=== PATIENT | female | born 1980 | race Caucasian/White ===

== ENCOUNTER 2023-06-02 20:25 | Emergency (ER) | payer OTHER, SELFPAY ==
--- NOTE | 2023-06-02 20:28 | ED_ITS ---
HPI - General Adult General Chief complaint: Urogenital-Female Stated complaint: UTI COMPLAINT Time Seen by Provider: 06/02/23 20:27 History of Present Illness HPI narrative: Patient presents to emergency department complaining of urinary frequency, dysuria and low back pain for the last 3 days. She states she had some pressure when urinating. She denies any fever, chills. Has some nausea denies any vomiting, diarrhea, constipation, or abdominal pain. She denies any vaginal bleeding, discharge. She states she had a urinary tract infection before and it feels like it. She has no previous history of kidney stones. She is not diabetic her glucose has been 180s. He denies any hematuria. She denies any trauma. Related Data Home Medications Medication Instructions Recorded Confirmed amitriptyline 100 mg tablet 100 mg PO DAILY 06/02/23 06/02/23 empagliflozin 10 mg tablet 10 mg PO DAILY 06/02/23 06/02/23 (Jardiance) furosemide 80 mg tablet 80 mg PO DAILY 06/02/23 06/02/23 gabapentin 600 mg tablet 600 mg PO Q12H 06/02/23 06/02/23 metformin 500 mg tablet,extended 500 mg PO DAILY 06/02/23 06/02/23 release 24 hr metoprolol tartrate 100 mg tablet 100 mg PO DAILY 06/02/23 06/02/23 pantoprazole 40 mg tablet,delayed 40 mg PO DAILY 06/02/23 06/02/23 release semaglutide 0.25 mg or 0.5 mg (2 mg subcut 06/02/23 mg/3 mL) subcutaneous pen injector (Ozempic) tizanidine 4 mg tablet 4 mg PO Q8H PRN muscle spasticity 06/02/23 06/02/23 Previous Rx's Medication Instructions Recorded metformin 500 mg tablet 500 mg PO DAILY #30 tabs 06/02/23 Allergies Allergy/AdvReac Type Severity Reaction Status Date / Time No Known Drug Allergies Allergy Verified 06/02/23 20:35 Review of Systems ROS Status of ROS 10 or more systems reviewed and unremarkable except as noted in history and below PFSH PFS Social History Smoking status: Current every day smoker Exam Narrative Exam Narrative: Nurses notes and vital signs reviewed and patient is not hypoxic. General: Nontoxic, Well-appearing and in no apparent distress. Skin: Warm, dry, no pallor noted. No Rash Head: Normocephalic, atraumatic. Neck: Supple, non-tender. Eye: Pupils are equal, round and EOMI. No scleral icterus. Ears, Nose, Mouth, and Throat: TM clear, no posterior oropharynx erythema or nasal mucosal hypertrophy, uvula is mid-line Oral mucosa is moist Cardiovascular: Regular Rate and Rhythm without murmur, gallop or rub. Respiratory: No accessory muscle use or respiratory distress. Lungs are clear to auscultation, no wheezing, rales or rhonchi Chest Wall: no tenderness Back: No midline thoracic or lumbar vertebral tenderness. No CVA tenderness Musculoskeletal: normal ROM, no calf or popliteal tenderness, no lower extremity edema/swelling GI: Abdomen is soft, non-distended. Normal bowel sounds. No masses appreciated. No tenderness to palpation. No rebound, guarding, or rigidity noted. Neurological: A&O x4. No cranial nerve dysfunction observed. No truncal ataxia. Moves all extremities. Sensation intact. Psychiatric: Cooperative and interactive. Normal mood and affect. Constitutional Vital Signs, click to edit/add: Last Vital Signs Temp 97.9 F 06/02/23 20:31 Pulse 96 H 06/02/23 20:31 Resp 18 06/02/23 20:31 BP 126/85 06/02/23 20:31 Pulse Ox 96 06/02/23 20:31 O2 Del Method Room Air 06/02/23 20:31 Course Vital Signs Vital signs: Vital Signs Temperature 97.9 F 06/02/23 20:31 Pulse Rate 96 H 06/02/23 20:31 Respiratory Rate 18 06/02/23 20:31 Blood Pressure 126/85 06/02/23 20:31 Pulse Oximetry 96 06/02/23 20:31 Oxygen Delivery Method Room Air 06/02/23 20:31 Temperature 97.9 F 06/02/23 20:31 Pulse Rate 96 H 06/02/23 20:31 Respiratory Rate 18 06/02/23 20:31 Blood Pressure 126/85 06/02/23 20:31 Pulse Oximetry 96 06/02/23 20:31 Oxygen Delivery Method Room Air 06/02/23 20:31 Medical Decision Making MDM Narrative Medical decision making narrative: Patient's urinalysis does not show the patient to be dehydrated. Did show glycosuria. The patient takes guardians. Patient's glucose is 320. She states she has been working on trying to bring her glucose down but she has not seen her primary care doctor recently to have all of her lupus control testing. Patient is advised to take an extra 500 mg of metformin every morning and follow-up with Dr. hudson for diabetes control testing. There is no clinical indication for antibiotics at this time. Patient is so advised to drink more fluids. At this time the patient is without objective evidence of an acute process requiring hospitalization or inpatient management. The patient has remained hemodynamically stable. No additional indication for emergent studies at this time. I answered all questions. Discussed discharge instructions including standard anticipatory guidance and what should prompt a return to the emergency department, including if they get worse are not getting better or develops any new or concerning symptoms. I've given them specific time frame in which to follow-up, and who to follow-up with. The patient demonstrates understanding. Patient is nontoxic and stable for discharge with outpatient follow-up. This note was created with the assistance of a speech recognition program. Although the intention is to generate documents that actually reflects the content of the visit, no guarantees can be provided that every mistake has been identified and corrected by editing. Lab Data Lab results reviewed: Yes I reviewed the patient's lab results Labs: Lab Results 06/02/23 06/02/23 Range/Units 20:55 21:30 Urine Color Lt. yellow (YELLOW) Urine Clarity Clear (CLEAR) Urine pH 6.0 (5.0-9.0) Ur Specific [place] 1.010 (1.005-1.025) Urine Protein Negative (NEG/TRACE) mg/dL Urine Glucose (UA) >=1000 A (NEGATIVE) mg/dL Urine Ketones Negative (NEGATIVE) mg/dL Urine Occult Blood Negative (NEGATIVE) Urine Nitrite Negative (NEGATIVE) Urine Bilirubin Negative (NEGATIVE) Urine Urobilinogen 0.2 (0.2-1.0) EU/dL Ur Leukocyte Esterase Negative (NEGATIVE) Urine HCG, Qual Negative (NEGATIVE) POC Glucose 321 H (74-106) mg/dL Discharge Plan Discharge Chief Complaint: Urogenital-Female Clinical Impression: Glycosuria, Dysuria, Hyperglycemia Patient Disposition: Home, Self-Care Time of Disposition Decision: 21:38 Condition: Good Mode of Transportation: Private Vehicle Prescriptions / Home Meds: New metformin 500 mg tablet 500 mg PO DAILY Qty: 30 0RF No Action gabapentin 600 mg tablet 600 mg PO Q12H metoprolol tartrate 100 mg tablet 100 mg PO DAILY tizanidine 4 mg tablet 4 mg PO Q8H PRN (Reason: muscle spasticity) furosemide 80 mg tablet 80 mg PO DAILY pantoprazole 40 mg tablet,delayed release (DR/EC) 40 mg PO DAILY metformin 500 mg tablet extended release 24 hr 500 mg PO DAILY amitriptyline 100 mg tablet 100 mg PO DAILY Jardiance 10 mg tablet 10 mg PO DAILY Ozempic 0.25 mg or 0.5 mg (2 mg/3 mL) pen injector SUBCUT Instructions: Dysuria (ED), Diabetic Hyperglycemia (ED) Additional Instructions: Take a total of 1000 mg of metformin in the morning. Follow-up with Dr. Hudson to recheck her blood sugar regarding this visit. Stand Alone Forms: Portal Instructions Referrals: Narinder Hudson MD [Primary Care Provider] - 1 week
[2023-06-02 20:31] VITALS: BP 126/85; PULSE 96; RESP 18; TEMP 36.6; O2SAT 96; BMI 41.3
[2023-06-02 21:10] LABS: Bilirubin Urine NEGATIVE (NEGATIVE); Blood Urine NEGATIVE (NEGATIVE); Clarity Urine CLEAR (CLEAR); Color Urine LT. YELLOW (YELLOW); Glucose Urine UA >=1000 mg/dL (NEGATIVE); Ketones Urine NEGATIVE (NEGATIVE); Leukocyte Esterase Urine NEGATIVE (NEGATIVE); Nitrite Urine NEGATIVE (NEGATIVE); Protein Urine NEGATIVE (NEG/TRACE); Urobilinogen Urine 0.2 EU/dL (0.2-1.0)
[2023-06-02 21:15] LABS: Urine Microscopic Indicated NO
[2023-06-02 21:30] LABS: Glucometer 321 mg/dL (74-106)
[2023-06-02 21:57] LABS: HCG Qualitative Urine* NEGATIVE (NEGATIVE)
== END 2023-06-02 22:04 | disposition home or self-care (01) ==
PROVIDERS: Emergency Provider Emergency Medicine; PCP Family Medicine
DX: R30.0 Dysuria (principal); R81 Glycosuria; R73.9 Hyperglycemia, unspecified; Z79.84 Long term (current) use of oral hypoglycemic drugs; Z79.899 Other long term (current) drug therapy; F17.210 Nicotine dependence, cigarettes, uncomplicated
CPT/HCPCS: 36415; 36416; 81003; 82948; 84703; 99283

== ENCOUNTER 2023-11-04 09:48 | Outpatient (OUT) | payer OTHER, SELFPAY ==
[2023-11-04 10:20] LABS: Basophils Absolute Auto 0.1 10^3/uL (0.0-0.1); Basophils Percent Auto 1.2 % (0.2-2.0); Eosinophils Absolute Auto 0.4 10^3/uL (0.0-0.7); Eosinophils Percent Auto 4.4 % (0.9-7.0); Hematocrit 45.8 % (36.0-48.0); Hemoglobin 15.9 g/dL (12.0-16.0); Immature Granulocytes Abs Auto 0.05 10^3/uL (0.00-0.03); Immature Granulocytes Pct Auto 0.6 % (0.0-0.5); Lymphocytes Absolute Auto 2.6 10^3/uL (1.2-3.8); Lymphocytes Percent Auto 32.2 % (20.5-60.0); Mean Corpuscular HGB Conc 34.7 g/dL (29.9-35.2); Mean Corpuscular Hemoglobin 30.9 pg (26.7-34.0); Mean Corpuscular Volume 89.1 fL (81.0-99.0); Mean Platelet Volume 9.9 fL (9.5-13.5); Monocytes Absolute Auto 0.4 10^3/uL (0.3-0.8); Monocytes Percent Auto 4.6 % (1.7-12.0); Neutrophils Absolute Auto 4.6 10^3/uL (1.4-6.5); Platelet Count 282 10^3/uL (150-450); Red Blood Count 5.14 10^6/uL (4.20-5.40); Red Cell Distribution Width 12.6 % (11.0-15.0); White Blood Count 8.1 10^3/uL (4.0-11.0)
[2023-11-04 12:10] LABS: Estimated Average Glucose 197 mg/dL; Glycohemoglobin A1C 8.5 % (4.5-6.2)
[2023-11-04 12:26] LABS: Anion Gap 15.9; Carbon Dioxide 25.4 mmol/L (21.0-32.0); Chloride 97 mmol/L (98-107); Potassium 4.3 mmol/L (3.5-5.1); Sodium 134 mmol/L (136-145)
[2023-11-04 12:27] LABS: Alanine Aminotransferase 74 U/L (14-59); Albumin Globulin Ratio 0.9; Albumin Level 3.6 g/dL (3.4-5.0); Alkaline Phosphatase 75 U/L (46-116); Aspartate Amino Transferase 53 U/L (15-37); BUN Creatinine Ratio 9.3; Bilirubin Total 0.5 mg/dL (0.2-1.0); Calcium 10.4 mg/dL (8.5-10.1); Cholesterol 227 mg/dL (<=200); Estimated GFR (African America >60 (>=60); Estimated GFR (Non-African Ame >60 (>=60); Glucose 262 mg/dL (74-106); HDL Cholesterol 33 mg/dL (40-60); Total Protein 7.6 g/dL (6.4-8.2); Triglycerides 475 mg/dL (<=150)
[2023-11-04 12:28] LABS: Chol HDL Ratio 6.9; Free T3 3.03 pg/mL (2.18-3.98)
[2023-11-04 12:29] LABS: LDL Cholesterol Direct 118 mg/dL
[2023-11-05 11:08] LABS: Insulin 32.7 uIU/mL (2.6-24.9)
== END 2023-11-04 09:49 | disposition home or self-care (01) ==
LOC: LAB 09:51
PROVIDERS: PCP Family Medicine; Visit Provider Family Medicine
DX: Z00.00 Encounter for general adult medical examination without abnormal findings (principal)
CPT/HCPCS: 36415; 80053; 80061; 82306; 83036; 83525; 83540; 83721; 84436; 84443; 84481; 85025

== ENCOUNTER 2024-11-11 08:33 | Outpatient (OUT) | payer OTHER, SELFPAY ==
--- NOTE | 2024-11-11 08:41 | CT_ITS ---
[place] [id number] Patient Name: ALPHONSO GALE MRN: [id number] date: 1980 Sex: F Assigned Patient Location: LAB Current Patient Location: LAB Accession/Order Number: [id number] Exam Date: 11/11/2024 09:50 Report Date: 11/11/2024 14:45 At the request of: GABINO BEDOLLA Procedure: CT abdomen pelvis w con EXAMINATION: CT abdomen pelvis w con HISTORY: Abdominal Wall Mass COMPARISON: No relevant comparison available. TECHNIQUE: CT images were created with IV contrast. Axial, Coronal, and Sagittal images. Dose reduction techniques were achieved by using automated exposure control and/or adjustment of mA and/or kV according to patient size and/or use of iterative reconstruction technique. FINDINGS: LUNG BASES: No visible pulmonary or pleural disease. LIVER: Diffuse hypoattenuation consistent with hepatic steatosis BILIARY: Surgical clips from cholecystectomy PANCREAS: No lesion, fluid collection, ductal dilatation, or atrophy. SPLEEN: No enlargement or focal lesion. ADRENALS: No mass or enlargement. KIDNEYS: No mass, obstruction, or calcification. BOWEL/MESENTERY: Mild colonic diverticulosis without evidence of acute diverticulitis. Nonobstructive bowel gas pattern. Normal appendix AORTA/VASCULAR: No aortic aneurysm or dissection RETROPERITONEUM: No mass or adenopathy. LYMPH NODES: No adenopathy. URINARY BLADDER: No visible focal wall thickening, lesion, or calculus. PELVIC ORGANS: Hysterectomy ABDOMINAL WALL: 1.5 cm supraumbilical hernia containing fat axial image 100. Soft tissue attenuation at the umbilicus measuring 2 cm axial image 105, nonspecific in the region of the patient's palpable abnormality demarcated with the BB central upper abdominal wall axial image 46 no subjacent abnormality is observed BONES: No bony lesion or fracture. OTHER: Negative. CT/CT abdomen pelvis w con IMPRESSION: No focal mass or hernia in the region of the patient's palpable abnormality demarcated with the BB Electronically authenticated by: EDUARDO MAS Date: 11/11/2024 14:45
[2024-11-11 08:50] LABS: Estimated GFR (African America >60 (>=60 mL/min/1.73m^2); Estimated GFR (Non-African Ame >60 (>=60 mL/min/1.73m^2)
== END 2024-11-11 08:34 | disposition home or self-care (01) ==
LOC: LAB 08:34
PROVIDERS: PCP Family Medicine; Visit Provider Family Medicine
DX: R19.00 Intra-abdominal and pelvic swelling, mass and lump, unspecified site (principal)
CPT/HCPCS: 36415; 74177; 82565; Q9967

== ENCOUNTER 2025-02-18 07:38 | Outpatient (OUT) | payer OTHER, SELFPAY ==
--- NOTE | 2025-02-18 07:41 | MR_ITS ---
The [address] [address] Patient Name: ALPHONSO GALE MRN: [id number] date: 1980 Sex: F Assigned Patient Location: MRI Current Patient Location: MRI Accession/Order Number: [id number] Exam Date: 02/18/2025 08:47 Report Date: 02/18/2025 09:04 At the request of: GABINO BEDOLLA MD Procedure: MR head/brain wo/w con MRI BRAIN WITHOUT AND WITH INTRAVENOUS CONTRAST CLINICAL DATA: Chronic migraine headaches, fatigue and extremity nerve pain. COMPARISON: 04/07/2020 Multiecho, multiplanar imaging of the brain was performed before and after intravenous administration of 20 mL of Dotarem. The ventricles are normal in size and position. Patchy areas of increased FLAIR signal are visualized within the periventricular and subcortical white matter as well as also possibly the right cerebellum and left cerebellar peduncle. Given patient's age, multiple sclerosis plaque is a possibility. Chronic microvascular disease would be thought less likely without risk factors. There are no additional areas of abnormal signal intensity or enhancement within the supra or infratentorial brain. There is no restricted diffusion to suggest a recent ischemic event. No extra-axial collections or mass effect are seen. There are borderline low-lying cerebellar tonsils. Partial empty sella is again seen. The imaged paranasal sinuses and mastoid air cells are clear. MR/MR head/brain wo/w con IMPRESSION: NONSPECIFIC WHITE MATTER CHANGES, DESCRIBED. NO OTHER ACUTE INTRACRANIAL FINDINGS. Impression dictated by: Isabelle Ortiz M.D.02/18/2025 9:04 AM Dictation Location: [place] [address] Electronically authenticated by: [id number] Y Date: 02/18/2025 09:04
--- OUTSIDE RECORDS SUMMARY | 2025-02-18 07:41 | XMS_ITS | CCD ---
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 Name Role Phone Prosche Carvalho Unavailable DR GABINO BULLOCK Admitting Unavailable DR GABINO BULLOCK Attending Unavailable DR GABINO BULLOCK Primary Care Unavailable DR GABINO BULLOCK Admitting Unavailable DR GABINO BULLOCK Attending Unavailable DR GABINO BULLOCK Primary Care Unavailable DR GABINO BULLOKC Consulting Unavailable Allergies Allergy Classification Reported Allergen(s) Allergy Type Date of Onset Reaction(s) Facility (1 source) Egg Propensity to adverse reactions Apiary Other Medications Current Medications Medication Drug Class(es) Dates Sig (Normalized) Sig (Original) [id number] 200 actuat albuterol 0.09 mg/actuat metered dose inhaler (1 source) beta2-Adrenergic Agonist Start: 11-01-2020 take 2 puff(s) by inhalation every four hours as needed Albuterol Sulfate HFA 108 (90 Base) MCG/ACT 2 puffs as needed Inhalation every 4 hrs for 30 days Oct, Active cephalexin 500 mg oral capsule (1 source) Cephalosporin Antibacterial Start: 08-31-2021 take 1 capsule by mouth every six hours Cephalexin 500 MG 1 capsule Orally Four times a day for 10 day(s) Aug, Active dexamethasone 6 mg oral tablet (1 source) Corticosteroid Start: 11-01-2020 take 1 tablet by mouth every twenty-four hours Dexamethasone 6 MG 1 tablet Orally Once a day for 5 days Oct, Active Etodolac (1 source) Nonsteroidal Anti-inflammatory Drug Etodolac Active Furosemide (1 source) Loop Diuretic Furosemide Activ e metFORMIN (1 source) Biguanide metFORMIN HCl Active Metoprolol (1 source) beta-Adrenergic Filiberto Metoprolol Tartrate Active sulfamethoxazole 800 mg / trimethoprim 160 mg oral tablet (1 source) Dihydrofolate Reductase Inhibitor Antibacterial, Sulfonamide Antimicrobial Start: 08-31-2021 take 1 tablet by mouth every twelve hours Bactrim DS 800-160 MG 1 tablet Orally Twice a day for 10 day(s) Aug, Active tiZANidine (1 source) Central alpha-2 Adrenergic Agonist tiZANidine HCl Active Problems Active Problems Problem Classification Problem Date Documented Da te Episodic/Chronic Deficiency and other anemia (1 source) Anemia, unspecified; Translations: [ANEMIA UNSPECIFIED] Onset: 12-16-2022 Episodic Diabetes mellitus without complication (1 source) Type 2 diabetes mellitus without complications; Translations: [TYPE 2 DM WITHOUT COMPLICATIONS] Onset: 12-16-2022 Chronic Essential hypertension (1 source) Essential (primary) hypertension; Translations: [ESSENTIAL PRIMARY HYPERTENSION] Onset: 12-16-2022 Chronic Other nutritional; endocrine; and metabolic disorders (4 sources) Overweight; Translations: [OVERWEIGHT] Onset: 12-13-2022 Episodic Other screening for suspected conditions (not mental disorders or infectious disease) (1 source) Encounter for screening for malignant neoplasm of rectum; Translations: [ENC SCREEN MALIG NEOPLASM RECTUM] Onset: 12-16-2022 Episodic Past or Other Problems Problem Classification Problem Date Documented Da te Episodic/Chronic Skin and subcutaneous tissue infections (1 source) Cutaneous abscess of buttock; Translations: [Abscess of buttock, right L02.31] Onset: 08-31-2021 Resolved: 08-31-2021 Episodic Results Test Name Value Interpretation Reference Range Facility INSULINon 12-14-2022 Insulin 22.4 uIU/mL Normal 2.6-24.9 [facility] Comment on above: Performed By: #### I NSULIN #### [facility] [address] [address] [address] Saul Quispe CBC AUTO DIFFon 12-13-2022 BASO # 0.1 103/ul Normal 0.0-0.1 [facility] Comment on above: Performed By: #### C BC #### [facility] [address] [address] [address] Saul Quispe Basophils/100 WBC (Bld) 0.6 % Normal 0.2-2.0 [facility] Comment on above: Performed By: #### C BC #### [facility] [address] [place] [address] Dr. Saul Quispe EO # 0.2 103/ul Normal 0.0-0.7 [facility] Comment on above: Performed By: #### C BC #### [facility] [address] [place] [address] Dr. Saul Quispe Eosinophils/100 WBC (Bld) 1.2 % Normal 0.9-7.0 [facility] Comment on above: Performed By: #### C BC #### [facility] [address] [place] [address] Dr. Saul Quispe Erythrocyte distribution width (RBC) [Ratio] 12.1 % Normal 11.0-15.0 [facility] Comment on above: Performed By: #### C BC #### [facility] [address] [place] [address] Dr. Saul Quispe Hematocrit (Bld) [Volume fraction] 45.4 % Normal 36.0-48.0 [facility] Comment on above: Performed By: #### C BC #### [facility] [address] [place] [address] Dr. Saul Quispe Hemoglobin (Bld) [Mass/Vol] 15.9 g/dL Normal 12.0-16. 0 [facility] Comment on above: Performed By: #### C BC #### [facility] [address] [place] [address] Dr. Saul Quispe IG # 0.05 10e3/ul Critically high 0.00-0.03 [facility] Comment on above: Performed By: #### C BC #### [facility] [address] [place] [address] Dr. Saul Quispe IG % 0.4 % Normal 0.0-0.5 [facility] Comment on above: Performed By: #### C BC #### [facility] [address] [place] [address] Dr. Saul Quispe LYMPH # 1.7 103/ul Normal 1.2-3.8 [facility] Comment on above: Performed By: #### C BC #### [facility] [address] [place] [address] Dr. Saul Quispe Lymphocytes/100 WBC (Bld) 12.8 % Critically low 20.5-6 0.0 [facility] Comment on above: Performed By: #### C BC #### [facility] [address] [place] [address] Dr. Saul Quispe MANUAL DIFF REQ NO Normal [facility] Comment on above: Performed By: #### C BC #### [facility] [address] [place] [address] Dr. Saul Quispe MCH (RBC) [Entitic mass] 31.0 pg Normal 26.7-34.0 [facility] Comment on above: Performed By: #### C BC #### [facility] [address] [place] [address] Dr. Saul Quispe MCHC (RBC) [Mass/Vol] 35.0 g/dL Normal 29.9-35.2 [facility] Comment on above: Performed By: #### C BC #### [facility] [address] [place] [address] Dr. Saul Quispe MCV (RBC) [Entitic vol] 88.5 fL Normal 81.0-99.0 [facility] Comment on above: Performed By: #### C BC #### [facility] [address] [place] [address] Dr. Saul Quispe MONO # 0.5 103/ul Normal 0.3-0.8 [facility] Comment on above: Performed By: #### C BC #### [facility] [address] [place] [address] Dr. Saul Quispe Monocytes/100 WBC (Bld) 3.6 % Normal 1.7-12.0 [facility] Comment on above: Performed By: #### C BC #### [facility] [address] [place] [address] Dr. Saul Quispe NEUT # 11.0 103/ul Critically high 1.4-6.5 [facility] Comment on above: Performed By: #### C BC #### [facility] [address] [place] [address] Dr. Saul Quispe Neutrophils/100 WBC (Bld) 81.4 % Critically high 43.0- 75.0 [facility] Comment on above: Performed By: #### C BC #### [facility] [address] [place] [address] Dr. Saul Quispe Platelet mean volume (Bld) [Entitic vol] 9.8 fL Normal 9.5-13.5 [facility] Comment on above: Performed By: #### C BC #### [facility] [address] [address] [address] Saul Quispe PLT 248 103/ul Normal 150-450 [facility] Comment on above: Performed By: #### C BC #### [facility] [address] [place] [address] Dr. Saul Quispe RBC 5.13 106/ul Normal 4.20-5.40 [facility] Comment on above: Performed By: #### C BC #### [facility] [address] [place] [address] Dr. Saul Quispe WBC 13.4 103/ul Critically high 4.0-11.0 [facility] Comment on above: Performed By: #### C BC #### [facility] [address] [place] [address] Dr. Saul Quispe DIRECT LDLon 12-13-2022 Cholesterol in LDL [Mass/Vol] 81 mg/dL Normal [facility] Comment on above: Performed By: #### T 7, TSH, DLDL, LIPID, CMP #### [facility] [address] [place] [address] Dr. Saul Quispe DLDL NORMAL SEE BELOW Normal [facility] Comment on above: Result Comment: <100 mg/dl OPTIMAL 100 - 129 mg/dl NEAR OR ABOVE OPTIMAL 130 - 159 mg/dl BORDERLINE HIGH 160 - 189 mg/dl HIGH >190 mg/dl VERY HIGH Performed By: #### T 7, TSH, DLDL, LIPID, CMP #### [facility] [address] [place] [address] Dr. Saul Quispe FREE THYROXINE INDEX T7on FTI 3.53 Normal 1.30-4.50 [facility] Comment on above: Performed By: #### T 7, TSH, DLDL, LIPID, CMP #### [facility] [address] [address] [address] Saul Quispe T3U 36.0 % Normal 30.0-39.0 [facility] Comment on above: Performed By: #### T 7, TSH, DLDL, LIPID, CMP #### [facility] [address] [place] [address] Dr. Saul Quispe T4 [Mass/Vol] 9.80 ug/dL Normal 4.80-13.90 [facility] Comment on above: Performed By: #### T 7, TSH, DLDL, LIPID, CMP #### [facility] [address] [place] [address] Dr. Saul Quispe GLYCOHEMOGLOBIN A1Con 2022 ADA RECOMMENDATION SEE BELOW Normal [facility] Comment on above: Result Comment: ADA RECOMMENDED LIMIT 4.0 - 6.0 ADA THERAPEUTIC TARGET < 7.0 ACTION SUGGESTED > 7.0 Performed By: #### A 1C #### [facility] [address] [place] [address] Dr. Saul Quispe Glucose [Mass/Vol] 272 mg/dL Normal [facility] Comment on above: Performed By: #### A 1C #### [facility] [address] [place] [address] Dr. Saul Quispe HbA1c (Bld) [Mass fraction] 11.1 % Critically high 4.5 -6.2 [facility] Comment on above: Performed By: #### A 1C #### [facility] [address] [place] [address] Dr. Saul Quispe IRONon 12-13-2022 Iron [Mass/Vol] 44.0 ug/dL Critically low 50.0-170.0 [facility] Comment on above: Performed By: #### I PRANAV #### [facility] [address] [place] [address] Dr. Saul Quispe LIPID PROFILEon 12-13-2022 CHOL-HDL RATIO NORM SEE BELOW Normal [facility] Comment on above: Result Comment: 3.3 - 4.4 LOW RISK 4.4 - 7.1 AVERAGE RISK 7.1 - 11.0 MODERATE RISK >11.0 HIGH RISK Performed By: #### T 7, TSH, DLDL, LIPID, CMP #### [facility] [address] [address] [address] Saul Quispe Cholesterol [Mass/Vol] 254 mg/dL Critically high <=200 [facility] Comment on above: Performed By: #### T 7, TSH, DLDL, LIPID, CMP #### [facility] [address] [address] [address] Saul Quispe Cholesterol in HDL [Mass/Vol] 26 mg/dL Critically low 40 -60 [facility] Comment on above: Performed By: #### T 7, TSH, DLDL, LIPID, CMP #### [facility] [address] [place] [address] Dr. Saul Quispe Cholesterol.total/Cholestero l in HDL [Mass ratio] 9.8 {ratio} Normal [facility] Comment on above: Performed By: #### T 7, TSH, DLDL, LIPID, CMP #### [facility] [address] [place] [address] Dr. Saul Quispe HDL NORMAL > or = 60 mg/dl - LOW CARDIOVASCULAR RISK <40 mg/dl - HIGH CARDIOVASCULAR RISK Normal [facility] Comment on above: Performed By: #### T 7, TSH, DLDL, LIPID, CMP #### [facility] [address] [address] [address] Saul Quispe Triglyceride [Mass/Vol] 1343 mg/dL Critically high <=150 [facility] Comment on above: Performed By: #### T 7, TSH, DLDL, LIPID, CMP #### [facility] [address] [address] [address] Saul Quispe VLDL CALC 268.6 mg/dL Normal [facility] Comment on above: Performed By: #### T 7, TSH, DLDL, LIPID, CMP #### [facility] [address] [place] [address] Dr. Saul Quispe PROF 14(COMP METB)on 023 Albumin [Mass/Vol] 3.7 g/dL Normal 3.4-5.0 [facility] Comment on above: Performed By: #### T 7, TSH, DLDL, LIPID, CMP #### [facility] [address] [address] [address] Saul Quispe Albumin/Globulin [Mass ratio] 1.0 {ratio} Normal [facility] Comment on above: Performed By: #### T 7, TSH, DLDL, LIPID, CMP #### [facility] [address] [place] [address] Dr. Saul Quispe ALP [Catalytic activity/Vol] 98 U/L Normal 46-116 [facility] Comment on above: Performed By: #### T 7, TSH, DLDL, LIPID, CMP #### [facility] [address] [place] [address] Dr. Saul Quispe ALT [Catalytic activity/Vol] 65 U/L Critically high 14 -59 [facility] Comment on above: Performed By: #### T 7, TSH, DLDL, LIPID, CMP #### [facility] [address] [place] [address] Dr. Saul Quispe Anion gap [Moles/Vol] 18.6 mmol/L Normal [facility] Comment on above: Performed By: #### T 7, TSH, DLDL, LIPID, CMP #### [facility] [address] [place] [address] Dr. Saul Quispe AST [Catalytic activity/Vol] 39 U/L Critically high 15 -37 [facility] Comment on above: Performed By: #### T 7, TSH, DLDL, LIPID, CMP #### [facility] [address] [place] [address] Dr. Saul Quispe Bilirubin [Mass/Vol] 0.6 mg/dL Normal 0.2-1.0 [facility] Comment on above: Performed By: #### T 7, TSH, DLDL, LIPID, CMP #### [facility] [address] [place] [address] Dr. Saul Quispe Calcium [Mass/Vol] 10.1 mg/dL Normal 8.5-10.1 [facility] Comment on above: Performed By: #### T 7, TSH, DLDL, LIPID, CMP #### [facility] [address] [address] [address] Saul Quispe Chloride [Moles/Vol] 95 mmol/L Critically low 98-107 [facility] Comment on above: Performed By: #### T 7, TSH, DLDL, LIPID, CMP #### [facility] [address] [place] [address] Dr. Saul Quispe CO2 [Moles/Vol] 26.1 mmol/L Normal 21.0-32.0 [facility] Comment on above: Performed By: #### T 7, TSH, DLDL, LIPID, CMP #### [facility] [address] [place] [address] Dr. Saul Quispe Creatinine [Mass/Vol] 0.48 mg/dL Critically low 0.55-1.02 [facility] Comment on above: Performed By: #### T 7, TSH, DLDL, LIPID, CMP #### [facility] [address] [place] [address] Dr. Saul Quispe EGFR-AF ALBANIAN >60 Normal >=60 [facility] Comment on above: Performed By: #### T 7, TSH, DLDL, LIPID, CMP #### [facility] [address] [place] [address] Dr. Saul Quispe EGFR-NON AF ALBANIAN >60 Normal >=60 [facility] Comment on above: Performed By: #### T 7, TSH, DLDL, LIPID, CMP #### [facility] [address] [place] [address] Dr. Saul Quispe Globulin (S) [Mass/Vol] 3.7 g/dL Normal [facility] Comment on above: Performed By: #### T 7, TSH, DLDL, LIPID, CMP #### [facility] [address] [place] [address] Dr. Saul Quispe Glucose [Mass/Vol] 332 mg/dL Critically high 74-106 [facility] Comment on above: Performed By: #### T 7, TSH, DLDL, LIPID, CMP #### [facility] [address] [place] [address] Dr. Saul Quispe Potassium [Moles/Vol] 3.7 mmol/L Normal 3.5-5.1 [facility] Comment on above: Performed By: #### T 7, TSH, DLDL, LIPID, CMP #### [facility] [address] [place] [address] Dr. Saul Quispe Protein [Mass/Vol] 7.4 g/dL Normal 6.4-8.2 [facility] Comment on above: Performed By: #### T 7, TSH, DLDL, LIPID, CMP #### [facility] [address] [place] [address] Dr. Saul Quispe Sodium [Moles/Vol] 136 mmol/L Normal 136-145 [facility] Comment on above: Performed By: #### T 7, TSH, DLDL, LIPID, CMP #### [facility] [address] [place] [address] Dr. Saul Quispe Urea nitrogen [Mass/Vol] 8.0 mg/dL Normal 7.0-18.0 [facility] Comment on above: Performed By: #### T 7, TSH, DLDL, LIPID, CMP #### [facility] [address] [place] [address] Dr. Saul Quispe Urea nitrogen/Creatinine [Mass ratio] 16.7 mg/mg Normal [facility] Comment on above: Performed By: #### T 7, TSH, DLDL, LIPID, CMP #### [facility] [address] [place] [address] Dr. Saul Quispe TSHon 12-13-2022 TSH 2.109 uIU/mL Normal 0.358-3.740 [facility] Comment on above: Performed By: #### T 7, TSH, DLDL, LIPID, CMP #### [facility] [address] [place] [address] Dr. Saul Quispe Consultation Noteon 09-23-20 21 Consultation Note [id number] D4#[id number]:127 Normal [facility] IntraOperative Documentson 1 IntraOperative Documents [id number]:127 Normal [facility] Coding Summary.on 08-21-2021 Coding Summary. CD:[id number] XOx6sMa+PGhlYWQ+PE1 XEELwA34ktAQapW3CI4 vTDX9AODTGOUANOD7SK K0nbCP9XAuqU5SdkeTu UawefNCsFF12FMb9PNN 9eSprBCpgbJ3xkFZaU4 p5ZsBsGU63mT62RHrpC VEhBnV3ApQdsnsubKHv N9sfFiYtnMGbHmu+PHR hYmxlIHdpZHRoPScxMD VkXuXhdVusVR0aSd1wG GVyLWNvbGxhcHNlOiBj c8yqJRDyAGmxJN0yyUl nP3ZloVZ0YTXzp9b4Nt 48dHI+KVMnILJ6xLytS Ndzz635FnQmp3zfTPD6 dMRiLRhdISH5Z05zj3U 4HTXqFWPzIXV0vIP8yR 1peRjljxdtL7FkbUGlM sL3USG5dOLjxQ5jvQiv calypT6nJkz+U08GFR3 QIRDZLH4AIfz4K4BxIu wvdHI+GA36ADEkGP90o CZyrYTnj6cykAj0AqKp FAOjUKF2dWlbNAawa4U aTITjY81bkFEts3W0ET JqoYzqwMAuSzSgpFL5i C7eTXaxbyjfh2mgyowa Yaxcl7vbcy42rM91B44 aNOhnRMWlXYJ7SADgCV EbaQduwa3qhU3tXi2+I Juqh1mwh8eruEn6KgCe WKRhgnVstSbvZOQ3u1J iZa74Q7RulBwlf3RnXp n5mt85wFObo6I4iVK0K UayYHIslP5qUYygBqC0 JBHxHdGutL76mPNdYIe dMq3ggUffwFkgYO5eDU OjzmpeLMWglC2zMQIno VAmpHcwJM6wMRZbvopp v260JdDnQQL1KHBldPZ wB8FkyK8vXvWgENWsJO YpS4DniXEpOFvjY192S NkwAuA6WPYdqfUyV4Pw ENOerLkjGuX6a4Y5Uc6 Ga1VklnqiCTY2ZWesWT JoIbL9IjVpMiL0U5EkE aj7IHPcuYipDM8kM6Zy MPMqflbhbvegfKQ9QFO bTRGufZ15jVRpEDrxAt 5ry8Q1b883ZYVxPUYuv U99Da5twNigAYNagWPJ aB9xvpsek6jgtmlwZwG nUGXaKEy3AFh4SLRwnD grAvGcZCA6SzT8CQV3a OJkoA5acRgudjwxgC8t Oyc+G99alQ1eGEY5NJS 0dlwiUTCgevEvNL96XG 02O7KlDtjmqLOpuKR+P GAgnfRvfIodEC8gWgEx b2sww9TdWGvwS0PhMAM eOAfqWqb6FVJgJWF9jP I1zM8aCQQnKSvzc6F2r JW5H3XyesJrto2hz4zv OWQuFHdfV08jeHKyy7S 0OGGdwED6JFYnsGzgVt ClgM20Kcc+PGNvbGdyb 1UzKlldb3zui7ecvGp9 IjMwJSIgdmFsaWduPSJ 6x0UlWf93U61gHEomDX RoPSIxNSUiIHZhbGlnb j2oqZ2bBs6+PGNvbCB3 eCK4bX1bFASsWpO5QRo xF765HgDgwREsCdqmc2 fvu9xntMj9EoCwHRHyu eNizHjzPOB0y5GbUo95 M09uQRviUOMsUZFbSTB fAFVuoTlfqo7odY4oWf 8+JI3mv0txke11xP71w HI+QDRcTVB4rQtoKErp GMKeyO5xMBpvMtA7TFG iMqXyzD27mQQkWHafWh 3nfVwbyGicRS4dEGEkd ovwa665WbIar6mxMHZo nETpCUtmGWS7W73hu8W 6ETCySYBhWEZ1mMH2jR 1hbGlnbjogbGVmdDsgd xZyiTfpUJuwASuzI411 IHRvcDsnPlBhdGllbnQ uPtUhCKg3G3AbXdk5GY KxjZweYG1epGLwXJzcT j4olTsjzShmKD8uBSGc oglqp605RfJcf3xxBYK kzQIiKCruBAU6Z98oh6 G9ARWzONCpCVO0lBH4j G8pzCllvkejjSZatYxk kqEpwAufQIclDDkuV94 6IHRvcDsnPkJpcnRoIE VzmNS4XY00ZE82wOIps 3F3uPC1E5BvUPPzvwdx xnjhnKF8JAPdXROxxA1 7Uv4paTtoFm9iWUEeBV T5RAFleAMnE1QvtF2uK pMbZYJgQEBxB8FfaGBs JBjxC654ZMfiZpK9WEA rroYhD1OwOVTonCxqDx D2p7W2Rj6XZ6C2FP23T X77hVPcn3N4mWR9X9Ua CYZlytnwnyukkBT8PES cRBQnbM79Jb5bpPvrXq 9uIDKxGHG3DTMyhHUfS 4KvxZ3dHhNrYMVhDDSx K6LvaMPwEQcdF212ZAi pFaF2NWTsjxGbT0JnPJ UtbOzgYoT9k1W8Gf5BX Ey4LZ57HO52ySLgi1U1 uMC0M5AmZUPbmczrwsj tqNR9QZSpEFWvnQ06Ij 1mdMkqTd0lJSSqEHX6N VXahXMwZ4PfbN7tDoFl GXVtWZAzS2TxcJEvVCn fI561OScbXsB7WDMkyk UcC6ZpQUKrkCaaDuC3e 9D6Vs7YXZVhRT07DBZ6 lMV4ZZ94KT67P0QjAqr vdGFibGU+PHRhYmxlIH dpZHRoPScxMDAlJyBzd OmqMS4vBs0fXEFtDNMg sGitgZTpUkIbc1lfBJI eQPjwEQ3xaGhkG4CbqU I7QAKly4n3Fs30D78pP 3JvdXA+JSNmbFO0hCN6 gI2lRtSqJsW9KYdlQ16 0ZpRzeOLoKzrpj2rxz0 mlaIh9HmM5LHRsugZnp XslWBR1i4FmQc59W32p IHdpZHRoPSIxNSUiIHZ rbFvowm9coU8kBk4+PG FyvKG7bXP7dM7yXnYqL qW3IYowD967VwMnsMUd Ctjxz2vtz6lpeQl0UuE uCGZxvvCplSgyHGE5x0 OqDh53S5NvoRyrl0PvC jk7jt22bCLmg3A2fAR5 M6NwLWHsdqsiyAWsoQo eVQ0zXGClycrdMLXrgN 5wMGOuA5e8FvYuQrA3N NuyK5BoccC2ZQSosQSj THtmTIV0U15md2S0MRM nVGMqOQL2uYB5vL9dyM lnbjogbGVmdDsgdmVyd RahPPtyRIhsT051LZGi sGbeYDIgoW7pYVEdgEE faAojEC2nSQRhgrrjNa 3UM95PPLBUNaxJZQCCT Zh3Y9IcWye5WQAdjOwk QS5iiRWuFTgvTr0exSr haFbvPW4pYYZjnjyiBQ BqtF9wMYOsoPDanTcmB E4zIJDbufkts421SkXl FJX6GIQaxVXeO9HitU0 jVaTlOJYwQOFpO7BwgT RgPAdcJ204EVrzWqQ1A HKrntFbR4UfQTXnjUgi AyH8l1B1Qu6qUu0aNz4 vYPw6BK64LJ15hFHyw6 Q4yNH4G0UkXMCxywjlr ihrzMB5SUOgZIStoA37 mARfIXhjKb0gg1A6m75 4IQNyAWOigG05Kq8eqL jiYZAkhBHZdE1azealo 0qhsftkSeNzWZYwJYu3 MQe5XQOwdWjzLhMpWZB 0XdS9YSK8sDByhD6phV elqtohvK5eNdu+NDIgW GRkkfL9N7TgHqp1OGGi aVmvFR8rmGVkSVfxUp1 ghLikfIkhDU3dIZYjfq wsRTBckP6gPAOupONwl NqpEM2fCYUsnygjn983 OxPqZYK3LOKjnBBeG9T hbG6vEiXrOCZjHRFqN1 FktKXaHKumR148ZZkyN iR4WPCcdyDoM6KhBOPy hXerJcK5x1Q9Gy6BQC0 xdIV3W5NoTux2MSPbrK atMM1ypJKdTEfqUj9na UvirTpnPC4gZMDlzdgw GPWfdI7sJSNtdHIrsJc bUC0pTQKwgahfm307Gx ZfQNW1ZLYmlDEpX2Paq L9hZcFdMACmZBZfY6Bx wRXiZMoyY415PZykRrN 7FSZyrcZqL2FpIZHsuD toMlM5o5O2Kf2GoFFnI AAjDU26JA52KO10B1Os PjwvdGFibGU+PHRhYmx lIHdpZHRoPScxMDAlJy CuoSgiWD4kXb8jIEHwK ORsfGikdWKeYpJin6on FHVjARjkZO8mwOlrF9N zjAI4RSTtu1z4Yo52M8 0uM8EdiYN+KVYxjQN1k OX4eB6bFpZdWyN7JHos E691QtHqaJUxBawac9g tv2fdcTf1FfOjSTBalg JksBgnNYW9w1XaMb37J 29sIHdpZHRoPSIyMCUi YFBikGoghf9qaP3eKg1 +RJMbfJQ9zIC8xJ2iKb TwWtU5MBijY948UzClv LXoCqomZ70oF6DzfRH+ EMGwWcn6CIQupNgtPC9 fsWRnYGusLr0fBWI7Fk IfDeYmACqzN1NaCJTda bvygepinAJ7DPSgXYHn jI64Mc7rrVdtLy3eTSQ zLYS9YNFixGTxV4DsmB 7nCcCiXITwCRFgZ2Rpf OMaISuoN068HNhbBuZ3 DRMukyCsA7YtJAOtjTd oHqJ7k4G8Ir7DtAhinK WyQB1mLjQlAOa7G3IqU yo2SDXasNnbTH7qdVTr KInoKe3hbMezvZvzCM2 yFXOgynlxh572CyImk2 gtLPAwsGCxZOdkRSZ2U 65xe8M8UEIcBTZfAFF6 gEB9zK2keXatjzbfoDW mdDsgdmVydGljYWwtYW mkS540UOIaaYhiOhBQB qg6J8FlBya1MNOrbRpd OY6bvMJnANeeEx9meWm zbXnlSV4bHNIduacmr6 82KiClu7cpGTOgpNZeV ExiPLK3M22fb4U8SAYg MPRpJTJ5yDD8mS0ayEt nbjogbGVmdDsgdmVydG oyATxhURroL676INAzj JthXl9RGyo7F2UyBnq0 BKLfoOcsBJ3epCOcLAi hDe1gjYyudCosRE0zQK Rvkxxxz042FmYyo2xgW LTcfGWgUGlfOTO4H28x x9G2PHGcMSWfGBJ3fAK 7mN5xtFotqwajvTIzvL sgdmVydGljYWwtYWxpZ 246IHRvcDsnPlBheWVy OjwvdGQ+IB50vk25E2R vFvdiVss4WSVhWBX6wN V1vM7gVQKiDOigs6B8n OG2A5ZotsAjjh1nq3yf YXBz (more content not included)... Normal [facility] Main OR Intraoperative Recor don 08-20-2021 Main OR Intraoperative Record IntraOp Do cument Type FT Summary Primary Physician: Pascual CALDERÓN MD Finalized Date/Time: 08/20/21 15:00:41 Pt. Name: ALPHONSO GALE /Sex: 1980 Female Med Rec #: [id number] Physician: Pascual CALDERÓN MD Financial #: [id number] Pt. Type: O Room/Bed: / Admit/Disch: 08/13/21 06:26:16 - 08/13/21 23:59:59 Institution: Case Times FT Entry 1 Patient Times In Room 08/13/21 07:34:00 Out Room 08/13/21 08:01:00 Procedure Times Start 08/13/21 07:38:00 Stop 08/13/21 07:55:00 Anesthesia Times Start 08/13/21 07:34:00 Stop 08/13/21 08:01:00 Time at [place] 08/13/21 07:51:00 Last Modified By: Sudha Epstein RN 08/13/21 08:05:35 General Comments: 08/15/21 Chart opened to review and send charges Radha LAL Case Attendance FT Entry 1 Entry 2 Entry 3 Case Attendee James JETER, Bogdan CALDERÓN MD, Sudha Braun RN Role Performed [place] Surgeon - Primary Remote Encoding Center Manager - Primary Time In 08/13/21 07:34:00 08/13/21 07:34:00 08/13/21 07:34:00 Time Out 08/13/21 08:01:00 10/11/21 08:01:00 08/13/21 08:01:00 Procedure EGD AND COLONOSCOPY(.) EGD AND COLONOSCOPY(.) EGD AND COLONOSCOPY(.) Comments DR FREEMAN SUPERVISING [facility] STUDENT - OBSERVING Last Modified By: Sudha Epstein RN, RN, Sudha Moses RN 08/13/21 08:05:38 08/13/21 08:05:38 08/13/21 08:05:38 Entry 4 Case Attendee Susana Ramos Role Performed Scrub - Primary Time In 08/13/21 07:34:00 Time Out 08/13/21 08:01:00 Procedure EGD AND COLONOSCOPY(.) Comments Last Modified By: Sudha Epstein RN 08/13/21 08:05:38 Perioperative Protocols FT Pre-Care Text: Implements protective measures prior to operative or invasive procedure, confirms identity before the operative or invasive procedure, verifies operative procedure, surgical site, and laterality Entry 1 Procedure(s) EGD AND COLONOSCOPY(.) Patient Identity Birthday, ID Band Verified (select at Check, Patient least 2): Participation Consents / H and P Anesthesia Consent, Operative Site N/A Verified HandP, Surgery/Procedure Marking Verified Consent Surgical Site Yes Laterality Verified Yes Verified Procedure Verified Yes Correct Patient Yes Position Verified Availability Equipment, Medication Prep Dry n/a Verified (If Applicable) PreOp Antibiotic No Time Out Bogdan Ramirez CRNA, Given Participants MELE FREITAS, Lucian Aj RN, Rachel Torres Rachel L Time Out Complete 08/13/21 07:36:00 Outcomes Met? Yes Last Modified By: Sudha Epstein RN 08/13/21 07:38:48 Post-Care Text: The patient is free from signs and symptoms of injury caused by extraneous objects Allergy Information FT Pre-Care Text: Verifies allergies Entry 1 Allergies Reviewed? Yes Allergies Reviewed Self/Patient With Outcomes Met? Yes Last Modified By: Sudha Epstein RN 08/13/21 07:38:50 Post-Care Text: The patient received appropriate medication(s) safely administered during the perioperative period Surgical Procedures FT Entry 1 Procedure Description Procedure EGD AND COLONOSCOPY Modifiers . Surgeon Description EGD AND COLONOSCOPY Primary Procedure Yes Primary Surgeon Pascual CALDERÓN MD Start 08/13/21 07:38:00 Stop 08/13/21 07:55:00 Anesthesia Type General Surgical Service General Wound Class 2 - Clean-Contaminated Last Modified By: Sudha Epstein RN 08/13/21 08:06:10 General Case Data FT Pre-Care Text: Classifies surgical wound, implements aseptic technique, initiates traffic control Entry 1 Case Information OR ENDO 2 FT Case Level Level 2 Wound Class 2 - Clean-Contaminated Specialty General ASA Class 3 Preop Diagnosis GERD , ABDOMINAL PAIN Postop Same As Preop No Postop Diagnosis GERD , ABDOMINAL PAIN; Outcomes Met? Yes BILE RELUX; REDUNDANT COLON Last Modified By: Sudha Epstein RN 08/13/21 08:05:56 Post-Care Text: The patient is free from signs and symptoms of infection Skin Assessment (Pre Procedure) FT Pre-Care Text: Implements protective measures to prevent skin/ tissue injury due to thermal or mechanical sources Evaluates for signs and symptoms of physical injury to skin and tissue Entry 1 Skin Integrity Intact, [place], Warm, and Skin Abnormality No Dry Outcomes Met? Yes Last Modified By: Sudha Epstein RN 08/13/21 07:39:01 Post-Care Text: The patient is free from signs and symptoms of injury caused by extraneous objects Patient Positioning FT Pre-Care Text: Identifies physical alterations that require additional precautions for procedure-specific positioning, verifies presence of prosthetics or corrective devices, positions the patient, evaluates the patient for signs and symptoms of injury as a result of positioning Entry 1 Procedure EGD AND COLONOSCOPY(.) Body Position Lateral, right side up Feet Uncrossed? Yes Left Arm Position Resting at Side Right Arm Position Resting at Side Left Leg Po (more content not included)... Normal [facility] Postoperative Documentson Postoperative Documents [id number] 148#1.00CD:127 Normal [facility] Progress Note-Physicianon Progress Note-Physician Patient: ALPHONSO GALE Age: 41 years Sex: Female : 1980 Associated Diagnoses: None Author: Ramin Freeman MD Preoperative Information Anesthesia history: Patient History: No personal or Family history of problems with anesthesia. Re-eval prior to induction: Inital eval reviewed: No significant interval change. Review of Systems Constitutional: Negative. Cardiovascular: Cardiovascular risk stratafacation reviewed, 1 FOS without difficulty, No chest pain. Respiratory: No SOB. Hematology/Lymphati cs: Negative. Gastrointestinal: as per HPI. Musculoskeletal: Negative. Neurologic: Negative. Health Status Allergies: Allergic Reactions (Selected) No Known Medication Allergies Nonallergic Reactions (Selected) Severity Not Documented Eggs- Abdominal pain and nausea and vomiting. Current medications: (Selected) Documented Medications Documented MetFORMIN (Eqv-Glucophage XR) 500 mg oral tablet, extended release: 500 mg = 1 tab(s), Oral, BID, Refills(s) 0, High blood sugar Pantoprazole [address] Tab: 40 mg = 1 tab(s), Oral, Daily, Refills(s) 0, Control of stomach acid Potassium Chloride (Iot-Soil-Luo M10) 10 mEq oral tablet, extended release: 10 mEq = 1 tab(s), Oral, BID, Refills(s) 0, Prophylaxis Vitamin D3 2000 intl units oral tablet: 50 mcg = 1 tab(s), Oral, Daily, Refills(s) 0, Prophylaxis furosemide 80 mg Tab: 80 mg = 1 tab(s), Oral, Daily, Refills(s) 0, diuretic/water pill gabapentin 300 mg Cap: 300 mg = 1 cap(s), Oral, TID, Refills(s) 0, Neuropathy hyoscyamine Sublingual: Refills(s) 0 terbinafine 250 mg Tab: 250 mg = 1 tab(s), Oral, Daily, Refills(s) 0 tiZANidine 4 mg Tab: 4 mg = 1 tab(s), Oral, Bedtime, Refills(s) 0, Muscle pain Problem list: All Problems HTN (hypertension) / SNOMED CT 7723213738 / Confirmed Diabetes / SNOMED CT 959424075 / Confirmed Epigastric pain / SNOMED CT 818351980 / Confirmed Vitamin deficiency / SNOMED CT 886185182 / Confirmed Neuropathy / SNOMED CT 4198095186 / Confirmed Change in bowel habits / SNOMED CT 157391038 / Confirmed BMI 50.0-59.9, adult / SNOMED CT 7392966155 / Confirmed Abnormal abdominal CT scan / SNOMED CT 7206070569 / Confirmed GERD (gastroesophageal reflux disease) / SNOMED CT 973037979 / Confirmed Chronic GERD / SNOMED CT 291970695 / Confirmed Edema / SNOMED CT 139124884 / Confirmed Abdominal pain, LLQ / SNOMED CT 905608787 / Confirmed Hypokalemia / SNOMED CT 88291166 / Confirmed Histories Past Medical History: No active or resolved past medical history items have been selected or recorded. Procedure history: Closed fracture of lower jaw bone (0873686107). Extraction of wisdom tooth (211215297). section (80692707). Cholecystectomy (64643193). Abdominal hysterectomy (874726545). Social History Social & Psychosocial Habits Alcohol 07/10/2021 Risk Assessment: Denies Alcohol Use Substance Abuse 07/10/2021 Risk Assessment: Denies Substance Abuse Tobacco 07/10/2021 Tobacco Use: 10 or more cigarettes (1/ Type: Cigarettes Tobacco use per day: 19 Started at age: 13.0 Years Smoking Cessation Yes . Physical Examination Pain assessment: Self-reports no pain. Airway: Mallampati classification: II (soft palate, fauces, uvula visible). Distance: Adequate. Mouth: Adequate opening. Neck: Full range of motion. Respiratory: Respirations are non-labored. Cardiovascular: Regular rhythm. Neurologic: Alert, Oriented. Review / Management Results review: No qualifying data available . Plan [place] [employer] (ASA) physical status classification: Class III. Anesthetic Preoperative Plan Anesthesia: General. , Pt advised of the benefits of obstaining from tobacco products. Anesthetic plan, risks, benefits, and alternatives discussed with the patient and/or family. Patient verbalized understanding. Pt agrees with anesthetic plan and accepts all risks including but not limited to; Bleeding, infection(including covid-19), nerve injury, dental injury, eye injury, headache, low blood pressure, serious problems with the heart and lungs, allergic reactions, and .. Normal [facility] Comment on above: Result Comment: Elec tronically Signed By: Pete FREITAS, Ramin\.br\Date and Time Signed: 08/16/21 14:50 EDT Progress Note-Physician Patient: ALPHONSO GALE Age: 41 years Sex: Female : 1980 Associated Diagnoses: None Author: Ramin Freeman MD Postoperative Information Post Operative Note: Post Anesthesia Care Unit. Anesthetic utilized: General. Health Status Allergies: Allergic Reactions (All) No Known Medication Allergies Nonallergic Reactions (All) Severity Not Documented Eggs- Abdominal pain and nausea and vomiting. Problem list: All Problems HTN (hypertension) / SNOMED CT 4702833204 / Confirmed Diabetes / SNOMED CT 217077395 / Confirmed Epigastric pain / SNOMED CT 870068933 / Confirmed Vitamin deficiency / SNOMED CT 916188782 / Confirmed Neuropathy / SNOMED CT 6493399308 / Confirmed Change in bowel habits / SNOMED CT 032496828 / Confirmed BMI 50.0-59.9, adult / SNOMED CT 3471610896 / Confirmed Abnormal abdominal CT scan / SNOMED CT 6153150809 / Confirmed GERD (gastroesophageal reflux disease) / SNOMED CT 966752311 / Confirmed Chronic GERD / SNOMED CT 245442069 / Confirmed Edema / SNOMED CT 320125597 / Confirmed Abdominal pain, LLQ / SNOMED CT 453585234 / Confirmed Hypokalemia / SNOMED CT 06635763 / Confirmed Physical Examination Intake and Output Adequate hydration Pain assessment: Self-reports no pain. General: Alert and oriented, No acute distress. Eye: Vision unchanged. HENT: Oral mucosa is moist, dentition unchanged. Respiratory: Respirations are non-labored. Cardiovascular: Normal rate, Regular rhythm. Neurologic: Alert, Oriented. Assessment Anesthetic outcome No anesthetic complications noted. No Complaint of nausea and vomiting. Plan Transfer/ Discharge: Patient can be discharged from PACU when criteria met. Condition good. Normal [facility] Comment on above: Result Comment: Elec tronically Signed By: Ramin Freeman MD\.br\Date and Time Signed: 08/16/21 14:50 EDT Reminderson 08-14-2021 Reminders -- From: Kiana Burnett LPN To: N - Clinical; Sent: 08/14/2021 10:10:39 EDT Show up: 07/14/2031 09:00:00 EDT Subject: colonoscopy recall Due Date/Time: 08/13/2031 09:00:00 EDT Reminder/Recall Patient is due for screening colonoscopy 08/13/2031. Normal [facility] Colonoscopy Procedure Report on 08-13-2021 Colonoscopy Procedure Report Patient: ALPHONSO WHETALEY Age: 41 years Sex: Female : 1980 Associated Diagnoses: None Author: Pascual CALDERÓN MD Pre-Procedure Procedure Date 08/13/2021 07:59:00 . Procedure Type: Colonoscopy. Procedure provider Performed by Pascual CALDERÓN MD. Referred by Gabino Bullock MD. Current history and physical Documented on chart. Colorectal neoplasm risk assessment Average risk. Informed Consent After discussing the rationale, risks and benefits, and alternatives to this procedure, the patient provided signed consent for the procedure. Pre-procedure diagnosis: Unexplained chronic abdominal pain. ASA Classification: Class III. . Procedure The procedure was performed in the hospital. See anesthesia record for sedation given during procedure. Rectal exam was performed and was normal. The patient was positioned starting in the left lateral decubitus position. Endoscope type used was an adult-size. The endoscope was lubricated then introduced through the anus. The scope was advanced to the cecum verified by photographing the appendiceal orifice, verified by photographing the ileocecal valve. No difficulties encountered during the procedure. The bowel preparation quality was good and was adequate (see polyps greater than or equal to 6 millimeters). The patient tolerated the procedure well. Findings The bowel was normal throughout the extent examined. Post-Procedure Complications: none. Estimated blood loss: none. Specimens: none. Devices/ implants: none left in place. Impression and Plan Diagnosis: Redundant colon (PUV96-KM Q43.8, Discharge, Medical). Course: Progressing as expected. Recommendations: Repeat colonoscopy:: In 10 years. Follow-up:: Await biopsy results in 3-5 days. Diet:: Regular diet. Medication resumption:: Continue current medications. Return to activities:: After 24 hours. Normal [facility] Consenton 08-13-2021 Consent [id number]#1.00CD:127 Normal [facility] Discharge Instructionson Discharge Instructions [id number] 288#1.00CD:127 Normal [facility] EGDon 08-13-2021 Esophagogastroduodenoscopy Patient: ALPHONSO DARBY Age: 41 years Sex: Female : 1980 Associated Diagnoses: None Author: Pascual CALDERÓN MD Pre-Procedure Procedure Date 08/13/2021 08:03:00 . Procedure Type: Esophagogastroduode noscopy. Procedure provider Performed by Pascual CALDERÓN MD. Referred by Gabino Bullock MD. Current history and physical Documented on chart. Informed Consent After discussing the rationale, risks and benefits, and alternatives to this procedure, the patient provided signed consent for the procedure. Pre-procedure diagnosis: Epigastric pain. ASA Classification: Class III. . Monitoring: See anesthesia record. . Procedure The procedure was performed in the hospital. See anesthesia record for sedation given during procedure. The patient was positioned starting in the left lateral decubitus position. Endoscope type used was an adult-size, introduced orally, advanced to the 2nd portion of the duodenum. No difficulty was encountered during the procedure. Views were excellent. The patient tolerated the procedure well. Findings Examination of the esophagus revealed a normal esophagus. Gastritis: bile reflux, mild. Examination of the duodenum revealed a normal duodenum. Post-Procedure Complications: none. Estimated blood loss: none. Devices/ implants: none left in place. Impression and Plan EGD: Diagnosis: Bile reflux gastritis (SVA81-QA K29.60, Discharge, Medical). Course: Progressing as expected. Education and Follow-up: Counseled: Family. Normal [facility] Inpatient Patient Summaryon 08-13-2021 Inpatient Patient Summary (Inserted Imag e. Unable to display) [address] [address] [facility] Clinical Discharge Instructions PERSON INFORMATION Name: ALPHONSO GALE PHYSICIANS Admitting Physician: Pascual CALDERÓN MD Attending Physician: Pascual CALDERÓN MD PCP: Gabino Bullock MD Discharge Diagnosis: Bile reflux gastritis; Redundant colon Comment: PATIENT EDUCATION INFORMATION Instructions: Medication Leaflets: Follow up: With: Address: When: Pascual CALDERÓN [address] [place] [address], [address], [address] [address] [facility] (1) Within 7 to 10 days MEDICATION LIST Medications to Continue with No Changes Other Medications cholecalciferol (Vitamin D3 2000 intl units oral tablet) 1 Tablets By Mouth every day. furosemide (furosemide 80 mg Tab) 1 Tablets By Mouth every day. gabapentin (gabapentin 300 mg Cap) 1 Capsules By Mouth 3 times a day. metformin (MetFORMIN (Eqv-Glucophage XR) 500 mg oral tablet, extended release) 1 Tablets By Mouth 2 times a day. pantoprazole (Pantoprazole [address] Tab) 1 Tablets By Mouth every day. potassium chloride (Potassium Chloride (Eag-Rmly-Oce M10) 10 mEq oral tablet, extended release) 1 Tablets By Mouth 2 times a day. terbinafine (terbinafine 250 mg Tab) 1 Tablets By Mouth every day. tizanidine (tiZANidine 4 mg Tab) 1 Tablets By Mouth at bedtime. No Longer Take the Following Medications hyoscyamine (hyoscyamine Sublingual) Comment: Normal [facility] IntraOperative Documentson 1 IntraOperative Documents [id number]#1.00CD:127 Normal [facility] Main OR PACU I Recordon 08-03 Main OR PACU I Record PACU Phase I Document Type FT Summary Primary Physician: Pascual CALDERÓN MD Finalized Date/Time: 08/13/21 08:15:13 Pt. Name: ALPHONSO GALE/Sex: 1980 Female Med Rec #: [id number] Physician: Pascual CALDERÓN MD Financial #: [id number] Pt. Type: O Room/Bed: / Admit/Disch: 08/13/21 06:26:16 - Institution: Case Times PACU I FT Pre-Care Text: Identifies barriers to communication and implements measures to provide psychological support Develops individualized plan of care, and ensures continuity of care Maintains patient's dignity and privacy, and maintains patient confidentiality Identifies and reports philosophical, cultural, and spiritual beliefs and values Identifies individual values and wishes concerning care Implements aseptic technique, and administers prescribed antibiotic therapy and immunizing agents as ordered Evaluates postoperative tissue perfusion Implements thermoregulation measures, and monitors body temperature Evaluates postoperative respiratory status Evaluates postoperative cardiac status Evaluates postoperative neurological status Assesses pain control, collaborated in initiating patient-controlled analgesia and implements alternative methods of pain control Verifies allergies, administers prescribed medications and solutions, evaluates response to medications Entry 1 In PACU I 08/13/21 08:02:00 Discharge from PACU 08/13/21 08:32:00 I Outcomes Met? Yes Last Modified By: Deepti Goodwin RN 08/13/21 08:15:02 Post-Care Text: The patient demonstrates knowledge of the expected response to the operative or invasive procedure The patient's care is consistent with the individualized perioperative plan of care The patient's right to privacy is maintained The patient's value system, lifestyle, ethnicity, and culture are considered, respected, and incorporated into the perioperative plan of care The patient participates in decisions affecting his or her perioperative plan of care The patient is free from signs and symptoms of infection The patient has wound/tissue perfusion consistent with or improved from baseline levels established preoperatively The patient is at or returning to normothermia at the conclusion of the immediate postoperative period The patient's respiratory function is consistent with or improved from baseline levels established preoperatively The patient's cardiovascular status is consistent with or improved from baseline levels established preoperatively The patient's cardiovascular status is consistent with or improved from baseline levels established preoperatively The patient demonstrates and/or reports adequate pain control throughout the perioperative period The patient received appropriate medication(s), safely administered during the perioperative period Acuity Level PACU I FT Entry 1 Start Time 08/13/21 08:02:00 Stop Time 08/13/21 08:32:00 Acuity Level Acuity Level I Last Modified By: Deepti Goodwin RN 08/13/21 08:15:12 Finalized By: Deepti Goodwin RN Document Signatures Signed By: Deepti Goodwin RN 08/13/21 08:15 Normal [facility] Main OR Preoperative Recordo n 08-13-2021 Main OR Preoperative Record Holding Area Document Type FT Summary Primary Physician: Pascual CALDERÓN MD Finalized Date/Time: 08/13/21 07:07:45 Pt. Name: ALPHONSO GALE D.O.B./Sex: 1980 Female Med Rec #: [id number] Physician: Pascual CALDERÓN MD Financial #: [id number] Pt. Type: O Room/Bed: / Admit/Disch: 08/13/21 06:26:16 - Institution: Case Times Holding FT Pre-Care Text: Verifies consent for planned procedure, identifies individual values and wishes concerning care, includes family members in perioperative teaching Secures patient's records' belongings, and valuables, maintains patient's dignity and privacy, and maintains patient confidentiality Entry 1 In Holding 08/13/21 07:06:00 Outcomes Met? Yes Last Modified By: Ronni Rossi RN 08/13/21 07:06:10 Post-Care Text: The patient participates in decisions affecting his or her perioperative plan of care The patient's right to privacy is maintained Surgery Checklist FT Entry 1 Patient Birthday, ID Band Procedure History and Physical, Identification: Check, Patient Verification: Surgical Consent, With Participation Patient NPO after Midnight: Yes Personal Items: Contact Lenses, Jewelry Personal Items earrings, watch Limitations: none Comment: Complaints of Pain: No Pain Comment: pt denies any pain at this time Operative Site n/a Availability Equipment Marking: Verified: Does Patient Smoke Yes If Yes to Smoking. 1 pack per day Cigars or Cigarettes. How much per day? Patient states Yes Comment - Adult Son- Froylan postop adult Supervision supervision available Case Cancelled in No Holding Area see comments below for reason Last Modified By: Ronni Rossi RN 08/13/21 07:07:41 General Comments: per patient prep was finsihed yesterday 08/12/21. pt states nothing to eat or drink since midnight MSRN Finalized By: Ronni Rossi RN Document Signatures Signed By: Ronni Rossi RN 08/13/21 07:07 Normal [facility] Monitor Recordon 08-13-2021 Monitor Record [id number] 283#1.00CD:127 Normal [facility] Monitor Record [id number]#1.00CD:127 Normal [facility] Outpatient Surgery Discharge Instructionon 08-13-2021 Outpatient Surgery Discharge Instruction [address], [place] [address] Patient Discharge Instructions PERSON INFORMATION Name: ALPHONSO GALE Date of : 1980 Current Date: 08/13/2021 07:59:07 PHYSICIANS Admitting Physician: Pascual CALDERÓN MD Discharge Diagnosis: Bile reflux gastritis; Redundant colon ALPHONSO GALE has been given the following list of follow-up instructions, prescriptions, and patient education materials: PATIENT FOLLOW-UP INFORMATION Diet: Regular Discharge Activity: Resume normal activities in 24 hours, Arrange for a responsible adult supervision for 24 hours Discharge Restrictions: No driving for 24 hrs, Do not operate machinery or tools, Do not make important decisions for 24 hours, Do not drink alcoholic beverages for 24 hours Call Your Doctor For: Persistent or heavy bleeding, Temperature above 101.5 degrees, Redness, swelling, or pus at operative site IF UNABLE TO CONTACT YOUR PHYSICIAN AND YOU FEEL IT IS AN EMERGENCY, GO TO THE NEAREST EMERGENCY ROOM OR CALL 911 I, ALPHONSO GALE, have received the attached patient education materials/instructi ons and have verbalized understanding: May we do a follow up call? Yes No I was present when discharge instructions were given Patient Signature Date Clinican/Nurse Signature Date Follow up: With: Address: When: Pascual CALDERÓN [address] [place] [address], [facility] [address], [place] [phone] Business (1) Within 7 to 10 days Pharmacy Information: Other: [facility] You may receive a survey from [employer] asking you to rate your care experience. Your feedback is important and will help us understand what we do well and how we can improve the quality of care we provide to you, your loved ones and our community. It?s an honor to serve you. Thank you for choosing [facility] HERE ARE THE MEDICATION CHANGES THAT OCCURRED DURING YOUR HOSPITAL STAY Medications to Continue with No Changes Other Medications cholecalciferol (Vitamin D3 2000 intl units oral tablet) 1 Tablets By Mouth every day. furosemide (furosemide 80 mg Tab) 1 Tablets By Mouth every day. gabapentin (gabapentin 300 mg Cap) 1 Capsules By Mouth 3 times a day. metformin (MetFORMIN (Eqv-Glucophage XR) 500 mg oral tablet, extended release) 1 Tablets By Mouth 2 times a day. pantoprazole (Pantoprazole [address] Tab) 1 Tablets By Mouth every day. potassium chloride (Potassium Chloride (Orj-Xdqs-Bjr M10) 10 mEq oral tablet, extended release) 1 Tablets By Mouth 2 times a day. terbinafine (terbinafine 250 mg Tab) 1 Tablets By Mouth every day. tizanidine (tiZANidine 4 mg Tab) 1 Tablets By Mouth at bedtime. No Longer Take the Following Medications hyoscyamine (hyoscyamine Sublingual) PATIENT EDUCATION INFORMATION Instructions: Medication Leaflets: [facility] Patient Education - Texton 1 Patient Education - Text [facility] Pre-Certification Formon Pre-Certification Form [id number] 10 [id number]#1.00CD:127 [facility] Letter [facility] July 25, 2021 Gabino Bullock, [address] [place] [address] Re: ALPHONSO GALE Date of : 1980 Thank you for your referral of Alphonso Gale who was seen on consultation on July 10, 2021, for intermittent left lower quadrant pain. A colonoscopy and EGD is planned for further evaluation. I have enclosed my consultation notes for your review. I will be happy to follow Alphonso should her symptoms persist. Sincerely, Pascual Calderón MD General Surgery [facility] Consent for Procedure/Surger yon 07-12-2021 Consent for Procedure/Surgery [id number] 2.36.2020 [id number] [id number]#[id number]:127 [facility] Ambulatory Clinical Summaryo n 07-10-2021 Ambulatory Clinical Summary {[id number]}CD:[id number] 8 [facility] RAD - CT Reporton 07-05-20[address] RAD - [address] Report [id number]#1.00CD:127 [facility] RAD - MISCon 07-05-2021 RAD - MISC [id number]#1.00CD:127 [facility] Physician Referralon 021 Physician Referral [id number]#1.00CD:127 [facility] Vital Signs Date Time Vital Sign Value Performing Clinician Facility 08-31-2021 16:55-0400 Body height 175.26 cm Porsche Carvalho Other [facility] Other 08-31-2021 16:55-0400 Body mass index (BMI) [Ratio] 49.76 kg/m2 P[facility] Carval[facility] Other 08-31-2021 16:55-0400 Body temperature 97.9 [degF] [facility] Carval[facility] Other [facility] Other 08-31-2021 16:55-0400 Body weight 152.86 kg Porsche Carval[facility] Other [facility] Other 08-31-2021 16:55-0400 Diastolic blood pressure 84 mm[Hg] [facility] Carval[facility] Other [facility] Other 08-31-2021 16:55-0400 Respiratory rate 18 /min Porsche Carvalho Other [facility] Other 08-31-2021 16:55-0400 SaO2% (BldA) [Mass fraction] 96 % Porsche Carvalho Other [facility] Other 08-31-2021 16:55-0400 Systolic blood pressure 145 mm[Hg] Porsche Carvalho Other [facility] Other Encounters Encounter Date Encounter Type Care Provider Facility Start: 12-13-2022 End: 12-14-[address] GABINO BULLOCK Facility:[facility] Start: 06-27-[address] GABINO BULLOCK Facility :[facility] Start: 08-31-2021 Office outpatient vi sit 15 minutes Porsche Carvalho [facility] Payers Date Payer Category Payer Unknown [id number] 1980 Unknown [id number] 1960 Private Health Insurance [id number] 1960 Self-pay [id number] [facility] [id number] Social History Date Type Detail Facility Unknown if ever smoked [facility] Other Sex Assigned At Sex Assigned At Bir th [facility] Other Evaluation note 08-31-2021 Note Date & Type Note Facility 08-31-2021 Evaluation note Encounter Date Diagnosis Assessment Notes Aug, Abscess of buttock, right (ICD-10 - L02.31) Keep the area clean and dry. Soak in a warm tub once or twice a day to promote drainage. Take the antibiotics as prescribed until gone. Tylenol Motrin for pain. Follow-up with your family physician if no improvement in [facility] Other History and physical note 08-13-2021 Note Date & Type Note Facility 08-13-2021 Note [id number]#1.00CD:127 [facility] History and physical note 08-13-2021 Note Date & Type Note Facility 08-13-2021 Note Patient: NENA GALE Age: 41 years Sex: Female : 1980 Associated Diagnoses: None Author: Pasucal CALDERÓN MD Subjective no changes to H & P [facility] Comment on above: Result Comment: Elec tronically Signed By: Pascual CALDERÓN MD\.br\Date and Time Signed: 08/13/21 07:23 EDT Clinical Note 07-23-2021 Note Date & Type Note Facility 07-23-2021 Note Chief Complaint consultation for abdominal pain HPI Staff 41 year old female presents on consultation from Dr. Bullock for intermittent left lower quadrant pain. Complains of intermittent liquid/soft stool. Never had colonoscopy. CT ABD/pelvis completed 06/23/21 with diverticulosis, fatty liver and collateral vessels. History of Present Illness 41 yo female with h/o htn, DM, neuropathy, GERD, referred for intermittent abdominal pain and bowel changes; also with recent abdominal/pelvic ct scan with enlarged venous abdominal wall collaterals; patient reports intermittent crampy LLQ pain, ache at times, and in epigastric area; no N/V; intermittent loose stools, no blood, no wt loss; GERD not controlled with PPI, no dysphagia or early satiety; no regurgitation; no previous endoscopy; abdominal operations significant for , SHAI, cholecystectomy; no fmhx of GI malignancy or IBD; abd/pelvic ct scan personally reviewed. Review of Systems PHQ Score Initial Depression Screen Score: 0 ROS - Provider Constitutional: no fever, no sweats, no weight loss. Eyes: no glasses, no blurred vision, no visual loss. ENMT: no dentures, no hoarseness, no swallowing difficulties, no hearing loss, no ear infection(s), no nose bleeds. Cardiovascular: normal blood pressure, no chest pain, regular heartbeat, no heart murmur. Respiratory: no shortness of breath, no cough, no asthma, no wheezing. Gastrointestinal: no nausea, no vomiting, no diarrhea, no constipation, no blood in stool, no change in bowel habits, no abdominal pain, no hepatitis. Genitourinary: no kidney stones, no urine infection, no dysuria. Musculoskeletal: no pain, no weakness. Skin: no changing moles, no rash, no skin lumps. Neurologic: no seizures, no epilepsy, no headache. Psychiatric: no emotional or psychiatric problem. Heme/Lymph: no bleeding problems, no anemia, no blood clots, no transfusions. Allergy/Immunologic: no swollen lymph nodes/glands, no IV drug abuse. Other: Additional ROS info: Except as noted in the above Review of Systems and in the History of Present Illness, all other systems have been reviewed and are negative or noncontributory. Physical Exam Vitals & Measurements T: 36.4 ?C (Temporal Artery) HR: 80(Peripheral) RR: 16 BP: 124/80 HT: 175.3 cm HT: 175.26 cm WT: 155.0 kg WT: 155 kg BMI: 50.46 HEENT: normal conjunctiva, sclera clear, no scleral icterus, EOM intact, PERRLA, oral mucosa moist without lesions. Neck: trachea midline, no mass, symmetric, no thyromegaly or nodules, no adenopathy Respiratory: lungs CTA, respirations non labored. Cardiovascular: regular rate and rhythm, no murmur, no pedal edema or varicosities. Gastrointestinal: obese, soft, non distended, mild tenderness, epigastrium and LLQ, no peritoneal signs no masses, no palpable hernias, diastasis recti no, no hepatosplenomegaly; normal bs Lymphatic: no cervical adenopathy, Musculoskeletal: normal gait, digits and nails without infection, nodes, cyanosis, clubbing. Skin: no rashes, no lesions, no ulcers, no subcutaneous nodules, induration. Psychiatric/Neuro: oriented to time, place, person, judgement normal, affect appropriate for age, insight intact, no focal deficits. Tests: labs reviewed, x-rays reviewed, review of old records completed, Discussed surgical options, risks, and possible complications with patient. Assessment/Plan 1. Change in bowel habits (R19.4: Change in bowel habit) plan EGD and colonoscopy under anesthesia for further evaluation; informed consent obtained. 2. Abdominal pain, LLQ (R10.32: Left lower quadrant pain) see # 1 3. Epigastric pain (R10.13: Epigastric pain) see # 1 4. Chronic GERD (K21.9: Gastro-esophageal reflux disease without esophagitis) see # [address] scan (R93.5: Abnormal findings on diagnostic imaging of other abdominal regions, including retroperitoneum) refer to vascular surgery for evaluation given intermittent lower extremity edema and prominent venous collaterals on abdominal wall. 6. BMI 50.0-59.9, adult (Z68.43: Body mass index [BMI] 50.0-59.9, adult) recommend diet and exercise. Follow-up No qualifying data available Patient Education Upper Endoscopy, Adult Colonoscopy, Adult Problem List/Past Medical History Ongoing Abdominal pain, LLQ Abnormal abdominal CT scan BMI 50.0-59.9, adult Change in bowel habits Chronic GERD Diabetes Edema Epigastric pain GERD (gastroesophageal reflux disease) HTN (hypertension) Hypokalemia Neuropathy Vitamin deficiency Historical No qualifying data Procedure/Surgical History Abdominal hysterectomy, section, Cholecystectomy, Closed fracture of lower jaw bone, Extraction of wisdom tooth. Medications furosemide 80 mg Tab, 80 mg= 1 tab(s), Oral, Daily gabapentin 300 mg Cap, 300 mg= 1 cap(s), Oral, TID hyoscyamine Sublingual MetFORMIN (Eqv-Glucophage XR) 500 mg oral tablet, extended release, 500 mg= 1 tab(s), Oral, BID Pa (more content not included)... [facility] Comment on above: Result Comment: Elec tronically Signed By: MELE FREITAS, Pascual Stoddard\Date and Time Signed: 07/23/21 16:28 EDT Clinical Note 07-23-2021 Note Date & Type Note Facility 07-23-2021 Note Gastroenterology Upper Endoscopy, Adult Upper endoscopy is a procedure to look inside the upper GI (gastrointestinal) tract. The upper GI tract is made up of: ? The part of the body that moves food from your mouth to your stomach (esophagus). ? The stomach. ? The first part of your small intestine (duodenum). This procedure is also called esophagogastroduodenoscopy (EGD) or gastroscopy. In this procedure, your health care provider passes a thin, flexible tube (endoscope) through your mouth and down your esophagus into your stomach. A small camera is attached to the end of the tube. Images from the camera appear on a monitor in the exam room. During this procedure, your health care provider may also remove a small piece of tissue to be sent to a lab and examined under a microscope (biopsy). Your health care provider may do an upper endoscopy to diagnose cancers of the upper GI tract. You may also have this procedure to find the cause of other conditions, such as: ? Stomach pain. ? Heartburn. ? Pain or problems when swallowing. ? Nausea and vomiting. ? Stomach bleeding. ? Stomach ulcers. Tell a health care provider about: ? Any allergies you have. ? All medicines you are taking, including vitamins, herbs, eye drops, creams, and rcyz-rfo-wfvucsu medicines. ? Any problems you or family members have had with anesthetic medicines. ? Any blood disorders you have. ? Any surgeries you have had. ? Any medical conditions you have. ? Whether you are or may be . What are the risks? Generally, this is a safe procedure. However, problems may occur, including: ? Infection. ? Bleeding. ? Allergic reactions to medicines. ? A tear or hole (perforation) in the esophagus, stomach, or duodenum. What happens before the procedure? Staying hydrated Follow instructions from your health care provider about hydration, which may include: ? Up to 2 hours before the procedure ? you may continue to drink clear liquids, such as water, clear fruit juice, black coffee, and plain tea. Eating and drinking restrictions Follow instructions from your health care provider about eating and drinking, which may include: ? 8 hours before the procedure ? stop eating heavy meals or foods, such as meat, fried foods, or fatty foods. ? 6 hours before the procedure ? stop eating light meals or foods, such as toast or cereal. ? 6 hours before the procedure ? stop drinking milk or drinks that contain milk. ? 2 hours before the procedure ? stop drinking clear liquids. Medicines Ask your health care provider about: ? Changing or stopping your regular medicines. This is especially important if you are taking diabetes medicines or blood thinners. ? Taking medicines such as aspirin and ibuprofen. These medicines can thin your blood. Do not take these medicines unless your health care provider tells you to take them. ? Taking kkia-mus-hmjcxsg medicines, vitamins, herbs, and supplements. General instructions ? Plan to have someone take you home from the hospital or clinic. ? If you will be going home right after the procedure, plan to have someone with you for 24 hours. ? Ask your health care provider what steps will be taken to help prevent infection. What happens during the procedure? ? An IV will be inserted into one of your veins. ? You may be given one or more of the following: ? A medicine to help you relax (sedative). ? A medicine to numb the throat (local anesthetic). ? You will lie on your left side on an exam table. ? Your health care provider will pass the endoscope through your mouth and down your esophagus. ? Your health care provider will use the scope to check the inside of your esophagus, stomach, and duodenum. Biopsies may be taken. ? The endoscope will be removed. The procedure may vary among health care providers and hospitals. What happens after the procedure? ? Your blood pressure, heart rate, breathing rate, and blood oxygen level will be monitored until you leave the hospital or clinic. ? Do not drive for 24 hours if you were given a sedative during your procedure. ? When your throat is no longer numb, you may be given some fluids to drink. ? It is up to you to get the results of your procedure. Ask your health care provider, or the department that is doing the procedure, when your results will be ready. Summary ? Upper endoscopy is a procedure to look inside the upper GI tract. ? During the procedure, an IV will be inserted into one of your veins. You may be given a medicine to help you relax. ? A medicine will be used to numb your throat. ? The endoscope will be passed through your mouth and down your esophagus. This information is not intended to replace advice given to you by your health care provider. Make sure you discuss any questions you have with your health care provider. Document Released: 10/17/2001 [employer] (more content not included)... [facility] History general Narrative - Reported Note Date & Type Note Facility History general Narrative - Reported Type Medical History scleroderma Medical History DM Surgical History partial hysterectomy Surgical History C section Surgical History cholecystectomy Surgical History jaw Hospitalization History see above [facility] Other Summary Purpose Family History No Family History Records FoundNo Family History Records Found Advance Directives No Advanced Directives Records FoundNo Advanced Directives Records Found Additional Source Comments INFORMATION SOURCE (unrecogn ized section and content) DATE CREATED AUTHOR 09/23/2021 [facility] DATE CREATED AUTHOR AUTHOR'S ORGANIZ ATION 12/16/2022 [facility] REASON FOR VISIT (unrecogniz ed section and content) BOIL ON BACKSIDE FOR RECORDS PERTAINING TO PATIENTS WHO ARE OR HAVE BEEN ENROLLED IN A CHEMICAL DEPENDENCY/SUBSTANCEABUSE PROGRAM, SOME INFORMATION MAY BE OMITTED. This clinical summary was aggregated from multiple sources. Caution should be exercised in using it in the provision of clinical care. This summary normalizes information from multiple sources, and as a consequence, information in this document may materially change the coding, format and clinical context of patient data. In addition, data may be omitted in some cases. CLINICAL DECISIONS SHOULD BE BASED ON THE PRIMARY CLINICAL RECORDS. [employer] provides no warranty or guarantee of the accuracy or completeness of information in this document.
== END 2025-02-18 07:39 | disposition home or self-care (01) ==
LOC: MRI 07:38
PROVIDERS: PCP Family Medicine; Visit Provider Family Medicine
DX: G43.909 Migraine, unspecified, not intractable, without status migrainosus (principal)
CPT/HCPCS: 70553; A9575

== ENCOUNTER 2025-02-21 16:30 | Outpatient (OUT) | payer OTHER, SELFPAY ==
[2025-02-21 17:04] LABS: C Reactive Protein <0.50 mg/dL (<=0.50); Uric Acid 4.9 mg/dL (2.6-6.0)
[2025-02-23 04:07] LABS: Antistreptolysin O Ab 82.4 IU/mL (0.0-200.0); Rheumatoid Factor (RF) 10.4 IU/mL (<14.0)
[2025-02-23 09:08] LABS: Sjogren's Anti-SS-A <0.2 AI (0.0-0.9); Sjogren's Anti-SS-B <0.2 AI (0.0-0.9)
[2025-02-25 10:08] LABS: Antinuclear Antibodies, IFA Positive (.)
== END 2025-02-21 16:31 | disposition home or self-care (01) ==
PROVIDERS: PCP Family Medicine; Visit Provider Family Medicine
DX: M54.16 Radiculopathy, lumbar region (principal); I10 Essential (primary) hypertension; G43.909 Migraine, unspecified, not intractable, without status migrainosus
CPT/HCPCS: 36415; 84550; 86038; 86060; 86140; 86235; 86431

== ENCOUNTER 2025-06-04 08:21 | Outpatient (OUT) | payer OTHER, SELFPAY ==
--- OUTSIDE RECORDS SUMMARY | 2025-02-25 08:27 | XMS_ITS ---
Author Organization [facility] in [place] Address [address] [place] [address] Care Team Providers Care Cae Engineer Name Role Phone Markos Bullock Primary Care Provider Reason For Referral Diagnosis 1 Positive TONNY (antinu clear antibody) (R76.8) Referral Organization [facility] Referring Provider First Name Markos Referring Provider Last Name Kobe [facility] icine Referred Provider Corey Nguyen Referred Provider Specialty Rheumatology Referral Priority Routine REASON FOR VISIT positive TONNY Problems Problem Type SNOMED Code ICD Code Onset Dates Problem Status W/U Status Risk Notes Problem Raised antinuclear antibody ([id number]) Positive TONNY (antinuclear antibody) (R76.8) Active confirmed Encounters Encounter Location Date Provider Diagnosis [facility] [address] [place] [address] 02/25/2025 Markos Vitorernestine Positive TNONY (antinuclear antibody) R76.8 Assessments Encounter Date Diagnosis (ICD Code) Assessment Notes Treatment Notes Treatment Clinical Notes Section Notes 02/25/2025 Positive TONNY (antinuclear antibody) (ICD-10 - R76.8) Plan Of Treatment Referrals Referral Date Details 02/25/2025 02/25/2025Corey Progress Notes * Fani FENTON GDOB:[birth year] (44 yo F)Acc No.[id number]:02/25/2025 Patient: Fani REZA :1980 A ge:44 Y S ex:Female Address:[address] [place], [address] Subjective: * Chief Complaints: * p ositive TONNY * Medical History: * Surgical History: * Hospitalization/Major Diagno stic Procedure: * Medications: Objective: * Vitals: * Physical Examination: Assessment: * Assessment: 1. P ositive TONNY (antinuclear antibody) - R76.8 (Primary) Plan: * Treatment: * Procedure Codes: * true * Date: Generated for Debrai braulio/Kiko/eTransmitting on: 0 06/04/2025 08:26 AM EDT Consultation Request Notes Referral Date Referring Provider Referred Provider Not es 02/25/2025 Markos Bullock Matthew
--- OUTSIDE RECORDS SUMMARY | 2025-05-04 10:28 | XMS_ITS ---
Author Organization The [facility] in [place] Address [address] [place] [address] Care Team Providers Care Chalk Machine Operator Name Role Phone Markos Bullock Primary Care Provider REASON FOR VISIT rf gabapentin Medications Medication SIG (Take, Route, Fr equency, Duration) Notes Start Date End Date Status Gabapentin 600 mg TAKE 1 TABLET BY JAYCEE TH IN THE MORNING, at noon, and 2 (TWO) TABLETS IN THE EVENING for 30 Ac tive Encounters Encounter Location Date Provider Diagnosis [facility] [address] [place] [address] 05/04/2025 Markos Bullock Well adult Z00.0 0 Assessments Encounter Date Diagnosis (ICD Code) Assessment Notes Treatment Notes Treatment Clinical Notes Section Notes 05/04/2025 Well adult (ICD-10 - Z00.00) Plan Of Treatment Medication Medication Name Sig Start Date Stop Date Notes Gabapentin 600 mg TAKE 1 TABLET BY JAYCEE TH IN THE MORNING, at noon, and 2 (TWO) TABLETS IN THE EVENING for 30 Progress Notes * Fani FENTON GDOB:[birth year] (44 yo F)Acc No.[id number]:05/04/2025 Patient: Fani REZA :1980 A ge:44 Y S ex:Female Address:[address] [place], [address] * Refills Refill Gabapentin Tablet, 600 mg, 120 Tablet, TAKE 1 TABLET BY MOUTH IN THE MORNING, at noon, and 2 (TWO) TABLETS IN THE EVENING, 30, Refills=2 * true * Date: Generated for Maynor ramsey/Kiko/Breanne on: 0 06/04/2025 08:26 AM EDT
--- OUTSIDE RECORDS SUMMARY | 2025-05-17 07:38 | XMS_ITS ---
Author Organization [facility] in [place] Address [address] [place] [address] Care Team Providers Care Faith Doctor Name Role Phone Markos Bullock Primary Care Provider [phone] REASON FOR VISIT yearly labs Problems Problem Type SNOMED Code ICD Code Onset Dates Problem Status W/U Status Risk Notes Problem Type 2 diabetes mellitus (52492308) Type 2 diabetes mellitus (E11.9) Active confirmed Encounters Encounter Location Date Provider Diagnosis [facility] [address] [place] [address] 05/17/2025 Markos Bullock Hypertension I10 ; Polyneuropathy [...] T3) Lipid Panel 05/17/2025 Progress Notes * JOSSY Fani GDOB:[birth year] (44 yo F)Acc No.[id number]:05/17/2025 Patient: Fani REZA :1980 A ge:44 Y S ex:Female Address:[address] [place] [id number] Subjective: * Chief Complaints: * Y early [...] * true * Date: Generated for Debrai ng/Fabrendong/eTransmitting on: 0 06/04/2025 08:26 AM EDT
--- OUTSIDE RECORDS SUMMARY | 2025-06-04 08:25 | XMS_ITS | CCD ---
Author Organization [facility] Care Team Providers Care Supervisor Assembly Room Name Role Phone Porsche Carvalho Unavailable DR GABINO BULLOCK Admitting Unavailable DR GABINO BULLOCK Attending Unavailable DR GABINO BULLOCK Primary Care Unavailable DR GABNIO BULLOCK Admitting Unavailable DR GABINO BULLOCK Attending Unavailable DR GABINO BULLOCK Primary Care Unavailable DR GABINO BULLOCK Consulting Unavailable Gabino Bullock MD Primary Care Provider [phone] Corey Nguyen MD Attending Provider Corey Nguyen Attending Unavailable Corey Nguyen [employer] Unavailable Gabino Bullock Primary Care Unavailable Allergies Allergy Classification Reported Allergen(s) Allergy Type Date of Onset Reaction(s) Facility (1 source) Egg Propensity to adverse reactions [facility] [email or web address] Other (1 source) egg extract Drug Allergy 1 [facility] Repository Medications Current Medications Medication Drug Class(es) Dates Sig (Normalized) Sig (Original) [id number] 200 actuat albuterol 0.09 mg/actuat metered dose [...] Translations: [ESSENTIAL PRIMARY HYPERTENSION] Onset: 12-16-2022 Chronic Immunizations and screening for infectious disease (1 source) Raised antibody titer; Translations: [Raised antibody titer] Onset: 05-03-2025 Episodic Other nutritional; endocrine; and metabolic disorders (4 [...] Test Name Value Interpretation Reference Range Facility TONNY Antinuclear Antibodieson 05-03-2025 Antinuclear Abs, IFA Negative Normal . [facility] Comment on above: Result Comment: Nega tive <1:80 Borderline 1:80 Positive >1:80 ICAP nomenclature: AC-0 For more information about Hep-2 cell patterns use ANApatterns.org, the official website for the International Consensus on Antinuclear Antibody (TONNY) Patterns (ICAP). Performed at: [address] [id number] Weft Straightener: Gregorio Martinez PhD, Phone: [phone] Performed By: #### S SB, SSA, MITOM2, C3, JO1, JOSÉ, ADNA, CH50, HISAB, B2 GLYPROT, THYGLOB AB, TONNY, C4, ANTIR, CARDIO GMA, CCP, CENTROME, RA, [id number], SMAB, CHROMATIN, TPO #### [facility] , Alanine aminotransferase [En zymatic activity/volume] in Serum or PlasmaOrdered By: Corey Nguyen on 05-03-2025 ALT [Catalytic activity/Vol] 77 U/L High 7-52 [facility] Comment on above: Performed By: #### S SB, SSA, MITOM2, C3, JO1, JOSÉ, ADNA, CH50, HISAB, B2 GLYPROT, THYGLOB AB, TONNY, C4, ANTIR, CARDIO GMA, CCP, CENTROME, RA, [id number], SMAB, CHROMATIN, TPO #### [facility] , Albumin [Mass/volume] in Ser um or Plasma by Bromocresol green (BCG) dye binding methoOrdered By: Corey Nguyen on 05-03-2025 Albumin BCG dye [Mass/Vol] 4.7 g/dL 3.5-5.7 [facility] Aldolaseon 05-03-2025 Aldolase 8.0 U/L Normal 3.3-10.3 [facility] Comment on above: Result Comment: Perf ormed at: [address] [id number] Weft Straightener: Gregorio Martinez PhD, Phone: [phone] PERFORMED BY: [facility] [place] [address] PATHOLOGIST FOXER MIKAL KILPATRICK M.D. Performed By: #### S SB, SSA, MITOM2, C3, JO1, JOSÉ, ADNA, CH50, HISAB, B2 GLYPROT, THYGLOB AB, TONNY, C4, ANTIR, CARDIO GMA, CCP, CENTROME, RA, [id number], SMAB, CHROMATIN, TPO #### [facility] , Alkaline phosphatase [Enzyma tic activity/volume] in Serum or PlasmaOrdered By: Corey Nguyen on 05-03-2025 ALP [Catalytic activity/Vol] 93 U/L Normal 34-104 [facility] Comment on above: Performed By: #### S SB, SSA, MITOM2, C3, JO1, JOSÉ, ADNA, CH50, HISAB, B2 GLYPROT, THYGLOB AB, TONNY, C4, ANTIR, CARDIO GMA, CCP, CENTROME, RA, [id number], SMAB, CHROMATIN, TPO #### [facility] , Anti-Centromere B Antibodies on 05-03-2025 Anti-Centromere B Antibodies <0.2 Normal 0.0-0.9 [facility] Comment on above: Result Comment: Perf ormed at: - [facility] [address] [id number] Weft Straightener: Gregorio Martinez PhD, Phone: [phone] Performed By: #### S SB, SSA, MITOM2, C3, JO1, JOSÉ, ADNA, CH50, HISAB, B2 GLYPROT, THYGLOB AB, TONNY, C4, ANTIR, CARDIO GMA, CCP, CENTROME, RA, [id number], SMAB, CHROMATIN, TPO #### [facility] , Anti-RNPon 05-03-2025 Anti-METAL SPRAY OPERATOR <0.2 Normal 0.0-0.9 [facility] Comment on above: Performed By: #### S SB, SSA, MITOM2, C3, JO1, JOSÉ, ADNA, CH50, HISAB, B2 GLYPROT, THYGLOB AB, TONNY, C4, ANTIR, CARDIO GMA, CCP, CENTROME, RA, [id number], SMAB, CHROMATIN, TPO #### [facility] , Anti-José Antibodieson Anti-José Antibodies <0.2 Normal 0.0-0.9 [facility] Comment on above: Performed By: #### S SB, SSA, MITOM2, C3, JO1, JOSÉ, ADNA, CH50, HISAB, B2 GLYPROT, THYGLOB AB, TONNY, C4, ANTIR, CARDIO GMA, CCP, CENTROME, RA, [id number], SMAB, CHROMATIN, TPO #### [facility] , Anti-dsDNA(DBL)Abon 05-03-20 25 Anti-dsDNA(DBL)Ab <1 Normal 0-9 [facility] Comment on above: Result Comment: Nega tive <5 Equivocal 5 - 9 Positive >9 Performed By: #### S SB, SSA, MITOM2, C3, JO1, JOSÉ, ADNA, CH50, HISAB, B2 GLYPROT, THYGLOB AB, TONNY, C4, ANTIR, CARDIO GMA, CCP, CENTROME, RA, [id number], SMAB, CHROMATIN, TPO #### [facility] , Anticardiolipin IgG/M/A, Qno n 05-03-2025 Anticardiolipin Ab, IgA,Qn <9 Normal 0-11 [facility] Comment on above: Result Comment: Nega tive: <12 Indeterminate: 12 - 20 Low-Med Positive: >20 - 80 High Positive: >80 Performed By: #### S SB, SSA, MITOM2, C3, JO1, JOSÉ, ADNA, CH50, HISAB, B2 GLYPROT, THYGLOB AB, TONNY, C4, ANTIR, CARDIO GMA, CCP, CENTROME, RA, [id number], SMAB, CHROMATIN, TPO #### [facility] , Anticardiolipin Ab, IgG,Qn <9 Normal 0-14 [facility] Comment on above: Result Comment: Nega tive: <15 Indeterminate: 15 - 20 Low-Med Positive: >20 - 80 High Positive: >80 Performed By: #### S SB, SSA, MITOM2, C3, JO1, JOSÉ, ADNA, CH50, HISAB, B2 GLYPROT, THYGLOB AB, TONNY, C4, ANTIR, CARDIO GMA, CCP, CENTROME, RA, [id number], SMAB, CHROMATIN, TPO #### [facility] , Anticardiolipin Ab, IgM,Qn <9 Normal 0-12 [facility] Comment on above: Result Comment: Nega tive: <13 Indeterminate: 13 - 20 Low-Med Positive: >20 - 80 High Positive: >80 Performed By: #### S SB, SSA, MITOM2, C3, JO1, JOSÉ, ADNA, CH50, HISAB, B2 GLYPROT, THYGLOB AB, TONNY, C4, ANTIR, CARDIO GMA, CCP, CENTROME, RA, [id number], SMAB, CHROMATIN, TPO #### [facility] , Antithyroglobulin Abon 05-03 Antithyroglobulin Ab 1.3 Normal 0.0-0.9 [facility] Comment on above: Result Comment: Thyr oglobulin Antibody measured by [employer] Methodology It should be noted that the presence of thyroglobulin antibodies may not be pathogenic nor diagnostic, especially at very low levels. The assay polysomnography technologist has found that four percent of individuals without evidence of thyroid disease or autoimmunity will have positive TgAb levels up to 4 IU/mL. Performed at: [address] [id number] Weft Straightener: Gregorio Martinez PhD, Phone: [phone] Performed By: #### S SB, SSA, MITOM2, C3, JO1, JOSÉ, ADNA, CH50, HISAB, B2 GLYPROT, THYGLOB AB, TONNY, C4, ANTIR, CARDIO GMA, CCP, CENTROME, RA, [id number], SMAB, CHROMATIN, TPO #### [facility] , Appearance of UrineOrdered B y: Corey Nguyen on 05-03-2025 Appearance (U) Clear Normal Clear [facility] Comment on above: Order Comment: Name Collection Type:: Clean-Voided Midstream Performed By: #### S SB, SSA, MITOM2, C3, JO1, JOSÉ, ADNA, CH50, HISAB, B2 GLYPROT, THYGLOB AB, TONNY, C4, ANTIR, CARDIO GMA, CCP, CENTROME, RA, [id number], SMAB, CHROMATIN, TPO #### [facility] , Aspartate aminotransferase [ Enzymatic activity/volume] in Serum or PlasmaOrdered By: Corey Nguyen on 05-03-2025 AST [Catalytic activity/Vol] 48 U/L High 13-39 [facility] Comment on above: Performed By: #### S SB, SSA, MITOM2, C3, JO1, JOSÉ, ADNA, CH50, HISAB, B2 GLYPROT, THYGLOB AB, TONNY, C4, ANTIR, CARDIO GMA, CCP, CENTROME, RA, [id number], SMAB, CHROMATIN, TPO #### [facility] , Bacteria [Presence] in Urine by AutomatedOrdered By: Corey Nguyen on 05-03-2025 Bacteria Auto Ql (U) Rare [HPF] None Seen [facility] Basophils [#/volume] in Bloo d by Automated countOrdered By: Corey Nguyen on 05-03-2025 Basophils (Bld) [#/Vol] 0.1 10*3/uL Normal 0.0-0.2 [facility] Comment on above: Performed By: #### S SB, SSA, MITOM2, C3, JO1, JOSÉ, ADNA, CH50, HISAB, B2 GLYPROT, THYGLOB AB, TONNY, C4, ANTIR, CARDIO GMA, CCP, CENTROME, RA, [id number], SMAB, CHROMATIN, TPO #### [facility] , Basophils/100 leukocytes in Blood by Automated countOrdered By: Corey Nguyen on 05-03-2025 Basophils/100 WBC (Bld) 1.3 % Normal . [facility] Comment on above: Performed By: #### S SB, SSA, MITOM2, C3, JO1, JOSÉ, ADNA, CH50, HISAB, B2 GLYPROT, THYGLOB AB, TONNY, C4, ANTIR, CARDIO GMA, CCP, CENTROME, RA, [id number], SMAB, CHROMATIN, TPO #### [facility] , Beta 2 Glycoprotein I Ab IgG /Mon 05-03-2025 Beta 2 Glycoprotein I Ab, IgG <9 Normal 0-20 [facility] Comment on above: Result Comment: Resu lt Units: GPI IgG units The reference interval reflects a 3SD or 99th percentile interval, which is thought to represent a potentially clinically significant result in accordance with the International Consensus Statement on the classification criteria for definitive antiphospholipid syndrome (APS). J Thromb Haem 2006;4:295-306. Performed By: #### S SB, SSA, MITOM2, C3, JO1, JOSÉ, ADNA, CH50, HISAB, B2 GLYPROT, THYGLOB AB, TONNY, C4, ANTIR, CARDIO GMA, CCP, CENTROME, RA, [id number], SMAB, CHROMATIN, TPO #### [facility] , Beta 2 Glycoprotein I Ab, IgM <9 Normal 0-32 [facility] Comment on above: Result Comment: Resu lt Units: GPI IgM units The reference interval reflects a 3SD or 99th percentile interval, which is thought to represent a potentially clinically significant result in accordance with the International Consensus Statement on the classification criteria for definitive antiphospholipid syndrome (APS). J Thromb Haem 2006;4:295-306. Performed By: #### S SB, SSA, MITOM2, C3, JO1, JOSÉ, ADNA, CH50, HISAB, B2 GLYPROT, THYGLOB AB, TONNY, C4, ANTIR, CARDIO GMA, CCP, CENTROME, RA, [id number], SMAB, CHROMATIN, TPO #### [facility] , Bilirubin Test strip Ql (U)O rdered By: Corey Nguyen on 05-03-2025 Bilirubin Ql (U) Negative Negative [facility] Bilirubin.total [Mass/volume ] in Serum or PlasmaOrdered By: Corey Nguyen on 05-03-2025 Bilirubin [Mass/Vol] 0.7 mg/dL Normal 0.3-1.0 [facility] Comment on above: Performed By: #### S SB, SSA, MITOM2, C3, JO1, JOSÉ, ADNA, CH50, HISAB, B2 GLYPROT, THYGLOB AB, TONNY, C4, ANTIR, CARDIO GMA, CCP, CENTROME, RA, [id number], SMAB, CHROMATIN, TPO #### [facility] , C reactive protein [Mass/vol ume] in Serum or PlasmaOrdered By: Corey Nguyen on 05-03-2025 CRP [Mass/Vol] 0.5 mg/dL 0.0-0.5 [facility] C-Reactive Proteinon 025 C-Reactive Protein 0.5 mg/dL Normal 0.0-0.5 [facility] Comment on above: Performed By: #### S SB, SSA, MITOM2, C3, JO1, JOSÉ, ADNA, CH50, HISAB, B2 GLYPROT, THYGLOB AB, TONNY, C4, ANTIR, CARDIO GMA, CCP, CENTROME, RA, [id number], SMAB, CHROMATIN, TPO #### [facility] , Calcium [Mass/volume] in Ser um or PlasmaOrdered By: Corey Nguyen on 05-03-2025 Calcium [Mass/Vol] 10.4 mg/dL High 8.6-10.3 [facility] Comment on above: Performed By: #### S SB, SSA, MITOM2, C3, JO1, JOSÉ, ADNA, CH50, HISAB, B2 GLYPROT, THYGLOB AB, TONNY, C4, ANTIR, CARDIO GMA, CCP, CENTROME, RA, [id number], SMAB, CHROMATIN, TPO #### [facility] , Carbon dioxide, total [Moles /volume] in Serum or PlasmaOrdered By: Corey Nguyen on 05-03-2025 CO2 [Moles/Vol] 29.3 mmol/L Normal 21.0-31.0 [facility] Comment on above: Performed By: #### S SB, SSA, MITOM2, C3, JO1, JOSÉ, ADNA, CH50, HISAB, B2 GLYPROT, THYGLOB AB, TONNY, C4, ANTIR, CARDIO GMA, CCP, CENTROME, RA, [id number], SMAB, CHROMATIN, TPO #### [facility] , Chloride [Moles/volume] in S tiffany or PlasmaOrdered By: Corey Nguyen on 05-03-2025 Chloride [Moles/Vol] 93 mmol/L Low 98-107 [facility] Comment on above: Performed By: #### S SB, SSA, MITOM2, C3, JO1, JOSÉ, ADNA, CH50, HISAB, B2 GLYPROT, THYGLOB AB, TONNY, C4, ANTIR, CARDIO GMA, CCP, CENTROME, RA, [id number], SMAB, CHROMATIN, TPO #### [facility] , Chromatin Antibodyon 025 Chromatin Antibody <0.2 Normal 0.0-0.9 [facility] Comment on above: Result Comment: PERF ORMED BY: [facility] [address] [place] [address] PATHOLOGIST FOXER MIKAL KILPATRICK M.D. Performed By: #### S SB, SSA, MITOM2, C3, JO1, JOSÉ, ADNA, CH50, HISAB, B2 GLYPROT, THYGLOB AB, TONNY, C4, ANTIR, CARDIO GMA, CCP, CENTROME, RA, [id number], SMAB, CHROMATIN, TPO #### [facility] , Coagulation Profileon 2024 aPTT Coag (Bld) [Time] 35.5 s Normal 25.1-36.5 Th e [facility] Comment on above: Result Comment: A he matocrit value greater than 55% may lead to inaccurate results in coagulation testing. Patients having hematocrit values >55% require a special collection tube for coagulation studies. Please contact the laboratory at [phone] for redraw instructions. PERFORMED BY: [facility] [address] [facility] [place] [address] PATHOLOGIST FOXER MIKAL KILPATRICK M.D. Performed By: #### S SB, SSA, MITOM2, C3, JO1, JOSÉ, ADNA, CH50, HISAB, B2 GLYPROT, THYGLOB AB, TONNY, C4, ANTIR, CARDIO GMA, CCP, CENTROME, RA, [id number], SMAB, CHROMATIN, TPO #### [facility] , Color of Urine by AutoOrdere d By: Corey Nguyen on 05-03-2025 Color (U) Light-yellow Normal Yellow [facility] Comment on above: Order Comment: Name Collection Type:: Clean-Voided Midstream Performed By: #### S SB, SSA, MITOM2, C3, JO1, JOSÉ, ADNA, CH50, HISAB, B2 GLYPROT, THYGLOB AB, TONNY, C4, ANTIR, CARDIO GMA, CCP, CENTROME, RA, [id number], SMAB, CHROMATIN, TPO #### [facility] , Complement C3on 05-03-2025 Complement C3 195 mg/dL Normal 82-167 [facility] Comment on above: Performed By: #### S SB, SSA, MITOM2, C3, JO1, JOSÉ, ADNA, CH50, HISAB, B2 GLYPROT, THYGLOB AB, TONNY, C4, ANTIR, CARDIO GMA, CCP, CENTROME, RA, [id number], SMAB, CHROMATIN, TPO #### [facility] , Complement C4on 05-03-2025 Complement C4 38 mg/dL Normal 12-38 [facility] Comment on above: Performed By: #### S SB, SSA, MITOM2, C3, JO1, JOSÉ, ADNA, CH50, HISAB, B2 GLYPROT, THYGLOB AB, TONNY, C4, ANTIR, CARDIO GMA, CCP, CENTROME, RA, [id number], SMAB, CHROMATIN, TPO #### [facility] , Complement Total (CH50)on Complement Total (CH50) >60 Normal >41 T he [facility] Comment on above: Result Comment: Age Male Female 1 - 30 days Not Estab. Not Estab. 31 days - 6 months >32 >20 7 months - 17 years >39 >39 >17 years >41 >41 NOTE: The adult ( >17 years ) reference interval range is used to flag abnormals on this report. If the patient is 17 years old or younger, use the table above to determine out of range values. Performed at: - [facility] [id number] Weft Straightener: Gregorio Martinez PhD, Phone: [phone] PERFORMED BY: [address] [address] PATHOLOGIST FOXER MIKAL S SHONNA M.D. Performed By: #### S SB, SSA, MITOM2, C3, JO1, JOSÉ, ADNA, CH50, HISAB, B2 GLYPROT, THYGLOB AB, TONNY, C4, ANTIR, CARDIO GMA, CCP, CENTROME, RA, [id number], SMAB, CHROMATIN, TPO #### [facility] , Complete Blood Count Auto Di ffon 05-03-2025 Mean Corpuscular HGB Conc 34.4 g/dL Normal 32.0-35.0 [facility] Comment on above: Performed By: #### S SB, SSA, MITOM2, C3, JO1, JOSÉ, ADNA, CH50, HISAB, B2 GLYPROT, THYGLOB AB, TONNY, C4, ANTIR, CARDIO GMA, CCP, CENTROME, RA, [id number], SMAB, CHROMATIN, TPO #### [facility] , NRBC% 0.6 /100{WBC} High 0-0.5 [facility] Comment on above: Performed By: #### S SB, SSA, MITOM2, C3, JO1, JOSÉ, ADNA, CH50, HISAB, B2 GLYPROT, THYGLOB AB, TONNY, C4, ANTIR, CARDIO GMA, CCP, CENTROME, RA, [id number], SMAB, CHROMATIN, TPO #### [facility] , White Blood Count 8.8 [CFU]/mL Normal 3.8-11.6 [facility] Comment on above: Performed By: #### S SB, SSA, MITOM2, C3, JO1, JOSÉ, ADNA, CH50, HISAB, B2 GLYPROT, THYGLOB AB, TONNY, C4, ANTIR, CARDIO GMA, CCP, CENTROME, RA, [id number], SMAB, CHROMATIN, TPO #### [facility] , Comprehensive Metabolic Pane andrey 05-03-2025 Albumin [Mass/Vol] 4.7 g/dL Normal 3.5-5.7 [facility] Comment on above: Performed By: #### S SB, SSA, MITOM2, C3, JO1, JOSÉ, ADNA, CH50, HISAB, B2 GLYPROT, THYGLOB AB, TONNY, C4, ANTIR, CARDIO GMA, CCP, CENTROME, RA, [id number], SMAB, CHROMATIN, TPO #### [facility] , GFR/1.73 sq M.predicted MDRD (S/P/Bld) [Vol rate/Area] mL/min/{1.73_m2} Normal [facility] Comment on above: Performed By: #### S SB, SSA, MITOM2, C3, JO1, JOSÉ, ADNA, CH50, HISAB, B2 GLYPROT, THYGLOB AB, TONNY, C4, ANTIR, CARDIO GMA, CCP, CENTROME, RA, [id number], SMAB, CHROMATIN, TPO #### [facility] , Creatine kinase [Enzymatic a ctivity/volume] in Serum or PlasmaOrdered By: Corey Nguyen on 05-03-2025 CK [Catalytic activity/Vol] 33 U/L Normal 30-223 [facility] Comment on above: Result Comment: PERF ORMED BY: [facility] [address] [address] PATHOLOGIST FOXER MIKAL KILPATRICK M.D. Performed By: #### S SB, SSA, MITOM2, C3, JO1, JOSÉ, ADNA, CH50, HISAB, B2 GLYPROT, THYGLOB AB, TONNY, C4, ANTIR, CARDIO GMA, CCP, CENTROME, RA, [id number], SMAB, CHROMATIN, TPO #### [facility] , Creatinine [Mass/volume] in Serum or PlasmaOrdered By: Corey Nguyen on 05-03-2025 Creatinine [Mass/Vol] 0.53 mg/dL Low 0.60-1.20 [facility] Comment on above: Performed By: #### S SB, SSA, MITOM2, C3, JO1, JOSÉ, ADNA, CH50, HISAB, B2 GLYPROT, THYGLOB AB, TONNY, C4, ANTIR, CARDIO GMA, CCP, CENTROME, RA, [id number], SMAB, CHROMATIN, TPO #### [facility] , Cyclic Citrulliated Pep Abon 05-03-2025 Cyclic Citrulliated Pep Ab 5 Normal 0-19 [facility] Comment on above: Result Comment: Nega tive <20 Weak positive 20 - 39 Moderate positive 40 - 59 Strong positive >59 Performed at: [address] [id number] Weft Straightener: Gregorio Martinez PhD, Phone: [phone] Performed By: #### S SB, SSA, MITOM2, C3, JO1, JOSÉ, ADNA, CH50, HISAB, B2 GLYPROT, THYGLOB AB, TONNY, C4, ANTIR, CARDIO GMA, CCP, CENTROME, RA, [id number], SMAB, CHROMATIN, TPO #### [facility] , Dipstick and Microscopicon 0 05-03-2025 Bacteria,Urine Rare Normal None Seen [facility] Comment on above: Order Comment: Name Collection Type:: Clean-Voided Midstream Performed By: #### S SB, SSA, MITOM2, C3, JO1, JOSÉ, ADNA, CH50, HISAB, B2 GLYPROT, THYGLOB AB, TONNY, C4, ANTIR, CARDIO GMA, CCP, CENTROME, RA, [id number], SMAB, CHROMATIN, TPO #### [facility] , Bilirubin,Urine Negative Normal Negative [facility] Comment on above: Order Comment: Name Collection Type:: Clean-Voided Midstream Performed By: #### S SB, SSA, MITOM2, C3, JO1, JOSÉ, ADNA, CH50, HISAB, B2 GLYPROT, THYGLOB AB, TONNY, C4, ANTIR, CARDIO GMA, CCP, CENTROME, RA, [id number], SMAB, CHROMATIN, TPO #### [facility] , Budding Yeast,Urine Rare Normal None Seen [facility] Comment on above: Order Comment: Name Collection Type:: Clean-Voided Midstream Result Comment: PERF ORMED BY: [facility] [address] [place] [address] PATHOLOGIST FOXER MIKAL KILPATRICK M.D. Performed By: #### S SB, SSA, MITOM2, C3, JO1, JOSÉ, ADNA, CH50, HISAB, B2 GLYPROT, THYGLOB AB, TONNY, C4, ANTIR, CARDIO GMA, CCP, CENTROME, RA, [id number], SMAB, CHROMATIN, TPO #### [facility] , Glucose Ql (U) >= Normal Normal [facility] Comment on above: Order Comment: Name Collection Type:: Clean-Voided Midstream Performed By: #### S SB, SSA, MITOM2, C3, JO1, JOSÉ, ADNA, CH50, HISAB, B2 GLYPROT, THYGLOB AB, TONNY, C4, ANTIR, CARDIO GMA, CCP, CENTROME, RA, [id number], SMAB, CHROMATIN, TPO #### [facility] , Hyaline Casts,Urine None Normal 0-8 [facility] Comment on above: Order Comment: Name Collection Type:: Clean-Voided Midstream Performed By: #### S SB, SSA, MITOM2, C3, JO1, JOSÉ, ADNA, CH50, HISAB, B2 GLYPROT, THYGLOB AB, TONNY, C4, ANTIR, CARDIO GMA, CCP, CENTROME, RA, [id number], SMAB, CHROMATIN, TPO #### [facility] , Nitrite,Urine Negative Normal Negative [facility] Comment on above: Order Comment: Name Collection Type:: Clean-Voided Midstream Performed By: #### S SB, SSA, MITOM2, C3, JO1, JOSÉ, ADNA, CH50, HISAB, B2 GLYPROT, THYGLOB AB, TONNY, C4, ANTIR, CARDIO GMA, CCP, CENTROME, RA, [id number], SMAB, CHROMATIN, TPO #### [facility] , Occult Blood,Urine Negative Normal Negative [facility] Comment on above: Order Comment: Name Collection Type:: Clean-Voided Midstream Performed By: #### S SB, SSA, MITOM2, C3, JO1, JOSÉ, ADNA, CH50, HISAB, B2 GLYPROT, THYGLOB AB, TONNY, C4, ANTIR, CARDIO GMA, CCP, CENTROME, RA, [id number], SMAB, CHROMATIN, TPO #### [facility] , Protein,Urine Negative Normal Negative [facility] Comment on above: Order Comment: Name Collection Type:: Clean-Voided Midstream Performed By: #### S SB, SSA, MITOM2, C3, JO1, JOSÉ, ADNA, CH50, HISAB, B2 GLYPROT, THYGLOB AB, TONNY, C4, ANTIR, CARDIO GMA, CCP, CENTROME, RA, [id number], SMAB, CHROMATIN, TPO #### [facility] , RBC,Urine 20-49 Normal 0-4 [facility] Comment on above: Order Comment: Name Collection Type:: Clean-Voided Midstream Performed By: #### S SB, SSA, MITOM2, C3, JO1, JOSÉ, ADNA, CH50, HISAB, B2 GLYPROT, THYGLOB AB, TONNY, C4, ANTIR, CARDIO GMA, CCP, CENTROME, RA, [id number], SMAB, CHROMATIN, TPO #### [facility] , Specificy [place],Urine 1.039 High 1.00 1-1.03 0 [facility] Comment on above: Order Comment: Name Collection Type:: Clean-Voided Midstream Performed By: #### S SB, SSA, MITOM2, C3, JO1, JOSÉ, ADNA, CH50, HISAB, B2 GLYPROT, THYGLOB AB, TONNY, C4, ANTIR, CARDIO GMA, CCP, CENTROME, RA, [id number], SMAB, CHROMATIN, TPO #### [facility] , Squamous Epithelial Cell,Urine 5-9 Normal 0-2 [facility] Comment on above: Order Comment: Name Collection Type:: Clean-Voided Midstream Performed By: #### S SB, SSA, MITOM2, C3, JO1, JOSÉ, ADNA, CH50, HISAB, B2 GLYPROT, THYGLOB AB, TONNY, C4, ANTIR, CARDIO GMA, CCP, CENTROME, RA, [id number], SMAB, CHROMATIN, TPO #### [facility] , Urobilinogen,Urine Normal Normal Normal [facility] Comment on above: Order Comment: Name Collection Type:: Clean-Voided Midstream Performed By: #### S SB, SSA, MITOM2, C3, JO1, JOSÉ, ADNA, CH50, HISAB, B2 GLYPROT, THYGLOB AB, TONNY, C4, ANTIR, CARDIO GMA, CCP, CENTROME, RA, [id number], SMAB, CHROMATIN, TPO #### [facility] , WBC CLUMP, Urine Few Normal None Seen [facility] Comment on above: Order Comment: Name Collection Type:: Clean-Voided Midstream Performed By: #### S SB, SSA, MITOM2, C3, JO1, JOSÉ, ADNA, CH50, HISAB, B2 GLYPROT, THYGLOB AB, TONNY, C4, ANTIR, CARDIO GMA, CCP, CENTROME, RA, [id number], SMAB, CHROMATIN, TPO #### [facility] , WBC,Urine 10-19 Normal 0-4 [facility] Comment on above: Order Comment: Name Collection Type:: Clean-Voided Midstream Performed By: #### S SB, SSA, MITOM2, C3, JO1, JOSÉ, ADNA, CH50, HISAB, B2 GLYPROT, THYGLOB AB, TONNY, C4, ANTIR, CARDIO GMA, CCP, CENTROME, RA, [id number], SMAB, CHROMATIN, TPO #### [facility] , Eosinophils [#/volume] in Bl ood by Automated countOrdered By: Corey Nguyen on 05-03-2025 Eosinophils (Bld) [#/Vol] 0.3 10*3/uL Normal 0.0-0.45 [facility] Comment on above: Performed By: #### S SB, SSA, MITOM2, C3, JO1, JOSÉ, ADNA, CH50, HISAB, B2 GLYPROT, THYGLOB AB, TONNY, C4, ANTIR, CARDIO GMA, CCP, CENTROME, RA, [id number], SMAB, CHROMATIN, TPO #### [facility] , Eosinophils/100 leukocytes i n Blood by Automated countOrdered By: Corey Nguyen on 05-03-2025 Eosinophils/100 WBC (Bld) 3.3 % Normal . [facility] Comment on above: Performed By: #### S SB, SSA, MITOM2, C3, JO1, JOSÉ, ADNA, CH50, HISAB, B2 GLYPROT, THYGLOB AB, TONNY, C4, ANTIR, CARDIO GMA, CCP, CENTROME, RA, [id number], SMAB, CHROMATIN, TPO #### [facility] , Epithelial cells.squamous [# /area] in Urine sediment by Automated countOrdered By: Corey Nguyen on 05-03-2025 Epithelial cells.squamous Auto (Urine sed) [#/Area] 5-9 [HPF] High 0-2 [facility] Erythrocyte Sedimentation Ra kinga 05-03-2025 ESR (Bld) [Velocity] 25 mm/h High 0-19 [facility] Comment on above: Result Comment: PERF ORMED BY: [address] [place] [address] PATHOLOGIST FOXER MIKAL KILPATRICK M.D. Performed By: #### S SB, SSA, MITOM2, C3, JO1, JOSÉ, ADNA, CH50, HISAB, B2 GLYPROT, THYGLOB AB, TONNY, C4, ANTIR, CARDIO GMA, CCP, CENTROME, RA, [id number], SMAB, CHROMATIN, TPO #### [facility] , Erythrocyte distribution wid th [Ratio] by Automated countOrdered By: Corey Nguyen on 05-03-2025 Erythrocyte distribution width (RBC) [Ratio] 12.9 % Normal 11.9-15.3 [facility] Comment on above: Performed By: #### S SB, SSA, MITOM2, C3, JO1, JOSÉ, ADNA, CH50, HISAB, B2 GLYPROT, THYGLOB AB, TONNY, C4, ANTIR, CARDIO GMA, CCP, CENTROME, RA, [id number], SMAB, CHROMATIN, TPO #### [facility] , Erythrocyte sedimentation ra te by Photometric methodOrdered By: Corey Nguyen on 05-03-2025 ESR Photometric method (Bld) [Velocity] 25 mm/hr High 0-19 [facility] Erythrocytes [#/area] in Uri ne sediment by Automated countOrdered By: Corey Nguyen on 05-03-2025 RBC Auto (Urine sed) [#/Area] 20-49 [HPF] High 0-4 [facility] Erythrocytes [#/volume] in B lood by Automated countOrdered By: Corey Nguyen on 05-03-2025 RBC (Bld) [#/Vol] 5.37 10*6/uL High 3.60-5.00 [facility] Comment on above: Performed By: #### S SB, SSA, MITOM2, C3, JO1, JOSÉ, ADNA, CH50, HISAB, B2 GLYPROT, THYGLOB AB, TONNY, C4, ANTIR, CARDIO GMA, CCP, CENTROME, RA, [id number], SMAB, CHROMATIN, TPO #### [facility] , Glucose [Mass/volume] in Ser um or PlasmaOrdered By: Corey Nguyen on 05-03-2025 Glucose [Mass/Vol] 369 mg/dL High 70-100 [facility] Comment on above: ADA recommended refe rence rangeRandom Glucose Reference Range is dependent on time and content of last meal. Glucose of more than 200 mg/dL in a nonstressed, ambulatory subject supports the diagnosis of Diabetes Mellitus. Result Comment: [place] om Glucose Reference Range is dependent on time and content of last meal. Glucose of more than 200 mg/dL in a nonstressed, ambulatory subject supports the diagnosis of Diabetes Mellitus. ADA recommended reference range Performed By: #### S SB, SSA, MITOM2, C3, JO1, JOSÉ, ADNA, CH50, HISAB, B2 GLYPROT, THYGLOB AB, TONNY, C4, ANTIR, CARDIO GMA, CCP, CENTROME, RA, [id number], SMAB, CHROMATIN, TPO #### [facility] , Glucose [Mass/volume] in Uri ne by Test stripOrdered By: Corey Nguyen on 05-03-2025 Glucose Test strip (U) [Mass/Vol] >=1000 mg/dL High Normal [facility] Hematocrit [Volume Fraction] of Blood by Automated countOrdered By: Corey Nguyen on 05-03-2025 Hematocrit (Bld) [Volume fraction] 49.5 % High 34.0-46.4 [facility] Comment on above: Performed By: #### S SB, SSA, MITOM2, C3, JO1, JOSÉ, ADNA, CH50, HISAB, B2 GLYPROT, THYGLOB AB, TONNY, C4, ANTIR, CARDIO GMA, CCP, CENTROME, RA, [id number], SMAB, CHROMATIN, TPO #### [facility] , Hemoglobin Test strip Ql (U) Ordered By: Corey Nguyen on 05-03-2025 Hemoglobin Ql (U) Negative Negative [facility] Hemoglobin [Mass/volume] in BloodOrdered By: Corey Nguyen on 05-03-2025 Hemoglobin (Bld) [Mass/Vol] 17.0 g/dL High 11.8-15.4 [facility] Comment on above: Performed By: #### S SB, SSA, MITOM2, C3, JO1, JOSÉ, ADNA, CH50, HISAB, B2 GLYPROT, THYGLOB AB, TONNY, C4, ANTIR, CARDIO GMA, CCP, CENTROME, RA, [id number], SMAB, CHROMATIN, TPO #### [facility] , Histone Antibodieson 025 Histone Antibodies 0.3 Normal 0.0-0.9 [facility] Comment on above: Result Comment: Nega tive <1.0 Weak Positive 1.0 - 1.5 Moderate Positive 1.6 - 2.5 Strong Positive >2.5 Performed at: [address] [id number] Weft Straightener: Louis Mckeon MD, Phone: [phone] Performed By: #### S SB, SSA, MITOM2, C3, JO1, JOSÉ, ADNA, CH50, HISAB, B2 GLYPROT, THYGLOB AB, TONNY, C4, ANTIR, CARDIO GMA, CCP, CENTROME, RA, [id number], SMAB, CHROMATIN, TPO #### [facility] , Hyaline casts [#/area] in Ur ine sediment by Automated countOrdered By: Corey Nguyen on 05-03-2025 Hyaline casts Auto (Urine sed) [#/Area] None [LPF] 0-8 [facility] INR in Platelet poor plasma by Coagulation assayOrdered By: Corey Ramosrow on 05-03-2025 INR Coag (PPP) [Relative time] 0.9 {INR} Normal [facility] Comment on above: INR Therapeutic Rang e A) Pre- and Peroperative OAT started two weeks before surgery. NOT HIP SURGERY: 1.5 - 2.5 HIP SURGERY: 2 - 3B) Primary and secondary prevention of venous THROMBOSIS: 2 - 3C) Active venous thrombosis, pulmonary embolismand prevention of recurrent venous thrombosis: 2 - 3D) Prevention of arterial thromboembolismincluding patients with mechanical heart valves: 3 - 4.5 Result Comment: INR Therapeutic Range A) Pre- and Peroperative OAT started two weeks before surgery. NOT HIP SURGERY: 1.5 - 2.5 HIP SURGERY: 2 - 3 B) Primary and secondary prevention of venous THROMBOSIS: 2 - 3 C) Active venous thrombosis, pulmonary embolism and prevention of recurrent venous thrombosis: 2 - 3 D) Prevention of arterial thromboembolism including patients with mechanical heart valves: 3 - 4.5 Performed By: #### S SB, SSA, MITOM2, C3, JO1, JOSÉ, ADNA, CH50, HISAB, B2 GLYPROT, THYGLOB AB, TONNY, C4, ANTIR, CARDIO GMA, CCP, CENTROME, RA, [id number], SMAB, CHROMATIN, TPO #### [facility] , Immunofixation, (ANKITA), Urine on 05-03-2025 Immunofixation, (ANKITA), Urine Comment Normal . [facility] Comment on above: Result Comment: No m onoclonality detected. Performed at: - [facility] [id number] Weft Straightener: Gregorio Martinez PhD, Phone: [phone] Performed By: #### S SB, SSA, MITOM2, C3, JO1, JOSÉ, ADNA, CH50, HISAB, B2 GLYPROT, THYGLOB AB, TONNY, C4, ANTIR, CARDIO GMA, CCP, CENTROME, RA, [id number], SMAB, CHROMATIN, TPO #### [facility] , Immunofixation,Serumon 05-03 Immunofixation, Serum Comment: Normal . [facility] Comment on above: Result Comment: Pres ence of monoclonal protein is unclear at this time. Suggest repeat in 3 to 6 months if clinically indicated. Performed By: #### S SB, SSA, MITOM2, C3, JO1, JOSÉ, ADNA, CH50, HISAB, B2 GLYPROT, THYGLOB AB, TONNY, C4, ANTIR, CARDIO GMA, CCP, CENTROME, RA, [id number], SMAB, CHROMATIN, TPO #### [facility] , Immunoglobulin A, Serum 350 mg/dL Normal 87-352 [facility] Comment on above: Performed By: #### S SB, SSA, MITOM2, C3, JO1, JOSÉ, ADNA, CH50, HISAB, B2 GLYPROT, THYGLOB AB, TONNY, C4, ANTIR, CARDIO GMA, CCP, CENTROME, RA, [id number], SMAB, CHROMATIN, TPO #### [facility] , Immunoglobulin G 791 mg/dL Normal [id number] [facility] Comment on above: Performed By: #### S SB, SSA, MITOM2, C3, JO1, JOSÉ, ADNA, CH50, HISAB, B2 GLYPROT, THYGLOB AB, TONNY, C4, ANTIR, CARDIO GMA, CCP, CENTROME, RA, [id number], SMAB, CHROMATIN, TPO #### [facility] , Immunoglobulin M, Serum <5 Normal 26-217 [facility] Comment on above: Result Comment: Resu lt confirmed on concentration. Performed at: - [facility] [id number] Weft Straightener: Gregorio Martinez PhD, Phone: [phone] Performed By: #### S SB, SSA, MITOM2, C3, JO1, JOSÉ, ADNA, CH50, HISAB, B2 GLYPROT, THYGLOB AB, TONNY, C4, ANTIR, CARDIO GMA, CCP, CENTROME, RA, [id number], SMAB, CHROMATIN, TPO #### [facility] , CHINA-1 Antibodyon 05-03-2025 [place]-1 Antibody <0.2 Normal 0.0-0.9 [facility] Comment on above: Performed By: #### S SB, SSA, MITOM2, C3, JO1, JOSÉ, ADNA, CH50, HISAB, B2 GLYPROT, THYGLOB AB, TONNY, C4, ANTIR, CARDIO GMA, CCP, CENTROME, RA, [id number], SMAB, CHROMATIN, TPO #### [facility] , Ketones [Presence] in Urine by Test stripOrdered By: Corey Nguyen on 05-03-2025 Ketones Ql (U) Trace Normal Negative [facility] Comment on above: Order Comment: Name Collection Type:: Clean-Voided Midstream Performed By: #### S SB, SSA, MITOM2, C3, JO1, JOSÉ, ADNA, CH50, HISAB, B2 GLYPROT, THYGLOB AB, TONNY, C4, ANTIR, CARDIO GMA, CCP, CENTROME, RA, [id number], SMAB, CHROMATIN, TPO #### [facility] , Leukocyte clumps [Presence] in Urine by AutomatedOrdered By: Corey Nguyen on 05-03-2025 Leukocyte clumps Auto Ql (U) Few [LPF] High None Seen [facility] Leukocyte esterase [Presence ] in Urine by Test stripOrdered By: Corey Nguyen on 05-03-2025 Leukocyte esterase Test strip Ql (U) 4+ Normal Negative [facility] Comment on above: Order Comment: Name Collection Type:: Clean-Voided Midstream Performed By: #### S SB, SSA, MITOM2, C3, JO1, JOSÉ, ADNA, CH50, HISAB, B2 GLYPROT, THYGLOB AB, TONNY, C4, ANTIR, CARDIO GMA, CCP, CENTROME, RA, [id number], SMAB, CHROMATIN, TPO #### [facility] , Leukocytes [#/area] in Urine sediment by Automated countOrdered By: Corey Nguyen on 05-03-2025 WBC Auto (Urine sed) [#/Area] 10-19 [HPF] High 0-4 [facility] Leukocytes [#/volume] correc roxy for nucleated erythrocytes in Blood by Automated counOrdered By: Corey Nguyen on 05-03-2025 WBC corrected for nucl RBC Auto (Bld) [#/Vol] 8.8 10*3/uL 3.8-11.6 [facility] Leukocytes [#/volume] in Blo od by Automated countOrdered By: Corey Nguyen on 05-03-2025 WBC (Bld) [#/Vol] 8.8 10*3/uL Normal 3.8-11.6 [facility] Comment on above: Performed By: #### S SB, SSA, MITOM2, C3, JO1, JOSÉ, ADNA, CH50, HISAB, B2 GLYPROT, THYGLOB AB, TONNY, C4, ANTIR, CARDIO GMA, CCP, CENTROME, RA, [id number], SMAB, CHROMATIN, TPO #### [facility] , Lupus Anticoagulant Compon 0 05-03-2025 Dilute Prothrombin Time (dPt) 35.7 Normal 0.0-47.6 [facility] Comment on above: Performed By: #### S SB, SSA, MITOM2, C3, JO1, JOSÉ, ADNA, CH50, HISAB, B2 GLYPROT, THYGLOB AB, TONNY, C4, ANTIR, CARDIO GMA, CCP, CENTROME, RA, [id number], SMAB, CHROMATIN, TPO #### [facility] , dPT Confirm Ratio 1.22 Normal 0.00-1.34 [facility] Comment on above: Performed By: #### S SB, SSA, MITOM2, C3, JO1, JOSÉ, ADNA, CH50, HISAB, B2 GLYPROT, THYGLOB AB, TONNY, C4, ANTIR, CARDIO GMA, CCP, CENTROME, RA, [id number], SMAB, CHROMATIN, TPO #### [facility] , DRVVT Lupus 37.8 Normal 0.0-47.0 [facility] Comment on above: Performed By: #### S SB, SSA, MITOM2, C3, JO1, JOSÉ, ADNA, CH50, HISAB, B2 GLYPROT, THYGLOB AB, TONNY, C4, ANTIR, CARDIO GMA, CCP, CENTROME, RA, [id number], SMAB, CHROMATIN, TPO #### [facility] , Interpretation Comment: Normal . [facility] Comment on above: Result Comment: No l upus anticoagulant was detected. Performed at: - [facility] [id number] Weft Straightener: Louis Mckeon MD, Phone: [phone] PERFORMED BY: [facility] [address] [place] [address] PATHOLOGIST FOXER MIKAL KILPATRICK M.D. Performed By: #### S SB, SSA, MITOM2, C3, JO1, JOSÉ, ADNA, CH50, HISAB, B2 GLYPROT, THYGLOB AB, TONNY, C4, ANTIR, CARDIO GMA, CCP, CENTROME, RA, [id number], SMAB, CHROMATIN, TPO #### [facility] , PTT-LA 29.9 Normal 0.0-43.5 [facility] Comment on above: Performed By: #### S SB, SSA, MITOM2, C3, JO1, JOSÉ, ADNA, CH50, HISAB, B2 GLYPROT, THYGLOB AB, TONNY, C4, ANTIR, CARDIO GMA, CCP, CENTROME, RA, [id number], SMAB, CHROMATIN, TPO #### [facility] , Thrombin Time 19.1 Normal 0.0-23.0 [facility] Comment on above: Performed By: #### S SB, SSA, MITOM2, C3, JO1, JOSÉ, ADNA, CH50, HISAB, B2 GLYPROT, THYGLOB AB, TONNY, C4, ANTIR, CARDIO GMA, CCP, CENTROME, RA, [id number], SMAB, CHROMATIN, TPO #### [facility] , Lymphocytes [#/volume] in Bl ood by Automated countOrdered By: Corey Nguyen on 05-03-2025 Lymphocytes (Bld) [#/Vol] 3.1 10*3/uL Normal 1.00-4.8 [facility] Comment on above: Performed By: #### S SB, SSA, MITOM2, C3, JO1, JOSÉ, ADNA, CH50, HISAB, B2 GLYPROT, THYGLOB AB, TONNY, C4, ANTIR, CARDIO GMA, CCP, CENTROME, RA, [id number], SMAB, CHROMATIN, TPO #### [facility] , Lymphocytes/100 leukocytes i n Blood by Automated countOrdered By: Corey Nguyen on 05-03-2025 Lymphocytes/100 WBC (Bld) 35.4 % Normal . [facility] Comment on above: Performed By: #### S SB, SSA, MITOM2, C3, JO1, JOSÉ, ADNA, CH50, HISAB, B2 GLYPROT, THYGLOB AB, TONNY, C4, ANTIR, CARDIO GMA, CCP, CENTROME, RA, [id number], SMAB, CHROMATIN, TPO #### [facility] , MCH [Entitic mass] by Automa roxy countOrdered By: Corey Nguyen on 05-03-2025 MCH (RBC) [Entitic mass] 31.7 pg Normal 24.7-34.3 [facility] Comment on above: Performed By: #### S SB, SSA, MITOM2, C3, JO1, JOSÉ, ADNA, CH50, HISAB, B2 GLYPROT, THYGLOB AB, TONNY, C4, ANTIR, CARDIO GMA, CCP, CENTROME, RA, [id number], SMAB, CHROMATIN, TPO #### [facility] , MCHC Auto (RBC) [Mass/Vol]Or dered By: Corey Nguyen on 05-03-2025 MCHC (RBC) [Mass/Vol] 34.4 g/dL 32.0-35.0 [facility] MCV [Entitic volume] by Auto mated countOrdered By: Corey Nguyen on 05-03-2025 MCV (RBC) [Entitic vol] 92.2 fL Normal 80-100 [facility] Comment on above: Performed By: #### S SB, SSA, MITOM2, C3, JO1, JOSÉ, ADNA, CH50, HISAB, B2 GLYPROT, THYGLOB AB, TONNY, C4, ANTIR, CARDIO GMA, CCP, CENTROME, RA, [id number], SMAB, CHROMATIN, TPO #### [facility] , Mitochondrial (M2) Antibodyo n 05-03-2025 Mitochondrial (M2) Antibody <20.0 Normal 0.0-20.0 [facility] Comment on above: Result Comment: Nega tive 0.0 - 20.0 Equivocal 20.1 - 24.9 Positive >24.9 Mitochondrial (M2) Antibodies are found in 90-96% of patients with primary biliary cirrhosis. Performed at: [address] [id number] Weft Straightener: Gregorio Martinez PhD, Phone: [phone] Performed By: #### S SB, SSA, MITOM2, C3, JO1, JOSÉ, ADNA, CH50, HISAB, B2 GLYPROT, THYGLOB AB, TONNY, C4, ANTIR, CARDIO GMA, CCP, CENTROME, RA, [id number], SMAB, CHROMATIN, TPO #### [facility] , Monocytes [#/volume] in Bloo d by Automated countOrdered By: Corey Nguyen on 05-03-2025 Monocytes (Bld) [#/Vol] 0.3 10*3/uL Normal 0.0-0.8 [facility] Comment on above: Performed By: #### S SB, SSA, MITOM2, C3, JO1, JOSÉ, ADNA, CH50, HISAB, B2 GLYPROT, THYGLOB AB, TONNY, C4, ANTIR, CARDIO GMA, CCP, CENTROME, RA, [id number], SMAB, CHROMATIN, TPO #### [facility] , Monocytes/100 leukocytes in Blood by Automated countOrdered By: Corey Nguyen on 05-03-2025 Monocytes/100 WBC (Bld) 3.8 % Normal . [facility] Comment on above: Performed By: #### S SB, SSA, MITOM2, C3, JO1, JOSÉ, ADNA, CH50, HISAB, B2 GLYPROT, THYGLOB AB, TONNY, C4, ANTIR, CARDIO GMA, CCP, CENTROME, RA, [id number], SMAB, CHROMATIN, TPO #### [facility] , Neutrophils [#/volume] in Bl ood by Automated countOrdered By: Corey Nguyen on 05-03-2025 Neutrophils (Bld) [#/Vol] 4.9 10*3/uL Normal 1.8-7.7 [facility] Comment on above: Performed By: #### S SB, SSA, MITOM2, C3, JO1, JOSÉ, ADNA, CH50, HISAB, B2 GLYPROT, THYGLOB AB, TONNY, C4, ANTIR, CARDIO GMA, CCP, CENTROME, RA, [id number], SMAB, CHROMATIN, TPO #### [facility] , Neutrophils/100 leukocytes i n Blood by Automated countOrdered By: Corey Nguyen on 05-03-2025 Neutrophils/100 WBC (Bld) 56.2 % Normal . [facility] Comment on above: Performed By: #### S SB, SSA, MITOM2, C3, JO1, JOSÉ, ADNA, CH50, HISAB, B2 GLYPROT, THYGLOB AB, TONNY, C4, ANTIR, CARDIO GMA, CCP, CENTROME, RA, [id number], SMAB, CHROMATIN, TPO #### [facility] , Nitrite Test strip Ql (U)Ord ered By: Corey Nguyen on 05-03-2025 Nitrite Ql (U) Negative Negative [facility] No Panel InformationOrdered By: Corey Nguyen on 05-03-2025 Estimated GFR (CKD-EPI) > 60.0 mL/Min [facility] Creatinine Clearance (Chem N/A [facility] Nucleated erythrocytes [Pres ence] in Blood by Automated countOrdered By: Corey Nguyen on 05-03-2025 Nucleated RBC Auto Ql (Bld) 0.6 /100{WBC} High 0-0.5 [facility] Platelet mean volume [Entiti c volume] in Blood by Automated countOrdered By: Corey Nguyen on 05-03-2025 Platelet mean volume (Bld) [Entitic vol] 9.6 fL Normal 6.3-10.7 [facility] Comment on above: Performed By: #### S SB, SSA, MITOM2, C3, JO1, JOSÉ, ADNA, CH50, HISAB, B2 GLYPROT, THYGLOB AB, TONNY, C4, ANTIR, CARDIO GMA, CCP, CENTROME, RA, [id number], SMAB, CHROMATIN, TPO #### [facility] , Platelets [#/volume] in Bloo d by Automated countOrdered By: Corey Nguyen on 05-03-2025 Platelets (Bld) [#/Vol] 281 10*3/uL Normal 150-450 [facility] Comment on above: Performed By: #### S SB, SSA, MITOM2, C3, JO1, JOSÉ, ADNA, CH50, HISAB, B2 GLYPROT, THYGLOB AB, TONNY, C4, ANTIR, CARDIO GMA, CCP, CENTROME, RA, [id number], SMAB, CHROMATIN, TPO #### [facility] , Potassium [Moles/volume] in Serum or PlasmaOrdered By: Corey Nguyen on 05-03-2025 Potassium [Moles/Vol] 4.2 mmol/L Normal 3.5-5.1 [facility] Comment on above: Performed By: #### S SB, SSA, MITOM2, C3, JO1, JOSÉ, ADNA, CH50, HISAB, B2 GLYPROT, THYGLOB AB, TONNY, C4, ANTIR, CARDIO GMA, CCP, CENTROME, RA, [id number], SMAB, CHROMATIN, TPO #### [facility] , Protein Electro, Random Urin live 05-03-2025 Albumin, Urine 31.6 % Normal . [facility] Comment on above: Performed By: #### S SB, SSA, MITOM2, C3, JO1, JOSÉ, ADNA, CH50, HISAB, B2 GLYPROT, THYGLOB AB, TONNY, C4, ANTIR, CARDIO GMA, CCP, CENTROME, RA, [id number], SMAB, CHROMATIN, TPO #### [facility] , Bnkwo-4-Yamiqzpg, Urine 6.5 % Normal . T [facility] Comment on above: Performed By: #### S SB, SSA, MITOM2, C3, JO1, JOSÉ, ADNA, CH50, HISAB, B2 GLYPROT, THYGLOB AB, TONNY, C4, ANTIR, CARDIO GMA, CCP, CENTROME, RA, [id number], SMAB, CHROMATIN, TPO #### [facility] , Lddwc-9-Avypscml, Urine 21.9 % Normal . [facility] Comment on above: Performed By: #### S SB, SSA, MITOM2, C3, JO1, JOSÉ, ADNA, CH50, HISAB, B2 GLYPROT, THYGLOB AB, TONNY, C4, ANTIR, CARDIO GMA, CCP, CENTROME, RA, [id number], SMAB, CHROMATIN, TPO #### [facility] , Beta Globulin, Urine 24.9 % Normal . [facility] Comment on above: Performed By: #### S SB, SSA, MITOM2, C3, JO1, JOSÉ, ADNA, CH50, HISAB, B2 GLYPROT, THYGLOB AB, TONNY, C4, ANTIR, CARDIO GMA, CCP, CENTROME, RA, [id number], SMAB, CHROMATIN, TPO #### [facility] , Gamma Globulin, Urine 14.9 % Normal . [facility] Comment on above: Performed By: #### S SB, SSA, MITOM2, C3, JO1, JOSÉ, ADNA, CH50, HISAB, B2 GLYPROT, THYGLOB AB, TONNY, C4, ANTIR, CARDIO GMA, CCP, CENTROME, RA, [id number], SMAB, CHROMATIN, TPO #### [facility] , M-Jorge % Not Observed Normal Not Observed [facility] Comment on above: Performed By: #### S SB, SSA, MITOM2, C3, JO1, JOSÉ, ADNA, CH50, HISAB, B2 GLYPROT, THYGLOB AB, TONNY, C4, ANTIR, CARDIO GMA, CCP, CENTROME, RA, [id number], SMAB, CHROMATIN, TPO #### [facility] , Please Note: Comment Normal . [facility] Comment on above: Result Comment: Prot ein electrophoresis scan will follow via computer, mail, or kettle operator delivery. PERFORMED BY: [facility] [place] [address] PATHOLOGIST FOXER MIKAL KILPATRICK M.D. Performed By: #### S SB, SSA, MITOM2, C3, JO1, JOSÉ, ADNA, CH50, HISAB, B2 GLYPROT, THYGLOB AB, TONNY, C4, ANTIR, CARDIO GMA, CCP, CENTROME, RA, [id number], SMAB, CHROMATIN, TPO #### [facility] , Protein (U) [Mass/Vol] 7.7 mg/dL Normal Not Estab. Th e [facility] Comment on above: Performed By: #### S SB, SSA, MITOM2, C3, JO1, JOSÉ, ADNA, CH50, HISAB, B2 GLYPROT, THYGLOB AB, TONNY, C4, ANTIR, CARDIO GMA, CCP, CENTROME, RA, [id number], SMAB, CHROMATIN, TPO #### [facility] , Protein Electrophoresis, Ser umon 05-03-2025 Albumin [Mass/Vol] 3.7 g/dL Normal 2.9-4.4 [facility] Comment on above: Performed By: #### S SB, SSA, MITOM2, C3, JO1, JOSÉ, ADNA, CH50, HISAB, B2 GLYPROT, THYGLOB AB, TONNY, C4, ANTIR, CARDIO GMA, CCP, CENTROME, RA, [id number], SMAB, CHROMATIN, TPO #### [facility] , Albumin/Globulin [Mass ratio] 1.1 {ratio} Normal 0.7-1.7 [facility] Comment on above: Performed By: #### S SB, SSA, MITOM2, C3, JO1, JOSÉ, ADNA, CH50, HISAB, B2 GLYPROT, THYGLOB AB, TONNY, C4, ANTIR, CARDIO GMA, CCP, CENTROME, RA, [id number], SMAB, CHROMATIN, TPO #### [facility] , Ghswg-3-Iziwwpqo 0.3 g/dL Normal 0.0-0.4 [facility] Comment on above: Performed By: #### S SB, SSA, MITOM2, C3, JO1, JOSÉ, ADNA, CH50, HISAB, B2 GLYPROT, THYGLOB AB, TONNY, C4, ANTIR, CARDIO GMA, CCP, CENTROME, RA, [id number], SMAB, CHROMATIN, TPO #### [facility] , Yuswq-6-Okvjtaji 1.0 g/dL Normal 0.4-1.0 [facility] Comment on above: Performed By: #### S SB, SSA, MITOM2, C3, JO1, JOSÉ, ADNA, CH50, HISAB, B2 GLYPROT, THYGLOB AB, TONNY, C4, ANTIR, CARDIO GMA, CCP, CENTROME, RA, [id number], SMAB, CHROMATIN, TPO #### [facility] , Beta Globulin 1.4 g/dL Normal 0.7-1.3 [facility] Comment on above: Performed By: #### S SB, SSA, MITOM2, C3, JO1, JOSÉ, ADNA, CH50, HISAB, B2 GLYPROT, THYGLOB AB, TONNY, C4, ANTIR, CARDIO GMA, CCP, CENTROME, RA, [id number], SMAB, CHROMATIN, TPO #### [facility] , Gamma Globulin 0.9 g/dL Normal 0.4-1.8 [facility] Comment on above: Performed By: #### S SB, SSA, MITOM2, C3, JO1, JOSÉ, ADNA, CH50, HISAB, B2 GLYPROT, THYGLOB AB, TONNY, C4, ANTIR, CARDIO GMA, CCP, CENTROME, RA, [id number], SMAB, CHROMATIN, TPO #### [facility] , Globulin (S) [Mass/Vol] 3.5 g/dL Normal 2.2-3.9 [facility] Comment on above: Performed By: #### S SB, SSA, MITOM2, C3, JO1, JOSÉ, ADNA, CH50, HISAB, B2 GLYPROT, THYGLOB AB, TONNY, C4, ANTIR, CARDIO GMA, CCP, CENTROME, RA, [id number], SMAB, CHROMATIN, TPO #### [facility] , M-Jorge Not Observed Normal Not Observed [facility] Comment on above: Performed By: #### S SB, SSA, MITOM2, C3, JO1, JOSÉ, ADNA, CH50, HISAB, B2 GLYPROT, THYGLOB AB, TONNY, C4, ANTIR, CARDIO GMA, CCP, CENTROME, RA, [id number], SMAB, CHROMATIN, TPO #### [facility] , Protein [Mass/Vol] 7.2 g/dL Normal 6.0-8.5 [facility] Comment on above: Performed By: #### S SB, SSA, MITOM2, C3, JO1, JOSÉ, ADNA, CH50, HISAB, B2 GLYPROT, THYGLOB AB, TONNY, C4, ANTIR, CARDIO GMA, CCP, CENTROME, RA, [id number], SMAB, CHROMATIN, TPO #### [facility] , SPE-Note Comment Normal . [facility] Comment on above: Result Comment: Prot ein electrophoresis scan will follow via computer, mail, or kettle operator delivery. Performed at: [address] [id number] [employer] Straightener: Gregorio Martinez PhD, Phone: [phone] Performed By: #### S SB, SSA, MITOM2, C3, JO1, JOSÉ, ADNA, CH50, HISAB, B2 GLYPROT, THYGLOB AB, TONNY, C4, ANTIR, CARDIO GMA, CCP, CENTROME, RA, [id number], SMAB, CHROMATIN, TPO #### [facility] , Protein Test strip (U) [Mass /Vol]Ordered By: Corey Nguyen on 05-03-2025 Protein (U) [Mass/Vol] Negative Negative [facility] Protein [Mass/volume] in Ser um or PlasmaOrdered By: Corey Nguyen on 05-03-2025 Protein [Mass/Vol] 7.5 g/dL Normal 6.4-8.9 [facility] Comment on above: Performed By: #### S SB, SSA, MITOM2, C3, JO1, JOSÉ, ADNA, CH50, HISAB, B2 GLYPROT, THYGLOB AB, TONNY, C4, ANTIR, CARDIO GMA, CCP, CENTROME, RA, [id number], SMAB, CHROMATIN, TPO #### [facility] , Prothrombin time (PT)Ordered By: Corey Nguyen on 05-03-2025 PT Coag (PPP) [Time] 10.7 s Normal 9.0-12.9 [facility] [facility] Comment on above: A hematocrit value g reater than 55% may lead to inaccurate results in coagulation testing. Patients having hematocrit values >55% require a special collection tube for coagulation studies. Please contact the laboratory at [phone] for redraw instructions. Result Comment: A he matocrit value greater than 55% may lead to inaccurate results in coagulation testing. Patients having hematocrit values >55% require a special collection tube for coagulation studies. Please contact the laboratory at [phone] for redraw instructions. Performed By: #### S SB, SSA, MITOM2, C3, JO1, JOSÉ, ADNA, CH50, HISAB, B2 GLYPROT, THYGLOB AB, TONNY, C4, ANTIR, CARDIO GMA, CCP, CENTROME, RA, [id number], SMAB, CHROMATIN, TPO #### [facility] , RPR w/rfx to Quant TP Abson 05-03-2025 RPR Interpretation Comment Normal . [facility] Comment on above: Result Comment: Syph ilis: RPR with Reflex to RPR Titer and Treponemal Antibodies, Traditional Screening and Diagnosis Algorithm Treponemal RPR RPR, Qn Ab Final Interpretation -------- --------- Non N/A N/A No laboratory evidence Reactive of syphilis. Retest in 2-4 weeks if recent exposure is suspected. -------- --------- Reactive >/=1:1 Non Nontreponemal antibodies Reactive detected. Syphilis unlikely; biological false positive possible. Retest in 2-4 weeks if recent exposure is suspected. -------- --------- Reactive >/=1:1 Reactive Treponemal and nontreponemal antibodies detected. Consistent with past or current (potential early) syphilis. Performed at: [facility] [address] [id number] [employer] Straightener: Gregorio Martinez PhD, Phone: [phone] PERFORMED BY: [address] [place] [id number] PATHOLOGIST FOXER MIKAL KILPATRICK M.D. Performed By: #### S SB, SSA, MITOM2, C3, JO1, JOSÉ, ADNA, CH50, HISAB, B2 GLYPROT, THYGLOB AB, TONNY, C4, ANTIR, CARDIO GMA, CCP, CENTROME, RA, [id number], SMAB, CHROMATIN, TPO #### [facility] , RPR, Rfx Quant RPR Non-Reactive Normal Non Reactive [facility] Comment on above: Performed By: #### S SB, SSA, MITOM2, C3, JO1, JOSÉ, ADNA, CH50, HISAB, B2 GLYPROT, THYGLOB AB, TONNY, C4, ANTIR, CARDIO GMA, CCP, CENTROME, RA, [id number], SMAB, CHROMATIN, TPO #### [facility] , Rheumatoid Factoron 05-03-20 25 Rheumatoid Factor <10.0 Normal <14.0 [facility] Comment on above: Performed By: #### S SB, SSA, MITOM2, C3, JO1, JOSÉ, ADNA, CH50, HISAB, B2 GLYPROT, THYGLOB AB, TONNY, C4, ANTIR, CARDIO GMA, CCP, CENTROME, RA, [id number], SMAB, CHROMATIN, TPO #### [facility] , SS-A/Ro Sjogrens Antibodyon 05-03-2025 SS-A/Ro Sjogrens Antibody <0.2 Normal 0.0-0.9 [facility] Comment on above: Performed By: #### S SB, SSA, MITOM2, C3, JO1, JOSÉ, ADNA, CH50, HISAB, B2 GLYPROT, THYGLOB AB, TONNY, C4, ANTIR, CARDIO GMA, CCP, CENTROME, RA, [id number], SMAB, CHROMATIN, TPO #### [facility] , SS-B/La Sjogrens Antibodyon 05-03-2025 SS-B/La Sjogrens Antibody <0.2 Normal 0.0-0.9 [facility] Comment on above: Performed By: #### S SB, SSA, MITOM2, C3, JO1, JOSÉ, ADNA, CH50, HISAB, B2 GLYPROT, THYGLOB AB, TONNY, C4, ANTIR, CARDIO GMA, CCP, CENTROME, RA, [id number], SMAB, CHROMATIN, TPO #### [facility] , Scleroderma 70 Antibodieson 05-03-2025 Scleroderma 70 Antibodies <0.2 Normal 0.0-0.9 [facility] Comment on above: Performed By: #### S SB, SSA, MITOM2, C3, JO1, JOSÉ, ADNA, CH50, HISAB, B2 GLYPROT, THYGLOB AB, TONNY, C4, ANTIR, CARDIO GMA, CCP, CENTROME, RA, [id number], SMAB, CHROMATIN, TPO #### [facility] , Serum globulin measurement b y calculation (mass/volume)Ordered By: Corey Nguyen on 05-03-2025 Globulin (S) [Mass/Vol] 2.8 g/dL Normal [facility] Comment on above: Performed By: #### S SB, SSA, MITOM2, C3, JO1, JOSÉ, ADNA, CH50, HISAB, B2 GLYPROT, THYGLOB AB, TONNY, C4, ANTIR, CARDIO GMA, CCP, CENTROME, RA, [id number], SMAB, CHROMATIN, TPO #### [facility] , Serum or plasma albumin/glob ulin mass ratioOrdered By: Corey Nguyen on 05-03-2025 Albumin/Globulin [Mass ratio] 1.7 {ratio} Normal [facility] Comment on above: Performed By: #### S SB, SSA, MITOM2, C3, JO1, JOSÉ, ADNA, CH50, HISAB, B2 GLYPROT, THYGLOB AB, TONNY, C4, ANTIR, CARDIO GMA, CCP, CENTROME, RA, [id number], SMAB, CHROMATIN, TPO #### [facility] , Serum or plasma anion gap de terminationOrdered By: Corey Nguyen on 05-03-2025 Anion gap [Moles/Vol] 14.9 mmol/L Normal 6.0-15.0 [facility] Comment on above: Performed By: #### S SB, SSA, MITOM2, C3, JO1, JOSÉ, ADNA, CH50, HISAB, B2 GLYPROT, THYGLOB AB, TONNY, C4, ANTIR, CARDIO GMA, CCP, CENTROME, RA, [id number], SMAB, CHROMATIN, TPO #### [facility] , Smooth Muscle Antibodyon Smooth Muscle Antibody 4 Normal 0-19 [facility] Comment on above: Result Comment: Nega tive 0 - 19 Weak positive 20 - 30 Moderate to strong positive >30 Actin Antibodies are found in 52-85% of patients with autoimmune hepatitis or chronic active hepatitis and in 22% of patients with primary biliary cirrhosis. Performed By: #### S SB, SSA, MITOM2, C3, JO1, JOSÉ, ADNA, CH50, HISAB, B2 GLYPROT, THYGLOB AB, TONNY, C4, ANTIR, CARDIO GMA, CCP, CENTROME, RA, [id number], SMAB, CHROMATIN, TPO #### [facility] , Sodium [Moles/volume] in Ser um or PlasmaOrdered By: Corey Nguyen on 05-03-2025 Sodium [Moles/Vol] 133 mmol/L Low 136-145 [facility] Comment on above: Performed By: #### S SB, SSA, MITOM2, C3, JO1, JOSÉ, ADNA, CH50, HISAB, B2 GLYPROT, THYGLOB AB, TONNY, C4, ANTIR, CARDIO GMA, CCP, CENTROME, RA, [id number], SMAB, CHROMATIN, TPO #### [facility] , Specific gravity Test strip (U) [Rel density]Ordered By: Corey Ramosrow on 05-03-2025 Specific gravity (U) [Rel density] 1.039 High 1.001-1.03 0 [facility] Thyroid Peroxidase Antibodie son 05-03-2025 Thyroid Peroxidase Antibodies 9 Normal 0-34 [facility] Comment on above: Result Comment: Perf ormed at: - [facility] [address] [id number] [employer]ft Straightener: Gregorio Martinez PhD, Phone: [phone] Performed By: #### S SB, SSA, MITOM2, C3, JO1, JOSÉ, ADNA, CH50, HISAB, B2 GLYPROT, THYGLOB AB, TONNY, C4, ANTIR, CARDIO GMA, CCP, CENTROME, RA, [id number], SMAB, CHROMATIN, TPO #### [facility] , Thyrotropin [Units/volume] i n Serum or PlasmaOrdered By: Corey Patrick on 05-03-2025 TSH Qn 1.86 m[IU]/L Normal 0.45-5.33 [facility] Comment on above: Result Comment: PERF ORMED BY: [place] [address] [place] [address] PATHOLOGIST FOXER MIKAL KILPATRICK M.D. Performed By: #### S SB, SSA, MITOM2, C3, JO1, JOSÉ, ADNA, CH50, HISAB, B2 GLYPROT, THYGLOB AB, TONNY, C4, ANTIR, CARDIO GMA, CCP, CENTROME, RA, [id number], SMAB, CHROMATIN, TPO #### [facility] , Thyroxine (T4) free [Mass/vo lume] in Serum or PlasmaOrdered By: Corey Nguyen on 05-03-2025 Free T4 [Mass/Vol] 1.19 ng/dL High 0.61-1.12 [facility] Comment on above: Performed By: #### S SB, SSA, MITOM2, C3, JO1, JOSÉ, ADNA, CH50, HISAB, B2 GLYPROT, THYGLOB AB, TONNY, C4, ANTIR, CARDIO GMA, CCP, CENTROME, RA, [id number], SMAB, CHROMATIN, TPO #### [facility] , Urea nitrogen [Mass/volume] in Serum or PlasmaOrdered By: Corey Nguyen on 05-03-2025 Urea nitrogen [Mass/Vol] 5 mg/dL Low 7-25 [facility] Comment on above: Performed By: #### S SB, SSA, MITOM2, C3, JO1, JOSÉ, ADNA, CH50, HISAB, B2 GLYPROT, THYGLOB AB, TONNY, C4, ANTIR, CARDIO GMA, CCP, CENTROME, RA, [id number], SMAB, CHROMATIN, TPO #### [facility] , Urine Cultureon 05-03-2025 Bacteria identified Cx Nom (U) ORGANISM: Strep agalactiae - (group b) (O:STRAGA) [place] Count 30,000 PERFORMED BY: [facility] [address] [place] [place] [address] PATHOLOGIST FOXER MIKAL KILPATRICK M.D. Normal [facility] Comment on above: Performed By: #### S SB, SSA, MITOM2, C3, JO1, JOSÉ, ADNA, CH50, HISAB, B2 GLYPROT, THYGLOB AB, TONNY, C4, ANTIR, CARDIO GMA, CCP, CENTROME, RA, [id number], SMAB, CHROMATIN, TPO #### [facility] , Urobilinogen Test strip (U) [Mass/Vol]Ordered By: Corey Nguyen on 05-03-2025 Urobilinogen (U) [Mass/Vol] Normal mg/dL Normal [facility] Yeast.budding [Presence] in Urine by Computer assisted methodOrdered By: Corey Nguyen on 05-03-2025 Yeast.budding Computer assisted Ql (U) Rare [HPF] High None Seen [facility] aPTT in Platelet poor plasma by Coagulation assayOrdered By: Corey Nguyen on 05-03-2025 aPTT Coag (PPP) [Time] 35.5 s 25.1-36.5 [facility] Comment on above: A hematocrit value g reater than 55% may lead to inaccurate results in coagulation testing. Patients having hematocrit values >55% require a special collection tube for coagulation studies. Please contact the laboratory at [phone] for redraw instructions. pH of Urine by Test stripOrd ered By: Corey Nguyen on 05-03-2025 pH (U) 5.5 [pH] Normal 5.0-9.0 [facility] Comment on above: Order Comment: Name Collection Type:: Clean-Voided Midstream Performed By: #### S SB, SSA, MITOM2, C3, JO1, JOSÉ, ADNA, CH50, HISAB, B2 GLYPROT, THYGLOB AB, TONNY, C4, ANTIR, CARDIO GMA, CCP, CENTROME, RA, [id number], SMAB, CHROMATIN, TPO #### [facility] , INSULINon 12-14-2022 Insulin 22.4 uIU/mL Normal 2.6-24.9 [facility] Comment on above: Performed By: #### I NSULIN #### [facility] [address] [place] [address] [address] Saul Quispe CBC AUTO DIFFon 12-13-2022 BASO # 0.1 103/ul Normal 0.0-0.1 [facility] Comment on above: Performed By: #### C BC #### [facility] [address], [place] [address] Dr. Saul Quispe Basophils/100 WBC (Bld) 0.6 % Normal 0.2-2.0 [facility] Comment on above: Performed By: #### C BC #### [facility] [address] [place] [address] Dr. Saul Quispe EO # 0.2 103/ul Normal 0.0-0.7 [facility] Comment on above: Performed By: #### C BC #### [facility] [address] [place] [address] Dr. Saul Quispe Eosinophils/100 WBC (Bld) 1.2 % Normal 0.9-7.0 [facility] Comment on above: Performed By: #### C BC #### [facility] [address] [place] [address] Dr. Saul Quispe Erythrocyte distribution width (RBC) [Ratio] 12.1 % Normal 11.0-15.0 [facility] Comment on above: Performed By: #### C BC #### [facility] [address] [place] [address] Dr. Saul Quispe Hematocrit (Bld) [Volume fraction] 45.4 % Normal 36.0-48.0 [facility] Comment on above: Performed By: #### C BC #### [facility] [address] [place] [address] Dr. Saul Quispe Hemoglobin (Bld) [Mass/Vol] 15.9 g/dL Normal 12.0-16.0 [facility] Comment on above: Performed By: #### C BC #### [facility] [address] [place] [address] Dr. Saul Quispe IG # 0.05 10e3/ul Critically high 0.00-0.03 [facility] Comment on above: Performed By: #### C BC #### [facility] [address] [place] [address] Dr. Saul Quispe IG % 0.4 % Normal 0.0-0.5 [facility] Comment on above: Performed By: #### C BC #### [facility] [address] [place] [address] Dr. Saul Quispe LYMPH # 1.7 103/ul Normal 1.2-3.8 [facility] Comment on above: Performed By: #### C BC #### [facility] [address] [place] [address] Dr. Saul Quispe Lymphocytes/100 WBC (Bld) 12.8 % Critically low 20.5-[address] [facility] Comment on above: Performed By: #### C BC #### [facility] [address] [place] [address] Dr. Saul Quispe MANUAL DIFF REQ NO Normal [facility] Comment on above: Performed By: #### C BC #### [facility] [address] [place] [address] Dr. Saul Quispe MCH (RBC) [Entitic mass] 31.0 pg Normal 26.7-34.0 [facility] Comment on above: Performed By: #### C BC #### [facility] [address] [place] [address] Dr. Saul Quispe MCHC (RBC) [Mass/Vol] 35.0 g/dL Normal 29.9-35.2 [facility] Comment on above: Performed By: #### C BC #### [facility] [address] [place] [address] Dr. Saul Quispe MCV (RBC) [Entitic vol] 88.5 fL Normal 81.0-99.0 [facility] Comment on above: Performed By: #### C BC #### [facility] [address] [place] [address] Dr. Saul uQispe MONO # 0.5 103/ul Normal 0.3-0.8 [facility] Comment on above: Performed By: #### C BC #### [facility] [address] [place] [address] Dr. Saul Quispe Monocytes/100 WBC (Bld) 3.6 % Normal 1.7-12.0 [facility] Comment on above: Performed By: #### C BC #### [facility] [address] [place] [address] Dr. Saul Quispe NEUT # 11.0 103/ul Critically high 1.4-6.5 [facility] Comment on above: Performed By: #### C BC #### [facility] [address] [place] [address] [address] Saul Quispe Neutrophils/100 WBC (Bld) 81.4 % Critically high 43.0- 75.0 [facility] Comment on above: Performed By: #### C BC #### [facility] [address] [address] [address] Saul Quispe Platelet mean volume (Bld) [Entitic vol] 9.8 fL Normal 9.5-13.5 [facility] Comment on above: Performed By: #### C BC #### [facility] [address] [address] [address] Saul Quispe PLT 248 103/ul Normal 150-450 [facility] Comment on above: Performed By: #### C BC #### [facility] [address] [place] [address] Dr. Saul Quispe RBC 5.13 106/ul Normal 4.20-5.40 [facility] Comment on above: Performed By: #### C BC #### [facility] [address] [place] [address] Dr. Saul Quispe WBC 13.4 103/ul Critically high 4.0-11.0 [facility] Comment on above: Performed By: #### C BC #### [facility] [address] [place] [address] Dr. Saul Quispe DIRECT LDLon 12-13-2022 Cholesterol in LDL [Mass/Vol] 81 mg/dL Normal [facility] Comment on above: Performed By: #### T 7, TSH, DLDL, LIPID, CMP #### [facility] [address] [place] [address] Dr. Saul Quispe DLDL NORMAL SEE BELOW Normal [facility] Comment on above: Result Comment: <100 mg/dl OPTIMAL 100 - 129 mg/dl NEAR OR ABOVE OPTIMAL 130 - 159 mg/dl BORDERLINE HIGH 160 - 189 mg/dl HIGH >190 mg/dl VERY HIGH Performed By: #### T 7, TSH, DLDL, LIPID, CMP #### [facility] [address] [place] [address] Dr. Saul Quispe FREE THYROXINE INDEX T7on FTI 3.53 Normal 1.30-4.50 [facility] Comment on above: Performed By: #### T 7, TSH, DLDL, LIPID, CMP #### [facility] [address] [place] [address] Dr. Saul Quispe T3U 36.0 % Normal 30.0-39.0 [facility] Comment on above: Performed By: #### T 7, TSH, DLDL, LIPID, CMP #### [facility] [address] [place] [address] Dr. Saul Quispe T4 [Mass/Vol] 9.80 ug/dL Normal 4.80-13.90 [facility] Comment on above: Performed By: #### T 7, TSH, DLDL, LIPID, CMP #### [facility] [address] [place] [address] Dr. Saul Quispe GLYCOHEMOGLOBIN A1Con 2022 ADA RECOMMENDATION SEE BELOW Normal [facility] Comment on above: Result Comment: ADA RECOMMENDED LIMIT 4.0 - 6.0 ADA THERAPEUTIC TARGET < 7.0 ACTION SUGGESTED > 7.0 Performed By: #### A 1C #### [facility] [address] [place] [address] Dr. Saul Quispe Glucose [Mass/Vol] 272 mg/dL Normal [facility] Comment on above: Performed By: #### A 1C #### [facility] [address] [place] [address] Dr. Saul Quispe HbA1c (Bld) [Mass fraction] 11.1 % Critically high 4.5-6.2 [facility] Comment on above: Performed By: #### A 1C #### [facility] [address] [place] [address] Dr. Saul Quispe IRONon 12-13-2022 Iron [Mass/Vol] 44.0 ug/dL Critically low 50.0-170.0 [facility] Comment on above: Performed By: #### I PRANAV #### [facility] [address] [place] [address] Dr. Saul Quispe LIPID PROFILEon 12-13-2022 CHOL-HDL RATIO NORM SEE BELOW Normal [facility] Comment on above: Result Comment: 3.3 - 4.4 LOW RISK 4.4 - 7.1 AVERAGE RISK 7.1 - 11.0 MODERATE RISK >11.0 HIGH RISK Performed By: #### T 7, TSH, DLDL, LIPID, CMP #### [facility] [address] [place] [address] Dr. Saul Quispe Cholesterol [Mass/Vol] 254 mg/dL Critically high <=200 [facility] Comment on above: Performed By: #### T 7, TSH, DLDL, LIPID, CMP #### [facility] [address] [place] [address] Dr. Saul Quispe Cholesterol in HDL [Mass/Vol] 26 mg/dL Critically low 40-60 [facility] Comment on above: Performed By: #### T 7, TSH, DLDL, LIPID, CMP #### [facility] [address] [place] [address] Dr. Saul Quispe Cholesterol.total/Cholest mitzi in HDL [Mass ratio] 9.8 {ratio} Normal [facility] Comment on above: Performed By: #### T 7, TSH, DLDL, LIPID, CMP #### [facility] [address] [place] [address] Dr. Saul Quispe HDL NORMAL > or = 60 mg/dl - LO W CARDIOVASCULAR RISK <40 mg/dl - HIGH CARDIOVASCULAR RISK Normal [facility] Comment on above: Performed By: #### T 7, TSH, DLDL, LIPID, CMP #### [facility] [address] [place] [address] Dr. Saul Quispe Triglyceride [Mass/Vol] 1343 mg/dL Critically high <=150 [facility] Comment on above: Performed By: #### T 7, TSH, DLDL, LIPID, CMP #### [facility] [address] [place] [address] Dr. Saul Quispe VLDL CALC 268.6 mg/dL Normal [facility] Comment on above: Performed By: #### T 7, TSH, DLDL, LIPID, CMP #### [facility] [address] [place] [address] Dr. Saul Quispe PROF 14(COMP METB)on 023 Albumin [Mass/Vol] 3.7 g/dL Normal 3.4-5.0 [facility] Comment on above: Performed By: #### T 7, TSH, DLDL, LIPID, CMP #### [facility] [address] [place] [address] Dr. Saul Quispe Albumin/Globulin [Mass ratio] 1.0 {ratio} Normal [facility] Comment on above: Performed By: #### T 7, TSH, DLDL, LIPID, CMP #### [facility] [address] [place] [address] Dr. Saul Quispe ALP [Catalytic activity/Vol] 98 U/L Normal 46-116 [facility] Comment on above: Performed By: #### T 7, TSH, DLDL, LIPID, CMP #### [facility] [address] [place] [address] Dr. Saul Quispe ALT [Catalytic activity/Vol] 65 U/L Critically high 14-59 [facility] Comment on above: Performed By: #### T 7, TSH, DLDL, LIPID, CMP #### [facility] [address] [place] [address] Dr. Saul Quispe Anion gap [Moles/Vol] 18.6 mmol/L Normal [facility] Comment on above: Performed By: #### T 7, TSH, DLDL, LIPID, CMP #### [facility] [address] [place] [address] Dr. Saul Quispe AST [Catalytic activity/Vol] 39 U/L Critically high 15-37 [facility] Comment on above: Performed By: #### T 7, TSH, DLDL, LIPID, CMP #### [facility] [address] [place] [address] Dr. Saul Quispe Bilirubin [Mass/Vol] 0.6 mg/dL Normal 0.2-1.0 [facility] Comment on above: Performed By: #### T 7, TSH, DLDL, LIPID, CMP #### [facility] [address] [address] [address] Saul Quispe Calcium [Mass/Vol] 10.1 mg/dL Normal 8.5-10.1 [facility] Comment on above: Performed By: #### T 7, TSH, DLDL, LIPID, CMP #### [facility] [address] [place] [address] Dr. Saul Quispe Chloride [Moles/Vol] 95 mmol/L Critically low 98-107 [facility] Comment on above: Performed By: #### T 7, TSH, DLDL, LIPID, CMP #### [facility] [address] [address] [address] Saul Quispe CO2 [Moles/Vol] 26.1 mmol/L Normal 21.0-32.0 [facility] Comment on above: Performed By: #### T 7, TSH, DLDL, LIPID, CMP #### [facility] [address] [place] [address] Dr. Saul Quispe Creatinine [Mass/Vol] 0.48 mg/dL Critically low 0.55-1.02 [facility] Comment on above: Performed By: #### T 7, TSH, DLDL, LIPID, CMP #### [facility] [address] [place] [address] Dr. Saul Quispe EGFR-AF MALAWIAN >60 Normal >=60 [facility] Comment on above: Performed By: #### T 7, TSH, DLDL, LIPID, CMP #### [facility] [address] [place] [address] Dr. Saul Quispe EGFR-NON AF MALAWIAN >60 Normal >=60 [facility] Comment on above: Performed By: #### T 7, TSH, DLDL, LIPID, CMP #### [facility] [address] [place] [address] Dr. Saul Quispe Globulin (S) [Mass/Vol] 3.7 g/dL Normal [facility] Comment on above: Performed By: #### T 7, TSH, DLDL, LIPID, CMP #### [facility] [address] [place] [address] Dr. Saul Quispe Glucose [Mass/Vol] 332 mg/dL Critically high 74-106 T [facility] Comment on above: Performed By: #### T 7, TSH, DLDL, LIPID, CMP #### [facility] [address] [place] [address] Dr. Saul Quispe Potassium [Moles/Vol] 3.7 mmol/L Normal 3.5-5.1 [facility] Comment on above: Performed By: #### T 7, TSH, DLDL, LIPID, CMP #### [facility] [address] [address] [address] Saul Quispe Protein [Mass/Vol] 7.4 g/dL Normal 6.4-8.2 [facility] Comment on above: Performed By: #### T 7, TSH, DLDL, LIPID, CMP #### [facility] [address] [place] [address] Dr. Saul Quispe Sodium [Moles/Vol] 136 mmol/L Normal 136-145 [facility] Comment on above: Performed By: #### T 7, TSH, DLDL, LIPID, CMP #### [facility] [address] [place] [address] Dr. Saul Quispe Urea nitrogen [Mass/Vol] 8.0 mg/dL Normal 7.0-18.0 [facility] Comment on above: Performed By: #### T 7, TSH, DLDL, LIPID, CMP #### [facility] [address] [place] [address] Dr. Saul Quispe Urea nitrogen/Creatinine [Mass ratio] 16.7 mg/mg Normal [facility] Comment on above: Performed By: #### T 7, TSH, DLDL, LIPID, CMP #### [facility] [address] [place] [address] Dr. Saul Quispe TSHon 12-13-2022 TSH 2.109 uIU/mL Normal 0.358-3.74 0 [facility] Comment on above: Performed By: #### T 7, TSH, DLDL, LIPID, CMP #### [facility] [address] [place] [address] Dr. Saul Quispe Consultation Noteon 09-23-20 21 Consultation Note [id number]:12 7 [facility] IntraOperative Documentson 1 IntraOperative Documents [id number]:1 27 [facility] Coding Summary.on 08-21-2021 Coding Summary. CD:[id number] Gh0bW w+PGhlYWQ+YT6VFZEyB41spAX avO7ZR9rSXE6CICGOPRUQPY8M NY0qrMH3CJzzI2OhqhGw WokefQDuXV18SOs2KYM0eEtdI CdqlG2szKWuY3q8SbFlGC20jT 66NNrvKXCfHtT0VyRmdrflxLY y K6gfGcSsiJYwLtq+PHRhYmxlI HdpZHRoPScxMDAlJyBzdHlsZT 7cQb8fNGBzHDQozXcpyFSfEiX j u9njUYIxSTjmLN2oqPioD6Rjb VJ1CGHzu8e0Eh35rSA+PHRkIH Q6yXvaRPbyj487VcAom7zkWTQ 3 hAShIQgaOAU2M31rw4Z5JHPkJ UGzJXN7gYX1qA6pkVahltecG7 VgaMDoKwZ5XRK0eTUzkN2taMp n velmeT1aDyb+J86WLP4SDYAWM A2FZrj9O7WpBqaenQC+PC90YW BcYP05aWNymIVps3xpeMf1CyZ w YVAvIRF3nEquABxed7PiXMJeK 32dfSTbj0N4CYJkbOsyyDGoQf TdkUV7yZ9tTCrhpagsj8wocvc n Zjegc3vfll35hW03E78kFZnxO AYoTSR2YWKqIQEsmQtjgx5eqS 9wIi8+FLnxt8dsv0tvfLt9YuV w BOAcqrHlbLfwNPS7o8IaGg79Q 5QhuGviz6EtVky0fd21xPAiz8 S4mKV3BBdqHHLrmT8oKQvnDsG 6 YUIqYaFbnM65bHRoITilEi7vg IzrwZvuAT5gMXOagsdvKRBagX 2kZESwdADmyObpAT2vVIApemm m v505DjQtOLB5PLZdaACpR9Cpv P2zUqEpGCYsWUYiQ6EdhFBnTW bqK386KWlqOqB5PRMiayEfO6R s MYSpeKwnPgI4v5X2Uy8Pf6Fer xssVTH0JKoaIPLvUsD2AgDzNq U6F8QbGsc0MBGwxIsrDB8jM4G h NVBsldsdslyqvGQ8MXLcFZEfi D50bFApYVjnYf8rh1X3h275RE RaIZHfgP70Xq2qwVrrFVNnmLG U nS8kteabu3xrpgoxUwMrSTQjB Tz6IFm5GXOmpIxjHhIwWBE7An A1UZC3rFAulT3boLapgnajeZ3 w Oyc+K98etO9oAVD8CFS7hbwgH XTivqDdVY61YC26Y8YsBfptmD FibGU+AYBmmgQinKryVT2zMwK j s0bqn4VlCJgoF7QaBNBqTRylV ac5OMFlBTN6oEN9zX0kQZTkZC jyw8M0iTT9S0EqvgIywo2cx5l s DHMeNXasA61kpHBul9H7YPVli CA5EQKmaTkvCnJrnY64Hue+PG BlcSjbr0FmTczuc7gdj1irnPr 9 KzSzISWexqXvsFakCZP1x7LiR l11P61gBApaFXVmQWAqHTQvZG VrqAsfip2xiK3aXt9+PGNvbCB 3 vQK9eL0wURFuLqX0FLryI219U wVjlRMrRdogd6oxp9xsqAw8Gz JbOPRkdzTplNgnGGH8d0IbGt1 8 X31zGRxkQNVhOWNyYIQoZJXgh Vrmru8uhZ0tXu4+LK4rr3owut 74yF49wAD+JEAmFFD9tFffBAy w NJWaqD3iOTpoTbD0BRLwLsPhr Y62xPXeMRmtQm1olSfqtAwtZF 4lNNTcuhaxy707YwDtn6zmLLF w cIHlCCmpTHM4K10ym9S5ZUReJ NXjIHG6vVV3cP5sjDcbbjbxmF QtvAumujWemKhtXMsbXNsvL58 6 IHRvcDsnPlBhdGllbnQgTmFtZ Jf6A5ZbZcr8TWKviKufMK9gnJ VvOVhbRz5viIbtqHcdYG3iWIM p ivvqa372RsTnd8ezMHGaoJRnD PjrPMN4I02sm2T3BMCmJDSiLQ P0hLD7bQ5eyNzlnhsbdEWnsSn g uxLpqJbkTBrmDSyoS819LMUoa WytKuGawrLfVBBeuRE9UJ79CP 78vTUjm3H3zAX6U7QdGKIvyte t dovcrFS5LQAkKKZpoR93Dp4qb EomJr9fVFXwASM6XVOswEBsI1 NpaG7mGiAgHVEnJWJvM1MksMD t KGhgN737JCppPtW5PTTbceDdO 1LfWCLjpXguItL9q1M0Lz3VN5 D4SU87FL16bJZdf7C2bMT1E8P h NDFtvlfahvwpgRK6FZUsSQUaj L31Pj2puDlhLv6oADLmXNG9MD ZivVAwH3DhqH0aLpDeKHMtFMM w S9VjkBOuPBwdN223UHsjTrG4W TNosyViV8UyOJYdzXqcGyR9d4 B2Ci6LBVf3BU14OD28sWIxr4R 5 eQS1M5RgGQBnfjppgwfcmOK0B WUiFQWoyY49Sj6knNamYm5xIG PsUJI8URMusXTzJ0ZbmP9vAwH j YQGeXZWkR3EmbPOsSWgxB314B SakPvK2VHMsocMvU5WrOOKvtN cjNuF5z5D6Cm3TXWDkRV02PDS 5 wQQ7RJ49KW24K1CwZynlcXRcz +PHRhYmxlIHdpZHRoPScxMD IoSzQqbHwfTM4iOg3sPBNaRHU v gAnrrPOgNsCon5jhKYBcRLguT C4ypVbfN2YnoPP6CXWcs5a6Ya 30R24sI8DtySH+MOMekFE4uHD 0 hL5vTpNhSnI3VCkwB009RuUel KUmNhwcw0war4gymQs9UyF6BH IkxeGtwAcpQXJ4d9TzYe76R26 s IHdpZHRoPSIxNSUiIHZhbGlnb n5iaG2eQf5+LAPqlVJ4yTD1gA 8xTsVuVxT4XHogG170PoMcbPR v Rdvsa6icl9rkvKn6CgXiHBPjf fFbbGkjJVC3k4SjLq69A4CmiE ekw1FlGxf8ni05aSAse7B8yBT 9 F4BhXOWqlzorrETwwYpdMX2kP HSqkdmfVAFslR4kGVIlU0e4Su PpGzY5MAhxD3ByoaZ2VAQrrKL g LUrnACH5A43va2Q0ISCzDTZwL ZZ4wZR3dN7laPlqfcggqCTbeV efroGexEceKDexXMeoH942BOJ v aJjbENCzyT8mCQZmzEVfhXckS X3hVUEwmtseWa7TU11SWGCXLy vMCMTTRFs6V4QoVpb0CCKidQf s SV8fsBTySYzfSe7rdLoxkAwgM Z6xRRCwlitxIIJmmH6tRUYoqD CshNqdIG0cVVFmoozzw749KeQ x RFP4VAMovJRdJ4HwjP0sDlVoT GRsVLEmF6IuzVPrXGzyG152KR zdVaJ4YXUwboOfS1VjRJKyhEp u CsN5s1F4Ep4zGd5jVj1zYAs6Y L32XI48pZWpt3Z1mDU7S7HuKQ VwuzpftiishGB1WGPsOAIdkP2 7 hDKoOQjnMc6ll4I4m179OSQwG YFpbH06Dj6brIsnUXMjgMWRgY 6kmqymr4abqymlTqPvFXYzHTf 0 VUi7NULmoCdgBzWkBDG8RfC5D PU9vHAecI0naOvrxsrikS9oGa c+TAWhRVAehhF5R6YsUwy3KVC z zRdeRO8esQWyKTsmAc4nsBiwc IexIH2bBIHtgejoCVAviZ7sWZ LtnRJyxGshTC2wBFVjfddit44 0 FjOfRVX6TBZtyVWyI6TixC8cG cEjACKfPILvT3VpcKOwWPngN9 98RYujHiU3UKAzasFtE0JvXDS s xRofZhV9o0F5Fj1TUY2hfJR2V 6KkXjt8QBOznCczTR8xbXPrCD diGi1xuVuhbKnqWY5eLRKlfna w DYFlaY0tQPMiyWUxuTlmXD9fI ZMlwdvqi158SnRbDLR2SDNuzH SrH3BeeD2wThEqUNDgNNCvA1C l lIXgSUhkJ581GCjdSrJ9QIEbm yJrP4GjWWSylMufHyC6v2Y4Id 0EsDWeLFCcNF82SD62GC46V7W y PjwvdGFibGU+PHRhYmxlIHdpZ TBbTCimECWlZeFiuMvcPK2dVh 6vRPIuTWKmrPdosJYsUmPtd1a s AFQyKTpsIK3pbRhaT0DipQW8Q HCcl0q9Bd73V17uY3BmoTC+PG IjaJO0aYZ8nT6lZqYuWxT6LNz p H822RyDuvLJaYwwoc1clx9qsn Cr9LuGaKAKhocTvfWxiJDR8o0 AnGd22N29sSCfiQPIiPZOiXVF i RYGhaTehqf1bwA7nWz4+PGNvb HQ1sGH1nD2lEyMyVwE2MYgrB2 50ZpHbcGDyQupuF51tP0AoeGX + QJNkWlg0HSSteLrbYE0wjIFbO FisPk8gLQL2JkCvXxEzHFwiL1 WhQDTtygequtssePX2YTJtIQK w iL66Uh7okJlyHm5aPGIrLRC9M YCrjQKjY1EdpU9oIdJxCJYyVJ FzA5IkjZSeGLhzB819UQyuDdH 7 TPUwnmWjE5OwRQNmhMhtKqJ7p 3O4Wj1XxGcfuTNrHI3bTeGeML p2N9VtNua5CDAjfZahMN0hjWQ k BLbsNc4nhCvkwKkqIM0uIEYzt lime777SzOuo7dvURSzyGUbOG rcLYW3G66xm8Y3AAPyOOFvBLH 7 zTB8zR8yhWbaeqpvoBKcfMqan nSvkFvrIYkfYDogG700DJFjtG olWyCYNly6F1MuZxv4TVAluLk s EB9qhGFuQCafGt8keKzutAswO D5kSTPaccvjs519CoTrx4rdWF HppWNzKEnjEPX3S47sd6R4JXY w CVJmKWL5xCI7yS2vjMfgowfge GVmdDsgdmVydGljYWwtYWxpZ2 40DYKzoQhzWy7TBax1R9FmPlj 0 IFGtyOdrFL1tpAYgFGibBx8al LkgwMahHP2bOARfgunfg657It Gxp5vaMCNztJBiHRryLHD4J85 s p8I3XWFnIQFbDLY2gRV1tB4zr GlnbjogbGVmdDsgdmVydGljYW wqUFziU531MCMqmWhyEgJhfQZ y OjwvdGQ+NL05mj17D0LsNmqgS iz0WFUiUSJ6mPA4zV4lMDJcEX ohi0Z4cJU3N2AxceKops0yw2e s YXBz (more content not included)... Normal [facility] Main OR Intraoperative Recor don 08-20-2021 Main OR Intraoperative Record IntraOp Document Type FT Summary Primary Physician: Pascual CALDERÓN MD Finalized Date/Time: 08/20/21 15:00:41 Pt. Name: ALPHONSO GALE Manisha Carrillo/Sex: 1980 Female Med Rec #: [id number] Physician: Pascual CALDERÓN MD Financial #: [id number] Pt. Type: O Room/Bed: / Admit/Disch: 08/13/21 [...] 1 Entry 2 Entry 3 Case Attendee Bogdan Ramirez CRNA, MD, Pascual Epstein RN, Sudha Quick Role Performed WEIGHT CONTROL ENGINEER Surgeon - Primary Tungsten Refiner - Primary Time In 08/13/21 07:34:00 08/13/21 07:34:00 08/13/21 07:34:00 Time Out 08/13/21 08:01:00 08/13/21 08:01:00 08/13/21 08:01:00 Procedure EGD AND COLONOSCOPY(.) EGD AND COLONOSCOPY(.) EGD AND COLONOSCOPY(.) Comments DR FREEMAN SUPERVISING [facility] STUDENT - OBSERVING Last Modified By: Lucian RN, Sudha Epstein RN, Sudha Moses RN 08/13/21 08:05:38 08/13/21 [...] Procedure Yes Primary Surgeon Pascual CALDERÓN MD 08/13/21 07:38:00 Stop 08/13/21 07:55:00 Anesthesia Type [...] and tissue Entry 1 Skin Integrity Intact, [place], Warm, and Skin Abnormality No Dry Outcomes [...] Leg Po (more content not included)... Normal [facility] Postoperative Documentson Postoperative Documents [id number]#1.00CD:1 27 Normal [facility] Progress Note-Physicianon Progress Note-Physician Patient: ALPHONSO GALE [...] difficulty, No chest pain. Respiratory: No SOB. Hematology/Lymphatics: Negative. Gastrointestinal: as per HPI. Musculoskeletal: Negative. [...] 0, Control of stomach acid Potassium Chloride (Bib-Kxtf-Trx M10) 10 mEq oral tablet, extended release: [...] All Problems HTN (hypertension) / SNOMED CT 5546339028 / Confirmed Diabetes / SNOMED CT 303410466 / Confirmed Epigastric pain / SNOMED CT 428865814 / Confirmed Vitamin deficiency / SNOMED CT 231311984 / Confirmed Neuropathy / SNOMED CT 4863807854 / Confirmed Change in bowel habits / SNOMED CT 966769465 / Confirmed BMI 50.0-59.9, adult / SNOMED CT 7998115191 / Confirmed Abnormal abdominal CT scan / SNOMED CT 5426055587 / Confirmed GERD (gastroesophageal reflux disease) / SNOMED CT 462786432 / Confirmed Chronic GERD / SNOMED CT 360338354 / Confirmed Edema / SNOMED CT 015157004 / Confirmed Abdominal pain, LLQ / SNOMED CT 769472170 / Confirmed Hypokalemia / SNOMED CT 44142730 / Confirmed Histories Past Medical History: No active or resolved past medical history items have been selected or recorded. Procedure history: Closed fracture of lower jaw bone (2429208665). Extraction of wisdom tooth (022864826). section (39995695). Cholecystectomy (95592560). Abdominal hysterectomy (635084646). Social History Social & Psychosocial Habits Alcohol [...] review: No qualifying data available . Plan [place] [employer]esthesi[employer] (ASA) physical status classification: [...] and lungs, allergic reactions, and .. Normal [facility] Comment on above: Result Comment: Elec tronically Signed By: Ramin Freeman MD\.br\Date and Time Signed: 08/16/21 14:50 EDT Progress [...] All Problems HTN (hypertension) / SNOMED CT 7975562604 / Confirmed Diabetes / SNOMED CT 471191188 / Confirmed Epigastric pain / SNOMED CT 379464855 / Confirmed Vitamin deficiency / SNOMED CT 134394099 / Confirmed Neuropathy / SNOMED CT 6534495638 / Confirmed Change in bowel habits / SNOMED CT 676904698 / Confirmed BMI 50.0-59.9, adult / SNOMED CT 9847310177 / Confirmed Abnormal abdominal CT scan / SNOMED CT 9755844374 / Confirmed GERD (gastroesophageal reflux disease) / SNOMED CT 560510091 / Confirmed Chronic GERD / SNOMED CT 312150814 / Confirmed Edema / SNOMED CT 391989113 / Confirmed Abdominal pain, LLQ / SNOMED CT 304456865 / Confirmed Hypokalemia / SNOMED CT 77885648 / Confirmed Physical Examination Intake and Output [...] PACU when criteria met. Condition good. Normal [facility] Comment on above: Result Comment: Elec tronically Signed By: Ramin Freeman MD\.br\Date and Time Signed: 08/16/21 14:50 EDT Reminderson 08-14-2021 Reminders - From: Kiana Burnett LPN To: [facility] - Clinical; Sent: 08/14/2021 10:10:39 EDT Show up: 07/14/2031 09:00:00 EDT Subject: colonoscopy recall Due Date/Time: 08/13/2031 09:00:00 EDT Reminder/Recall Patient is due for screening colonoscopy 08/13/2031. Normal [facility] Colonoscopy Procedure Report on 08-13-2021 Colonoscopy Procedure Report Patient: ALPHONSO GALE Age: 41 years Sex: [...] place. Impression and Plan Diagnosis: Redundant colon (KEC29-DZ Q43.8, Discharge, Medical). Course: Progressing as expected. Recommendations: Repeat colonoscopy:: In 10 years. Follow-up:: Await biopsy results in 3-5 days. Diet:: Regular diet. Medication resumption:: Continue current medications. Return to activities:: After 24 hours. Normal [facility] Consenton 08-13-2021 Consent [id number]#1.00CD:1 27 Normal [facility] Discharge Instructionson Discharge Instructions [id number]#1.00CD:1 27 Normal [facility] EGDon 08-13-2021 Esophagogastroduodenoscop y Patient: ALPHONSO GALE Age: 41 years Sex: Female : 1980 Associated Diagnoses: None Author: Pascual CALDERÓN MD Pre-Procedure Procedure Date 08/13/2021 08:03:00 . Procedure Type: Esophagogastroduodenoscop y. Procedure provider Performed by Pascual CALDERÓN MD. [...] and Plan EGD: Diagnosis: Bile reflux gastritis (WKE07-AU K29.60, Discharge, Medical). Course: Progressing as expected. Education and Follow-up: Counseled: Family. Normal [facility] Inpatient Patient Summaryon 08-13-2021 Inpatient Patient Summary (Inserted Imag e. Unable to display) [place] [id number] [facility] Clinical Discharge Instructions PERSON INFORMATION Name: ALPHONSO GALE PHYSICIANS Admitting Physician: Pascual CALDERÓN MD Attending Physician: Pascual CALDERÓN MD PCP: Kobe FREITAS, Gabino Discharge Diagnosis: Bile reflux gastritis; Redundant colon Comment: PATIENT EDUCATION INFORMATION Instructions: Medication Leaflets: Follow up: With: Address: When: Pascual CALDERÓN [address], [address], [facility] [address] [place] [address] Business (1) Within 7 to 10 days MEDICATION [...] Mouth every day. potassium chloride (Potassium Chloride (Rgr-Jopt-Wux M10) 10 mEq oral tablet, extended release) 1 Tablets By Mouth 2 times a day. terbinafine (terbinafine 250 mg Tab) 1 Tablets By Mouth every day. tizanidine (tiZANidine 4 mg Tab) 1 Tablets By Mouth at bedtime. No Longer Take the Following Medications hyoscyamine (hyoscyamine Sublingual) Comment: Normal [facility] IntraOperative Documentson 1 IntraOperative Documents [id number]#1.00CD:1 27 Normal [facility] Main OR PACU I Recordon 08-03 Main OR PACU I Record PACU Phase I Docum ent Type FT Summary Primary Physician: Pascual CALDERÓN MD Finalized Date/Time: 08/13/21 08:15:13 Pt. Name: ALPHONSO GALE/Sex: 1980 Female Med Rec #: [id number] Physician: Pascual CALDERÓN MD Financial #: [id number] Pt. Type: O Room/Bed: / Admit/Disch: 08/13/21 [...] Signed By: Deepti Goodwin RN 08/13/21 08:15 [facility] Main OR Preoperative Recordo n 08-13-2021 Main OR Preoperative Record Holding Area Document Type FT Summary Primary Physician: Pascual CALDERÓN MD Finalized Date/Time: 08/13/21 07:07:45 Pt. Name: ALPHONSO GALE /Sex: 1980 Female Med Rec #: [id number] Physician: Pascual CALDERÓN MD Financial #: [id number] Pt. Type: O Room/Bed: / Admit/Disch: 08/13/21 [...] By: Ronni Rossi RN 08/13/21 07:07 Normal [facility] Monitor Recordon 08-13-2021 Monitor Record [id number]#1.00CD:1 27 Normal [facility] Monitor Record [id number]#1.00CD:1 27 Normal [facility] Outpatient Surgery Discharge Instructionon 08-13-2021 Outpatient Surgery Discharge Instruction [address] [address] Patient Discharge Instructions PERSON INFORMATION Name: ALPHONSO [...] THE NEAREST EMERGENCY ROOM OR CALL 911 I ALPHONSO GALE, have received the attached patient education materials/instructions and have verbalized understanding: May we do a follow up call? Yes No I was present when discharge instructions were given Patient Signature ___ Date Clinican/Nurse Signature Date Follow up: With: Address: When: Pascual CALDERÓN [address] [place], [place] [address]miguel, [facility] [address], [address] [address] Business (1) Within 7 to 10 days Pharmacy Information: Other: [facility] You may receive a survey from [facility] asking you to rate your care experience. Your feedback is important and will help us understand what we do well and how we can improve the quality of care we provide to you, your loved ones and our community. It?s an honor to serve you. Thank you for choosing [facility] HERE ARE THE MEDICATION CHANGES THAT OCCURRED [...] Mouth every day. potassium chloride (Potassium Chloride (Tmk-Wuuo-Rth M10) 10 mEq oral tablet, extended release) 1 Tablets By Mouth 2 times a day. terbinafine (terbinafine 250 mg Tab) 1 Tablets By Mouth every day. tizanidine (tiZANidine 4 mg Tab) 1 Tablets By Mouth at bedtime. No Longer Take the Following Medications hyoscyamine (hyoscyamine Sublingual) PATIENT EDUCATION INFORMATION Instructions: Medication Leaflets: [facility] Patient Education - Texton 1 Patient Education - Text [facility] Pre-Certification Formon Pre-Certification Form [id number]#1.00CD:1 27 [facility] [place] [facility] [place] Letter [facility] [place] [place] July 25, 2021 Gabino Kobe, [address] [facility] [place] [place] [address] Re: ALPHONSO GALE Date of : 1980 [...] persist. Sincerely, Pascual Calderón MD General Surgery [facility] Consent for Procedure/Surger yon 07-12-2021 Consent for Procedure/Surgery [id number]#1.00CD:12 7 [facility] Ambulatory Clinical Summaryo n 07-10-2021 Ambulatory Clinical Summary {[id number]}C [id number] [facility] RAD - CT Reporton 07-05-[address] - [address] Report [id number]#1.00CD:12 7 [facility] RAD - MISCon 07-05-2021 RAD - MISC [id number]#1.00CD:12 7 [facility] Physician Referralon 021 Physician Referral [id number]#1.00CD:12 7 [facility] Vital Signs Date Time Vital Sign Value Performing Clinician Facility 08-31-2021 16:55-0400 Body height 175.26 cm Porsche Carvalho Other [email or web address] Other 08-31-2021 16:55-0400 Body mass index (BMI) [Ratio] 49.76 kg/m2 Porsche Carvalho Other [email or web address] Other 08-31-2021 16:55-0400 Body temperature 97.9 [degF] Porsche Carvalho Other [email or web address] Other 08-31-2021 16:55-0400 Body weight 152.86 kg Porsche Carvalho Other [email or web address] Other 08-31-2021 16:55-0400 Diastolic blood pressure 84 mm[Hg] Porsche Carvalho Other [email or web address] Other 08-31-2021 16:55-0400 Respiratory rate 18 /min Porsche Carvalho Other [email or web address] Other 08-31-2021 16:55-0400 SaO2% (BldA) [Mass fraction] 96 % Porsche Carvalho Other [email or web address] Other 08-31-2021 16:55-0400 Systolic blood pressure 145 mm[Hg] Porsche Carvalho Other [email or web address] Other Encounters Encounter Date Encounter Type Care Provider Facility Start: 05-03-2025 End: 05-03-2025 Patient encounter procedure Corey Nguyen MD -Lab [address] Work Phone: Start: 05-03-2025 End: 05-03-2025 ambulatory Gabino Bullock MD Work Phone: [facility] Work Phone: Start: 12-13-2022 End: 12-14-[address] GABINO BULLOCK Facility:[facility] Start: 06-27-[address] GABINO BULLOCK Facility :[facility] Start: 08-31-2021 Office outpatient vi sit 15 minutes Porsche Carvalho [facility] Ur[facility] Care Justice Plan of Treatment Date Care Activity Detail Author Start: 05-03-2025 Bacteria identified in Urine by Culture Urine Culture [facility] Start: 05-03-2025 Aldolase measurement [facility] Start: 05-03-2025 Antibody to Scl-70 measurement [facility] Start: 05-03-2025 Hemolytic complement CH50 level [facility] Start: 05-03-2025 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 [facility] Start: 05-03-2025 Urine culture [facility] Start: 05-03-2025 [facility] 24 hour urine measurement [facility] Actin smooth muscle IgG Ab [Units/volume] in Serum [facility] Adenosine monophosph ate.cyclic [Moles/volume] in Serum or Plasma [facility] Albumin [Mass/volume ] in Serum or Plasma [facility] Albumin/Globulin ratio [facility] Beta 2 glycoprotein 1 IgG Ab [Units/volume] in Serum [facility] Beta 2 glycoprotein 1 IgM Ab [Units/volume] in Serum [facility] Cardiolipin IgA Ab [Units/volume] in Serum by Immunoassay [facility] Cardiolipin IgG Ab [Units/volume] in Serum by Immunoassay [facility] Cardiolipin IgM Ab [Units/volume] in Serum by Immunoassay [facility] Centromere protein B Ab [Units/volume] in Serum [facility] Chromatin Ab [Units/ volume] in Serum or Plasma [facility] Complement C3 [Mass/ volume] in Serum or Plasma [facility] Complement C4 [Mass/ volume] in Serum or Plasma [facility] Electrophoresis: rwcmd-8-yavqgcfg [facility] Electrophoresis: gdjxd-1-threxrhv [facility] Electrophoresis: beta-globulin [facility] Electrophoresis: neva ma globulin [facility] Globulin [Mass/volum e] in Serum [facility] Histone IgG Ab [Unit s/volume] in Serum by Immunoassay [facility] Homogenous nuclear A b pattern [Titer] in Serum [facility] IgA [Mass/volume] in Serum or Plasma [facility] IgG [Mass/volume] in Serum or Plasma [facility] IgM [Mass/volume] in Serum or Plasma [facility] Immunofixation for Urine [facility]-1 extractable nuc lear Ab [Units/volume] in Serum [facility] Lupus anticoagulant [Interpretation] in Platelet poor plasma [facility] Measurement of monoc lonal protein concentration [facility] Mitochondria M2 IgG Ab [Units/volume] in Serum [facility] Nuclear Ab [Titer] in Serum [facility] Protein [Mass/volume ] in Serum or Plasma [facility] Protein [Mass/volume] in Urine [facility] Reagin Ab [Presence] in Serum by RPR [facility] Rheumatoid factor [Units/volume] in Serum or Plasma [facility] Serum immunofixation [facility] Sjogrens syndrome-A extractable nuclear Ab [Units/volume] in Serum [facility] Sjogrens syndrome-B extractable nuclear Ab [Units/volume] in Serum [facility] José extractable nu clear Ab [Units/volume] in Serum [facility] Thrombin time [facility] Thyroglobulin Ab [Units/volume] in Serum or Plasma [facility] Thyroperoxidase Ab [Units/volume] in Serum or Plasma [facility] Payers Date Payer Category Payer Self-pay [id number] 2025 Unknown [id number] 1980 Unknown [id number] 1980 Unknown [id number] 1960 Private Health Insurance [id number] 1960 Self-pay [id number] [facility] CBN [id number] Unknown [id number] Social History Date Type Detail Facility Unknown if ever smoked [email or web address] Other Sex Assigned At Sex Assigned At Bir th [email or web address] Other Tobacco smoking status NHIS Unknown if ever smoked [facility] Work Phone: Sex Female (finding) [facility] Start: 1980 Sex Assigned At Female F [facility] Evaluation note 08-31-2021 Note Date & Type [...] your family physician if no improvement in [email or web address] Other History and physical note 08-13-2021 Note Date & Type Note Facility 08-13-2021 Note [id number]#1.00CD:127 [facility] History and physical note 08-13-2021 Note Date & Type Note Facility 08-13-2021 Note Patient: NENA GALE Age: 41 years Sex: Female : 1980 Associated Diagnoses: None Author: Pascual CALDERÓN MD Subjective no changes to H & P [facility] Comment on above: Result Comment: Elec tronically [...] Oral, BID Pa (more content not included)... [facility] Comment on above: Result Comment: Marcin meltonally Signed By: MELE FREITAS, Pascual Stoddard\Date and [...] including vitamins, herbs, eye drops, creams, and uuns-tom-uepvyrg medicines. ? Any problems you or family [...] tells you to take them. ? Taking mzva-wpp-lejvfah medicines, vitamins, herbs, and supplements. General instructions [...] Released: 10/17/2001 [employer] (more content not included)... [facility] Evaluation note Note Date & Type Note Facility Evaluation note No assessment information availa ble [facility] Work Phone: History general Narrative - Reported Note Date & Type Note Facility History general Narrative - Reported Type Medical History scleroderma Medical History DM Surgical History partial hysterectomy Surgical History C section Surgical History cholecystectomy Surgical History jaw Hospitalization History see above [email or web address] Other Reason for referral (narrative) Note Date & Type Note Facility Reason for referral (narrative) No reason for referral information available [facility] Work Phone: Summary Purpose Family History No Family History Records FoundNo Family History Records FoundNo Family History Records Found Advance Directives No Advanced Directives Records Found Advance Directive Response Recorded Date/ Time Advance Directives No September 7:48am Chief Complaint and Reason for Visit Chief Complaint Admit Date FM'MES/R76/POLYNEUROPATHY May 03, 2025 8:32am Additional Source Comments INFORMATION SOURCE (unrecogn ized section and content) DATE CREATED AUTHOR 09/23/2021 [facility] DATE CREATED AUTHOR AUTHOR'S ORGANIZ ATION [facility]20[facility] DATE CREATED AUTHOR AUTHOR'S ORGANIZ ATION 05/22/2025 [facility] REASON FOR VISIT (unrecogniz ed section and content) BOIL ON BACKSIDE Care Teams (unrecognized sec tion and content) Team Status: Active Member Role Status Dates Gabino Bullock MD Primary Care Provider Active Team Status: Inactive Member Role Status Dates Gabino Bullock MD Primary Care Provider Active Start: May 03, 2025 End: May 03, 2025 Corey Nguyen MD Attending Provider Active St art: May 03, 2025 End: May 03, 2025 Goals (unrecognized section and content) Goals may be documented in a n alternate section FOR RECORDS PERTAINING TO PATIENTS WHO ARE [...] BE BASED ON THE PRIMARY CLINICAL RECORDS. [facility] provides no warranty or guarantee of the accuracy or completeness of information in this document.
--- OUTSIDE RECORDS SUMMARY | 2025-06-04 08:26 | XMS_ITS | Encounter Summary ---
Author Organization [employer] [facility] Address [id number] [address] [place] [address] Care Team Providers Care Msw Name Role Phone Narinder Bullock MD Primary Care Provider +-0 Encounter Details Date Type Department Care Team (Late st Contact Info) Description 07/25/2021 Orders Only [facility] [address] [place] [address] Ref Prov, [place] [address] Social History Tobacco Use Types Packs/Day Years Used Date Smoking Tobacco: Never Assessed Childcare Answer Date Recorded Childcare Unknown 04/14/2019 Employment Answer Date Recorded Employment Unknown 04/14/2019 Comments Unknown Sex and Gender Information Value Date Recorded Sex Assigned at Not on file Legal Sex Female 11:54 AM EDT Gender Identity Not on file Sexual Orientation Not on file documented as of this encounter Plan of Treatment Not on file documented as of this encounter Procedures Procedure Name Priority Date/Time Associated Diagnosis Comments CT ABDOMEN AND PELVIS W CONT Routine 07/25/2021 documented in this encounter Results * CT abdomen and pelvis with contrast (07/25/2021) Anatomical Region Laterality Modality Body, Abdomen, Body Covera N/A Compu roxy Tomography us Not In System Ref Prov IMG CT ORDERABLES Final R esult documented in this encounter Visit Diagnoses Not on filedocumented in this encounter Care Teams Msw Relationship Specialty Start Date End Date Narinder Bullock MD PCP - General 10/22/12 documented as of this encounter
--- OUTSIDE RECORDS SUMMARY | 2025-06-04 08:27 | XMS_ITS | Clinical Summary ---
Author Organization [facility] Address [address] [facility] [place] [address] Care Team Providers Care Lodge Attendant Name Role Phone Unavailable Primary Care Provider Unavailabl e Social History Tobacco Use Types Packs/Day Years Used Date Smoking Tobacco: Never Assessed Comments Unknown Sex and Gender Information Value Date Recorded Sex Assigned at Not on file Legal Sex Female 11:06 PM EDT Gender Identity Not on file Sexual Orientation Not on file Plan of Treatment Upcoming Encounters Date Type Department Care Team (Late st Contact Info) Description 08/04/2025 3:30 PM EDT Office Visit [facility] [address] [place] [id number] Aman Edwards MD [address] [facility] [address] [address] Health Maintenance Due Date Last Done Comments CT Colonography 1979 Colonoscopy 1979 Colorectal Cancer Screening 1979 FIT-DNA 1979 FIT 1979 FOBT 1979 Sigmoidoscopy 1979 Pap Smear 2000 Cervical Cancer Screening 2009 HPV/Cotest 2009 Mammogram 2019 Influenza Vaccine (#1) 2025 Insurance [employer]
--- OUTSIDE RECORDS SUMMARY | 2025-06-04 08:27 | XMS_ITS | Patient Health Record ---
Author Organization [facility] in [place] Address [address] [place] [address] Care Team Providers Care Appian Bpm Developer Name Role Phone KobeMarkos Primary Care Provider [phone] Porsche Jovel Unavailable [phone] Allergies Allergen (clinical drug ingredient) Drug/Non Drug Allergy documented on EMR Reaction Allergy Type Onset Date Status Fluzone Quadrivalent Unknown Drug Allergy Active Results Component Value Reference Range Notes CRP Reviewed date:02/21/2025 06:32:10 PM Interpretation: Performing Lab: Notes/Report: [facility] , C Reactive Protein <0.50 <=0.50 mg/dL Performing Lab: see note - [facility] LB CREATININE Reviewed date:11/11/2024 12:58:29 PM Interpretation: Performing Lab: Notes/Report: [facility] , Creatinine 0.67 0.55-1.02 mg/dL Estimated GFR ( Becka >60 >=60 mL/min/1.73m 2 Estimated GFR (Non- Sonya >60 >=60 mL/min/1.73m 2 Performing Lab: see note - [facility] LB CT abdomen pelvis w con Reviewed date:11/11/2024 03:18:57 PM Interpretation: Performing Lab: Notes/Report: Source Facility: [facility] [place] [address] [place] [address] CT Scan Report Signed Patient: ALPHONSO FENTON MR#: [id number] : 1980 Acct:[id number] Age/Sex: 44 / F ADM Date: 11/11/24 Loc: LAB Attending Dr: Gabino Bedolla M.D. Ordering Physician: Gabino Bedolla M.D. Date of Service: 11/11/24 Procedure(s): CT abdomen pelvis w con Accession Number(s): [id number] cc: Gabino Bedolla M.D. [place] [id number] Patient Name: ALPHONSO FENTON MRN: [facility]:[id number] date: 1980 Sex: F Assigned Patient Location: LAB Current Patient Location: LAB Accession/Order Number: [id number] Exam Date: 11/11/2024 09:50 Report Date: 11/11/2024 14:45 At the request of: GABINO BEDOLLA Procedure: CT abdomen pelvis w con EXAMINATION: CT abdomen pelvis w con HISTORY: Abdominal Wall Mass COMPARISON: No relevant comparison available. TECHNIQUE: CT images were created with IV contrast. Axial, Coronal, and Sagittal images. Dose reduction techniques were achieved by using automated exposure control and/or adjustment of mA and/or kV according to patient size and/or use of iterative reconstruction technique. FINDINGS: LUNG BASES: No visible pulmonary or pleural disease. LIVER: Diffuse hypoattenuation consistent with hepatic steatosis BILIARY: Surgical clips from cholecystectomy PANCREAS: No lesion, fluid collection, ductal dilatation, or atrophy. SPLEEN: No enlargement or focal lesion. ADRENALS: No mass or enlargement. KIDNEYS: No mass, obstruction, or calcification. BOWEL/MESENTERY: Mild colonic diverticulosis without evidence of acute diverticulitis. Nonobstructive bowel gas pattern. Normal appendix AORTA/VASCULAR: No aortic aneurysm or dissection RETROPERITONEUM: No mass or adenopathy. LYMPH NODES: No adenopathy. URINARY BLADDER: No visible focal wall thickening, lesion, or calculus. PELVIC ORGANS: Hysterectomy ABDOMINAL WALL: 1.5 cm supraumbilical hernia containing fat axial image 100. Soft tissue attenuation at the umbilicus measuring 2 cm axial image 105, nonspecific in the region of the patient's palpable abnormality demarcated with the BB central upper abdominal wall axial image 46 no subjacent abnormality is observed BONES: No bony lesion or fracture. OTHER: Negative. CT/CT abdomen pelvis w con IMPRESSION: No focal mass or hernia in the region of the patient's palpable abnormality demarcated with the BB Electronically authenticated by: EDUARDO MAS Date: 11/11/2024 14:45 Dictated By: Eduardo Mas M.D. Signed By: 11/11/24 1447 DD/ 44 TD/TT: Wireless Engineer: [place] [address] CT Scan Report Signed Patient: JOHNNA FENTON MR#: [id number] : 1980 Acct:[id number] Age/Sex: 44 / F ADM Date: 11/11/24 Loc: LAB Attending Dr: Salvador Bedolla M.D. Ordering Physician: Gabino Bedolla M.D. Date of Service: 11/11/24 Procedure(s): CT abdomen pelvis w con Accession Number(s): [id number] cc: Gabino Bedolla M.D. [place] [address] Patient Name: ALPHONSO FENTON MRN: [id number] date: 1980 Sex: F Assigned Patient Location: LAB Current Patient Location: LAB Accession/Order Number: [id number] Exam Date: 11/11/2024 09:50 Report Date: 11/11/2024 14:45 At the request of: GABINO BEDOLLA Procedure: CT abdome n pelvis w con EXAMINATION: CT abdomen pelvis w con HISTORY: Abdominal Wall Mass COMPARISON: No relevant comparison available. TECHNIQUE: CT images were created with IV contrast. Axial, Coronal, and Sagittal images. Dos e reduction techniques were achieved by using automated exposure control and/or adjustment of mA and/or kV according to patient size and/or use of iterative reconstruction technique. FINDINGS: LUNG BASES: No visib le pulmonary or pleural disease. LIVER: Diffuse hypoattenuation consistent with hepatic steatosis BILIARY: Surgical clips from cholecystectomy PANCREAS: No lesion, fluid collection, ductal dilatation, or atrophy. SPLEEN: No enlargeme nt or focal lesion. ADRENALS: No mass or enlargement. KIDNEYS: No mass, obstruction, or calcification. BOWEL/MESENTERY: Mil d colonic diverticulosis without evidence of acute diverticulitis. Nonobstructive bowel gas pattern. Normal appendix AORTA/VASCULAR: No aortic aneurysm or dissection RETROPERITONEUM: No mass or adenopathy. LYMPH NODES: No adenopathy. URINARY BLADDER: No visible focal wall thickening, lesion, or calculus. PELVIC ORGANS: Hysterectomy ABDOMINAL WALL: 1.5 cm supraumbilical hernia containing fat axial image 100. Soft tissue attenuation at the umbilicus measuring 2 cm axial image 105, nonspecific in the region of the patient's palpable abnormality demarcated with the BB central upper abdominal wall axial image 46 no subjacent abnormality is observed BONES: No bony lesio n or fracture. OTHER: Negative. CT/CT abdomen pelvis w con IMPRESSION: No focal mass or hernia in the region of the patient's palpable abnormality demarcated with the BB Electronically authenticated by: EDUARDO MAS Date: 11/11/2024 14:45 Dictated By: Eduardo Mas M.D. Signed By: 11/11/24 1447 DD/ 44 TD/TT: Wireless Engineer: MR head/brain wo/w con Reviewed date:02/19/2025 01:01:38 PM Interpretation: Performing Lab: Notes/Report: Source Facility: [place] [address] Magnetic Resonance Report Signed Patient: ALPHONSO FENTON MR#: [id number] : 1980 Acct:[id number] Age/Sex: 44 / F ADM Date: 02/18/25 Loc: MRI Attending Dr: Gabino Bedolla M.D. Ordering Physician: Gabino Bedolla M.D. Date of Service: 02/18/25 Procedure(s): MR head/brain wo/w con Accession Number(s): [id number] cc: Gabino Bedolla M.D. [place] [address] Patient Name: ALPHONSO FENTON MRN: [id number] date: 1980 Sex: F Assigned Patient Location: MRI Current Patient Location: MRI Accession/Order Number: [id number] Exam Date: 02/18/2025 08:47 Report Date: 02/18/2025 09:04 At the request of: GABINO BEDOLLA MD Procedure: MR head/brain wo/w con MRI BRAIN WITHOUT AND WITH INTRAVENOUS CONTRAST CLINICAL DATA: Chronic migraine headaches, fatigue and extremity nerve pain. COMPARISON: 04/07/2020 Multiecho, multiplanar imaging of the brain was performed before and after intravenous administration of 20 mL of Dotarem. The ventricles are normal in size and position. Patchy areas of increased FLAIR signal are visualized within the periventricular and subcortical white matter as well as also possibly the right cerebellum and left cerebellar peduncle. Given patient's age, multiple sclerosis plaque is a possibility. Chronic microvascular disease would be thought less likely without risk factors. There are no additional areas of abnormal signal intensity or enhancement within the supra or infratentorial brain. There is no restricted diffusion to suggest a recent ischemic event. No extra-axial collections or mass effect are seen. There are borderline low-lying cerebellar tonsils. Partial empty sella is again seen. The imaged paranasal sinuses and mastoid air cells are clear. MR/MR head/brain wo/w con IMPRESSION: NONSPECIFIC WHITE MATTER CHANGES, DESCRIBED. NO OTHER ACUTE INTRACRANIAL FINDINGS. Impression dictated by: Isabelle Ortiz M.D.02/18/2025 9:04 AM Dictation Location: [place] [address] Electronically authenticated by: [id number] Y Date: 02/18/2025 09:04 Dictated By: Isabelle Ortiz M.D. Signed By: 02/18/25906 DD/ 3 TD/TT: Wireless Engineer: [place] [address] Magnetic Resonance Report Signed Patient: JOHNNA FENTON MR#: [id number] : 1980 Acct:[id number] Age/Sex: 44 / F ADM Date: 02/18/25 Loc: MRI Attending Dr: Salvador Bedolla M.D. Ordering Physician: Gabino Bedolla M.D. Date of Service: 02/18/25 Procedure(s): MR head/brain wo/w con Accession Number(s): [id number] cc: Gabino Bedolla M.D. [place] [id number] Patient Name: ALPHONSO FENTON MRN: [id number] date: 1980 Sex: F Assigned Patient Location: MRI Current Patient Location: MRI Accession/Order Number: [id number] Exam Date: 02/18/2025 08:47 Report Date: 02/18/2025 09:04 At the request of: GABINO BEDOLLA MD Procedure: MR head/brain wo/w con MRI BRAIN WITHOUT AN D WITH INTRAVENOUS CONTRAST CLINICAL DATA: Chron ic migraine headaches, fatigue and extremity nerve pain. COMPARISON: 04/07/2020 Multiecho, multiplan ar imaging of the brain was performed before and after intravenous administration of 20 mL of Dotarem. The ventricles are normal in size and position. Patchy areas of increased FLAIR signal are visualized within the periventricular and subcortical white matter as well as al so possibly the right cerebellum and left cerebellar peduncle. Given patient's age, multiple sclerosis plaque is a possibility. Chronic microvascula r disease would be thought less likely without risk factors. There are n o additional areas of abnormal signal intensity or enhancement within t he supra or infratentorial brain. There is no restricted diffusion to suggest a recent ischemic event. No extra-axial collections or mass effect are seen . There are borderline low-lying cerebellar tonsils. Partial empty sella is again seen. The imaged paranasal sinuses and mastoid air cells are clear. MR/MR head/brain wo/w con IMPRESSION: NONSPECIFIC WHITE MATTER CHANGES, DESCRIBED. NO OTHER ACUTE INTRACRANIAL FINDINGS. Impression dictated by: Isabelle Ortiz M.D.02/18/2025 9:04 AM Dictation Location: [place] [address] Electronically authenticated by: [id number] Y Date: 02/18/2025 09:04 Dictated By: Isabelle Ortiz M.D. Signed By: 02/18/25 0907 DD/ TD/TT: Wireless Engineer: URIC ACID SERUM Reviewed date:02/21/2025 06:32:10 PM Interpretation: Performing Lab: Notes/Report: [facility] , Uric Acid 4.9 2.6-6.0 mg/dL Performing Lab: see note ML - [facility] LB Sjogren's Ab, Anti-SS-A/-SS- B Reviewed date:02/25/2025 12:27:47 PM Interpretation: Performing Lab: Notes/Report: [facility] , Sjogren's Anti-SS-A <0.2 0.0-0.9 AI Sjogren's Anti-SS-B <0.2 0.0-0.9 AI Performed at: [address] [id number] Manager Utilities: Gregorio Martinez PhD, Phone: [phone] Performing Lab: see note [facility] LB Antistreptolysin O Ab Reviewed date:02/25/2025 12:27:47 PM Interpretation: Performing Lab: Notes/Report: [facility] , Antistreptolysin O Ab 82.4 0.0-200.0 IU/mL Performed at: [address] [id number] Manager Utilities: Gergorio Martinez PhD, Phone: [phone] Performing Lab: see note [facility] LB RHEUMATOID FACTOR Reviewed date:02/25/2025 12:27:47 PM Interpretation: Performing Lab: Notes/Report: [facility] , Rheumatoid Factor (RF) 10.4 <14.0 IU/mL Performing Lab: see note [facility] LB TONNY by IFA Reviewed date:02/25/2025 12:27:47 PM Interpretation: Performing Lab: Notes/Report: [facility] , Antinuclear Antibodies, IFA Positive . Negative <1:80 Borderline 1:80 Positive >1:80 Homogeneous Pattern TNP . Nucleolar Pattern TNP . Speckled Pattern 1:160 . ICAP nomenc lature: AC-2,4,5,29 Centromere Pattern TNP . Spindle Apparatus Pattern TNP . Nuclear Membrane Pattern TNP . Midbody Pattern TNP . Nuclear Dot Pattern TNP . PCNA Pattern TNP . Centriole Pattern TNP . Note: Comment . Pattern Potential Disease Association Homogeneous Systemic Lupus Erythematosus, Drug Induced Systemic Lupus Erythematosus, Chronic Autoimmune hepatitis, Juvenile Idiopathic Arthritis Speckled Sjogren Syndrome, Systemic Lupus Erythematosus, Subacute Cutaneous Lupus, Lupus, Congenital Heart Block, Mixed Connective Tissue Disease, Scleroderma-diffuse, Scleroderma-Autoimmune Myositis Overlap Syndrome, Systemic Lupus Erythematosus-Scleroder ma-Autoimmune Myositis Overlap Syndrome, Systemic Autoimmune Rheumatic Disease, Undifferentiated Connective Tissue Disease Nucleolar Systemic Sclerosis, Scleroderma-Autoimmune Myositis Overlap Syndrome, Sjogren Syndrome, Raynaud phenomenon, Pulmonary Arterial Hypertension, Systemic Autoimmune Rheumatic Disease, Cancer Centromere Scleroderma-CREST, Limited Cutaneous SSc, Raynaud's Phenomenon, Primary Biliary Cholangitis Nuclear Dot Primary Biliary Cholangitis Nuclear Primary Biliary Cholangitis, Autoimmune Membrane Hepatitis/Liver disease, Systemic Autoimmune Rheumatic Disease, Autoimmune Cytopenias, Linear Scleroderma, Antiphospholipid Syndrome Performed at: [address], [place] [id number] Manager Utilities: Gregorio Martinez PhD, Phone: [phone] Performing Lab: see note LC - [facility] LB Reason For Referral Diagnosis 1 Diabetic peripheral neuropathy (E11.42) Referral Organization [facility] Referring Provider First Name Markos Referring Provider Last Name Kobe Referring Provider [facility] Referred Provider Duane Vaca Referred Provider Specialty Neurology Referral Priority Routine Diagnosis 1 Positive TONNY (antinu clear antibody) (R76.8) Referral Organization [facility] Referring Provider First Name Markos Referring Provider Last Name [facility] Referring Provider [facility] Referred Provider Corey Nguyen Referred Provider Specialty Rheumatology Referral Priority Routine Medications Medication SIG (Take, Route, Frequency, Duration) Notes Start Date End Date Status metFORMIN HCl 1000 MG TAKE 1 TABLET BY M OUTH TWICE DAILY for 30 Active Amitriptyline HCl 150 mg TAKE 1 TABLET B Y MOUTH ONCE DAILY AT BEDTIME for 30 days Active Pen Monroe 16 31G X 8 MM Use 1 daily to give Lantus for 90 days 11/04/2023 Active Metoprolol Tartrate 100 mg TAKE 2 TABLET S BY MOUTH TWICE DAILY for 30 Active Potassium Chloride Stephany ER 1 0 mEq TAKE 1 TABLET BY MOUTH TWICE DAILY WITH FOOD for 30 Active Fenofibrate 160 MG 1 tablet Orally Once a day for 30 days Active Gabapentin 600 mg TAKE 1 TABLET BY JAYCEE TH IN THE MORNING, at noon, and 2 (TWO) TABLETS IN THE EVENING for 30 Active Cholecalciferol 625 MCG (36757 UT) 1 tablet Orally Once a day Active Blood Glucose Test Strip Use 1 strip via glucometer once a day fasting every morning for 90 days Active Blood Glucose Monitor System w/Device as directed Active tiZANidine HCl 4 mg TAKE 1 TABLET BY JAYCEE TH AT BEDTIME NEEDED for 30 Active Lancets - as directed Active Furosemide 80 mg TAKE 1 TABLET BY JAYCEE TH ONCE DAILY for 30 Active Social History Tobacco Use: Social History Observation Description Date Details (start date - stop date) Current Smoker NA - NA Tobacco Use/Smoking Question Answer Notes Patient is a current every day smoker Alcohol Screen (Audit-C) Question Answer Notes Did you have a drink containing alcohol in the p ast year? No Points 0 Interpretation Negative AUDIT-C (Standard) Question Answer Notes Did you have a drink containing alcohol in the p ast year? 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) Active confirmed Problem Fatigue (69131775) Fatigue (R53.83) Active confirmed Problem 861892190 Diabetic peripheral neuropathy (E11.42) Active confirmed Problem Hypertension (27389277) Hypertension (I10) Active confirmed Problem Edema (27637140) Edema (R60.9) Active confirmed Problem Migraine (74619449) Migraine (G43.909) Active confirmed Problem Type 2 diabetes mellitus (30804719) Type 2 diabetes mellitus (E11.9) Active confirmed Problem Lumbar radiculopathy (495773432) Lumbar radiculopathy (M54.16) Active confirmed Problem Chronic diarrhea (185854197) Chronic diarrhea (K52.9) Active confirmed Problem Edema (636490261) Edema leg (R60.0) Active conf irmed Problem Obese (320395933) Obese (E66.9) Active confirme d Problem Well adult (099914344) Well adult (Z00.00) Active confirmed Problem Polyneuropathy (89517192) Polyneuropathy (G62.9) Active confirmed Problem Raised antinuclear antibody (743464726) Positive TONNY (antinuclear antibody) (R76.8) Active confirmed Problem Seasonal allergic rhinitis (503576401) Allergic rhinitis, seasonal (J30.2) Active confirmed Problem Claudication (46556653) Claudication (I73.9) Active confirmed Problem Epigastric pain (56493264) Abdominal pain, epigastric (R10.13) Active confirmed Problem Disorder of soft tissue (31601514) Swelling of both lower extremities (M79.89) Active confirmed Problem Ankle edema (29679284) Ankle edema (R60.0) Active confirmed Problem Abdominal hernia (03125572) Other abdominal hernia (K46.9) Active confirmed Problem Scleroderma (122396145) Scleroderma (M34.9) Active confirmed Problem Hysterectomy (171099861) H/O abdominal hysterectomy (Z90.710) Active confirmed Problem Abdominal angina (641416384) Abdominal angina (K55.1) Active confirmed Problem Ovarian cyst (60463595) Cyst, ovarian (N83.209) Active confirmed Problem Abdominal aortic aneurysm (disorder) (885582617) Abdominal aortic aneurysm (AAA), unspecified part, unspecified whether ruptured (I71.40) Active confirmed Vital Signs Temperature 98.7 degrees Fahrenheit 01/31/2025 Blood pressure diastolic 80 mm Hg 02/21/2025 Height 69 in 02/21/2025 Blood pressure systolic 110 mm Hg 02/21/2025 Weight 262 lbs 02/21/2025 BMI 38.69 kg/m2 02/21/2025 Encounters Encounter Location Date Provider Diagnosis [facility] [address] [place] [address] 07/09/2024 Porsche Becka Back pain M54.9 [place] [address] [place] [address] 10/25/2024 Markos Hoy Well adult Z00.00 [facility] [address] [place] [address] 01/31/2025 Markos Hoy Lumbar radiculopathy M54.16 and Diabetic peripheral neuropathy E11.42 [facility] [address] [place] [address] 02/21/2025 Markos Hoy Hypertension I10 ; Lumbar radiculopathy M54.16 and Migraine G43.909 [facility] [address] [place] [address] 06/17/2024 Markos Hoy [facility] [address] [place] [address] 07/30/2024 Markos Hoy Well adult Z00.00 [facility] [address] [place] [address] 10/18/2024 Markos Hoy [facility] [address] [place] [address] 10/25/2024 Markos Hoy [facility] [address] [place] [address] 10/25/2024 Markos Hoy [facility] [address] [place] [address] 11/11/2024 Markos Bedolla [facility] [address] [place] [facility] [place] [address] 12/29/2024 Markos Bedolla [facility] [address] [place] [address] 02/08/2025 Markos Bedolla Well adult Z00.00 [facility] [address] [place] [address] 02/10/2025 Markos Bedolla [facility] [address] [place] [place] [address] 02/14/2025 Markos Bedolla [facility] [address] [place] [address] 02/14/2025 Markos Bedolla [facility] [address] [place] [address] 02/19/2025 Markos Bedolla [facility] [address] [place] [address] 02/21/2025 Markos Kobe Diabetic peripheral neuropathy E11.42 and Polyneuropathy G62.[address] [place] [address] 02/25/2025 Markos Bedolla Positive TONNY (antinuclear antibody) R76.[address] [address] 05/04/2025 Markos Bedolla Well adult Z00.[address] [address] 05/17/2025 Markos Vitorernestine Hypertension I10 ; Polyneuropathy G62.9 ; Back pain M54.9 ; Type 2 diabetes mellitus E11.9 and Edema leg R60.0 Assessments Encounter Date Diagnosis (ICD Code) Assessment Notes Treatment Notes Treatment Clinical Notes Section Notes 07/30/2024 Well adult (ICD-10 - Z00.00) 02/08/2025 Well adult (ICD-10 - Z00.00) 02/21/2025 Diabetic peripheral neuropathy (ICD-10 - E11.42) 02/21/2025 Polyneuropathy (ICD-10 - G62.9) 02/25/2025 Positive TONNY (antinuclear antibody) (ICD-10 - R76.8) 05/04/2025 Well adult (ICD-10 - Z00.00) 05/17/2025 Hypertension (ICD-10 - I10) 05/17/2025 Polyneuropathy (ICD-10 - G62.9) 07/09/2024 Back pain (ICD-10 - M54.9) INjections here fu if not improving 10/25/2024 Well adult (ICD-10 - Z00.00) 01/31/2025 Lumbar radiculopathy (ICD-10 - M54.16) 01/31/2025 Diabetic peripheral neuropathy (ICD-10 - E11.42) 02/21/2025 Hypertension (ICD-10 - I10) 02/21/2025 Lumbar radiculopathy (ICD-10 - M54.16) 02/21/2025 Migraine (ICD-10 - G43.909) 05/17/2025 Back pain (ICD-10 - M54.9) 05/17/2025 Type 2 diabetes mellitus (ICD-10 - E11.9) 05/17/2025 Edema leg (ICD-10 - R60.0) Plan Of Treatment Pending Test Test Name Order Date CMP (COMPLETE METABOLIC PANEL) 4 HEMOGLOBIN A1C (GLYCO) 11/04/2023 IRON, TOTAL 11/04/2023 LIPID PANEL (CHOL/TRIG/HDL/LDL) 11/04/19 24 CBC WITH DIFF 11/04/2023 VITAMIN D, 25 LEVEL (TOTAL) 11/04/2023 CT Abdomen and Pelvis w/contrast * 11/04 MAMM Mammograms CAD 11/04/2023 MRI Brain w/o contrast 11/04/2023 RHEUMATOID PANEL 02/21/2025 SJOGREN'S SS-A AND SS-B ANTIBODIES 02/21 Insulin Level 11/04/2023 COMPREHENSIVE METABOLIC PROFILE WITH GFR 05/17/2025 OCCULT BLOOD, FECAL, IMMUNOASSAY 025 CBC W/AUTO DIFF 05/17/2025 STOOL OCCULT BLOOD 11/04/2023 GLYCOHEMOGLOBIN A1C 05/17/2025 MRI BRAIN WO W CON 03/21/2023 MRI BRAIN WO W CON 01/31/2025 THYROID PANEL (T4/TSH/FREE T3) 4 THYROID PANEL (T4/TSH/FREE T3) 5 Lipid Panel 05/17/2025 Insurance Providers Payer Name Payer Address Payer Phone Subscriber Number Group Number Insured Name Patient Relationship to Insured Coverage Start Date Coverage End Date JIMMY CALL [address] [place], [place] [id number] Alphonso Fenton Self - patient is the insured 4 Medications Administered Medication Instructions Date of Administration Dosage Notes Kenalog-40 07/09/2024 120 mg Ketorolac Tromethamine 07/09/2024 60 mg 60 Medical (General) History Medical History History ICD Code Other abdominal hernia K46.9 Overweight E66.3 Pyelonephritis N12 Polyneuropathy G62.9 Swelling of both lower extremities M79.8 9 Claudication I73.9 Abdominal aortic aneurysm (A AA), unspecified part, unspecified whether ruptured I71.40 Abdominal angina K55.1 Abdominal mass of other site R19.09 COVID-19 virus infection U07.1 Allergic rhinitis, seasonal J30.2 Well adult Z00.00 Lumbar radiculopathy M54.16 Edema R60.9 Hypertension I10 Snoring R06.83 Edema leg R60.0 Acute recurrent frontal sinusitis J01.11 Fatigue R53.83 Abdominal pain, epigastric R10.13 Chronic diarrhea K52.9 Diabetes mellitus, new onset E11.9 Weakness R53.1 Conjunctivitis H10.9 Ankle edema R60.0 Sprain of unspecified ligament of unspec ified ankle, initial encounter S93.409A Low back pain, unspecified M54.50 H/O abdominal hysterectomy Z90.710 Subconjunctival hemorrhage H11.30 Sebaceous cyst L72.3 Contact dermatitis L25.9 Pharyngitis J02.9 Acquired absence of other organs Z90.89 Migraine G43.909 Scleroderma M34.9 Obese E66.9 Cyst, ovarian N83.209 Surgical History Surgery Date(Month/Year) [place] [facility] Oral surgery for Jaw fracture Gallbladder hysterectomy
--- OUTSIDE RECORDS SUMMARY | 2025-06-04 08:27 | XMS_ITS | Clinical Summary ---
Author Organization [facility] Address [address] [place] [address] Care Team Providers Care Claim Clinician Name Role Phone Unavailable Primary Care Provider Unavailabl e Social History Tobacco Use Types Packs/Day Years Used Date Smoking Tobacco: Never Assessed Comments Unknown Sex and Gender Information Value Date Recorded Sex Assigned at Not on file Legal Sex Female 9:58 PM EDT Gender Identity Not on file Sexual Orientation Not on file Plan of Treatment Not on file
--- OUTSIDE RECORDS SUMMARY | 2025-06-04 08:27 | XMS_ITS | Clinical Summary ---
Author Organization [employer] tem Address [id number] [address] [place] [address] Care Team Providers Care Defect Repairer Glassware Name Role Phone Narinder Bullock MD Primary Care Provider [phone] Allergies Active Allergy Reactions Criticality Noted Date Comments Egg Abdominal Pain 09/04/2021 Other Abdominal Pain,Nausea And Vomiting 1 Medications cholecalciferol , vitamin D3, 2,000 units tablet Take 1 tablet by mouth daily. 06/25/2021 Active furosemide (LASIX) 80 mg tablet Take 80 mg by mouth daily. 07/01/2021 Active gabapentin (NEURONTIN) 300 mg capsule Take 300 mg by mouth 3 (three) times a day. 07/22/2021 Active hyoscyamine (LEVSIN) 0.125 mg SL tablet DISSOLVE 1 (ONE) TABLET UNDER THE TONGUE FOUR TIMES DAILY NEEDED 07/02/2021 Active metFORMIN XR (GLUCOPHAGE-XR) 500 mg 24 hr tablet Take 500 mg by mouth 2 (two) times a day. 07/06/2021 Active metoprolol tartrate (LOPRESSOR) 100 mg tablet Take 100 mg by mouth 3 (three) times a day. 07/01/2021 Active pantoprazole (PROTONIX) 40 mg EC tablet Take 40 mg by mouth daily. 07/01/2021 Active pioglitazone (ACTOS) 15 mg tablet Take 30 mg by mouth daily. 06/02/2021 Active potassium chloride (KLOR-CON M) 10 MEQ CR tablet Take 10 mEq by mouth 2 (two) times a day. 07/01/2021 Active terbinafine (LamISIL) 250 mg tablet Take 250 mg by mouth daily. 07/19/2021 Active tiZANidine (ZANAFLEX) 4 mg tablet Take 12 mg by mouth nightly. at bedtime 07/01/2021 Active Active Problems Problem Noted Date Diagnosed Date Abnormal computerized axial tomography of abdome n 09/04/2021 Altered bowel function 09/04/2021 Diabetes mellitus 09/04/2021 Edema 09/04/2021 Epigastric pain 09/04/2021 Gastroesophageal reflux disease 09/04/2021 Hypertension 09/04/2021 Hypokalemia 09/04/2021 Left lower quadrant abdominal pain 09/04/2021 Neuropathy 09/04/2021 Vitamin deficiency 09/04/2021 Social History Tobacco Use Types Packs/Day Years Used Date Smoking Tobacco: Some Days Smokeless Tobacco: Never Tobacco Cessation:Ready to Q uit: Yes; Counseling Given: Yes Alcohol Use Standard Drinks/Week Comments Not Currently 0 (1 standard drink = 0.6 oz pur e alcohol) Childcare Answer Date Recorded Childcare Unknown 04/14/2019 Employment Answer Date Recorded Employment Unknown 04/14/2019 Comments Unknown Sex and Gender Information Value Date Recorded Sex Assigned at Not on file Legal Sex Female 11:54 AM EDT Gender Identity Not on file Sexual Orientation Not on file Last Filed Vital Signs Vital Sign Reading Time Taken Comments Blood Pressure 154/97 08/30/2021 9:40 AM EDT Pulse 68 08/30/2021 9:40 AM EDT Temperature - - Respiratory Rate - - Oxygen Saturation - - Inhaled Oxygen Concentration - - Weight 155.1 kg (342 lb) 08/30/2021 9:40 AM EDT Height 175.3 cm (5' 9 ) 08/30/2021 9:40 AM EDT Body Mass Index 50.5 08/30/2021 9:40 AM EDT Plan of Treatment Health Maintenance Due Date Last Done Comments Depression Screening 1991 Tobacco Screening 1991 Adult BMI Screening 1997 DTaP,Tdap and Td Vaccines (1 - Tdap) 1998 Pap Smear 2000 Influenza Vaccine 07/04/2025 Medical Devices Not on file Insurance [facility] Care Teams Defect Repairer Glassware Relationship Specialty Start Date End Date Narinder Bullock MD PCP - General 10/22/12
[2025-06-04 09:24] LABS: Hematocrit 46.6 % (36.0-48.0); Hemoglobin 16.7 g/dL (12.0-16.0); Immature Granulocytes Abs Auto 0.05 10^3/uL (0.00-0.03); Immature Granulocytes Pct Auto 0.5 % (0.0-0.5); Lymphocytes Absolute Auto 2.8 10^3/uL (1.2-3.8); Mean Corpuscular HGB Conc 35.8 g/dL (29.9-35.2); Mean Corpuscular Hemoglobin 32.2 pg (26.7-34.0); Mean Corpuscular Volume 90.0 fL (81.0-99.0); Platelet Count 312 10^3/uL (150-450); Red Blood Count 5.18 10^6/uL (4.20-5.40); White Blood Count 10.1 10^3/uL (4.0-11.0)
[2025-06-04 10:11] LABS: Alanine Aminotransferase 105 U/L (14-59); Albumin Globulin Ratio 1.0; Albumin Level 3.7 g/dL (3.4-5.0); Alkaline Phosphatase 98 U/L (46-116); Anion Gap 17.6; Aspartate Amino Transferase 43 U/L (15-37); Blood Urea Nitrogen 5.0 mg/dL (7.0-18.0); Calcium 9.4 mg/dL (8.5-10.1); Carbon Dioxide 26.9 mmol/L (21.0-32.0); Chloride 93 mmol/L (98-107); Cholesterol 188 mg/dL (<=200); Estimated GFR (African America >60 (>=60 mL/min/1.73m^2); Estimated GFR (Non-African Ame >60 (>=60 mL/min/1.73m^2); Free T3 2.50 pg/mL (2.18-3.98); Globulin 3.8 g/dL; Glucose 379 mg/dL (74-106); HDL Cholesterol 25 mg/dL (40-60); Potassium 3.5 mmol/L (3.5-5.1); Sodium 134 mmol/L (136-145); Thyroid Stimulating Hormone 2.077 uIU/mL (0.358-3.740); Total Protein 7.5 g/dL (6.4-8.2); Triglycerides 795 mg/dL (<=150); VLDL CHOLESTEROL 159.0 mg/dL
== END 2025-06-04 08:22 | disposition home or self-care (01) ==
PROVIDERS: PCP Family Medicine; Visit Provider Family Medicine
DX: M54.9 Dorsalgia, unspecified (principal); I10 Essential (primary) hypertension; G62.9 Polyneuropathy, unspecified; E11.9 Type 2 diabetes mellitus without complications; R60.0 Localized edema
CPT/HCPCS: 36415; 80053; 80061; 83036; 83721; 84436; 84443; 84481; 85025

== ENCOUNTER 2025-06-30 11:39 | Outpatient (OUT) | payer OTHER, SELFPAY ==
--- OUTSIDE RECORDS SUMMARY | 2025-05-17 07:38 | XMS_ITS ---
Author Organization [facility] [place] Address [address] [place] [address] Care Team Providers Care Room Service Runner Name Role Phone Markos uBllock Primary Care Provider REASON FOR VISIT yearly labs Problems Problem Type SNOMED Code ICD Code Onset Dates Problem Status W/U Status Risk Notes Problem Type 2 diabetes mellitus (E11.9) Active confirmed Encounters Encounter Location Date Provider Diagnosis [facility] [address] [place] [address] 05/17/2025 Markos Bullock Hypertension I10 ; Polyneuropathy G62.9 ; Back pain M54.9 ; Type 2 diabetes mellitus E11.9 and Edema leg R60.0 Assessments Encounter Date Diagnosis (ICD Code) Assessment Notes Treatment Notes Treatment Clinical Notes Section Notes 05/17/2025 Hypertension (ICD-10 - I10) 05/17/2025 Polyneuropathy (ICD-10 - G62.9) 05/17/2025 Back pain (ICD-10 - M54.9) 05/17/2025 Type 2 diabetes mellitus (ICD-10 - E11.9) 05/17/2025 Edema leg (ICD-10 - R60.0) Plan Of Treatment Pending Test Test Name Order Date COMPREHENSIVE METABOLIC PROFILE WITH GFR 05/17/2025 OCCULT BLOOD, FECAL, IMMUNOASSAY 025 CBC W/AUTO DIFF 05/17/2025 GLYCOHEMOGLOBIN A1C 05/17/2025 THYROID PANEL (T4/TSH/FREE T3) Lipid Panel 05/17/2025 Progress Notes * Fani FENTON GDOB:[birth year] (44 yo F)Acc No.[id number]:05/17/2025 Patient: Fani REZA :1980 A ge:44 Y S ex:Female Address:[address] [place] [id number] Subjective: * Chief Complaints: * Y early labs * Medical History: * Surgical History: * Hospitalization/Major Diagno stic Procedure: * Medications: Objective: * Vitals: * Physical Examination: Assessment: * Assessment: 1. H ypertension - I10 (Primary) 2 . P olyneuropathy - G62.9 ?3. B ack pain - M54.9 4 . T ype 2 diabetes mellitus - E11.9 ?5. E sheeba leg - R60.0 Plan: * Treatment: 2. P olyneuropathy L AB: COMPREHENSIVE METABOLIC PROFILE WITH GFR L AB: OCCULT BLOOD, FECAL, IMMUNOASSAY L AB: CBC W/AUTO DIFF L AB: GLYCOHEMOGLOBIN A1C L AB: THYROID PANEL (T4/TSH/FREE T3) L AB: Lipid Panel 3. B ack pain L AB: COMPREHENSIVE METABOLIC PROFILE WITH GFR L AB: OCCULT BLOOD, FECAL, IMMUNOASSAY L AB: CBC W/AUTO DIFF L AB: GLYCOHEMOGLOBIN A1C L AB: THYROID PANEL (T4/TSH/FREE T3) L AB: Lipid Panel 4. T ype 2 diabetes mellitus L AB: COMPREHENSIVE METABOLIC PROFILE WITH GFR L AB: OCCULT BLOOD, FECAL, IMMUNOASSAY L AB: CBC W/AUTO DIFF L AB: GLYCOHEMOGLOBIN A1C L AB: THYROID PANEL (T4/TSH/FREE T3) L AB: Lipid Panel 5. E sheeba leg L AB: COMPREHENSIVE METABOLIC PROFILE WITH GFR L AB: OCCULT BLOOD, FECAL, IMMUNOASSAY L AB: CBC W/AUTO DIFF L AB: GLYCOHEMOGLOBIN A1C L AB: THYROID PANEL (T4/TSH/FREE T3) L AB: Lipid Panel * Procedure Codes: * true * Date: Generated for Printi ng/Faxing/eTransmitting on: 0 06/30/2025 11:43 AM EDT
--- OUTSIDE RECORDS SUMMARY | 2025-06-05 16:16 | XMS_ITS ---
Author Organization [facility] [place] Address [address] [place] [address] Care Team Providers Care Oral Surgery Technician Name Role Phone Markos Bullock Primary Care Provider [phone] REASON FOR VISIT Labs Medications Medication SIG (Take, Route, Fr equency, Duration) Notes Start Date End Date Status Vascepa 1 GM 2 capsules with meal s Orally Twice a day for 30 day(s) 06/06/2025 Active Januvia 100 MG 1 tablet Orally Once a day for 30 day(s) 06/06/2025 Active Encounters Encounter Location Date Provider Diagnosis [facility] [address] [place] [address] 06/05/2025 Markos Bullock Plan Of Treatment Medication Medication Name Sig Start Date Stop Date Notes Vascepa 1 GM 2 capsules with meal s Orally Twice a day for 30 day(s) 06/06/2025 Januvia 100 MG 1 tablet Orally Once a day for 30 day(s) Progress Notes * Fani FENTON GDOB:[birth year] (45 yo F)Acc No.[id number]:06/05/2025 Patient: Fani REZA :1980 A ge:45 Y S ex:Female Address:[address] [place], [address] * Refills Start Vascepa Capsule, 1 GM, Orally, 120, 2 capsules with meals, Twice a day, 30 day(s) Start Januvia Tablet, 100 MG, Orally, 30, 1 tablet, Once a day, 30 day(s) * true * Date: Generated for Maynor ramsey/Kiko/Breanne on: 0 06/30/2025 11:44 AM EDT
--- OUTSIDE RECORDS SUMMARY | 2025-06-30 06:45 | XMS_ITS ---
Author Organization [facility] [place] Address [address] [place] [address] Care Team Providers Care Cullet Washer Name Role Phone Kobe Markos Primary Care Provider Allergies Allergen (clinical drug ingredient) Drug/Non Drug Allergy documented on EMR Reaction Allergy Type Onset Date Status Fluzone Quadrivalent Unknown Drug Allergy Active REASON FOR VISIT Friday had fall walking dogs- left side sore Medications Medication SIG (Take, Route, Frequency, Duration) Notes Start Date End Date Status Amitriptyline HCl 150 mg TAKE 1 TABLET B Y MOUTH ONCE DAILY AT BEDTIME for 30 days Active Naproxen Active tiZANidine HCl 4 mg TAKE 1 TABLET BY JAYCEE TH AT BEDTIME NEEDED for 30 Active Blood Glucose Monitor System w/Device as directed Active Vascepa 1 GM 2 capsules with meal s Orally Twice a day for 30 day(s) 06/06/2025 Active [place] 5/16 31G X 8 MM Use 1 daily to give Lantus for 90 days 11/04/2023 Active Metoprolol Tartrate 100 mg TAKE 2 TABLET S BY MOUTH TWICE DAILY for 30 Active Potassium Chloride Stephany ER 1 0 mEq TAKE 1 TABLET BY MOUTH TWICE DAILY WITH FOOD for 30 Active metFORMIN HCl 1000 MG TAKE 1 TABLET BY M OUTH TWICE DAILY for 30 days Active Lancets - as directed Active Januvia 100 MG 1 tablet Orally Once a day for 30 day(s) 06/06/2025 Active Gabapentin 600 mg TAKE 1 TABLET BY JAYCEE TH IN THE MORNING, at noon, and 2 (TWO) TABLETS IN THE EVENING for 30 Active Furosemide 80 mg TAKE 1 TABLET BY JAYCEE TH ONCE DAILY for 30 Active Fenofibrate 160 MG 1 tablet Orally Once a day for 30 days Active Cholecalciferol 625 MCG (98579 UT) 1 tablet Orally Once a day Active Blood Glucose Test Strip Use 1 strip via glucometer once a day fasting every morning for 90 days Active Social History Tobacco Use: Social History Observation Description Date Details (start date - stop date) Current Smoker NA - NA Tobacco Use/Smoking Question Answer Notes Patient is a current every day smoker Vital Signs Blood pressure systolic 122 mm Hg 06/30/20 25 Blood pressure diastolic 70 mm Hg 025 Height 69 in 06/30/2025 Weight 247.0 lbs 06/30/2025 BMI 36.47 kg/m2 06/30/2025 Encounters Encounter Location Date Provider Diagnosis [facility] [address] [place] [address] 06/30/2025 Markos Hoernestine Chest wall pain R07. 89 Assessments Encounter Date Diagnosis (ICD Code) Assessment Notes Treatment Notes Treatment Clinical Notes Section Notes 06/30/2025 Chest wall pain (ICD-10 - R07.89) Plan Of Treatment Pending Test Test Name Order Date XR CHEST 2 V 06/30/2025 XR ribs LT 2V 06/30/2025 Progress Notes * Fani FENTON GDOB:[birth year] (45 yo F)Acc No.[id number]:06/30/2025 UNLOCKED PROGRESS NOTE Progress Note Patient: Fani REZA Provider: David Bullock ([facility])MD :1980 A ge:45 Y S ex:Female Date:06/30/2025 Address:[address] [place], [place] [id number] Check In:10:33 AM ESTCheck O ut:11:24 AM EST Subjective: * Chief Complaints: * 1 . Friday had fall walking dogs- left side sore. * HPI: G eneral: had afall - leash got wrapped aropund foot - didnt knw it - landed n left side chest - not sure if hear d a pop happened few days ago stil wothpain - butnign pain no brjuisin yet. * Medical History: O ther abdominal hernia, Overweight, Pyelonephritis, Polyneuropathy, Swelling of both lower extremities, Claudication, Abdominal aortic aneurysm (AAA), unspecified part, unspecified whether ruptured, Abdominal angina, Abdominal mass of other site, COVID-19 virus infection, Allergic rhinitis, seasonal, Well adult, Lumbar radiculopathy, Edema, Hypertension, Snoring, Edema leg, Acute recurrent frontal sinusitis, Fatigue, Abdominal pain, epigastric, Chronic diarrhea, Diabetes mellitus, new onset, Weakness, Conjunctivitis, Ankle edema, Sprain of unspecified ligament of unspecified ankle, initial encounter, Low back pain, unspecified, H/O abdominal hysterectomy, Subconjunctival hemorrhage, Sebaceous cyst, Contact dermatitis, Pharyngitis, Acquired absence of other organs, Migraine, Scleroderma, Obese, Cyst, ovarian. * Surgical History: O ral surgery for Jaw fracture , , Gallbladder , hysterectomy , [place] . * Family History: F ather: alive, Fibromyalgia, RA, diagnosed with Diabetes mellitus without mention of complication, type II or unspecified type, not stated as uncontrolled, Unspecified essential hypertension, Unspecified heart disease. M other: , RA, Maker. B ludivina(s): alive, 1 brother passed at 9 weeks old of Heart defects. S ister(s): alive, diagnosed with Diabetes mellitus without mention of complication, type II or unspecified type, not stated as uncontrolled. 2 brother(s) , 1 sister(s) . . * Social History: T obacco Use: T obacco Use/Smoking P kylie is a c urrent every day smoker * Medications: T navig Amitriptyline HCl 150 mg Tablet TAKE 1 TABLET BY MOUTH ONCE DAILY AT BEDTIME , Taking Blood Glucose Monitor System w/Device Kit as directed , Taking Blood Glucose Test Strip Use 1 strip via glucometer once a day fasting every morning , Taking Cholecalciferol 625 MCG (92070 UT) Capsule 1 tablet Orally Once a day , Taking Fenofibrate 160 MG Tablet 1 tablet Orally Once a day , Taking Furosemide 80 mg Tablet TAKE 1 TABLET BY MOUTH ONCE DAILY , Taking Gabapentin 600 mg Tablet TAKE 1 TABLET BY MOUTH IN THE MORNING, at noon, and 2 (TWO) TABLETS IN THE EVENING , Taking Januvia(SITagliptin Phosphate) 100 MG Tablet 1 tablet Orally Once a day , Taking Lancets - Miscellaneous as directed , Taking metFORMIN HCl 1000 MG Tablet TAKE 1 TABLET BY MOUTH TWICE DAILY , Taking Metoprolol Tartrate 100 mg Tablet TAKE 2 TABLETS BY MOUTH TWICE DAILY , Taking Naproxen , Taking [place] /16 31G X 8 MM Miscellaneous Use 1 daily to give Lantus , Taking Potassium Chloride Stephany ER 10 mEq Tablet Extended Release TAKE 1 TABLET BY MOUTH TWICE DAILY WITH FOOD , Taking tiZANidine HCl 4 mg Tablet TAKE 1 TABLET BY MOUTH AT BEDTIME NEEDED , Taking Vascepa(Icosapent Ethyl) 1 GM Capsule 2 capsules with meals Orally Twice a day , Medication List reviewed and reconciled with the patient * Allergies: F luzone Quadrivalent - Criticality High. Objective: * Vitals: W t:247.0lbs, Ht: 69 in, BP:122/70mm Hg, BMI:36.47Index, Ht-cm: 175.26 cm, Wt-k.04 kg. * Examination: A bdomen Exam:: L eft sided chest wall tendnernsss. Assessment: * Assessment: 1. C hest wall pain - R07.89 (Primary) Plan: * Treatment: * * Electronic signature of Markos Bullock MD, [id number] on 06/30/2025 at 11:43 AM EDT Sign off status: Pending Visit Status: C HK (Check Out) * Provider: David Bullock ([facility])MD Date: 06/30/2025 Generated for Maynor ramsey/Kiko/Maribelitting on: 06/30/2025 11:43 AM EDT History and Physical Notes * HPI (History of Present Illness) Category Sub-Category Detail Notes Category Not es General had afall - leash got wrapped aropund foot - didnt knw it - landed n left side chest - not sure if hear d a pop happened few days ago stil wothpain - butnign pain no brjuisin yet Examination Category Sub-Category Detail Notes Category Not es Abdomen Exam: Left sided israel st wall tendnernsss
--- OUTSIDE RECORDS SUMMARY | 2025-06-30 11:44 | XMS_ITS | Clinical Summary ---
Author Organization [employer] Address [facility] [id number] [address] [place] [address] Care Team Providers Care Auto Suspension And Steering Mechanic Name Role Phone Narinder Bullock MD Primary Care Provider [phone] Allergies Active Allergy Reactions Criticality Noted Date [...] 07/04/2025 Medical Devices Not on file Insurance [facility] Care Teams Auto Suspension And Steering Mechanic Relationship Specialty Start Date End Date Narinder Bullock MD PCP - General 10/22/12
--- OUTSIDE RECORDS SUMMARY | 2025-06-30 11:44 | XMS_ITS | Patient Health Record ---
Author Organization [facility] in [place] Address [address] [place] [address] Care Team Providers Care Organizational Development Director Name Role Phone Markos Bedolla Primary Care Provider [phone] Porsche Jovel Unavailable [phone] Allergies Allergen (clinical drug ingredient) Drug/Non Drug Allergy documented on EMR Reaction Allergy Type Onset Date Status Fluzone Quadrivalent Unknown Drug Allergy Active Results Component Value Reference Range Notes CT abdomen pelvis w con Reviewed date:11/11/2024 03:18:57 PM Interpretation: Performing Lab: Notes/Report: Source Facility: [place] [address] CT Scan Report Signed Patient: ALPHONSO FENTON MR#: [id number] : 1980 Acct:[id number] Age/Sex: 44 / F ADM Date: 11/11/24 Loc: LAB Attending Dr: Gabino Bedolla M.D. Ordering Physician: Gabino Bedolla M.D. Date of Service: 11/11/24 Procedure(s): CT abdomen pelvis w con Accession Number(s): [id number] cc: Gabino Bedolla M.D. [place] [address] Patient Name: ALPHONSO FENTON MRN: [id number] date: 1980 Sex: F Assigned Patient Location: LAB Current Patient Location: LAB Accession/Order Number: [id number] Exam Date: 11/11/2024 09:50 Report Date: 11/11/2024 [...] Mas M.D. Signed By: 11/11/24 1447 DD/ 1445 TD/TT: Transonic Engineer: [place] [address] CT Scan Report Signed Patient: JOHNNA FENTON MR#: [id number] : 1980 Acct:[id number] Age/Sex: 44 / F ADM Date: 11/11/24 Loc: LAB Attending Dr: Salvador Bedolla M.D. Ordering Physician: Gabino Bedolla M.D. Date of Service: 11/11/24 Procedure(s): CT abdomen pelvis w con Accession Number(s): [id number] cc: Gabino Bedolla M.D. The [place] [id number] Patient Name: ALPHONSO FENTON MRN: [id number] date: 1980 Sex: F Assigned Patient Location: LAB Current Patient Location: LAB Accession/Order Number: [id number] Exam Date: 11/11/2024 09:50 Report Date: 11/11/2024 [...] Mas M.D. Signed By: 11/11/24 1447 DD/ 1445 TD/TT: Transonic Engineer: MR head/brain wo/w con Reviewed date:02/19/2025 01:01:38 PM Interpretation: Performing Lab: Notes/Report: Source Facility: [place] [address] Magnetic Resonance Report Signed Patient: ALPHONSO FENTON MR#: [id number] : 1980 Acct:[id number] Age/Sex: 44 / F ADM Date: 02/18/25 Loc: MRI Attending Dr: Gabino Bedolla M.D. Ordering Physician: Gabino Bedolla M.D. Date of Service: 02/18/25 Procedure(s): MR head/brain wo/w con Accession Number(s): [id number] cc: Gabino Bedolla M.D. [place] [address] Patient Name: ALPHONSO FENTON MRN: [id number] date: 1980 Sex: F Assigned Patient Location: MRI Current Patient Location: MRI Accession/Order Number: [id number] Exam Date: 02/18/2025 08:47 Report Date: 02/18/2025 [...] Isabelle Ortiz M.D.02/18/2025 9:04 AM Dictation Location: [place] [address] Electronically authenticated by: [id number] Y Date: 02/18/2025 09:04 Dictated By: Isabelle Ortiz M.D. Signed By: 02/18/25906 DD/ 3 TD/TT: Transonic Engineer: [place] [address] Magnetic Resonance Report Signed Patient: JOHNNA FENTON MR#: [id number] : 1980 Acct:[id number] Age/Sex: 44 / F ADM Date: 02/18/25 Loc: MRI Attending Dr: Salvador Bedolla M.D. Ordering Physician: Gabino Bedolla M.D. Date of Service: 02/18/25 Procedure(s): MR head/brain wo/w con Accession Number(s): [id number] cc: Gabino Bedolla M.D. [place] [id number] Patient Name: ALPHONSO FENTON MRN: [id number] date: 1980 Sex: F Assigned Patient Location: MRI Current Patient Location: MRI Accession/Order Number: [id number] Exam Date: 02/18/2025 08:47 Report Date: 02/18/2025 [...] Isabelle Ortiz M.D.02/18/2025 9:04 AM Dictation Location: [place] [address] Electronically authenticated by: [id number] Y Date: 02/18/2025 09:04 Dictated By: Isabelle Ortiz M.D. Signed By: 02/18/25 0907 DD/ 0904 TD/TT: Transonic Engineer: URIC ACID SERUM Reviewed date:02/21/2025 06:32:10 PM Interpretation: Performing Lab: Notes/Report: [facility] , Uric Acid 4.9 2.6-6.0 mg/dL Performing Lab: see note ML - [facility] LB CBC AUTO DIFF Reviewed date:06/05/2025 08:21:47 PM Interpretation: Performing Lab: Notes/Report: [facility] , White Blood Count 10.1 4.0-11.0 10 3/uL Red Blood Count 5.18 4.20-5.40 10 6/uL Hemoglobin 16.7 12.0-16.0 g/dL Hematocrit 46.6 36.0-48.0 % Mean Corpuscular Volume 90.0 81.0-99.0 fL Mean Corpuscular Hemoglobin 32.2 26.7-34.0 pg Mean Corpuscular HGB Conc 35.8 29.9-35.2 g/dL Red Cell Distribution Width 11.8 11.0-15.0 % Platelet Count 312 150-450 10 3/uL Mean Platelet Volume 10.7 9.5-13.5 fL Neutrophils Percent Auto 62.4 43.0-75.0 % Lymphocytes Percent Auto 27.6 20.5-60.0 % Monocytes Percent Auto 5.9 1.7-12.0 % Eosinophils Percent Auto 2.5 0.9-7.0 % Basophils Percent Auto 1.1 0.2-2.0 % Immature Granulocytes Pct Auto 0.5 0.0-0.5 % Neutrophils Absolute Auto 6.3 1.4-6.5 10 3/uL Lymphocytes Absolute Auto 2.8 1.2-3.8 10 3/uL Monocytes Absolute Auto 0.6 0.3-0.8 10 3/uL Eosinophils Absolute Auto 0.3 0.0-0.7 10 3/uL Basophils Absolute Auto 0.1 0.0-0.1 10 3/uL Immature Granulocytes Abs Auto 0.05 0.00-0.03 10 3/uL Performing Lab: see note ML - [facility] LB DIRECT LDL Reviewed date:06/05/2025 08:21:47 PM Interpretation: Performing Lab: Notes/Report: [facility] , LDL Cholesterol Direct 86 <100 mg/dl OPTIMAL 160-189 mg/dl HIGH 130-159 mg/dl BORDERLINE HIGH >190 mg/dl VERY HIGH 100-129 mg/dl NEAR OR ABOVE OPTIMAL Performing Lab: see note ML - [facility] FREE T3 Reviewed date:06/05/2025 08:21:47 PM Interpretation: Performing Lab: Notes/Report: [facility] , Free T3 2.50 2.18-3.98 pg/mL Performing Lab: see note ML - [facility] LB GLYCOHEMOGLOBIN A1C Reviewed date:06/05/2025 08:21:47 PM Interpretation: Performing Lab: Notes/Report: [facility] , Glycohemoglobin A1C 10.8 4.5-6.2 % ADA THERAPEUTIC TARGET < 7.0 > 7.0 ADA RECOMMENDED LIMIT 4.0 - 6.0 ACTION SUGGESTED Estimated Average Glucose 263 Performing Lab: see note ML - [facility] LB LIPID PROFILE Reviewed date:06/05/2025 08:21:47 PM Interpretation: Performing Lab: Notes/Report: [facility] , Triglycerides 795 <=150 mg/dL Cholesterol 188 <=200 mg/dL HDL Cholesterol 25 40-60 mg/dL <40 mg/dl - HIGH CARDIOVASCULAR RISK > or =60 mg/dl - LOW CARDIOVASCULAR RISK VLDL CHOLESTEROL 159.0 Chol HDL Ratio 7.5 4.4 - 7.1 AVERAGE RISK 7.1 - 11.0 MODERATE RISK 3.3 - 4.4 LOW RISK >11.0 HIGH RISK Performing Lab: see note ML - [facility] LB PROF 14(COMP METB) Reviewed date:06/05/2025 08:21:47 PM Interpretation: Performing Lab: Notes/Report: [facility] , Sodium 134 136-145 mmol/L Potassium 3.5 3.5-5.1 mmol/L Chloride 93 98-107 mmol/L Carbon Dioxide 26.9 21.0-32.0 mmol/L Anion Gap 17.6 Glucose 379 74-106 mg/dL Blood Urea Nitrogen 5.0 7.0-18.0 mg/dL Creatinine 0.50 0.55-1.02 mg/dL Estimated GFR ( Becka >60 >=60 mL/min/1.73m 2 Estimated GFR (Non- Sonya >60 >=60 mL/min/1.73m 2 BUN Creatinine Ratio 10.0 Calcium 9.4 8.5-10.1 mg/dL Bilirubin Total 0.5 0.2-1.0 mg/dL Aspartate Amino Transferase 43 15-37 U/L Alanine Aminotransferase 105 14-59 U/L Alkaline Phosphatase 98 46-116 U/L Total Protein 7.5 6.4-8.2 g/dL Albumin Level 3.7 3.4-5.0 g/dL Globulin 3.8 Albumin Globulin Ratio 1.0 Performing Lab: see note ML - [facility] LB T4 Reviewed date:06/05/2025 08:21:47 PM Interpretation: Performing Lab: Notes/Report: [facility] , T4 Thyroxine 11.30 4.80-13.90 ug/dL Performing Lab: see note ML - [facility] LB TSH Reviewed date:06/05/2025 08:21:47 PM Interpretation: Performing Lab: Notes/Report: [facility] , Thyroid Stimulating Hormone 2.077 0.358-3.740 uIU/mL Performing Lab: see note ML - [facility] LB Sjogren's Ab, Anti-SS-A/-SS- B Reviewed date:02/25/2025 12:27:47 PM Interpretation: Performing Lab: Notes/Report: [facility] , Sjogren's Anti-SS-A <0.2 0.0-0.9 AI Sjogren's Anti-SS-B <0.2 0.0-0.[address] [place] [address] [phone] Performed at: [facility] Composition Weatherboard Applier: Gregorio Martinez PhD, Phone: [phone] Performing Lab: see note [facility] LB Antistreptolysin O Ab Reviewed date:02/25/2025 12:27:47 PM Interpretation: Performing Lab: Notes/Report: [facility] , Antistreptolysin O Ab 82.4 0.0-200.0 IU/mL Composition Weatherboard Applier: Gregorio Martinez PhD, Phone: [phone] [address] [place] [address] [phone] Performed at: [facility] Performing Lab: see note [facility] LB RHEUMATOID FACTOR Reviewed date:02/25/2025 12:27:47 PM Interpretation: Performing Lab: Notes/Report: [facility] , Rheumatoid Factor (RF) 10.4 <14.0 IU/mL Performing Lab: see note [facility] LB TONNY by IFA Reviewed date:02/25/2025 12:27:47 PM Interpretation: Performing Lab: Notes/Report: [facility] , Antinuclear Antibodies, IFA Positive . Positive >1:80 Borderline 1:80 Negative <1:80 Homogeneous Pattern TNP . Nucleolar Pattern TNP . Speckled Pattern 1:160 . ICAP nomenc lature: AC-2,4,5,29 Centromere Pattern TNP . Spindle Apparatus Pattern TNP . Nuclear Membrane Pattern TNP . Midbody Pattern TNP . Nuclear Dot Pattern TNP . PCNA Pattern TNP . Centriole Pattern TNP . Note: Comment . [address] [place] [address] [phone] Lupus, Congenital Heart Block, Linear Scleroderma, Antiphospholipid Syndrome Rheumatic Disease, Autoimmune Cytopenias, Myositis Overlap Syndrome, Systemic Lupus Systemic Lupus Erythematosus, Chronic Nucleolar Systemic Sclerosis, Scleroderma-Autoimmune Myositis Overlap Syndrome, Systemic Cholangitis Erythematosus, Subacute Cutaneous Lupus, Pattern Potential Disease Association Arthritis Composition Weatherboard Applier: Gregorio Martinez PhD, Phone: [phone] Syndrome, Raynaud phenomenon, Pulmonary Scleroderma-diffuse, Scleroderma-Autoimmune Performed at: [facility] - [facility] Radha Undifferentiated Connective Tissue Disease Membrane Hepatitis/Liver disease, Systemic Autoimmune Homogeneous Systemic Lupus Erythematosus, Drug Induced Speckled Sjogren Syndrome, Systemic Lupus Rheumatic Disease, Cancer Erythematosus-Scleroder ma-Autoimmune Nuclear Dot Primary Biliary Cholangitis Raynaud's Phenomenon, Primary Biliary Nuclear Primary Biliary Cholangitis, Autoimmune Autoimmune hepatitis, Juvenile Idiopathic Myositis Overlap Syndrome, Sjogren Mixed Connective Tissue Disease, Centromere Scleroderma-CREST, Limited Cutaneous SSc, Autoimmune Rheumatic Disease, Arterial Hypertension, Systemic Autoimmune Performing Lab: see note LC - [facility] LB CREATININE Reviewed date:11/11/2024 12:58:29 PM Interpretation: Performing Lab: Notes/Report: [facility] , Creatinine 0.67 0.55-1.02 mg/dL Estimated GFR ( Becka >60 >=60 mL/min/1.73m 2 Estimated GFR (Non- Sonya >60 >=60 mL/min/1.73m 2 Performing Lab: see note ML - [facility] LB CRP Reviewed date:02/21/2025 06:32:10 PM Interpretation: Performing Lab: Notes/Report: [facility] , C Reactive Protein <0.50 <=0.50 mg/dL Performing Lab: see note ML - [facility] LB Reason For Referral Diagnosis 1 Diabetic peripheral neuropathy (E11.42) Referral Organization [facility] Referring Provider First Name Markos Referring Provider Last Name Kobe [facility]erred Provider Duane Vaca Referred Provider Specialty Neurology Referral Priority Routine Diagnosis 1 Positive TONNY (antinu clear antibody) (R76.8) Referral Organization [facility] Referring Provider First Name Markos Referring Provider Last Name Kobe Referring Provider [facility] Referred Provider Corey Nguyen Referred Provider Specialty Rheumatology Referral Priority Routine Medications Medication SIG (Take, Route, Frequency, Duration) Notes Start Date End Date Status Amitriptyline HCl 150 mg TAKE 1 TABLET B Y MOUTH ONCE DAILY AT BEDTIME for 30 days Active Pen Dorris 03/18 31G X 8 MM Use 1 daily to give Lantus for 90 days 11/04/2023 Active Naproxen Active Metoprolol Tartrate 100 mg TAKE 2 TABLET S BY MOUTH TWICE DAILY for 30 Active Blood Glucose Test Strip Use 1 strip via glucometer once a day fasting every morning for 90 days Active tiZANidine HCl 4 mg TAKE 1 TABLET BY JAYCEE TH AT BEDTIME NEEDED for 30 Active Blood Glucose Monitor System w/Device as directed Active Potassium Chloride Stephany ER 1 0 mEq TAKE 1 TABLET BY MOUTH TWICE DAILY WITH FOOD for 30 Active Januvia 100 MG 1 tablet Orally Once a day for 30 day(s) 06/06/2025 Active Gabapentin 600 mg TAKE 1 TABLET BY JAYCEE TH IN THE MORNING, at noon, and 2 (TWO) TABLETS IN THE EVENING for 30 Active metFORMIN HCl 1000 MG TAKE 1 TABLET BY M OUTH TWICE DAILY for 30 days Active Lancets - as directed Active Furosemide 80 mg TAKE 1 TABLET BY JAYCEE TH ONCE DAILY for 30 Active Fenofibrate 160 MG 1 tablet Orally Once a day for 30 days Active Cholecalciferol 625 MCG (22663 UT) 1 tablet Orally Once a day Active Vascepa 1 GM 2 capsules with meal s Orally Twice a day for 30 day(s) 06/06/2025 Active Social History Tobacco Use: Social History [...] Status W/U Status Risk Notes Problem Snoring (71168668) Snoring (R06.83) Active confirmed Problem Acquired absence (40051165) 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) Active confirmed Problem Fatigue (15084051) Fatigue (R53.83) Active confirmed Problem 674495751 Diabetic peripheral neuropathy (E11.42) Active confirmed Problem Hypertension (68584658) Hypertension (I10) Active confirmed Problem Edema (05333044) Edema (R60.9) Active confirmed Problem Migraine (19061704) Migraine (G43.909) Active confirmed Problem Type 2 diabetes mellitus (62166063) Type 2 diabetes mellitus (E11.9) Active confirmed Problem Lumbar radiculopathy (166538544) Lumbar radiculopathy (M54.16) Active confirmed Problem Chronic diarrhea (681756162) Chronic diarrhea (K52.9) Active confirmed Problem Edema (429506258) Edema leg (R60.0) Active conf irmed Problem Obese (262256723) Obese (E66.9) Active confirme d Problem Well adult (304307864) Well adult (Z00.00) Active confirmed Problem Polyneuropathy (96828429) Polyneuropathy (G62.9) Active confirmed Problem Raised antinuclear antibody (810638126) Positive TONNY (antinuclear antibody) (R76.8) Active confirmed Problem Seasonal allergic rhinitis (618567632) Allergic rhinitis, seasonal (J30.2) Active confirmed Problem Claudication (28567887) Claudication (I73.9) Active confirmed Problem Epigastric pain (54912583) Abdominal pain, epigastric (R10.13) Active confirmed Problem Disorder of soft tissue (28783090) Swelling of both lower extremities (M79.89) Active confirmed Problem Ankle edema (87876871) Ankle edema (R60.0) Active confirmed Problem Abdominal hernia (63697898) Other abdominal hernia (K46.9) Active confirmed Problem Scleroderma (590639307) Scleroderma (M34.9) Active confirmed Problem Hysterectomy (902518513) H/O abdominal hysterectomy (Z90.710) Active confirmed Problem Abdominal angina (389449857) Abdominal angina (K55.1) Active confirmed Problem Ovarian cyst (45191095) Cyst, ovarian (N83.209) Active confirmed Problem Abdominal aortic aneurysm (disorder) (349775532) Abdominal aortic aneurysm (AAA), unspecified part, unspecified whether ruptured (I71.40) Active confirmed Vital Signs Temperature 98.7 degrees Fahrenheit 01/31/2025 Blood pressure diastolic 70 mm Hg 06/30/2025 Height 69 in 06/30/2025 Blood pressure systolic 122 mm Hg 06/30/2025 Weight 247.0 lbs 06/30/2025 BMI 36.47 kg/m2 06/30/2025 Encounters Encounter Location Date Provider Diagnosis [address] [address] 02/21/2025 Markos Bedolla Diabetic peripheral neuropathy E11.42 and Polyneuropathy G62.[address] [address] 02/25/2025 Markos Bedolla Positive TONNY (antinuclear antibody) R76.[address] [address] 05/04/2025 Markos Bedolla Well adult Z00.[address] [address] 05/17/2025 Markos Hoy Hypertension I10 ; Polyneuropathy G62.9 ; Back pain M54.9 ; Type 2 diabetes mellitus E11.9 and Edema leg R60.0 [facility] [address] [facility] [place] [address] 06/05/2025 Markos Bedolla [facility] [address] [place] [address] 12/29/2024 Markos Bedolla [facility] [address] [facility] [place] [address] 02/08/2025 Markos Hoy Well adult Z00.00 [facility] [address] [facility] [place] [address] 02/10/2025 Markos [facility] [address] [facility] [place] [address] 02/14/2025 Markos ernestine [facility] [address] [facility] [place] [address] 02/14/2025 Markos Bedolla [facility] [address] [facility] [place] [address] 02/19/2025 Markos ernestine [facility] [address] [facility] [place] [address] 07/30/2024 Markos Bedolla Well adult Z00.00 [facility] [address] [facility] [place] [address] 10/18/2024 Markos Kobe [facility] [address] [facility] [address] 10/25/2024 Markos Bedolla [facility] [address] [facility] [place] [address] 10/25/2024 Markos ernestine [facility] [address] [facility] [place] [address] 11/11/2024 Markos [facility] [address] [facility] [place] [address] 06/30/2025 Markos Hoy Chest wall pain R07. 89 [facility] [address] [facility] [place] [address] 07/09/2024 Porsche Jovel Back pain M54.9 [facility] [address] [place] [address] 10/25/2024 Markos Bedolla Well adult Z00.00 [facility] [address] [place] [address] 01/31/2025 Markos Hoy Lumbar radiculopathy M54.16 and Diabetic peripheral neuropathy E11.42 [place] [address] [place] [address] 02/21/2025 Markos Hoy Hypertension I10 ; Lumbar radiculopathy M54.16 and Migraine G43.909 Assessments Encounter Date Diagnosis (ICD Code) Assessment Notes Treatment Notes Treatment Clinical Notes Section Notes 06/30/2025 Chest wall pain (ICD-10 - R07.89) 07/30/2024 Well adult (ICD-10 - Z00.00) 02/08/2025 [...] 03/21/2023 MRI BRAIN WO W CON 01/31/2025 XR CHEST 2 V 06/30/2025 THYROID PANEL (T4/TSH/FREE T3) 4 THYROID PANEL (T4/TSH/FREE T3) 5 Lipid Panel 05/17/2025 XR ribs LT 2V 06/30/2025 Insurance Providers Payer Name Payer Address Payer Phone Subscriber Number Group Number Insured Name Patient Relationship to Insured Coverage Start Date Coverage End Date MMO [address] [place], [place] [id number] Jossy Alphonso Self - patient is the insured 4 [...] Cyst, ovarian N83.209 Surgical History Surgery Date(Month/Year) Gallbladder Oral surgery for Jaw fracture hysterectomy [facility]
--- OUTSIDE RECORDS SUMMARY | 2025-06-30 11:44 | XMS_ITS | Encounter Summary ---
Author Organization [employer] Address [id number] [address] [place] [address] Care Team Providers Care Robotics Engineer Name Role Phone Narinder Bullock MD Primary Care Provider +-3 Encounter Details Date Type Department Care Team (Late st Contact Info) Description 07/25/2021 Orders Only [facility] [address] [place] [address] Ref Prov, [place] [address] Social History Tobacco Use Types Packs/Day Years [...] on filedocumented in this encounter Care Teams Robotics Engineer Relationship Specialty Start Date End Date Narinder Bullock MD PCP - General 10/22/12 documented as of this encounter
--- OUTSIDE RECORDS SUMMARY | 2025-06-30 11:44 | XMS_ITS | Clinical Summary ---
Author Organization [facility] Address [address] [facility] [place] [address] Care Team Providers Care Freight Inspector Name Role Phone Unavailable Primary Care Provider [...] Neurology [address] [place] [address] Aman Edwards MD [address] [facility] [address] [address] Health Maintenance Due Date Last Done Comments CT Colonography 1979 Colonoscopy 1979 Colorectal Cancer Screening 1980 FIT-DNA 1979 FIT 1979 FOBT 1980 Sigmoidoscopy 1979 Pap Smear 2000 Cervical Cancer Screening 2009 HPV/Cotest 2009 Mammogram 2019 Influenza Vaccine (#1) 2025 Insurance [employer]
--- OUTSIDE RECORDS SUMMARY | 2025-06-30 11:44 | XMS_ITS | Clinical Summary ---
Author Organization [facility] Address [address] [place] [address] Care Team Providers Care Master Control Operator Name Role Phone Unavailable Primary Care Provider [...]
--- NOTE | 2025-06-30 11:45 | XR_ITS ---
The [address] [address] Patient Name: ALPHONSO GLAE MRN: [id number] date: 1980 Sex: F Assigned Patient Location: [facility] Current Patient Location: Accession/Order Number: [id number] Exam Date: 06/30/2025 11:58 Report Date: 07/01/2025 00:31 At the request of: GABINO BEDOLLA MD Procedure: XR ribs LT 2V XR ribs LT 2V 06/30/2025 12:07 PM SIGNS AND SYMPTOMS: Fall, left lower rib pain PROTOCOL: Frontal radiograph of the chest with oblique radial graphs of the left ribs COMPARISON: None FINDINGS: The trachea is midline. The heart and mediastinal structures are within normal limits. The lung parenchyma is clear. There is cortical irregularity along the lateral aspect of the left seventh rib which may represent a mildly displaced rib fracture. XR/XR ribs LT 2V IMPRESSION: No acute cardiopulmonary pathology. There is cortical irregularity along the lateral aspect of the left seventh rib which may represent a mildly displaced rib fracture. Impression dictated by: Rosalino Gutierrez M.D. 07/01/2025 12:31 AM Dictation Location[facility] Electronically authenticated by: [id number] Y Date: 07/01/2025 00:31
--- NOTE | 2025-06-30 11:45 | XR_ITS ---
[place] [id number] Patient Name: ALPHONSO GALE MRN: [id number] date: 1980 Sex: F Assigned Patient Location: [facility] Current Patient Location: Accession/Order Number: [id number] Exam Date: 06/30/2025 11:58 Report Date: 07/01/2025 00:32 At the request of: GABINO BEDOLLA MD Procedure: XR chest 2V XR chest 2V 06/30/2025 12:07 PM SIGNS AND SYMPTOMS: Left lower rib pain PROTOCOL: Frontal and lateral graphs of the chest COMPARISON: None FINDINGS: The trachea is midline. The heart and mediastinal structures are within normal limits. The lung parenchyma is clear. The bony thorax is intact. XR/XR chest 2V IMPRESSION: No acute cardiopulmonary pathology. Impression dictated by: Rosalino Gutierrez M.D. 07/01/2025 12:32 AM Dictation Location: [place] [address] Electronically authenticated by: [id number] Y Date: 07/01/2025 00:32
--- OUTSIDE RECORDS SUMMARY | 2025-06-30 12:00 | XMS_ITS | CCD ---
Author Organization [facility] Care Team Providers Care Puppet Master Name Role Phone Porsche Carvalho Unavailable DR GABINO BULLOCK Admitting Unavailable DR GABINO BULLOCK Attending Unavailable DR GABINO BULLOCK Primary Care Unavailable DR GABINO BULLOCK Admitting Unavailable DR GABINO BULLOCK Attending Unavailable DR GABINO BULLOCK Primary Care Unavailable DR GABINO BULLOCK Consulting Unavailable Gabino Bullock MD Primary Care Provider [phone] oCrey Nguyen MD Attending Provider Corey Nguyen Attending Unavailable Corey Nguyen [employer] Unavailable Gabino Bullock Primary Care Unavailable Allergies Allergy Classification Reported Allergen(s) Allergy Type Date of Onset Reaction(s) Facility (1 source) Egg Propensity to adverse reactions [facility] Other (1 source) egg extract Drug Allergy 1 [facility] Repository Medications Current Medications Medication Drug Class(es) Dates Sig (Normalized) Sig (Original) [id number] 200 actuat albuterol 0.09 mg/actuat metered dose [...] Antinuclear Abs, IFA Negative Normal . [facility] Comment on above: Result Comment: Nega tive <1:80 Borderline 1:80 Positive >1:80 ICAP nomenclature: AC-0 For more information about Hep-2 cell patterns use ANApatterns.org, the official website for the International Consensus on Antinuclear Antibody (TONNY) Patterns (ICAP). Performed at: [address] [id number] Steam Drier Operator: Gregorio Martinez PhD, Phone: [phone] Performed By: #### S SB, SSA, MITOM2, C3, JO1, JOSÉ, ADNA, CH50, HISAB, B2 GLYPROT, THYGLOB AB, TONNY, C4, ANTIR, CARDIO GMA, CCP, CENTROME, RA, [id number], SMAB, CHROMATIN, TPO #### [facility] , Alanine aminotransferase [En zymatic activity/volume] in Serum or PlasmaOrdered By: Corey Nguyen on 05-03-2025 ALT [Catalytic activity/Vol] 77 U/L High 7-52 [facility] Comment on above: Performed By: #### S SB, SSA, MITOM2, C3, JO1, JOSÉ, ADNA, CH50, HISAB, B2 GLYPROT, THYGLOB AB, TONNY, C4, ANTIR, CARDIO GMA, CCP, CENTROME, RA, [id number], SMAB, CHROMATIN, TPO #### [facility] , Albumin [Mass/volume] in Ser um or Plasma by Bromocresol green (BCG) dye binding methoOrdered By: Corey Nguyen on 05-03-2025 Albumin BCG dye [Mass/Vol] 4.7 g/dL 3.5-5.7 [facility] Aldolaseon 05-03-2025 Aldolase 8.0 U/L Normal 3.3-10.3 [facility] Comment on above: Result Comment: Perf ormed at: [address] [id number] Steam Drier Operator: Gregorio Martinez PhD, Phone: [phone] PERFORMED BY: [facility] [place] [address] PATHOLOGIST ENTRY LEVEL PROJECT ENGINEER MIKAL KILPATRICK M.D. Performed By: #### S SB, SSA, MITOM2, C3, JO1, JOSÉ, ADNA, CH50, HISAB, B2 GLYPROT, THYGLOB AB, TONNY, C4, ANTIR, CARDIO GMA, CCP, CENTROME, RA, [id number], SMAB, CHROMATIN, TPO #### [facility] , Alkaline phosphatase [Enzyma tic activity/volume] in Serum or PlasmaOrdered By: Corey Nguyen on 05-03-2025 ALP [Catalytic activity/Vol] 93 U/L Normal 34-104 [facility] Comment on above: Performed By: #### S SB, SSA, MITOM2, C3, JO1, JOSÉ, ADNA, CH50, HISAB, B2 GLYPROT, THYGLOB AB, TONNY, C4, ANTIR, CARDIO GMA, CCP, CENTROME, RA, [id number], SMAB, CHROMATIN, TPO #### [facility] , Anti-Centromere B Antibodies on 05-03-2025 Anti-Centromere B Antibodies <0.2 Normal 0.0-0.9 [facility] Comment on above: Result Comment: Perf ormed at: - [facility] [address] [id number] Steam Drier Operator: Gregorio Martinez PhD, Phone: [phone] Performed By: #### S SB, SSA, MITOM2, C3, JO1, JOSÉ, ADNA, CH50, HISAB, B2 GLYPROT, THYGLOB AB, TONNY, C4, ANTIR, CARDIO GMA, CCP, CENTROME, RA, [id number], SMAB, CHROMATIN, TPO #### [facility] , Anti-RNPon 05-03-2025 Anti-LYE BATH OPERATOR <0.2 Normal 0.0-0.9 [facility] Comment on above: Performed By: #### S SB, SSA, MITOM2, C3, JO1, JOSÉ, ADNA, CH50, HISAB, B2 GLYPROT, THYGLOB AB, TONNY, C4, ANTIR, CARDIO GMA, CCP, CENTROME, RA, [id number], SMAB, CHROMATIN, TPO #### [facility] , Anti-José Antibodieson Anti-José Antibodies <0.2 Normal 0.0-0.9 [facility] Comment on above: Performed By: #### S SB, SSA, MITOM2, C3, JO1, JOSÉ, ADNA, CH50, HISAB, B2 GLYPROT, THYGLOB AB, TONNY, C4, ANTIR, CARDIO GMA, CCP, CENTROME, RA, [id number], SMAB, CHROMATIN, TPO #### [facility] , Anti-dsDNA(DBL)Abon 05-03-20 25 Anti-dsDNA(DBL)Ab <1 Normal 0-9 [facility] Comment on above: Result Comment: Nega tive <5 Equivocal 5 - 9 Positive >9 Performed By: #### S SB, SSA, MITOM2, C3, JO1, JOSÉ, ADNA, CH50, HISAB, B2 GLYPROT, THYGLOB AB, TONNY, C4, ANTIR, CARDIO GMA, CCP, CENTROME, RA, [id number], SMAB, CHROMATIN, TPO #### [facility] , Anticardiolipin IgG/M/A, Qno n 05-03-2025 Anticardiolipin Ab, IgA,Qn <9 Normal 0-11 [facility] Comment on above: Result Comment: Nega tive: <12 Indeterminate: 12 - 20 Low-Med Positive: >20 - 80 High Positive: >80 Performed By: #### S SB, SSA, MITOM2, C3, JO1, JOSÉ, ADNA, CH50, HISAB, B2 GLYPROT, THYGLOB AB, TONNY, C4, ANTIR, CARDIO GMA, CCP, CENTROME, RA, [id number], SMAB, CHROMATIN, TPO #### [facility] , Anticardiolipin Ab, IgG,Qn <9 Normal 0-14 [facility] Comment on above: Result Comment: Nega tive: <15 Indeterminate: 15 - 20 Low-Med Positive: >20 - 80 High Positive: >80 Performed By: #### S SB, SSA, MITOM2, C3, JO1, JOSÉ, ADNA, CH50, HISAB, B2 GLYPROT, THYGLOB AB, TONNY, C4, ANTIR, CARDIO GMA, CCP, CENTROME, RA, [id number], SMAB, CHROMATIN, TPO #### [facility] , Anticardiolipin Ab, IgM,Qn <9 Normal 0-12 [facility] Comment on above: Result Comment: Nega tive: <13 Indeterminate: 13 - 20 Low-Med Positive: >20 - 80 High Positive: >80 Performed By: #### S SB, SSA, MITOM2, C3, JO1, JOSÉ, ADNA, CH50, HISAB, B2 GLYPROT, THYGLOB AB, TONNY, C4, ANTIR, CARDIO GMA, CCP, CENTROME, RA, [id number], SMAB, CHROMATIN, TPO #### [facility] , Antithyroglobulin Abon 05-03 Antithyroglobulin Ab 1.3 Normal 0.0-0.9 [facility] Comment on above: Result Comment: Thyr oglobulin Antibody measured by [employer] Methodology It should be noted that the presence of thyroglobulin antibodies may not be pathogenic nor diagnostic, especially at very low levels. The assay ic designer standard cells has found that four percent of individuals without evidence of thyroid disease or autoimmunity will have positive TgAb levels up to 4 IU/mL. Performed at: [address] [id number] Steam Drier Operator: Gregorio Martinez PhD, Phone: [phone] Performed By: #### S SB, SSA, MITOM2, C3, JO1, JOSÉ, ADNA, CH50, HISAB, B2 GLYPROT, THYGLOB AB, TONNY, C4, ANTIR, CARDIO GMA, CCP, CENTROME, RA, [id number], SMAB, CHROMATIN, TPO #### [facility] , Appearance of UrineOrdered B y: Corey Nguyen on 05-03-2025 Appearance (U) Clear Normal Clear [facility] Comment on above: Order Comment: Name Collection Type:: Clean-Voided Midstream Performed By: #### S SB, SSA, MITOM2, C3, JO1, JOSÉ, ADNA, CH50, HISAB, B2 GLYPROT, THYGLOB AB, TONNY, C4, ANTIR, CARDIO GMA, CCP, CENTROME, RA, [id number], SMAB, CHROMATIN, TPO #### [facility] , Aspartate aminotransferase [ Enzymatic activity/volume] in Serum or PlasmaOrdered By: Corey Nguyen on 05-03-2025 AST [Catalytic activity/Vol] 48 U/L High 13-39 [facility] Comment on above: Performed By: #### S SB, SSA, MITOM2, C3, JO1, JOSÉ, ADNA, CH50, HISAB, B2 GLYPROT, THYGLOB AB, TONNY, C4, ANTIR, CARDIO GMA, CCP, CENTROME, RA, [id number], SMAB, CHROMATIN, TPO #### [facility] , Bacteria [Presence] in Urine by AutomatedOrdered By: Corey Nguyen on 05-03-2025 Bacteria Auto Ql (U) Rare [HPF] None Seen [facility] Basophils [#/volume] in Bloo d by Automated countOrdered By: Corey Nguyen on 05-03-2025 Basophils (Bld) [#/Vol] 0.1 10*3/uL Normal 0.0-0.2 [facility] Comment on above: Performed By: #### S SB, SSA, MITOM2, C3, JO1, JOSÉ, ADNA, CH50, HISAB, B2 GLYPROT, THYGLOB AB, TONNY, C4, ANTIR, CARDIO GMA, CCP, CENTROME, RA, [id number], SMAB, CHROMATIN, TPO #### [facility] , Basophils/100 leukocytes in Blood by Automated countOrdered By: Corey Nguyen on 05-03-2025 Basophils/100 WBC (Bld) 1.3 % Normal . [facility] Comment on above: Performed By: #### S SB, SSA, MITOM2, C3, JO1, JOSÉ, ADNA, CH50, HISAB, B2 GLYPROT, THYGLOB AB, TONNY, C4, ANTIR, CARDIO GMA, CCP, CENTROME, RA, [id number], SMAB, CHROMATIN, TPO #### [facility] , Beta 2 Glycoprotein I Ab IgG /Mon 05-03-2025 Beta 2 Glycoprotein I Ab, IgG <9 Normal 0-20 [facility] Comment on above: Result [...] C4, ANTIR, CARDIO GMA, CCP, CENTROME, RA, [id number], SMAB, CHROMATIN, TPO #### [facility] , Beta 2 Glycoprotein I Ab, IgM <9 Normal 0-32 [facility] Comment on above: Result [...] C4, ANTIR, CARDIO GMA, CCP, CENTROME, RA, [id number], SMAB, CHROMATIN, TPO #### [facility] , Bilirubin Test strip Ql (U)O rdered By: Corey Nguyen on 05-03-2025 Bilirubin Ql (U) Negative Negative [facility] Bilirubin.total [Mass/volume ] in Serum or PlasmaOrdered By: Corey Nguyen on 05-03-2025 Bilirubin [Mass/Vol] 0.7 mg/dL Normal 0.3-1.0 [facility] Comment on above: Performed By: #### S SB, SSA, MITOM2, C3, JO1, JOSÉ, ADNA, CH50, HISAB, B2 GLYPROT, THYGLOB AB, TONNY, C4, ANTIR, CARDIO GMA, CCP, CENTROME, RA, [id number], SMAB, CHROMATIN, TPO #### [facility] , C reactive protein [Mass/vol ume] in Serum or PlasmaOrdered By: Corey Nguyen on 05-03-2025 CRP [Mass/Vol] 0.5 mg/dL 0.0-0.5 [facility] C-Reactive Proteinon 025 C-Reactive Protein 0.5 mg/dL Normal 0.0-0.5 [facility] Comment on above: Performed By: #### S SB, SSA, MITOM2, C3, JO1, JOSÉ, ADNA, CH50, HISAB, B2 GLYPROT, THYGLOB AB, TONNY, C4, ANTIR, CARDIO GMA, CCP, CENTROME, RA, [id number], SMAB, CHROMATIN, TPO #### [facility] , Calcium [Mass/volume] in Ser um or PlasmaOrdered By: Corey Nguyen on 05-03-2025 Calcium [Mass/Vol] 10.4 mg/dL High 8.6-10.[address] [facility] Comment on above: Performed By: #### S SB, SSA, MITOM2, C3, JO1, JOSÉ, ADNA, CH50, HISAB, B2 GLYPROT, THYGLOB AB, TONNY, C4, ANTIR, CARDIO GMA, CCP, CENTROME, RA, [id number], SMAB, CHROMATIN, TPO #### [facility] , Carbon dioxide, total [Moles /volume] in Serum or PlasmaOrdered By: Corey Nguyen on 05-03-2025 CO2 [Moles/Vol] 29.3 mmol/L Normal 21.0-31.0 [facility] Comment on above: Performed By: #### S SB, SSA, MITOM2, C3, JO1, JOSÉ, ADNA, CH50, HISAB, B2 GLYPROT, THYGLOB AB, TONNY, C4, ANTIR, CARDIO GMA, CCP, CENTROME, RA, [id number], SMAB, CHROMATIN, TPO #### [facility] , Chloride [Moles/volume] in S tiffany or PlasmaOrdered By: Corey Nguyen on 05-03-2025 Chloride [Moles/Vol] 93 mmol/L Low 98-107 [facility] Comment on above: Performed By: #### S SB, SSA, MITOM2, C3, JO1, JOSÉ, ADNA, CH50, HISAB, B2 GLYPROT, THYGLOB AB, TONNY, C4, ANTIR, CARDIO GMA, CCP, CENTROME, RA, [id number], SMAB, CHROMATIN, TPO #### [facility] , Chromatin Antibodyon 025 Chromatin Antibody <0.2 Normal 0.0-0.9 [facility] Comment on above: Result Comment: PERF ORMED BY: [facility] [address] [place] [address] PATHOLOGIST ENTRY LEVEL PROJECT ENGINEER MIKAL KILPATRICK M.D. Performed By: #### S SB, SSA, MITOM2, C3, JO1, JOSÉ, ADNA, CH50, HISAB, B2 GLYPROT, THYGLOB AB, TONNY, C4, ANTIR, CARDIO GMA, CCP, CENTROME, RA, [id number], SMAB, CHROMATIN, TPO #### [facility] , Coagulation Profileon 2024 aPTT Coag (Bld) [Time] 35.5 s Normal 25.1-36.5 [facility] Comment on above: Result Comment: A he matocrit value greater than 55% may lead to inaccurate results in coagulation testing. Patients having hematocrit values >55% require a special collection tube for coagulation studies. Please contact the laboratory at [phone] for redraw instructions. PERFORMED BY: [facility] [address] [place] [address] PATHOLOGIST ENTRY LEVEL PROJECT ENGINEER MIKAL KILPATRICK M.D. Performed By: #### S SB, SSA, MITOM2, C3, JO1, JOSÉ, ADNA, CH50, HISAB, B2 GLYPROT, THYGLOB AB, TONNY, C4, ANTIR, CARDIO GMA, CCP, CENTROME, RA, [id number], SMAB, CHROMATIN, TPO #### [facility] , Color of Urine by AutoOrdere d By: Corey Nguyen on 05-03-2025 Color (U) Light-yellow Normal Yellow [facility] Comment on above: Order Comment: Name Collection Type:: Clean-Voided Midstream Performed By: #### S SB, SSA, MITOM2, C3, JO1, JOSÉ, ADNA, CH50, HISAB, B2 GLYPROT, THYGLOB AB, TNONY, C4, ANTIR, CARDIO GMA, CCP, CENTROME, RA, [id number], SMAB, CHROMATIN, TPO #### [facility] , Complement C3on 05-03-2025 Complement C3 195 mg/dL Normal 82-167 [facility] Comment on above: Performed By: #### S SB, SSA, MITOM2, C3, JO1, JOSÉ, ADNA, CH50, HISAB, B2 GLYPROT, THYGLOB AB, TONNY, C4, ANTIR, CARDIO GMA, CCP, CENTROME, RA, [id number], SMAB, CHROMATIN, TPO #### [facility] , Complement C4on 05-03-2025 Complement C4 38 mg/dL Normal 12-38 [facility] Comment on above: Performed By: #### S SB, SSA, MITOM2, C3, JO1, JOSÉ, ADNA, CH50, HISAB, B2 GLYPROT, THYGLOB AB, TONNY, C4, ANTIR, CARDIO GMA, CCP, CENTROME, RA, [id number], SMAB, CHROMATIN, TPO #### [facility] , Complement Total (CH50)on Complement Total (CH50) >60 Normal >41 T [facility] Comment on above: Result [...] out of range values. Performed at: - [facility] [id number] Steam Drier Operator: Gregorio Martinez PhD, Phone: [phone] PERFORMED BY: [address] [address] PATHOLOGIST ENTRY LEVEL PROJECT ENGINEER MIKAL S SHONNA M.D. Performed By: #### S SB, SSA, MITOM2, C3, JO1, JOSÉ, ADNA, CH50, HISAB, B2 GLYPROT, THYGLOB AB, TONNY, C4, ANTIR, CARDIO GMA, CCP, CENTROME, RA, [id number], SMAB, CHROMATIN, TPO #### [facility] , Complete Blood Count Auto Di ffon 05-03-2025 Mean Corpuscular HGB Conc 34.4 g/dL Normal 32.0-35.0 [facility] Comment on above: Performed By: #### S SB, SSA, MITOM2, C3, JO1, JOSÉ, ADNA, CH50, HISAB, B2 GLYPROT, THYGLOB AB, TONNY, C4, ANTIR, CARDIO GMA, CCP, CENTROME, RA, [id number], SMAB, CHROMATIN, TPO #### [facility] , NRBC% 0.6 /100{WBC} High 0-0.5 [facility] Comment on above: Performed By: #### S SB, SSA, MITOM2, C3, JO1, JOSÉ, ADNA, CH50, HISAB, B2 GLYPROT, THYGLOB AB, TONNY, C4, ANTIR, CARDIO GMA, CCP, CENTROME, RA, [id number], SMAB, CHROMATIN, TPO #### [facility] , White Blood Count 8.8 [CFU]/mL Normal 3.8-11.6 [facility] Comment on above: Performed By: #### S SB, SSA, MITOM2, C3, JO1, JOSÉ, ADNA, CH50, HISAB, B2 GLYPROT, THYGLOB AB, TONNY, C4, ANTIR, CARDIO GMA, CCP, CENTROME, RA, [id number], SMAB, CHROMATIN, TPO #### [facility] , Comprehensive Metabolic Pane andrey 05-03-2025 Albumin [Mass/Vol] 4.7 g/dL Normal 3.5-5.7 [facility] Comment on above: Performed By: #### S SB, SSA, MITOM2, C3, JO1, JOSÉ, ADNA, CH50, HISAB, B2 GLYPROT, THYGLOB AB, TONNY, C4, ANTIR, CARDIO GMA, CCP, CENTROME, RA, [id number], SMAB, CHROMATIN, TPO #### [facility] , GFR/1.73 sq M.predicted MDRD (S/P/Bld) [Vol rate/Area] mL/min/{1.73_m2} Normal [facility] Comment on above: Performed By: #### S SB, SSA, MITOM2, C3, JO1, JOSÉ, ADNA, CH50, HISAB, B2 GLYPROT, THYGLOB AB, TONNY, C4, ANTIR, CARDIO GMA, CCP, CENTROME, RA, [id number], SMAB, CHROMATIN, TPO #### [facility] , Creatine kinase [Enzymatic a ctivity/volume] in Serum or PlasmaOrdered By: Corey Nguyen on 05-03-2025 CK [Catalytic activity/Vol] 33 U/L Normal 30-223 [facility] Comment on above: Result Comment: PERF ORMED BY: [facility] [address] [place] [address] PATHOLOGIST ENTRY LEVEL PROJECT ENGINEER MIKAL KILPATRICK M.D. Performed By: #### S SB, SSA, MITOM2, C3, JO1, JOSÉ, ADNA, CH50, HISAB, B2 GLYPROT, THYGLOB AB, TONNY, C4, ANTIR, CARDIO GMA, CCP, CENTROME, RA, [id number], SMAB, CHROMATIN, TPO #### [facility] , Creatinine [Mass/volume] in Serum or PlasmaOrdered By: Corey Nguyen on 05-03-2025 Creatinine [Mass/Vol] 0.53 mg/dL Low 0.60-1.20 [facility] Comment on above: Performed By: #### S SB, SSA, MITOM2, C3, JO1, JOSÉ, ADNA, CH50, HISAB, B2 GLYPROT, THYGLOB AB, TONNY, C4, ANTIR, CARDIO GMA, CCP, CENTROME, RA, [id number], SMAB, CHROMATIN, TPO #### [facility] , Cyclic Citrulliated Pep Abon 05-03-2025 Cyclic Citrulliated Pep Ab 5 Normal 0-19 [facility] Comment on above: Result Comment: Nega tive <20 Weak positive 20 - 39 Moderate positive 40 - 59 Strong positive >59 Performed at: [address] [id number] Steam Drier Operator: Gregorio Martinez PhD, Phone: [phone] Performed By: #### S SB, SSA, MITOM2, C3, JO1, JOSÉ, ADNA, CH50, HISAB, B2 GLYPROT, THYGLOB AB, TONNY, C4, ANTIR, CARDIO GMA, CCP, CENTROME, RA, [id number], SMAB, CHROMATIN, TPO #### [facility] , Dipstick and Microscopicon 0 05-03-2025 Bacteria,Urine Rare Normal None Seen [facility] Comment on above: Order Comment: Name Collection Type:: Clean-Voided Midstream Performed By: #### S SB, SSA, MITOM2, C3, JO1, JOSÉ, ADNA, CH50, HISAB, B2 GLYPROT, THYGLOB AB, TONNY, C4, ANTIR, CARDIO GMA, CCP, CENTROME, RA, [id number], SMAB, CHROMATIN, TPO #### [facility] , Bilirubin,Urine Negative Normal Negative [facility] Comment on above: Order Comment: Name Collection Type:: Clean-Voided Midstream Performed By: #### S SB, SSA, MITOM2, C3, JO1, JOSÉ, ADNA, CH50, HISAB, B2 GLYPROT, THYGLOB AB, TONNY, C4, ANTIR, CARDIO GMA, CCP, CENTROME, RA, [id number], SMAB, CHROMATIN, TPO #### [facility] , Budding Yeast,Urine Rare Normal None Seen [facility] Comment on above: Order Comment: Name Collection Type:: Clean-Voided Midstream Result Comment: PERF ORMED BY: [facility] [address] [place] [address] PATHOLOGIST ENTRY LEVEL PROJECT ENGINEER MIKAL KILPATRICK M.D. Performed By: #### S SB, SSA, MITOM2, C3, JO1, JOSÉ, ADNA, CH50, HISAB, B2 GLYPROT, THYGLOB AB, TONNY, C4, ANTIR, CARDIO GMA, CCP, CENTROME, RA, [id number], SMAB, CHROMATIN, TPO #### [facility] , Glucose Ql (U) >= Normal Normal [facility] Comment on above: Order Comment: Name Collection Type:: Clean-Voided Midstream Performed By: #### S SB, SSA, MITOM2, C3, JO1, JOSÉ, ADNA, CH50, HISAB, B2 GLYPROT, THYGLOB AB, TONNY, C4, ANTIR, CARDIO GMA, CCP, CENTROME, RA, [id number], SMAB, CHROMATIN, TPO #### [facility] , Hyaline Casts,Urine None Normal 0-8 [facility] Comment on above: Order Comment: Name Collection Type:: Clean-Voided Midstream Performed By: #### S SB, SSA, MITOM2, C3, JO1, JOSÉ, ADNA, CH50, HISAB, B2 GLYPROT, THYGLOB AB, TONNY, C4, ANTIR, CARDIO GMA, CCP, CENTROME, RA, [id number], SMAB, CHROMATIN, TPO #### [facility] , Nitrite,Urine Negative Normal Negative [facility] Comment on above: Order Comment: Name Collection Type:: Clean-Voided Midstream Performed By: #### S SB, SSA, MITOM2, C3, JO1, JOSÉ, ADNA, CH50, HISAB, B2 GLYPROT, THYGLOB AB, TONNY, C4, ANTIR, CARDIO GMA, CCP, CENTROME, RA, [id number], SMAB, CHROMATIN, TPO #### [facility] , Occult Blood,Urine Negative Normal Negative [facility] Comment on above: Order Comment: Name Collection Type:: Clean-Voided Midstream Performed By: #### S SB, SSA, MITOM2, C3, JO1, JOSÉ, ADNA, CH50, HISAB, B2 GLYPROT, THYGLOB AB, TONNY, C4, ANTIR, CARDIO GMA, CCP, CENTROME, RA, [id number], SMAB, CHROMATIN, TPO #### [facility] , Protein,Urine Negative Normal Negative [facility] Comment on above: Order Comment: Name Collection Type:: Clean-Voided Midstream Performed By: #### S SB, SSA, MITOM2, C3, JO1, JOSÉ, ADNA, CH50, HISAB, B2 GLYPROT, THYGLOB AB, TONNY, C4, ANTIR, CARDIO GMA, CCP, CENTROME, RA, [id number], SMAB, CHROMATIN, TPO #### [facility] , RBC,Urine 20-49 Normal 0-4 [facility] Comment on above: Order Comment: Name Collection Type:: Clean-Voided Midstream Performed By: #### S SB, SSA, MITOM2, C3, JO1, JOSÉ, ADNA, CH50, HISAB, B2 GLYPROT, THYGLOB AB, TONNY, C4, ANTIR, CARDIO GMA, CCP, CENTROME, RA, [id number], SMAB, CHROMATIN, TPO #### [facility] , Specificy [place],Urine 1.039 High 1.00 1-1.03 0 [facility] Comment on above: Order Comment: Name Collection Type:: Clean-Voided Midstream Performed By: #### S SB, SSA, MITOM2, C3, JO1, JOSÉ, ADNA, CH50, HISAB, B2 GLYPROT, THYGLOB AB, TONNY, C4, ANTIR, CARDIO GMA, CCP, CENTROME, RA, [id number], SMAB, CHROMATIN, TPO #### [facility] , Squamous Epithelial Cell,Urine 5-9 Normal 0-2 [facility] Comment on above: Order Comment: Name Collection Type:: Clean-Voided Midstream Performed By: #### S SB, SSA, MITOM2, C3, JO1, JOSÉ, ADNA, CH50, HISAB, B2 GLYPROT, THYGLOB AB, TONNY, C4, ANTIR, CARDIO GMA, CCP, CENTROME, RA, [id number], SMAB, CHROMATIN, TPO #### [facility] , Urobilinogen,Urine Normal Normal Normal [facility] Comment on above: Order Comment: Name Collection Type:: Clean-Voided Midstream Performed By: #### S SB, SSA, MITOM2, C3, JO1, JOSÉ, ADNA, CH50, HISAB, B2 GLYPROT, THYGLOB AB, TONNY, C4, ANTIR, CARDIO GMA, CCP, CENTROME, RA, [id number], SMAB, CHROMATIN, TPO #### [facility] , WBC CLUMP, Urine Few Normal None Seen [facility] Comment on above: Order Comment: Name Collection Type:: Clean-Voided Midstream Performed By: #### S SB, SSA, MITOM2, C3, JO1, JOSÉ, ADNA, CH50, HISAB, B2 GLYPROT, THYGLOB AB, TONNY, C4, ANTIR, CARDIO GMA, CCP, CENTROME, RA, [id number], SMAB, CHROMATIN, TPO #### [facility] , WBC,Urine 10-19 Normal 0-4 [facility] Comment on above: Order Comment: Name Collection Type:: Clean-Voided Midstream Performed By: #### S SB, SSA, MITOM2, C3, JO1, JOSÉ, ADNA, CH50, HISAB, B2 GLYPROT, THYGLOB AB, TONNY, C4, ANTIR, CARDIO GMA, CCP, CENTROME, RA, [id number], SMAB, CHROMATIN, TPO #### [facility] , Eosinophils [#/volume] in Bl ood by Automated countOrdered By: Corey Nguyen on 05-03-2025 Eosinophils (Bld) [#/Vol] 0.3 10*3/uL Normal 0.0-0.45 [facility] Comment on above: Performed By: #### S SB, SSA, MITOM2, C3, JO1, JOSÉ, ADNA, CH50, HISAB, B2 GLYPROT, THYGLOB AB, TONNY, C4, ANTIR, CARDIO GMA, CCP, CENTROME, RA, [id number], SMAB, CHROMATIN, TPO #### [facility] , Eosinophils/100 leukocytes i n Blood by Automated countOrdered By: Corey Nguyen on 05-03-2025 Eosinophils/100 WBC (Bld) 3.3 % Normal . [facility] Comment on above: Performed By: #### S SB, SSA, MITOM2, C3, JO1, JOSÉ, ADNA, CH50, HISAB, B2 GLYPROT, THYGLOB AB, TONNY, C4, ANTIR, CARDIO GMA, CCP, CENTROME, RA, [id number], SMAB, CHROMATIN, TPO #### [facility] , Epithelial cells.squamous [# /area] in Urine sediment by Automated countOrdered By: Corey Nguyen on 05-03-2025 Epithelial cells.squamous Auto (Urine sed) [#/Area] 5-9 [HPF] High 0-[address] [facility] Erythrocyte Sedimentation Ra kinga 05-03-2025 ESR (Bld) [Velocity] 25 mm/h High 0-19 [facility] Comment on above: Result Comment: PERF ORMED BY: [address] [address] PATHOLOGIST [employer] ENGINEER MIKAL KILPATRICK M.D. Performed By: #### S SB, SSA, MITOM2, C3, JO1, JOSÉ, ADNA, CH50, HISAB, B2 GLYPROT, THYGLOB AB, TONNY, C4, ANTIR, CARDIO GMA, CCP, CENTROME, RA, [id number], SMAB, CHROMATIN, TPO #### [facility] , Erythrocyte distribution wid th [Ratio] by Automated countOrdered By: Corey Nguyen on 05-03-2025 Erythrocyte distribution width (RBC) [Ratio] 12.9 % Normal 11.9-15.3 [facility] Comment on above: Performed By: #### S SB, SSA, MITOM2, C3, JO1, JOSÉ, ADNA, CH50, HISAB, B2 GLYPROT, THYGLOB AB, TONNY, C4, ANTIR, CARDIO GMA, CCP, CENTROME, RA, [id number], SMAB, CHROMATIN, TPO #### [facility] , Erythrocyte sedimentation ra te by Photometric methodOrdered By: Corey Nguyen on 05-03-2025 ESR Photometric method (Bld) [Velocity] 25 mm/hr High 0-19 [facility] Erythrocytes [#/area] in Uri ne sediment by Automated countOrdered By: Corey Nguyen on 05-03-2025 RBC Auto (Urine sed) [#/Area] 20-49 [HPF] High 0-4 [facility] Erythrocytes [#/volume] in B lood by Automated countOrdered By: Corey Nguyen on 05-03-2025 RBC (Bld) [#/Vol] 5.37 10*6/uL High 3.60-5.[address] [facility] Comment on above: Performed By: #### S SB, SSA, MITOM2, C3, JO1, JOSÉ, ADNA, CH50, HISAB, B2 GLYPROT, THYGLOB AB, TONNY, C4, ANTIR, CARDIO GMA, CCP, CENTROME, RA, [id number], SMAB, CHROMATIN, TPO #### [facility] , Glucose [Mass/volume] in Ser um or PlasmaOrdered By: Corey Nguyen on 05-03-2025 Glucose [Mass/Vol] 369 mg/dL High 70-[address] [facility] Comment on above: ADA recommended refe rence rangeRandom Glucose Reference Range is dependent on time and content of last meal. Glucose of more than 200 mg/dL in a nonstressed, ambulatory subject supports the diagnosis of Diabetes Mellitus. Result Comment: [place] om Glucose Reference Range is dependent on time and content of last meal. Glucose of more than 200 mg/dL in a nonstressed, ambulatory subject supports the diagnosis of Diabetes Mellitus. ADA recommended reference range Performed By: #### S SB, SSA, MITOM2, C3, JO1, JOSÉ, ADNA, CH50, HISAB, B2 GLYPROT, THYGLOB AB, TONNY, C4, ANTIR, CARDIO GMA, CCP, CENTROME, RA, [id number], SMAB, CHROMATIN, TPO #### [facility] , Glucose [Mass/volume] in Uri ne by Test stripOrdered By: Corey Nguyen on 05-03-2025 Glucose Test strip (U) [Mass/Vol] >=1000 mg/dL High Normal [facility] Hematocrit [Volume Fraction] of Blood by Automated countOrdered By: Corey Nguyen on 05-03-2025 Hematocrit (Bld) [Volume fraction] 49.5 % High 34.0-46.4 [facility] Comment on above: Performed By: #### S SB, SSA, MITOM2, C3, JO1, JOSÉ, ADNA, CH50, HISAB, B2 GLYPROT, THYGLOB AB, TONNY, C4, ANTIR, CARDIO GMA, CCP, CENTROME, RA, [id number], SMAB, CHROMATIN, TPO #### [facility] , Hemoglobin Test strip Ql (U) Ordered By: Corey Nguyen on 05-03-2025 Hemoglobin Ql (U) Negative Negative [facility] Hemoglobin [Mass/volume] in BloodOrdered By: Corey Nguyen on 05-03-2025 Hemoglobin (Bld) [Mass/Vol] 17.0 g/dL High 11.8-15.4 [facility] Comment on above: Performed By: #### S SB, SSA, MITOM2, C3, JO1, JOSÉ, ADNA, CH50, HISAB, B2 GLYPROT, THYGLOB AB, TONNY, C4, ANTIR, CARDIO GMA, CCP, CENTROME, RA, [id number], SMAB, CHROMATIN, TPO #### [facility] , Histone Antibodieson 025 Histone Antibodies 0.3 Normal 0.0-0.9 [facility] Comment on above: Result Comment: Nega tive <1.0 Weak Positive 1.0 - 1.5 Moderate Positive 1.6 - 2.5 Strong Positive >2.5 Performed at: [address] [id number] Steam Drier Operator: Louis Mckeon MD, Phone: [phone] Performed By: #### S SB, SSA, MITOM2, C3, JO1, JOSÉ, ADNA, CH50, HISAB, B2 GLYPROT, THYGLOB AB, TONNY, C4, ANTIR, CARDIO GMA, CCP, CENTROME, RA, [id number], SMAB, CHROMATIN, TPO #### [facility] , Hyaline casts [#/area] in Ur ine sediment by Automated countOrdered By: Corey Nguyen on 05-03-2025 Hyaline casts Auto (Urine sed) [#/Area] None [LPF] 0-8 [facility] INR in Platelet poor plasma by Coagulation assayOrdered By: Corey Ramosrow on 05-03-2025 INR Coag (PPP) [Relative time] 0.9 {INR} Normal [facility] Comment on above: INR Therapeutic Rang e [...] C4, ANTIR, CARDIO GMA, CCP, CENTROME, RA, [id number], SMAB, CHROMATIN, TPO #### [facility] , Immunofixation, (ANKITA), Urine on 05-03-2025 Immunofixation, (ANKITA), Urine Comment Normal . [facility] Comment on above: Result Comment: No m onoclonality detected. Performed at: - [facility] [id number] Steam Drier Operator: Gregorio Martinez PhD, Phone: [phone] Performed By: #### S SB, SSA, MITOM2, C3, JO1, JOSÉ, ADNA, CH50, HISAB, B2 GLYPROT, THYGLOB AB, TONNY, C4, ANTIR, CARDIO GMA, CCP, CENTROME, RA, [id number], SMAB, CHROMATIN, TPO #### [facility] , Immunofixation,Serumon 05-03 Immunofixation, Serum Comment: Normal . [facility] Comment on above: Result Comment: Pres ence of monoclonal protein is unclear at this time. Suggest repeat in 3 to 6 months if clinically indicated. Performed By: #### S SB, SSA, MITOM2, C3, JO1, JOSÉ, ADNA, CH50, HISAB, B2 GLYPROT, THYGLOB AB, TONNY, C4, ANTIR, CARDIO GMA, CCP, CENTROME, RA, [id number], SMAB, CHROMATIN, TPO #### [facility] , Immunoglobulin A, Serum 350 mg/dL Normal 87-352 [facility] Comment on above: Performed By: #### S SB, SSA, MITOM2, C3, JO1, JOÉS, ADNA, CH50, HISAB, B2 GLYPROT, THYGLOB AB, TONNY, C4, ANTIR, CARDIO GMA, CCP, CENTROME, RA, [id number], SMAB, CHROMATIN, TPO #### [facility] , Immunoglobulin G 791 mg/dL Normal 586-1602 [facility] Comment on above: Performed By: #### S SB, SSA, MITOM2, C3, JO1, JOSÉ, ADNA, CH50, HISAB, B2 GLYPROT, THYGLOB AB, TONNY, C4, ANTIR, CARDIO GMA, CCP, CENTROME, RA, [id number], SMAB, CHROMATIN, TPO #### [facility] , Immunoglobulin M, Serum <5 Normal 26-217 [facility] Comment on above: Result Comment: Resu lt confirmed on concentration. Performed at: - [facility] [id number] Steam Drier Operator: Gregorio Martinez PhD, Phone: [phone] Performed By: #### S SB, SSA, MITOM2, C3, JO1, JOSÉ, ADNA, CH50, HISAB, B2 GLYPROT, THYGLOB AB, TONNY, C4, ANTIR, CARDIO GMA, CCP, CENTROME, RA, [id number], SMAB, CHROMATIN, TPO #### [facility] , CHINA-1 Antibodyon 05-03-2025 [place]-1 Antibody <0.2 Normal 0.0-0.9 [facility] Comment on above: Performed By: #### S SB, SSA, MITOM2, C3, JO1, JOSÉ, ADNA, CH50, HISAB, B2 GLYPROT, THYGLOB AB, TONNY, C4, ANTIR, CARDIO GMA, CCP, CENTROME, RA, [id number], SMAB, CHROMATIN, TPO #### [facility] , Ketones [Presence] in Urine by Test stripOrdered By: Corey Nguyen on 05-03-2025 Ketones Ql (U) Trace Normal Negative [facility] Comment on above: Order Comment: Name Collection Type:: Clean-Voided Midstream Performed By: #### S SB, SSA, MITOM2, C3, JO1, JOSÉ, ADNA, CH50, HISAB, B2 GLYPROT, THYGLOB AB, TONNY, C4, ANTIR, CARDIO GMA, CCP, CENTROME, RA, [id number], SMAB, CHROMATIN, TPO #### [facility] , Leukocyte clumps [Presence] in Urine by AutomatedOrdered By: Corey Nguyen on 05-03-2025 Leukocyte clumps Auto Ql (U) Few [LPF] High None Seen [facility] Leukocyte esterase [Presence ] in Urine by Test stripOrdered By: Coery Nguyen on 05-03-2025 Leukocyte esterase Test strip Ql (U) 4+ Normal Negative [facility] Comment on above: Order Comment: Name Collection Type:: Clean-Voided Midstream Performed By: #### S SB, SSA, MITOM2, C3, JO1, JOSÉ, ADNA, CH50, HISAB, B2 GLYPROT, THYGLOB AB, TONNY, C4, ANTIR, CARDIO GMA, CCP, CENTROME, RA, [id number], SMAB, CHROMATIN, TPO #### [facility] , Leukocytes [#/area] in Urine sediment by Automated countOrdered By: Corey Nguyen on 05-03-2025 WBC Auto (Urine sed) [#/Area] 10-19 [HPF] High 0-4 [facility] Leukocytes [#/volume] correc roxy for nucleated erythrocytes in Blood by Automated counOrdered By: Corey Nguyen on 05-03-2025 WBC corrected for nucl RBC Auto (Bld) [#/Vol] 8.8 10*3/uL 3.8-11.6 [facility] Leukocytes [#/volume] in Blo od by Automated countOrdered By: Corey Nguyen on 05-03-2025 WBC (Bld) [#/Vol] 8.8 10*3/uL Normal 3.8-11.[address] [facility] Comment on above: Performed By: #### S SB, SSA, MITOM2, C3, JO1, JOSÉ, ADNA, CH50, HISAB, B2 GLYPROT, THYGLOB AB, TONNY, C4, ANTIR, CARDIO GMA, CCP, CENTROME, RA, [id number], SMAB, CHROMATIN, TPO #### [facility] , Lupus Anticoagulant Compon 0 05-03-2025 Dilute Prothrombin Time (dPt) 35.7 Normal 0.0-47.6 [facility] Comment on above: Performed By: #### S SB, SSA, MITOM2, C3, JO1, JOSÉ, ADNA, CH50, HISAB, B2 GLYPROT, THYGLOB AB, TONNY, C4, ANTIR, CARDIO GMA, CCP, CENTROME, RA, [id number], SMAB, CHROMATIN, TPO #### [facility] , dPT Confirm Ratio 1.22 Normal 0.00-1.34 [facility] Comment on above: Performed By: #### S SB, SSA, MITOM2, C3, JO1, JOSÉ, ADNA, CH50, HISAB, B2 GLYPROT, THYGLOB AB, TONNY, C4, ANTIR, CARDIO GMA, CCP, CENTROME, RA, [id number], SMAB, CHROMATIN, TPO #### [facility] , DRVVT Lupus 37.8 Normal 0.0-47.0 [facility] Comment on above: Performed By: #### S SB, SSA, MITOM2, C3, JO1, JOSÉ, ADNA, CH50, HISAB, B2 GLYPROT, THYGLOB AB, TONNY, C4, ANTIR, CARDIO GMA, CCP, CENTROME, RA, [id number], SMAB, CHROMATIN, TPO #### [facility] , Interpretation Comment: Normal . [facility] Comment on above: Result Comment: No l upus anticoagulant was detected. Performed at: - [facility] [id number] Steam Drier Operator: Louis Mckeon MD, Phone: [phone] PERFORMED BY: [facility] [address] [place] [address] PATHOLOGIST ENTRY LEVEL PROJECT ENGINEER MIKAL KILPATRICK M.D. Performed By: #### S SB, SSA, MITOM2, C3, JO1, JOSÉ, ADNA, CH50, HISAB, B2 GLYPROT, THYGLOB AB, TONNY, C4, ANTIR, CARDIO GMA, CCP, CENTROME, RA, [id number], SMAB, CHROMATIN, TPO #### [facility] , PTT-LA 29.9 Normal 0.0-43.5 [facility] Comment on above: Performed By: #### S SB, SSA, MITOM2, C3, JO1, JOSÉ, ADNA, CH50, HISAB, B2 GLYPROT, THYGLOB AB, TONNY, C4, ANTIR, CARDIO GMA, CCP, CENTROME, RA, [id number], SMAB, CHROMATIN, TPO #### [facility] , Thrombin Time 19.1 Normal 0.0-23.0 [facility] Comment on above: Performed By: #### S SB, SSA, MITOM2, C3, JO1, JOSÉ, ADNA, CH50, HISAB, B2 GLYPROT, THYGLOB AB, TONNY, C4, ANTIR, CARDIO GMA, CCP, CENTROME, RA, [id number], SMAB, CHROMATIN, TPO #### [facility] , Lymphocytes [#/volume] in Bl ood by Automated countOrdered By: Corey Nguyen on 05-03-2025 Lymphocytes (Bld) [#/Vol] 3.1 10*3/uL Normal 1.00-4.8 [facility] Comment on above: Performed By: #### S SB, SSA, MITOM2, C3, JO1, JOSÉ, ADNA, CH50, HISAB, B2 GLYPROT, THYGLOB AB, TONNY, C4, ANTIR, CARDIO GMA, CCP, CENTROME, RA, [id number], SMAB, CHROMATIN, TPO #### [facility] , Lymphocytes/100 leukocytes i n Blood by Automated countOrdered By: Corey Nguyen on 05-03-2025 Lymphocytes/100 WBC (Bld) 35.4 % Normal . [facility] Comment on above: Performed By: #### S SB, SSA, MITOM2, C3, JO1, JOSÉ, ADNA, CH50, HISAB, B2 GLYPROT, THYGLOB AB, TONNY, C4, ANTIR, CARDIO GMA, CCP, CENTROME, RA, [id number], SMAB, CHROMATIN, TPO #### [facility] , MCH [Entitic mass] by Automa roxy countOrdered By: Corey Nguyen on 05-03-2025 MCH (RBC) [Entitic mass] 31.7 pg Normal 24.7-34.3 [facility] Comment on above: Performed By: #### S SB, SSA, MITOM2, C3, JO1, JOSÉ, ADNA, CH50, HISAB, B2 GLYPROT, THYGLOB AB, TONNY, C4, ANTIR, CARDIO GMA, CCP, CENTROME, RA, [id number], SMAB, CHROMATIN, TPO #### [facility] , MCHC Auto (RBC) [Mass/Vol]Or dered By: Corey Nguyen on 05-03-2025 MCHC (RBC) [Mass/Vol] 34.4 g/dL 32.0-35.0 [facility] MCV [Entitic volume] by Auto mated countOrdered By: Corey Nguyen on 05-03-2025 MCV (RBC) [Entitic vol] 92.2 fL Normal 80-100 [facility] Comment on above: Performed By: #### S SB, SSA, MITOM2, C3, JO1, JOSÉ, ADNA, CH50, HISAB, B2 GLYPROT, THYGLOB AB, TONNY, C4, ANTIR, CARDIO GMA, CCP, CENTROME, RA, [id number], SMAB, CHROMATIN, TPO #### [facility] , Mitochondrial (M2) Antibodyo n 05-03-2025 Mitochondrial (M2) Antibody <20.0 Normal 0.0-20.0 [facility] Comment on above: Result Comment: Nega tive 0.0 - 20.0 Equivocal 20.1 - 24.9 Positive >24.9 Mitochondrial (M2) Antibodies are found in 90-96% of patients with primary biliary cirrhosis. Performed at: [address] [id number] Steam Drier Operator: Gregorio Martinez PhD, Phone: [phone] Performed By: #### S SB, SSA, MITOM2, C3, JO1, JOSÉ, ADNA, CH50, HISAB, B2 GLYPROT, THYGLOB AB, TONNY, C4, ANTIR, CARDIO GMA, CCP, CENTROME, RA, [id number], SMAB, CHROMATIN, TPO #### [facility] , Monocytes [#/volume] in Bloo d by Automated countOrdered By: Corey Nguyen on 05-03-2025 Monocytes (Bld) [#/Vol] 0.3 10*3/uL Normal 0.0-0.8 [facility] Comment on above: Performed By: #### S SB, SSA, MITOM2, C3, JO1, JOSÉ, ADNA, CH50, HISAB, B2 GLYPROT, THYGLOB AB, TONNY, C4, ANTIR, CARDIO GMA, CCP, CENTROME, RA, [id number], SMAB, CHROMATIN, TPO #### [facility] , Monocytes/100 leukocytes in Blood by Automated countOrdered By: Corey Nguyen on 05-03-2025 Monocytes/100 WBC (Bld) 3.8 % Normal . [facility] Comment on above: Performed By: #### S SB, SSA, MITOM2, C3, JO1, JOSÉ, ADNA, CH50, HISAB, B2 GLYPROT, THYGLOB AB, TONNY, C4, ANTIR, CARDIO GMA, CCP, CENTROME, RA, [id number], SMAB, CHROMATIN, TPO #### [facility] , Neutrophils [#/volume] in Bl ood by Automated countOrdered By: Corey Nguyen on 05-03-2025 Neutrophils (Bld) [#/Vol] 4.9 10*3/uL Normal 1.8-7.7 [facility] Comment on above: Performed By: #### S SB, SSA, MITOM2, C3, JO1, JOSÉ, ADNA, CH50, HISAB, B2 GLYPROT, THYGLOB AB, TONNY, C4, ANTIR, CARDIO GMA, CCP, CENTROME, RA, [id number], SMAB, CHROMATIN, TPO #### [facility] , Neutrophils/100 leukocytes i n Blood by Automated countOrdered By: Corey Nguyen on 05-03-2025 Neutrophils/100 WBC (Bld) 56.2 % Normal . [facility] Comment on above: Performed By: #### S SB, SSA, MITOM2, C3, JO1, JOSÉ, ADNA, CH50, HISAB, B2 GLYPROT, THYGLOB AB, TONNY, C4, ANTIR, CARDIO GMA, CCP, CENTROME, RA, [id number], SMAB, CHROMATIN, TPO #### [facility] , Nitrite Test strip Ql (U)Ord ered By: Corey Nguyen on 05-03-2025 Nitrite Ql (U) Negative Negative [facility] No Panel InformationOrdered By: Corey Nguyen on 05-03-2025 Estimated GFR (CKD-EPI) > 60.0 mL/Min [facility] Creatinine Clearance (Chem N/A [facility] Nucleated erythrocytes [Pres ence] in Blood by Automated countOrdered By: Corey Nguyen on 05-03-2025 Nucleated RBC Auto Ql (Bld) 0.6 /100{WBC} High 0-0.5 [facility] Platelet mean volume [Entiti c volume] in Blood by Automated countOrdered By: Corey Nguyen on 05-03-2025 Platelet mean volume (Bld) [Entitic vol] 9.6 fL Normal 6.3-10.7 [facility] Comment on above: Performed By: #### S SB, SSA, MITOM2, C3, JO1, JOSÉ, ADNA, CH50, HISAB, B2 GLYPROT, THYGLOB AB, TONNY, C4, ANTIR, CARDIO GMA, CCP, CENTROME, RA, [id number], SMAB, CHROMATIN, TPO #### [facility] , Platelets [#/volume] in Bloo d by Automated countOrdered By: Corey Nguyen on 05-03-2025 Platelets (Bld) [#/Vol] 281 10*3/uL Normal 150-450 [facility] Comment on above: Performed By: #### S SB, SSA, MITOM2, C3, JO1, JOSÉ, ADNA, CH50, HISAB, B2 GLYPROT, THYGLOB AB, TONNY, C4, ANTIR, CARDIO GMA, CCP, CENTROME, RA, [id number], SMAB, CHROMATIN, TPO #### [facility] , Potassium [Moles/volume] in Serum or PlasmaOrdered By: Corey Nguyen on 05-03-2025 Potassium [Moles/Vol] 4.2 mmol/L Normal 3.5-5.1 [facility] Comment on above: Performed By: #### S SB, SSA, MITOM2, C3, JO1, JOSÉ, ADNA, CH50, HISAB, B2 GLYPROT, THYGLOB AB, TONNY, C4, ANTIR, CARDIO GMA, CCP, CENTROME, RA, [id number], SMAB, CHROMATIN, TPO #### [facility] , Protein Electro, Random Urin live 05-03-2025 Albumin, Urine 31.6 % Normal . [facility] Comment on above: Performed By: #### S SB, SSA, MITOM2, C3, JO1, JOSÉ, ADNA, CH50, HISAB, B2 GLYPROT, THYGLOB AB, TONNY, C4, ANTIR, CARDIO GMA, CCP, CENTROME, RA, [id number], SMAB, CHROMATIN, TPO #### [facility] , Dvdao-5-Ymeadfsw, Urine 6.5 % Normal . [facility] Comment on above: Performed By: #### S SB, SSA, MITOM2, C3, JO1, JOSÉ, ADNA, CH50, HISAB, B2 GLYPROT, THYGLOB AB, TONNY, C4, ANTIR, CARDIO GMA, CCP, CENTROME, RA, [id number], SMAB, CHROMATIN, TPO #### [facility] , Jmfif-3-Tuwtjerd, Urine 21.9 % Normal . [facility] Comment on above: Performed By: #### S SB, SSA, MITOM2, C3, JO1, JOSÉ, ADNA, CH50, HISAB, B2 GLYPROT, THYGLOB AB, TONNY, C4, ANTIR, CARDIO GMA, CCP, CENTROME, RA, [id number], SMAB, CHROMATIN, TPO #### [facility] , Beta Globulin, Urine 24.9 % Normal . [facility] Comment on above: Performed By: #### S SB, SSA, MITOM2, C3, JO1, JOSÉ, ADNA, CH50, HISAB, B2 GLYPROT, THYGLOB AB, TONNY, C4, ANTIR, CARDIO GMA, CCP, CENTROME, RA, [id number], SMAB, CHROMATIN, TPO #### [facility] , Gamma Globulin, Urine 14.9 % Normal . [facility] Comment on above: Performed By: #### S SB, SSA, MITOM2, C3, JO1, JOSÉ, ADNA, CH50, HISAB, B2 GLYPROT, THYGLOB AB, TONNY, C4, ANTIR, CARDIO GMA, CCP, CENTROME, RA, [id number], SMAB, CHROMATIN, TPO #### [facility] , M-Jorge % Not Observed Normal Not Observed [facility] Comment on above: Performed By: #### S SB, SSA, MITOM2, C3, JO1, JOSÉ, ADNA, CH50, HISAB, B2 GLYPROT, THYGLOB AB, TONNY, C4, ANTIR, CARDIO GMA, CCP, CENTROME, RA, [id number], SMAB, CHROMATIN, TPO #### [facility] , Please Note: Comment Normal . [facility] Comment on above: Result Comment: Prot ein electrophoresis scan will follow via computer, mail, or hacksaw inspector delivery. PERFORMED BY: [facility] [place] [address] PATHOLOGIST ENTRY LEVEL PROJECT ENGINEER MIKAL KILPATRICK M.D. Performed By: #### S SB, SSA, MITOM2, C3, JO1, JOSÉ, ADNA, CH50, HISAB, B2 GLYPROT, THYGLOB AB, TONNY, C4, ANTIR, CARDIO GMA, CCP, CENTROME, RA, [id number], SMAB, CHROMATIN, TPO #### [facility] , Protein (U) [Mass/Vol] 7.7 mg/dL Normal Not Estab. Th [facility] Comment on above: Performed By: #### S SB, SSA, MITOM2, C3, JO1, JOSÉ, ADNA, CH50, HISAB, B2 GLYPROT, THYGLOB AB, TONNY, C4, ANTIR, CARDIO GMA, CCP, CENTROME, RA, [id number], SMAB, CHROMATIN, TPO #### [facility] , Protein Electrophoresis, Ser umon 05-03-2025 Albumin [Mass/Vol] 3.7 g/dL Normal 2.9-4.4 [facility] Comment on above: Performed By: #### S SB, SSA, MITOM2, C3, JO1, JOSÉ, ADNA, CH50, HISAB, B2 GLYPROT, THYGLOB AB, TONNY, C4, ANTIR, CARDIO GMA, CCP, CENTROME, RA, [id number], SMAB, CHROMATIN, TPO #### [facility] , Albumin/Globulin [Mass ratio] 1.1 {ratio} Normal 0.7-1.7 [facility] Comment on above: Performed By: #### S SB, SSA, MITOM2, C3, JO1, JOSÉ, ADNA, CH50, HISAB, B2 GLYPROT, THYGLOB AB, TONNY, C4, ANTIR, CARDIO GMA, CCP, CENTROME, RA, [id number], SMAB, CHROMATIN, TPO #### [facility] , Jbujw-8-Crzrdfjb 0.3 g/dL Normal 0.0-0.4 [facility] Comment on above: Performed By: #### S SB, SSA, MITOM2, C3, JO1, JOSÉ, ADNA, CH50, HISAB, B2 GLYPROT, THYGLOB AB, TONNY, C4, ANTIR, CARDIO GMA, CCP, CENTROME, RA, [id number], SMAB, CHROMATIN, TPO #### [facility] , Ifbvr-9-Gidvmaoz 1.0 g/dL Normal 0.4-1.0 [facility] Comment on above: Performed By: #### S SB, SSA, MITOM2, C3, JO1, JOSÉ, ADNA, CH50, HISAB, B2 GLYPROT, THYGLOB AB, TONNY, C4, ANTIR, CARDIO GMA, CCP, CENTROME, RA, [id number], SMAB, CHROMATIN, TPO #### [facility] , Beta Globulin 1.4 g/dL Normal 0.7-1.3 [facility] Comment on above: Performed By: #### S SB, SSA, MITOM2, C3, JO1, JOSÉ, ADNA, CH50, HISAB, B2 GLYPROT, THYGLOB AB, TONNY, C4, ANTIR, CARDIO GMA, CCP, CENTROME, RA, [id number], SMAB, CHROMATIN, TPO #### [facility] , Gamma Globulin 0.9 g/dL Normal 0.4-1.8 [facility] Comment on above: Performed By: #### S SB, SSA, MITOM2, C3, JO1, JOSÉ, ADNA, CH50, HISAB, B2 GLYPROT, THYGLOB AB, TONNY, C4, ANTIR, CARDIO GMA, CCP, CENTROME, RA, [id number], SMAB, CHROMATIN, TPO #### [facility] , Globulin (S) [Mass/Vol] 3.5 g/dL Normal 2.2-3.9 [facility] Comment on above: Performed By: #### S SB, SSA, MITOM2, C3, JO1, JOSÉ, ADNA, CH50, HISAB, B2 GLYPROT, THYGLOB AB, TONNY, C4, ANTIR, CARDIO GMA, CCP, CENTROME, RA, [id number], SMAB, CHROMATIN, TPO #### [facility] , M-Jorge Not Observed Normal Not Observed [facility] Comment on above: Performed By: #### S SB, SSA, MITOM2, C3, JO1, JOSÉ, ADNA, CH50, HISAB, B2 GLYPROT, THYGLOB AB, TONNY, C4, ANTIR, CARDIO GMA, CCP, CENTROME, RA, [id number], SMAB, CHROMATIN, TPO #### [facility] , Protein [Mass/Vol] 7.2 g/dL Normal 6.0-8.5 [facility] Comment on above: Performed By: #### S SB, SSA, MITOM2, C3, JO1, JOSÉ, ADNA, CH50, HISAB, B2 GLYPROT, THYGLOB AB, TONNY, C4, ANTIR, CARDIO GMA, CCP, CENTROME, RA, [id number], SMAB, CHROMATIN, TPO #### [facility] , SPE-Note Comment Normal . [facility] Comment on above: Result Comment: Prot ein electrophoresis scan will follow via computer, mail, or hacksaw inspector delivery. Performed at: [address] [id number] Steam Drier Operator: Gregorio Martinez PhD, Phone: [phone] Performed By: #### S SB, SSA, MITOM2, C3, JO1, JOSÉ, ADNA, CH50, HISAB, B2 GLYPROT, THYGLOB AB, TONNY, C4, ANTIR, CARDIO GMA, CCP, CENTROME, RA, [id number], SMAB, CHROMATIN, TPO #### [facility] , Protein Test strip (U) [Mass /Vol]Ordered By: Corey Nguyen on 05-03-2025 Protein (U) [Mass/Vol] Negative Negative [facility] Protein [Mass/volume] in Ser um or PlasmaOrdered By: Corey Nguyen on 05-03-2025 Protein [Mass/Vol] 7.5 g/dL Normal 6.4-8.[address] [facility] Comment on above: Performed By: #### S SB, SSA, MITOM2, C3, JO1, JOSÉ, ADNA, CH50, HISAB, B2 GLYPROT, THYGLOB AB, TONNY, C4, ANTIR, CARDIO GMA, CCP, CENTROME, RA, [id number], SMAB, CHROMATIN, TPO #### [facility] , Prothrombin time (PT)Ordered By: Corey Nguyen on 05-03-2025 PT Coag (PPP) [Time] 10.7 s Normal 9.0-12.9 [facility] Comment on above: A hematocrit value g reater than 55% may lead to inaccurate results in coagulation testing. Patients having hematocrit values >55% require a special collection tube for coagulation studies. Please contact the laboratory at [phone] for redraw instructions. Result Comment: A he matocrit value greater than 55% may lead to inaccurate results in coagulation testing. Patients having hematocrit values >55% require a special collection tube for coagulation studies. Please contact the laboratory at [phone] for redraw instructions. Performed By: #### S SB, SSA, MITOM2, C3, JO1, JOSÉ, ADNA, CH50, HISAB, B2 GLYPROT, THYGLOB AB, TONNY, C4, ANTIR, CARDIO GMA, CCP, CENTROME, RA, [id number], SMAB, CHROMATIN, TPO #### [facility] , RPR w/rfx to Quant TP Abson 05-03-2025 RPR Interpretation Comment Normal . [facility] Comment on above: Result [...] or current (potential early) syphilis. Performed at: [facility] [address] [id number] Steam Drier Operator: Gregorio Martinez PhD, Phone: [phone] PERFORMED BY: [address] [place] [id number] PATHOLOGIST [employer] PROJECT ENGINEER MIKAL KILPATRICK M.D. Performed By: #### S SB, SSA, MITOM2, C3, JO1, JOSÉ, ADNA, CH50, HISAB, B2 GLYPROT, THYGLOB AB, TONNY, C4, ANTIR, CARDIO GMA, CCP, CENTROME, RA, [id number], SMAB, CHROMATIN, TPO #### [facility] , RPR, Rfx Quant RPR Non-Reactive Normal Non Reactive [facility] Comment on above: Performed By: #### S SB, SSA, MITOM2, C3, JO1, JOSÉ, ADNA, CH50, HISAB, B2 GLYPROT, THYGLOB AB, TONNY, C4, ANTIR, CARDIO GMA, CCP, CENTROME, RA, [id number], SMAB, CHROMATIN, TPO #### [facility] , Rheumatoid Factoron 05-03-20 25 Rheumatoid Factor <10.0 Normal <14.0 [facility] Comment on above: Performed By: #### S SB, SSA, MITOM2, C3, JO1, JOSÉ, ADNA, CH50, HISAB, B2 GLYPROT, THYGLOB AB, TONNY, C4, ANTIR, CARDIO GMA, CCP, CENTROME, RA, [id number], SMAB, CHROMATIN, TPO #### [facility] , SS-A/Ro Sjogrens Antibodyon 05-03-2025 SS-A/Ro Sjogrens Antibody <0.2 Normal 0.0-0.9 [facility] Comment on above: Performed By: #### S SB, SSA, MITOM2, C3, JO1, JOSÉ, ADNA, CH50, HISAB, B2 GLYPROT, THYGLOB AB, TONNY, C4, ANTIR, CARDIO GMA, CCP, CENTROME, RA, [id number], SMAB, CHROMATIN, TPO #### [facility] , SS-B/La Sjogrens Antibodyon 05-03-2025 SS-B/La Sjogrens Antibody <0.2 Normal 0.0-0.9 [facility] Comment on above: Performed By: #### S SB, SSA, MITOM2, C3, JO1, JOSÉ, ADNA, CH50, HISAB, B2 GLYPROT, THYGLOB AB, TONNY, C4, ANTIR, CARDIO GMA, CCP, CENTROME, RA, [id number], SMAB, CHROMATIN, TPO #### [facility] , Scleroderma 70 Antibodieson 05-03-2025 Scleroderma 70 Antibodies <0.2 Normal 0.0-0.9 [facility] Comment on above: Performed By: #### S SB, SSA, MITOM2, C3, JO1, JOSÉ, ADNA, CH50, HISAB, B2 GLYPROT, THYGLOB AB, TONNY, C4, ANTIR, CARDIO GMA, CCP, CENTROME, RA, [id number], SMAB, CHROMATIN, TPO #### [facility] , Serum globulin measurement b y calculation (mass/volume)Ordered By: Corey Ngueyn on 05-03-2025 Globulin (S) [Mass/Vol] 2.8 g/dL Normal [facility] Comment on above: Performed By: #### S SB, SSA, MITOM2, C3, JO1, JOSÉ, ADNA, CH50, HISAB, B2 GLYPROT, THYGLOB AB, TONNY, C4, ANTIR, CARDIO GMA, CCP, CENTROME, RA, [id number], SMAB, CHROMATIN, TPO #### [facility] , Serum or plasma albumin/glob ulin mass ratioOrdered By: Corey Nguyen on 05-03-2025 Albumin/Globulin [Mass ratio] 1.7 {ratio} Normal [facility] Comment on above: Performed By: #### S SB, SSA, MITOM2, C3, JO1, JOSÉ, ADNA, CH50, HISAB, B2 GLYPROT, THYGLOB AB, TONNY, C4, ANTIR, CARDIO GMA, CCP, CENTROME, RA, [id number], SMAB, CHROMATIN, TPO #### [facility] , Serum or plasma anion gap de terminationOrdered By: Corey Nguyen on 05-03-2025 Anion gap [Moles/Vol] 14.9 mmol/L Normal 6.0-15.0 [facility] Comment on above: Performed By: #### S SB, SSA, MITOM2, C3, JO1, JOSÉ, ADNA, CH50, HISAB, B2 GLYPROT, THYGLOB AB, TONNY, C4, ANTIR, CARDIO GMA, CCP, CENTROME, RA, [id number], SMAB, CHROMATIN, TPO #### [facility] , Smooth Muscle Antibodyon Smooth Muscle Antibody 4 Normal 0-19 [facility] Comment on above: Result [...] C4, ANTIR, CARDIO GMA, CCP, CENTROME, RA, [id number], SMAB, CHROMATIN, TPO #### [facility] , Sodium [Moles/volume] in Ser um or PlasmaOrdered By: Corey Nguyen on 05-03-2025 Sodium [Moles/Vol] 133 mmol/L Low 136-[address] [facility] Comment on above: Performed By: #### S SB, SSA, MITOM2, C3, JO1, JOSÉ, ADNA, CH50, HISAB, B2 GLYPROT, THYGLOB AB, TONNY, C4, ANTIR, CARDIO GMA, CCP, CENTROME, RA, [id number], SMAB, CHROMATIN, TPO #### [facility] , Specific gravity Test strip (U) [Rel density]Ordered By: Corey Ramosrow on 05-03-2025 Specific gravity (U) [Rel density] 1.039 High 1.001-1.03 0 [facility] Thyroid Peroxidase Antibodie son 05-03-2025 Thyroid Peroxidase Antibodies 9 Normal 0-34 [facility] Comment on above: Result Comment: Perf ormed at: - [facility] [address] [id number] Steam Drier Operator: Gregorio Martinez PhD, Phone: [phone] Performed By: #### S SB, SSA, MITOM2, C3, JO1, JOSÉ, ADNA, CH50, HISAB, B2 GLYPROT, THYGLOB AB, TONNY, C4, ANTIR, CARDIO GMA, CCP, CENTROME, RA, [id number], SMAB, CHROMATIN, TPO #### [facility] , Thyrotropin [Units/volume] i n Serum or PlasmaOrdered By: Corey Patrick on 05-03-2025 TSH Qn 1.86 m[IU]/L Normal 0.45-5.33 [facility] Comment on above: Result Comment: PERF ORMED BY: [place] [address] [place] [address] PATHOLOGIST ENTRY LEVEL PROJECT ENGINEER MIKAL KILPATRICK M.D. Performed By: #### S SB, SSA, MITOM2, C3, JO1, JOSÉ, ADNA, CH50, HISAB, B2 GLYPROT, THYGLOB AB, TONNY, C4, ANTIR, CARDIO GMA, CCP, CENTROME, RA, [id number], SMAB, CHROMATIN, TPO #### [facility] , Thyroxine (T4) free [Mass/vo lume] in Serum or PlasmaOrdered By: Corey Nguyen on 05-03-2025 Free T4 [Mass/Vol] 1.19 ng/dL High 0.61-1.[address] [facility] Comment on above: Performed By: #### S SB, SSA, MITOM2, C3, JO1, JOSÉ, ADNA, CH50, HISAB, B2 GLYPROT, THYGLOB AB, TONNY, C4, ANTIR, CARDIO GMA, CCP, CENTROME, RA, [id number], SMAB, CHROMATIN, TPO #### [facility] , Urea nitrogen [Mass/volume] in Serum or PlasmaOrdered By: Corey Nguyen on 05-03-2025 Urea nitrogen [Mass/Vol] 5 mg/dL Low 7-25 [facility] Comment on above: Performed By: #### S SB, SSA, MITOM2, C3, JO1, JOSÉ, ADNA, CH50, HISAB, B2 GLYPROT, THYGLOB AB, TONNY, C4, ANTIR, CARDIO GMA, CCP, CENTROME, RA, [id number], SMAB, CHROMATIN, TPO #### [facility] , Urine Cultureon 05-03-2025 Bacteria identified Cx Nom (U) ORGANISM: Strep agalactiae - (group b) (O:STRAGA) [place] Count 30,000 PERFORMED BY: [facility] [address] [place] [address] PATHOLOGIST ENTRY LEVEL PROJECT ENGINEER MIKAL KILPATRICK M.D. Normal [facility] Comment on above: Performed By: #### S SB, SSA, MITOM2, C3, JO1, JOSÉ, ADNA, CH50, HISAB, B2 GLYPROT, THYGLOB AB, TONNY, C4, ANTIR, CARDIO GMA, CCP, CENTROME, RA, [id number], SMAB, CHROMATIN, TPO #### [facility] , Urobilinogen Test strip (U) [Mass/Vol]Ordered By: Corey Nguyen on 05-03-2025 Urobilinogen (U) [Mass/Vol] Normal mg/dL Normal [facility] Yeast.budding [Presence] in Urine by Computer assisted methodOrdered By: Corey Nguyen on 05-03-2025 Yeast.budding Computer assisted Ql (U) Rare [HPF] High None Seen [facility] aPTT in Platelet poor plasma by Coagulation assayOrdered By: Corey Nguyen on 05-03-2025 aPTT Coag (PPP) [Time] 35.5 s 25.1-36.5 [facility] Comment on above: A hematocrit value g reater than 55% may lead to inaccurate results in coagulation testing. Patients having hematocrit values >55% require a special collection tube for coagulation studies. Please contact the laboratory at [phone] for redraw instructions. pH of Urine by Test stripOrd ered By: Corey Nguyen on 05-03-2025 pH (U) 5.5 [pH] Normal 5.0-9.0 [facility] Comment on above: Order Comment: Name Collection Type:: Clean-Voided Midstream Performed By: #### S SB, SSA, MITOM2, C3, JO1, JOSÉ, ADNA, CH50, HISAB, B2 GLYPROT, THYGLOB AB, TONNY, C4, ANTIR, CARDIO GMA, CCP, CENTROME, RA, [id number], SMAB, CHROMATIN, TPO #### [facility] , INSULINon 12-14-2022 Insulin 22.4 uIU/mL Normal 2.6-24.9 [facility] Comment on above: Performed By: #### I NSULIN #### [facility] [address] [address] [address] Saul Quispe CBC AUTO DIFFon 12-13-2022 BASO # 0.1 103/ul Normal 0.0-0.1 [facility] Comment on above: Performed By: #### C BC #### [facility] [address] [place], [place] [address] Dr. Saul Quispe Basophils/100 WBC (Bld) 0.6 % Normal 0.2-2.0 [facility] Comment on above: Performed By: #### C BC #### [facility] [address] [place] [address] Dr. Saul Quispe EO # 0.2 103/ul Normal 0.0-0.7 [facility] Comment on above: Performed By: #### C BC #### [facility] [address] [place] [address] Dr. Saul Quispe Eosinophils/100 WBC (Bld) 1.2 % Normal 0.9-7.0 [facility] Comment on above: Performed By: #### C BC #### [facility] [address] [place] [address] Dr. Saul Quispe Erythrocyte distribution width (RBC) [Ratio] 12.1 % Normal 11.0-15.0 [facility] Comment on above: Performed By: #### C BC #### [facility] [address] [place] [address] Dr. Saul Quispe Hematocrit (Bld) [Volume fraction] 45.4 % Normal 36.0-48.0 [facility] Comment on above: Performed By: #### C BC #### [facility] [address] [place] [address] Dr. Saul Quispe Hemoglobin (Bld) [Mass/Vol] 15.9 g/dL Normal 12.0-16.0 [facility] Comment on above: Performed By: #### C BC #### [facility] [address] [place] [address] Dr. Saul Quispe IG # 0.05 10e3/ul Critically high 0.00-0.03 [facility] Comment on above: Performed By: #### C BC #### [facility] [address] [place] [address] Dr. Saul Quispe IG % 0.4 % Normal 0.0-0.5 [facility] Comment on above: Performed By: #### C BC #### [facility] [address] [place] [address] Dr. Saul Quispe LYMPH # 1.7 103/ul Normal 1.2-3.8 [facility] Comment on above: Performed By: #### C BC #### [facility] [address] [place] [address] Dr. Saul Quispe Lymphocytes/100 WBC (Bld) 12.8 % Critically low 20.5-6 0.0 [facility] Comment on above: Performed By: #### C BC #### [facility] [address] [place] [address] Dr. Saul Quispe MANUAL DIFF REQ NO Normal [facility] Comment on above: Performed By: #### C BC #### [facility] [address] [place] [address] Dr. Saul Quispe MCH (RBC) [Entitic mass] 31.0 pg Normal 26.7-34.0 [facility] Comment on above: Performed By: #### C BC #### [facility] [address] [place] [address] Dr. Saul Quispe MCHC (RBC) [Mass/Vol] 35.0 g/dL Normal 29.9-35.2 [facility] Comment on above: Performed By: #### C BC #### [facility] [address] [place] [address] Dr. Saul Quispe MCV (RBC) [Entitic vol] 88.5 fL Normal 81.0-99.0 [facility] Comment on above: Performed By: #### C BC #### [facility] [address] [place] [address] Dr. Saul Quispe MONO # 0.5 103/ul Normal 0.3-0.8 [facility] Comment on above: Performed By: #### C BC #### [facility] [address] [place] [address] Dr. Saul Quispe Monocytes/100 WBC (Bld) 3.6 % Normal 1.7-12.0 [facility] Comment on above: Performed By: #### C BC #### [facility] [address] [place] [address] Dr. Saul Quispe NEUT # 11.0 103/ul Critically high 1.4-6.5 [facility] Comment on above: Performed By: #### C BC #### [facility] [address] [address] [address] Saul Quispe Neutrophils/100 WBC (Bld) 81.4 % Critically high 43.0- 75.0 [facility] Comment on above: Performed By: #### C BC #### [facility] [address] [address] [address] Saul Quispe Platelet mean volume (Bld) [Entitic vol] 9.8 fL Normal 9.5-13.5 [facility] Comment on above: Performed By: #### C BC #### [facility] [address] [address] [address] Saul Quispe PLT 248 103/ul Normal 150-450 [facility] Comment on above: Performed By: #### C BC #### [facility] [address] [place] [address] Dr. Saul Quispe RBC 5.13 106/ul Normal 4.20-5.40 [facility] Comment on above: Performed By: #### C BC #### [facility] [address] [place] [address] Dr. Saul Quispe WBC 13.4 103/ul Critically high 4.0-11.0 [facility] Comment on above: Performed By: #### C BC #### [facility] [address] [place] [address] Dr. Saul Quispe DIRECT LDLon 12-13-2022 Cholesterol in LDL [Mass/Vol] 81 mg/dL Normal [facility] Comment on above: Performed By: #### T 7, TSH, DLDL, LIPID, CMP #### [facility] [address] [place] [address] Dr. Saul Quispe DLDL NORMAL SEE BELOW Normal [facility] Comment on above: Result Comment: <100 mg/dl OPTIMAL 100 - 129 mg/dl NEAR OR ABOVE OPTIMAL 130 - 159 mg/dl BORDERLINE HIGH 160 - 189 mg/dl HIGH >190 mg/dl VERY HIGH Performed By: #### T 7, TSH, DLDL, LIPID, CMP #### [facility] [address] [place] [address] Dr. Saul Quispe FREE THYROXINE INDEX T7on FTI 3.53 Normal 1.30-4.50 [facility] Comment on above: Performed By: #### T 7, TSH, DLDL, LIPID, CMP #### [facility] [address] [place] [address] Dr. Saul Quispe T3U 36.0 % Normal 30.0-39.0 [facility] Comment on above: Performed By: #### T 7, TSH, DLDL, LIPID, CMP #### [facility] [address] [place] [address] Dr. Saul Quispe T4 [Mass/Vol] 9.80 ug/dL Normal 4.80-13.90 [facility] Comment on above: Performed By: #### T 7, TSH, DLDL, LIPID, CMP #### [facility] [address] [place] [address] Dr. Saul Quispe GLYCOHEMOGLOBIN A1Con 2022 ADA RECOMMENDATION SEE BELOW Normal [facility] Comment on above: Result Comment: ADA RECOMMENDED LIMIT 4.0 - 6.0 ADA THERAPEUTIC TARGET < 7.0 ACTION SUGGESTED > 7.0 Performed By: #### A 1C #### [facility] [address] [place] [address] Dr. Saul Quispe Glucose [Mass/Vol] 272 mg/dL Normal [facility] Comment on above: Performed By: #### A 1C #### [facility] [address] [place] [address] Dr. Saul Quispe HbA1c (Bld) [Mass fraction] 11.1 % Critically high 4.5-6.2 [facility] Comment on above: Performed By: #### A 1C #### [facility] [address] [place] [address] Dr. Saul Quispe IRONon 12-13-2022 Iron [Mass/Vol] 44.0 ug/dL Critically low 50.0-170.0 [facility] Comment on above: Performed By: #### I PRANAV #### [facility] [address] [place] [address] Dr. Saul Quispe LIPID PROFILEon 12-13-2022 CHOL-HDL RATIO NORM SEE BELOW Normal [facility] Comment on above: Result Comment: 3.3 - 4.4 LOW RISK 4.4 - 7.1 AVERAGE RISK 7.1 - 11.0 MODERATE RISK >11.0 HIGH RISK Performed By: #### T 7, TSH, DLDL, LIPID, CMP #### [facility] [address] [place] [address] Dr. Saul Quispe Cholesterol [Mass/Vol] 254 mg/dL Critically high <=200 [facility] Comment on above: Performed By: #### T 7, TSH, DLDL, LIPID, CMP #### [facility] [address] [place] [address] Dr. Saul Quispe Cholesterol in HDL [Mass/Vol] 26 mg/dL Critically low 40-60 [facility] Comment on above: Performed By: #### T 7, TSH, DLDL, LIPID, CMP #### [facility] [address] [place] [address] Dr. Saul Quispe Cholesterol.total/Cholest mitzi in HDL [Mass ratio] 9.8 {ratio} Normal [facility] Comment on above: Performed By: #### T 7, TSH, DLDL, LIPID, CMP #### [facility] [address] [place] [address] Dr. Saul Quispe HDL NORMAL > or = 60 mg/dl - LO W CARDIOVASCULAR RISK <40 mg/dl - HIGH CARDIOVASCULAR RISK Normal [facility] Comment on above: Performed By: #### T 7, TSH, DLDL, LIPID, CMP #### [facility] [address] [place] [address] Dr. Saul Quispe Triglyceride [Mass/Vol] 1343 mg/dL Critically high <=150 [facility] Comment on above: Performed By: #### T 7, TSH, DLDL, LIPID, CMP #### [facility] [address] [place] [address] Dr. Saul Quispe VLDL CALC 268.6 mg/dL Normal [facility] Comment on above: Performed By: #### T 7, TSH, DLDL, LIPID, CMP #### [facility] [address] [place] [address] Dr. Saul Quispe PROF 14(COMP METB)on 023 Albumin [Mass/Vol] 3.7 g/dL Normal 3.4-5.0 [facility] Comment on above: Performed By: #### T 7, TSH, DLDL, LIPID, CMP #### [facility] [address] [place] [address] Dr. Saul Quispe Albumin/Globulin [Mass ratio] 1.0 {ratio} Normal [facility] Comment on above: Performed By: #### T 7, TSH, DLDL, LIPID, CMP #### [facility] [address] [place] [address] Dr. Saul Quispe ALP [Catalytic activity/Vol] 98 U/L Normal 46-116 [facility] Comment on above: Performed By: #### T 7, TSH, DLDL, LIPID, CMP #### [facility] [address] [place] [address] Dr. Saul Quispe ALT [Catalytic activity/Vol] 65 U/L Critically high 14-59 [facility] Comment on above: Performed By: #### T 7, TSH, DLDL, LIPID, CMP #### [facility] [address] [place] [address] Dr. Saul Quispe Anion gap [Moles/Vol] 18.6 mmol/L Normal [facility] Comment on above: Performed By: #### T 7, TSH, DLDL, LIPID, CMP #### [facility] [address] [place] [address] Dr. Saul Quispe AST [Catalytic activity/Vol] 39 U/L Critically high 15-37 [facility] Comment on above: Performed By: #### T 7, TSH, DLDL, LIPID, CMP #### [facility] [address] [place] [address] Dr. Saul Quispe Bilirubin [Mass/Vol] 0.6 mg/dL Normal 0.2-1.0 [facility] Comment on above: Performed By: #### T 7, TSH, DLDL, LIPID, CMP #### [facility] [address] [address] [address] Saul Quispe Calcium [Mass/Vol] 10.1 mg/dL Normal 8.5-10.1 [facility] Comment on above: Performed By: #### T 7, TSH, DLDL, LIPID, CMP #### [facility] [address] [place] [address] Dr. Saul Quispe Chloride [Moles/Vol] 95 mmol/L Critically low 98-107 [facility] Comment on above: Performed By: #### T 7, TSH, DLDL, LIPID, CMP #### [facility] [address] [address] [address] Saul Quispe CO2 [Moles/Vol] 26.1 mmol/L Normal 21.0-32.0 [facility] Comment on above: Performed By: #### T 7, TSH, DLDL, LIPID, CMP #### [facility] [address] [place] [address] Dr. Saul Quispe Creatinine [Mass/Vol] 0.48 mg/dL Critically low 0.55-1.02 [facility] Comment on above: Performed By: #### T 7, TSH, DLDL, LIPID, CMP #### [facility] [address] [place] [address] Dr. Saul Quispe EGFR-AF AUSTRALIAN >60 Normal >=60 [facility] Comment on above: Performed By: #### T 7, TSH, DLDL, LIPID, CMP #### [facility] [address] [place] [address] Dr. Saul Quispe EGFR-NON AF AUSTRALIAN >60 Normal >=60 [facility] Comment on above: Performed By: #### T 7, TSH, DLDL, LIPID, CMP #### [facility] [address] [place] [address] Dr. Saul Quispe Globulin (S) [Mass/Vol] 3.7 g/dL Normal [facility] Comment on above: Performed By: #### T 7, TSH, DLDL, LIPID, CMP #### [facility] [address] [place] [address] Dr. Saul Quispe Glucose [Mass/Vol] 332 mg/dL Critically high 74-106 T [facility] Comment on above: Performed By: #### T 7, TSH, DLDL, LIPID, CMP #### [facility] [address] [place] [address] Dr. Saul Quispe Potassium [Moles/Vol] 3.7 mmol/L Normal 3.5-5.1 [facility] Comment on above: Performed By: #### T 7, TSH, DLDL, LIPID, CMP #### [facility] [address] [address] [address] Saul Quispe Protein [Mass/Vol] 7.4 g/dL Normal 6.4-8.2 [facility] Comment on above: Performed By: #### T 7, TSH, DLDL, LIPID, CMP #### [facility] [address] [place] [address] Dr. Saul Quispe Sodium [Moles/Vol] 136 mmol/L Normal 136-145 [facility] Comment on above: Performed By: #### T 7, TSH, DLDL, LIPID, CMP #### [facility] [address] [place] [address] Dr. Saul Quispe Urea nitrogen [Mass/Vol] 8.0 mg/dL Normal 7.0-18.0 [facility] Comment on above: Performed By: #### T 7, TSH, DLDL, LIPID, CMP #### [facility] [address] [place] [address] Dr. Saul Quispe Urea nitrogen/Creatinine [Mass ratio] 16.7 mg/mg Normal [facility] Comment on above: Performed By: #### T 7, TSH, DLDL, LIPID, CMP #### [facility] [address] [place] [address] Dr. Saul Quispe TSHon 12-13-2022 TSH 2.109 uIU/mL Normal 0.358-3.74 0 [facility] Comment on above: Performed By: #### T 7, TSH, DLDL, LIPID, CMP #### [facility] [address] [place] [address] Dr. Saul Quispe Consultation Noteon 09-23-20 21 Consultation Note [id number]#[id number]:12 7 [facility] IntraOperative Documentson 1 IntraOperative Documents [id number]#[id number]:1 27 [facility] Coding Summary.on 08-21-2021 Coding Summary. CD:[id number] Gh0bW w+PGhlYWQ+RI6FWMGcD95dqCO dnE4VV5rDBL6BIZMJSYVYGC7F UE9xcJN2DZafN3RrvzSi YavgaWWcKI26LYm8CGR3rSfuJ XqirU1dvXXlK6s8QxDpFR17hP 79BPoiEEKbEdQ3TkErpoarbWT y H1csShBnhXGaLby+PHRhYmxlI HdpZHRoPScxMDAlJyBzdHlsZT 2uIw7tXPIdHVBlxNkkrAGpFtJ j w4jlAMIkATtkKV1qrMimK5Jys RO1DGRht5f7Uw29sJX+PHRkIH X5wGmyDJoqt043CoZyf1zeCRM 3 gSFkMJytCKF3Q13hm6C5JENvH AVcVVH9dOF1dV7caJirmkanJ5 UevMRzDoM4QCE1xJLmtG8fjFr n vgjooR3yQvn+E78UJM9UTXTER E3OIfu6Z5RlCwavsJQ+PC90YW RtPS38pBGsdIJpm4nglGo6LzK w ASDhSQO8cVwvXGkww2LkIEPhA 47zfLDri4A3PVQwaYqjqHScDm OyhMU3vN1yCDppnfknu9tlcos n Xsmnu8ytyt59uA07H27eULdtC ZHdRLJ6GTEkRXGezFbaxp0xiI 9wIi8+OOpro6ghv5icgFz3BpH w ZUVbitOrzMklFKQ8a6YyTs43R 7ToaHpnh5EdZpa4cz45vTPhr8 M7sMU2FAgpUQYblL4hTHpgJcD 6 VWAsCqSrpL44bHDjNOooQs3ag RemaOpjUD3jQBKvtaepVKVwtJ 3xUSBoaVKvtJuhIV3yPMTigoj m v779EsLjPHO2GLYrxPIuS4Rfe N0xYvTaBHRdDWMxI2PrdTTcPW cxF377FBanOfZ3TODtdiHhK5O s HWMkdJvvRqS1k3W2Oc2Wp5Djg upyEQZ4GFxlONEkXwM8HpGfWv F9L1TzWpa6KQYubAqnWW9uI6D h HBKlikzlpelurPF9CRKfPOSgi J70mNFpFEvmAx6fk1F2o233LF ObETTpqT09Ag3wmSswSORybRS U oM3xxvzgx0tobrkvUpFzJHAmG Sl9XSa6GQZozSzdSjXgIRF9Py V2EEM3kRWnkN4yeAvxxaataU7 w Oyc+W78raF9vPXF1LLX0crplD NVqhpQnHF97CM98Z3FrRtrjmW FibGU+KIXtkeOrhSbcQX2jIaC j v6ifi5JuXIbkG6KeTMEcZAmxN up4AKNqHAQ0xKM5fC9cCGPgCO xlq3M9zSP3I0DbwnYwng7dd7e s ZBVyDCzdB16bbOOen7U0IJMuf IU6JZXwyTraHbYqkQ98Khh+PG CfiPswk7AlJcvrc5ymw9baeNe 9 JqTkMEKyczOipBlpIWK8b1HaT m08P58jQPxjSLPqAVZaWYYyFT HjbDrcnz0aiT2yUz0+PGNvbCB 3 qHH1fG0iCODaEiH0XWhzJ616E hDotEKeWnmpg9tmi0uhtHz8Qt TfNPXsefMslOfqGKV7z4TvMa9 8 U10xUFcxQSOgNEKtZIJjMWQef Xbcli5thN2pWx9+ZH1oh1clqi 65zU60zTK+NYPwOXN6jQmaDHn w RYIquU6aJHctRoO1HRPhDoNnm F83aVTkLKuuBh8rlHutjBvaQZ 5aDMEmfnjgt221NcCdz2cbUMB w yWHgDCpbTZF7B60lu7S6ZUOiU SMmERR9zDW0fM5xgCjrxwjgjM BgsIcspgKzwInbVUiuHZroX25 6 IHRvcDsnPlBhdGllbnQgTmFtZ Ho0E2FjGag5LYQhgTlfFC4trQ EnBVlvXc9cmAiohAlwRG8bDMN p ijisp563RxCra2vaAXXkqUKmL ZvmAHI9U62aw3T0MCPbDXGqNR R6fWO3fE3vbUoayajflQCkvSs g ikXdkTkhWQuxLPuoV468LCPsn MrfJbXpgiQkONVqaHH2GD24AS 22ePRqm0A7zLZ7V5HdWQEawhh t eermqHD2IUMxZHSlrE48Hd5kj SzpEf0wGDKxFKZ9GRRfmNNeV6 NjxB5zIvYfMRHmSPZrS3AmuBV t ONdqU655IGapOmU2NGWuxiYqS 9XvEAGdnXjxEaQ2v1T1Mo0CS0 S0QY10AO70qSVyl4J7gZG6L9Q h LVBxachkvfxrzBZ1BLUqLYEof K97Qx1sqSfsRl7oYBFzTBR9PL XfqUZsO0DitV1gOtApBVPzUSS w M6HtgORiCIqhS436LUokGqZ4X AYtsiTkA6OaQFYszVpcWsX1t8 H5Xe9VNKk7FC05YT70wAKxj3R 5 lBA6H1EwFBOqegswevynfSA5W YZvBYHmhB72Iq6dpGilWv7wZQ ZmCIM7DDWfwYYcG6OvlQ9iFkR j SFTiJORdZ8OyeAVtACinD029V WuwIaJ4ZLRvjwZbU8SjALZmzG bmBeJ8w1B6Qz1FJJUqQN07IIA 5 cYV1KR36CI39P4KqEohshJHxy +PHRhYmxlIHdpZHRoPScxMD FhHaZkbBbbLS6hHm6vASJbCXC v rLvsnQJgZyYtw4sgBMLlDGdtQ S2wtIniA3UljMN6YJOmy2x8Bk 67F79lA6InvXX+EBFbrYW0fDR 0 lF1uLfBzHaC1MPprH525HhKyp OMjCfubb5xpg4yepBt0UaH5FH WjwhCjaXbbNJS4z0VdPk14F26 s IHdpZHRoPSIxNSUiIHZhbGlnb h8fcC3aBp2+EWWbbPL2qHH8mK 8wCcJwSiI5MPnlW736LzJaxUZ v Eudvp9fnp2hvaLc5MlLdQFHva oGnwPhbSKC5b2TvGn86A4WcbW unq6OqIri5yp91jQRlr4O1qYR 9 Q8HhIDSrcuxovFWyaGdgNM1fP MKnzeizFUHpwS3zXGVnA7r6Sc ZeQzR7HHwnF7EsbbA0JLNeqGT g TTxtOVL5X47ll3Q4MERnJXKlO CH4pJF2yI4ohNjmqrgcbAAbmN pejvEuhEgwJMewEMblY140FWK v lDqvWQRndK4dHTSfrPWjoPnxW A9aDUUpfvppOu2JQ54JIXLWFu wOZHCBAPf4G6EoIln1KBAvpEc s NW2mjJKkMAmuRx2jmWzmmYojW J4lQTAkdkhpHIRppU5gXGHysS VpkOloTR7mSDGllfgwl252AkH x BRT8KNEiiYSaA7XigI6jMdSoT WCbKZLiR8IjdBFrMLykY425FA jmGuQ1VXSmrmHxJ1AaQLSozFz u YkO4z7R1Qu1yGz3eSk4bLNp3A W07AK83kZCox7Y9qKP4P7ZkJE OfavqbipdihJR9ZAPdBMUdyQ1 7 eQYuFNhbKd5rb7U4n310YAIhO BNxtT13Kr9exXaqIXWhnVSWyJ 8mgcbyy1frxxflUyTqQTBwTNm 0 FRp5JHXabXrzGuVcKAL1JhB4P GK2jIGnaH3ujGazysvgtM4kNq c+RVEnJLQymoX8C7SbZqw5TYA z qVxqLL1kvWHfQXryVo8ubGvwz IkeCO9kJSNtpojfVLKgqU5oXA KplGNckJxgJW8pBYKlscnpv40 0 LlXxRIG8MJYemWLnF1CktN0wO kUpYAHrJULxV6YhyVZjUNeiD8 44WFurUbO8WXRbfaNhY3LnJEI s bBocBtL1r8E0Ct6PWN5zfPV5R 0GkZnh5SYUsmXaeIY5tzRHhSV ncKb9jzVgotRejQD3sFTCghcf w PEVvuB2eZOUzqKQvhDlvOS7cX XCzrfrtv393DcVuAAW6EDUzrH KeI1NddN3lUkShRSEyXSYiU1Q l mCUvHBjqT664LSshHlX5ZIUsb gYzT3GbEHWwgNahCwF3x6Y2St 3IwGMtAJDnPS58AZ00RS23Z2H y PjwvdGFibGU+PHRhYmxlIHdpZ WXmCFjkJFVcEmBcqYdeCE6pUo 2uCOCtEVXvkUrpyPRwKcEna5i s TXBnDHnlTK8ntMicF5VqlFN7S LNmz8w2Mt81J23fA8IeeKJ+PG ItmAZ7cAW6uV4qJsSgHnM3CSm p C649VyVfcDWvXpukt5hmb4pnk Hm3ZhZlSMNbffXtyAtyNJF3l9 HwJc99N22kJXweWQUiZQDsQRV i UCQseBotoa4zkX1dAz0+PGNvb FN3vFS7nS6qQqCaTdZ3ZQvpN3 56YeRijEDpFhsdQ56zF5VluYU + XMZyUth7GMBnaXcgEN4xuHNyQ YfgUr0uIJV3NlAtEeNtQHciL2 RfYZEkevkcrwjfdTR0AAWrQUX w bD60Ut2utPifTa9nGZTuFKS7U TDonNVyA8QymO8uKqYwTDQvDR CyH8VruCNvVXxpP901IQskEgZ 7 HKSfzhQtL8HgQQSxgQdzZpA6s 6Z0Vo0NfIxdvOAgUT2aMoPxOT v7I9AdQsw0MGFymEgbGX8ysGG k KQxjMf1xhNcemVvuUF1iEYLsc lzlp697BiHmq1mfUSZbmUFlEK bbQGU1Q10ef9I9AHGuUXVmSBH 7 wAT5yP5rkRnjrvqmpNXhrXagc kBhwPjlGBbsTIglY342VCCttK gtCwXAMxv5A8VrOzx0HBAnvBd s WI1kuRIkUHwtJi7ddJmoqGbmW E9pKMIkbldrz195PyWpb2fcXB GkkGStLQvpJDY9N79am5T6XYS w OTAxQFF4jVC5eZ2kfZbufakwq GVmdDsgdmVydGljYWwtYWxpZ2 47OPAnqDpeAa6ZNnd9O7JiBrw 0 FMJpeCmjFF5enILcEGezFh7uc TwzyNnwRF1nVSPjbdrjo177Tb Bze8sfSNMywMDaWIbqPGI4W23 s z3O1VRZxVEWyVDC1wHZ6uO5ho GlnbjogbGVmdDsgdmVydGljYW ikVRkdZ242OHSzuTvkIeVtxVS y OjwvdGQ+VF58rn45I8PqVxxoX kc3ADFqLHC9vXO3qH9jCSDeOP can3T8mSB5N0JwilBxaz0ox8g s YXBz (more content not included)... Normal [facility] Main OR Intraoperative Recor don 08-20-2021 Main OR Intraoperative Record IntraOp Document Type FT Summary Primary Physician: Pascual CALDERÓN MD Finalized Date/Time: 08/20/21 15:00:41 Pt. Name: ALPHONSO GALE Manisha Carrillo/Sex: 1980 Female Med Rec #: [id number] Physician: Pascual CALDERÓN MD Financial #: [id number] Pt. Type: O Room/Bed: / Admit/Disch: 08/13/21 [...] Pascual Epstein RN, Sudha Quick Role Performed FREIGHT COORDINATOR Surgeon - Primary Video Game Developer - Primary Time In 08/13/21 07:34:00 08/13/21 07:34:00 08/13/21 07:34:00 Time Out 08/13/21 08:01:00 08/13/21 08:01:00 08/13/21 08:01:00 Procedure EGD AND COLONOSCOPY(.) EGD AND COLONOSCOPY(.) EGD AND COLONOSCOPY(.) Comments DR FREEMAN SUPERVISING [facility] STUDENT - OBSERVING Last Modified By: Lucian [...] and tissue Entry 1 Skin Integrity Intact, Tillar, Warm, and Skin Abnormality No Dry Outcomes [...] Leg Po (more content not included)... Normal [facility] Postoperative Documentson Postoperative Documents [id number]#1.00CD:1 27 Normal [facility] Progress Note-Physicianon Progress Note-Physician Patient: ALPHONSO GALE [...] 0, Control of stomach acid Potassium Chloride (Xic-Nykh-Veo M10) 10 mEq oral tablet, extended release: [...] All Problems HTN (hypertension) / SNOMED CT 5595441157 / Confirmed Diabetes / SNOMED CT 307458006 / Confirmed Epigastric pain / SNOMED CT 700546367 / Confirmed Vitamin deficiency / SNOMED CT 772771959 / Confirmed Neuropathy / SNOMED CT 3655442082 / Confirmed Change in bowel habits / SNOMED CT 348665234 / Confirmed BMI 50.0-59.9, adult / SNOMED CT 5578715919 / Confirmed Abnormal abdominal CT scan / SNOMED CT 9479495043 / Confirmed GERD (gastroesophageal reflux disease) / SNOMED CT 883033451 / Confirmed Chronic GERD / SNOMED CT 212988343 / Confirmed Edema / SNOMED CT 662039876 / Confirmed Abdominal pain, LLQ / SNOMED CT 329811118 / Confirmed Hypokalemia / SNOMED CT 21492929 / Confirmed Histories Past Medical History: No active or resolved past medical history items have been selected or recorded. Procedure history: Closed fracture of lower jaw bone (1157900491). Extraction of wisdom tooth (207762728). section (43179736). Cholecystectomy (79026906). Abdominal hysterectomy (858374428). Social History Social & Psychosocial Habits Alcohol [...] review: No qualifying data available . Plan [place] [employer] Anesthesiologists (ASA) physical status classification: [...] and lungs, allergic reactions, and .. Normal [facility] Comment on above: Result Comment: Elec tronically [...] All Problems HTN (hypertension) / SNOMED CT 0173741537 / Confirmed Diabetes / SNOMED CT 070886092 / Confirmed Epigastric pain / SNOMED CT 621879909 / Confirmed Vitamin deficiency / SNOMED CT 027386179 / Confirmed Neuropathy / SNOMED CT 5452857578 / Confirmed Change in bowel habits / SNOMED CT 757772579 / Confirmed BMI 50.0-59.9, adult / SNOMED CT 1150913902 / Confirmed Abnormal abdominal CT scan / SNOMED CT 3041517752 / Confirmed GERD (gastroesophageal reflux disease) / SNOMED CT 729257225 / Confirmed Chronic GERD / SNOMED CT 793605641 / Confirmed Edema / SNOMED CT 623802606 / Confirmed Abdominal pain, LLQ / SNOMED CT 731336827 / Confirmed Hypokalemia / SNOMED CT 25104665 / Confirmed Physical Examination Intake and Output [...] PACU when criteria met. Condition good. Normal [facility] Comment on above: Result Comment: Elec tronically Signed By: Ramin Freeman MD\.br\Date and Time Signed: 08/16/21 14:50 EDT Reminderson 08-14-2021 Reminders - From: Kiana Burnett LPN To: [facility] - Clinical; Sent: 08/14/2021 10:10:39 EDT Show up: 07/14/2031 09:00:00 EDT Subject: colonoscopy recall Due Date/Time: 08/13/2031 09:00:00 EDT Reminder/Recall Patient is due for screening colonoscopy 08/13/2031. Normal [facility] Colonoscopy Procedure Report on 08-13-2021 Colonoscopy Procedure [...] place. Impression and Plan Diagnosis: Redundant colon (ZVX01-ME Q43.8, Discharge, Medical). Course: Progressing as expected. Recommendations: Repeat colonoscopy:: In 10 years. Follow-up:: Await biopsy results in 3-5 days. Diet:: Regular diet. Medication resumption:: Continue current medications. Return to activities:: After 24 hours. Normal [facility] Consenton 08-13-2021 Consent [id number]#1.00CD:1 27 Normal [facility] Discharge Instructionson Discharge Instructions [id number]#1.00CD:1 27 Normal [facility] EGDon 08-13-2021 Esophagogastroduodenoscop y Patient: ALPHONSO GALE [...] and Plan EGD: Diagnosis: Bile reflux gastritis (NCW74-WE K29.60, Discharge, Medical). Course: Progressing as expected. Education and Follow-up: Counseled: Family. Normal [facility] Inpatient Patient Summaryon 08-13-2021 Inpatient Patient Summary (Inserted Imag e. Unable to display) [place] [id number] [facility] Clinical Discharge Instructions PERSON INFORMATION Name: ALPHONSO GALE PHYSICIANS Admitting Physician: Pascual CALDERÓN MD Attending Physician: Pascual CALDERÓN MD PCP: Kobe FREITAS, Gabino Discharge Diagnosis: Bile reflux gastritis; Redundant colon Comment: PATIENT EDUCATION INFORMATION Instructions: Medication Leaflets: Follow up: With: Address: When: Pascual CALDERÓN [address], [address], [facility] [address] [place] [address] Business (1) Within 7 to 10 days [...] Mouth every day. potassium chloride (Potassium Chloride (Ngf-Crdt-Fse M10) 10 mEq oral tablet, extended release) 1 Tablets By Mouth 2 times a day. terbinafine (terbinafine 250 mg Tab) 1 Tablets By Mouth every day. tizanidine (tiZANidine 4 mg Tab) 1 Tablets By Mouth at bedtime. No Longer Take the Following Medications hyoscyamine (hyoscyamine Sublingual) Comment: Normal [facility] IntraOperative Documentson 1 IntraOperative Documents [id number]#1.00CD:1 27 Normal [facility] Main OR PACU I Recordon 08-03 Main OR PACU I Record PACU Phase I Docum ent Type FT Summary Primary Physician: Pascual CALDERÓN MD Finalized Date/Time: 08/13/21 08:15:13 Pt. Name: ALPHONSO GALE/Sex: 1980 Female Med Rec #: [id number] Physician: Pascual CALDERÓN MD Financial #: [id number] Pt. Type: O Room/Bed: / Admit/Disch: 08/13/21 [...] Signed By: Deepti Goodwin RN 08/13/21 08:15 [facility] Main OR Preoperative Recordo n 08-13-2021 Main OR Preoperative Record Holding Area Document Type FT Summary Primary Physician: Pascual CALDERÓN MD Finalized Date/Time: 08/13/21 07:07:45 Pt. Name: ALPHONSO GALE /Sex: 1980 Female Med Rec #: [id number] Physician: Pascual CALDERÓN MD Financial #: [id number] Pt. Type: O Room/Bed: / Admit/Disch: 08/13/21 [...] By: Ronni Rossi RN 08/13/21 07:07 Normal [facility] Monitor Recordon 08-13-2021 Monitor Record [id number]#1.00CD:1 27 Normal [facility] Monitor Record [id number]#1.00CD:1 27 Normal [facility] Outpatient Surgery Discharge Instructionon 08-13-2021 Outpatient Surgery Discharge Instruction [address] [address] Patient Discharge Instructions PERSON INFORMATION [...] Follow up: With: Address: When: Pascual CALDERÓN [address] [place], [place] [address]miguel, [facility] [address] [address] Business (1) Within 7 to 10 days [...] to serve you. Thank you for choosing [facility] HERE ARE THE MEDICATION CHANGES THAT OCCURRED [...] Mouth every day. potassium chloride (Potassium Chloride (Ncp-Vmtr-Nft M10) 10 mEq oral tablet, extended release) 1 Tablets By Mouth 2 times a day. terbinafine (terbinafine 250 mg Tab) 1 Tablets By Mouth every day. tizanidine (tiZANidine 4 mg Tab) 1 Tablets By Mouth at bedtime. No Longer Take the Following Medications hyoscyamine (hyoscyamine Sublingual) PATIENT EDUCATION INFORMATION Instructions: Medication Leaflets: [facility] Patient Education - Texton 1 Patient Education - Text [facility] Pre-Certification Formon Pre-Certification Form [id number]#1.00CD:1 27 [facility] [facility] July 25, 2021 Gabino Kobe, [address] [facility] [place] [address] [place] [address] Re: ALPHONSO GALE Date of : 1980 [...] persist. Sincerely, Pascual Calderón MD General Surgery [facility] Consent for Procedure/Surger yon 07-12-2021 Consent for Procedure/Surgery [id number]#1.00CD:12 7 [facility] Ambulatory Clinical Summaryo n 07-10-2021 Ambulatory Clinical Summary {[id number]}C [id number] [facility] RAD - CT Reporton 07-05-[address] - [address] Report [id number]#1.00CD:12 7 [facility] RAD - MISCon 07-05-2021 RAD - MISC [id number]#1.00CD:12 7 [facility] Physician Referralon 021 Physician Referral [id number]#1.00CD:12 7 [facility] Vital Signs Date Time Vital Sign Value Performing Clinician Facility 08-31-2021 16:55-0400 Body height 175.26 cm Porsche Carval[facility] Other [facility] Other 08-31-2021 16:55-0400 Body mass index (BMI) [Ratio] 49.76 kg/m2 [facility] Carval[facility] Other [facility] Other 08-31-2021 16:55-0400 Body temperature 97.9 [degF] [facility] Car[facility] Other [facility] Other 08-31-2021 16:55-0400 Body weight 152.86 kg Porsche Carvalho Other [facility] Other 08-31-2021 16:55-0400 Diastolic blood pressure 84 mm[Hg] [facility]orsche Carval[facility] Other [facility] Other 08-31-2021 16:55-0400 Respiratory rate 18 /min Porsche Carvalho Other [facility] Other 08-31-2021 16:55-0400 SaO2% (BldA) [Mass fraction] 96 % [facility]orsche Carval[facility] Other [facility] Other 08-31-2021 16:55-0400 Systolic blood pressure 145 mm[Hg] [facility] Car[facility] Other [facility] Other Encounters Encounter Date Encounter Type Care Provider Facility Start: 05-03-2025 End: 05-03-2025 Patient encounter procedure Corey Nguyen MD -Lab [address] Work Phone: Start: 05-03-2025 End: 05-03-2025 ambulatory Gabino Bullock MD Work Phone: [facility] Work Phone: Start: 12-13-2022 End: 12-14-[address] GABINO BULLOCK Facility:[facility] Start: 06-27-[address] GABINO BULLOCK Facility :[facility] Start: 08-31-2021 Office outpatient vi sit 15 minutes Porsche Carvalho [facility] Plan of Treatment Date Care Activity Detail Author Start: 05-03-2025 Bacteria identified in Urine by Culture Urine Culture [facility] Start: 05-03-2025 Aldolase measurement [facility] Start: 05-03-2025 Antibody to Scl-70 measurement [facility] Start: 05-03-2025 Hemolytic complement CH50 level [facility] Start: 05-03-2025 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 [facility] Start: 05-03-2025 Urine culture [facility] Start: 05-03-2025 [facility] 24 hour urine measurement [facility] Actin smooth muscle IgG Ab [Units/volume] in Serum [facility] Adenosine monophosph ate.cyclic [Moles/volume] in Serum or Plasma [facility] Albumin [Mass/volume ] in Serum or Plasma [facility] Albumin/Globulin ratio [facility] Beta 2 glycoprotein 1 IgG Ab [Units/volume] in Serum [facility] Beta 2 glycoprotein 1 IgM Ab [Units/volume] in Serum [facility] Cardiolipin IgA Ab [Units/volume] in Serum by Immunoassay [facility] Cardiolipin IgG Ab [Units/volume] in Serum by Immunoassay [facility] Cardiolipin IgM Ab [Units/volume] in Serum by Immunoassay [facility] Centromere protein B Ab [Units/volume] in Serum [facility] Chromatin Ab [Units/ volume] in Serum or Plasma [facility] Complement C3 [Mass/ volume] in Serum or Plasma [facility] Complement C4 [Mass/ volume] in Serum or Plasma [facility] Electrophoresis: caddc-4-lwxvzpox [facility] Electrophoresis: haveg-3-hxthcoxn [facility] Electrophoresis: beta-globulin [facility] Electrophoresis: neva ma globulin [facility] Globulin [Mass/volum e] in Serum [facility] Histone IgG Ab [Unit s/volume] in Serum by Immunoassay [facility] Homogenous nuclear A b pattern [Titer] in Serum [facility] IgA [Mass/volume] in Serum or Plasma [facility] IgG [Mass/volume] in Serum or Plasma [facility] IgM [Mass/volume] in Serum or Plasma [facility] Immunofixation for Urine [facility]-1 extractable nuc lear Ab [Units/volume] in Serum [facility] Lupus anticoagulant [Interpretation] in Platelet poor plasma [facility] Measurement of monoc lonal protein concentration [facility] Mitochondria M2 IgG Ab [Units/volume] in Serum [facility] Nuclear Ab [Titer] in Serum [facility] Protein [Mass/volume ] in Serum or Plasma [facility] Protein [Mass/volume] in Urine [facility] Reagin Ab [Presence] in Serum by RPR [facility] Rheumatoid factor [Units/volume] in Serum or Plasma [facility] Serum immunofixation [facility] Sjogrens syndrome-A extractable nuclear Ab [Units/volume] in Serum [facility] Sjogrens syndrome-B extractable nuclear Ab [Units/volume] in Serum [facility] José extractable nu clear Ab [Units/volume] in Serum [facility] Thrombin time [facility] Thyroglobulin Ab [Units/volume] in Serum or Plasma [facility] Thyroperoxidase Ab [Units/volume] in Serum or Plasma [facility] Payers Date Payer Category Payer Self-pay [id number] Unknown [id number] 1980 Unknown [id number] 1980 Unknown [id number] 1960 Private Health Insurance [id number] 1960 Self-pay [id number] [facility] CBN [id number] Unknown [id number] Social History Date Type Detail Facility Unknown if ever smoked [facility] Other Sex Assigned At Sex Assigned At Bir th [facility] Other Tobacco smoking status NHIS Unknown if ever smoked [facility] Work Phone: Sex Female (finding) [facility] Start: 1980 Sex Assigned At Female F [facility] Evaluation note 08-31-2021 Note Date & Type [...] your family physician if no improvement in [facility] Other History and physical note 08-13-2021 Note Date & Type Note Facility 08-13-2021 Note [id number]#1.00CD:127 [facility] History and physical note 08-13-2021 Note Date & Type Note Facility 08-13-2021 Note Patient: NENA GALE Age: 41 years Sex: Female : 1980 Associated Diagnoses: None Author: Pascual CALDERÓN MD Subjective no changes to H & P [facility] Comment on above: Result Comment: Elec tronically [...] Oral, BID Pa (more content not included)... [facility] Comment on above: Result Comment: Marcin meltonally [...] including vitamins, herbs, eye drops, creams, and cddg-jej-wfkmlcg medicines. ? Any problems you or family [...] tells you to take them. ? Taking mrvg-jnu-xrzsveb medicines, vitamins, herbs, and supplements. General instructions [...] Released: 10/17/2001 [employer] (more content not included)... [facility] Evaluation note Note Date & Type Note Facility Evaluation note No assessment information availa ble [facility] Work Phone: History general Narrative - Reported Note Date & Type Note Facility History general Narrative - Reported Type Medical History scleroderma Medical History DM Surgical History partial hysterectomy Surgical History C section Surgical History cholecystectomy Surgical History jaw Hospitalization History see above [facility] Other Reason for referral (narrative) Note Date & Type Note Facility Reason for referral (narrative) No reason for referral information available [facility] Work Phone: Summary Purpose Family History No [...] section and content) DATE CREATED AUTHOR 09/23/2021 [facility] DATE CREATED AUTHOR AUTHOR'S ORGANIZ ATION 12/16/2022 [facility] DATE CREATED AUTHOR AUTHOR'S ORGANIZ ATION 05/22/2025 [facility] REASON FOR VISIT (unrecogniz ed section and content) BOIL ON BACKSIDE Care Teams (unrecognized sec tion and content) Team Status: Active Member Role Status Dates Gabino Blulock MD Primary Care Provider Active Team Status: [...] BE BASED ON THE PRIMARY CLINICAL RECORDS. [facility]. provides no warranty or guarantee of the accuracy or completeness of information in this document.
== END 2025-06-30 11:40 | disposition home or self-care (01) ==
LOC: RAD 11:40
PROVIDERS: PCP Family Medicine; Visit Provider Family Medicine
DX: R07.89 Other chest pain (principal)
CPT/HCPCS: 71046; 71100

== ENCOUNTER 2025-09-14 07:20 | Outpatient (OUT) | payer OTHER, SELFPAY ==
--- OUTSIDE RECORDS SUMMARY | 2025-09-14 07:25 | XMS_ITS | CCD ---
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 Name Role Phone Porsche Carvalho Unavailable DR GABINO BULLOCK Admitting Unavailable DR GABINO BULLOCK Attending Unavailable DR GABINO BULLOCK Primary Care Unavailable DR GABINO BULLOCK Admitting Unavailable DR GABINO BULLOCK Attending Unavailable DR GABINO BULLOCK Primary Care Unavailable DR GABINO BULLOCK Consulting Unavailable Gabino Bullock MD Primary Care Provider [phone] Corey Nguyen MD Attending Provider Corey Nguyen Attending Unavailable Corey Nguyen Admitting Unavailable Gabino Bullock Primary Care Unavailable Unavailable Primary Care Provider UnavailFRANSISCO French Attending Unavailable Allergies Allergy ClassificationReported Allergen(s)Allergy TypeDate of OnsetReaction(s) Facility (1 source)EggPropensity to adverse reactionsL[facility] Other (1 source)egg extractDrug Efagjwn87-07-5194ZcdsmbteiRiverside [facility] Hospital Repository Medications Current Medications MedicationDrug Class(es)DatesSig (Normalized)Sig (Original)[id number] 200 actuat albuterol 0.09 mg/actuat metered dose inhaler (1 source)beta2-Adrenergic AgonistStart: 78-78-5100wmee 2 puff(s) by inhalation every four hours as neededAlbuterol Sulfate HFA 108 (90 Base) MCG/ACT 2 puffs as needed Inhalation every 4 hrs for 30 days 2019 Activeamitriptyline hydrochloride 150 mg oral tablet (2 sources)Tricyclic AntidepressantStart: 25-67-9991ybmh 1 tablet by mouth at bedtimeamitriptyline (Elavil) 150 MG tablet Take 150 mg by mouth at bedtime 07/21/2025 Activecephalexin 500 mg oral capsule (1 source)Cephalosporin AntibacterialStart: 86-48-6751ucnz 1 capsule by mouth every six hoursCephalexin 500 MG 1 capsule Orally Four times a day for 10 day(s) Aug, Activedexamethasone 6 mg oral tablet (1 source)CorticosteroidStart: 87-60-2323mbty 1 tablet by mouth every twenty- four hoursDexamethasone 6 MG 1 tablet Orally Once a day for 5 days Oct, ActiveEtodolac (1 source)Nonsteroidal Anti-inflammatory DrugEtodolac Activefolic acid 2.5 mg / pyridoxine 25 mg / vitamin b12 1 mg oral tablet (2 sources)Vitamin E74Uklqt: 08-04-2025 End: 73-01-8626hdvnh acid-vit B6-vit B12 2.5-25-1 MG tablet tablet Indications: Idiopathic progressive neuropathy Take 1 tablet by mouth Daily 30 tablet 11 08/04/2025 09/03/2025 Activefurosemide 80 mg oral tablet (3 sources)Loop DiureticStart: 61-27-5590uytj 1 tablet by mouth once daily furosemide (Lasix) 80 MG tablet Take 80 mg by mouth Daily 07/21/2025 Active Furosemide ActivemetFORMIN hydrochloride 1000 mg oral tablet (3 sources)BiguanideStart: 82-84-7326zjzw 1 tablet by mouth in the morning metFORMIN (Glucophage) 1000 MG tablet Take 1,000 mg by mouth in the morning and 1,000 mg before bedtime. 07/21/2025 ActivemetFORMIN HCl Activemetoprolol tartrate 100 mg oral tablet (3 sources)beta-Adrenergic BlockerStart: 30-84-1072mset 2 tablets by mouth in the morningmetoprolol tartrate (Lopressor) 100 MG tablet Take 200 mg by mouth in the morning and 200 mg beforebedtime. 07/21/2025 ActiveMetoprolol Tartrate Activemicroencapsulated potassium chloride 10 meq extended release oral tablet (2 sources)Start: 70-43-1906qdnm 1 tablet by mouth in the morningpotassium chloride CR (Klor-Con M10) 10 MEQ ER tablet Take 10 mEq by mouth in the morning and 10 mEq in the evening. Take with meals. 07/21/2025 Activepregabalin 200 mg oral capsule (2 sources)Start: 08-04-2025 End: 64-31-5576ctkx 1 capsule by mouth in the morning, then take 1 capsule by mouth in the evening, then take 1 capsule by mouth at bedtimepregabalin (Lyrica) 200 MG capsule Indications: Idiopathic progressive neuropathy Take 1 capsule (20 0 mg) by mouth in the morning and 1 capsule (200 mg) in the evening and 1 capsule (200 mg) before bedtime. 90 capsule 2 08/04/2025 09/03/2025 Active SITagliptin 100 mg oral tablet (2 sources)Dipeptidyl Peptidase 4 InhibitorStart: 50-10-3230Orzzwab 100 MG tablet 08/03/2025 Activesulfamethoxazole 800 mg / trimethoprim 160 mg oral tablet (1 source)Dihydrofolate Reductase Inhibitor Antibacterial, Sulfonamide AntimicrobialStart: 29-18-9129fwat 1 tablet by mouth every twelve hoursBactrim DS 800-160 MG 1 tablet Orally Twice a day for 10 day(s) Aug, Active tiZANidine 4 mg oral tablet (3 sources)Central alpha-2 Adrenergic AgonistStart: 25-47-0876ymNVDefvej (Zanaflex) 4 MG tablet Take 4 mg by mouth as needed at bedtime 07/21/2025 Active tiZANidine HCl Active Completed/Discontinued Medications MedicationDrug Class(es)DatesSig (Normalized)Sig (Original)gabapentin 600 mg oral tablet (2 sources)Anti-epileptic AgentStart: 08-03-2025 End: 69-22-5256vxpukvsfzb (Neurontin) 600 MG tablet 08/03/2025 08/04/2025 Discontinued (Therapy completed) Problems Active Problems Problem ClassificationProblemDateDocumented DateEpisodic/ChronicDeficiency and other anemia (1 source)Anemia, unspecified; Translations: [ANEMIA UNSPECIFIED]Onset: 01-99-2627WmsfhrhhHpwffkqj mellitus without complication (3 sources)Type 2 diabetes mellitus without complications; Translations: [Diabetes mellitus]Onset: 357254-23-5167CkqxxlaGkroqgxcjv disorders (2 sources)Gastroesophageal reflux disease; Translations: [Gastro-esophageal reflux disease without esophagitis]Onset: 039370-02-0503ClkxcpkVtktcidsw hypertension (3 sources)Essential (primary) hypertension; Translations: [Hypertensive disorder]Onset: 696268-25-5147GbujwauOfxnnbnfllkgg and screening for infectious disease (1 source)Raised antibody titer; Translations: [Raised antibody titer]Onset: 51-06-4659GjaxcqhuXdaqu nervous system disorders (4 sources)Neuropathy; Translations: [Idiopathic progressive neuropathy]Onset: 370736-48-3093QjbktkzAjxba nutritional; endocrine; and metabolic disorders (4 sources)Overweight; Translations: [OVERWEIGHT]Onset: 75-72-4258NhvywhoxDyhor screening for suspected conditions (not mental disorders or infectious disease) (3 sources)Encounter for screening for malignant neoplasm of rectum; Translations: [CT of abdomen abnormal]Onset: 257607-09-2915Fyjsspbh Past or Other Problems Problem ClassificationProblemDateDocumented DateEpisodic/ChronicAbdominal pain (4 sources)Epigastric pain; Translations: [Epigastric pain]Onset: 09-04-2021 36-92-8799NsiarrexBtihw and electrolyte disorders (2 sources)Hypokalemia; Translations: [Hypokalemia]Onset: EpisodicNutritional deficiencies (2 sources)Vitamin deficiency; Translations: [Vitamin deficiency, unspecified] Onset: 991192-59-4743QpqiqpktBjsbe gastrointestinal disorders (2 sources)Altered bowel function; Translations: [Other specified symptoms and signs involving the digestive system and abdomen]Onset: EpisodicResidual codes; unclassified (2 sources)Edema; Translations: [Edema, unspecified]Onset: EpisodicSkin and subcutaneous tissue infections (1 source)Cutaneous abscess of buttock; Translations: [Abscess of buttock, right L02.31]Onset: 08-31-2021 Resolved: 55-19-3802Rwmhqrqn Results Test NameValueInterpretationReference RangeFacilityANA Antinuclear Antibodieson 44-17-3789Igskobndfgx Abs, IFANegativeNormal.The [facility] Comment on above:Result Comment: Negative <1:80 Borderline 1:80 Positive >1:80 ICAP nomenclature: AC-0 For more information about Hep-2 cell patterns use ANApatterns.org, the official website for the International Consensus on Antinuclear Antibody (TONNY) Patterns (ICAP). Performed at: [address] [id number] Consulting Analyst: Gregorio Martinez PhD, Phone: [phone] By: #### SSB, SSA, MITOM2, C3, JO1, JOSÉ, ADNA, CH50, HISAB, B2 GLYPROT, THYGLOB AB, TONNY, C4, ANTIR, CARDIO GMA, CCP, CENTROME, RA, [id number], SMAB, CHROMATIN, TPO #### [facility] ,Alanine aminotransferase [Enzymatic activity/volume] in Serum or PlasmaOrdered By: Corey Nguyen on 92-36-2353HHG [Catalytic activity/Vol]77 U/LHigh7-52 [facility] HospitalComment on above:Performed By: #### SSB, SSA, MITOM2, C3, JO1, JOSÉ, ADNA, CH50, HISAB, B2 GLYPROT, THYGLOB AB, TONNY, C4, ANTIR, CARDIO GMA, CCP, CENTROME, RA, [id number], SMAB, CHROMATIN, TPO #### [facility] ,Albumin [Mass/volume] in Serum or Plasma by Bromocresol green (BCG) dye binding methoOrdered By: Corey Nguyen on 24-14-4714Ywlndhh BCG dye [Mass/Vol]4.7 g/dL 3.5-5.7FHarrison Community HospitalAldolaseon 88-49-3681Mouqfiea8.0 U/L Normal3.3-10.3The [facility] Physician GroupComment on above:Result Comment: Performed at: [address] [id number] Consulting Analyst: Gregorio Martinez PhD, Phone: [phone] PERFORMED BY: [address] [place] [address] PATHOLOGIST EDUCATIONAL ASSISTANT MIAKL KILPATRICK M.D.Performed By: #### SSB, SSA, MITOM2, C3, JO1, JOSÉ, ADNA, CH50, HISAB, B2 GLYPROT, THYGLOB AB, TONNY, C4, ANTIR, CARDIO GMA, CCP, CENTROME, RA, [id number], SMAB, CHROMATIN, TPO #### [facility] ,Alkaline phosphatase [Enzymatic activity/volume] in Serum or PlasmaOrdered By: Corey Nguyen on 91-88-8866WSA [Catalytic activity/Vol]93 U/EPtkdtx86-397 [facility] HospitalComment on above:Performed By: #### SSB, SSA, MITOM2, C3, JO1, JOSÉ, ADNA, CH50, HISAB, B2 GLYPROT, THYGLOB AB, TONNY, C4, ANTIR, CARDIO GMA, CCP, CENTROME, RA, [id number], SMAB, CHROMATIN, TPO #### [facility] ,Anti-Centromere B Antibodieson 93-46-0076Nosb-Centromere B Antibodies<0.2Normal 0.0-0.9The [facility] GroupComment on above:Result Comment: Performed at: [address] [id number] Consulting Analyst: Gregorio Martinez PhD, Phone: [phone] By: #### SSB, SSA, MITOM2, C3, JO1, JOSÉ, ADNA, CH50, HISAB, B2 GLYPROT, THYGLOB AB, TONNY, C4, ANTIR, CARDIO GMA, CCP, CENTROME, RA, [id number], SMAB, CHROMATIN, TPO #### [facility] ,Anti-RNPon 14-68-9883Oloz-MAINTAINER SEWER AND WATERWORKS<0.7Lycqsk9.0-0.9The [facility] Comment on above:Performed By: #### SSB, SSA, MITOM2, C3, JO1, JOSÉ, ADNA, CH50, HISAB, B2 GLYPROT, THYGLOB AB, TONNY, C4, ANTIR, CARDIO GMA, CCP, CENTROME, RA, [id number], SMAB, CHROMATIN, TPO #### [facility] ,Anti-José Antibodieson 42-11-0873Dfji-José Antibodies<0.0Zpmsss7.0-0.9The [facility] Physician GroupComment on above:Performed By: #### SSB, SSA, MITOM2, C3, JO1, JOSÉ, ADNA, CH50, HISAB, B2 GLYPROT, THYGLOB AB, TONNY, C4, ANTIR, CARDIO GMA, CCP, CENTROME, RA, [id number], SMAB, CHROMATIN, TPO #### [facility] ,Anti-dsDNA(DBL)Abon 55-80-5071Kpcn-dsDNA(DBL)Ab<9Bpyynr7-2Vrm [facility] Physician GroupComment on above:Result Comment: Negative <5 Equivocal 5 - 9 Positive >9Performed By: #### SSB, SSA, MITOM2, C3, JO1, JOSÉ, ADNA, CH50, HISAB, B2 GLYPROT, THYGLOB AB, TONNY, C4, ANTIR, CARDIO GMA, CCP, CENTROME, RA, [id number], SMAB, CHROMATIN, TPO #### [facility] ,Anticardiolipin IgG/M/A, Qnon 89-02-5377Klfnmevdnjxeaaa Ab, IgA,Qn<6Pwfuzm7-62 The [facility] Physician GroupComment on above:Result Comment: Negative: <12 Indeterminate: 12 - 20 Low-Med Positive: >20 - 80 High Positive: >80Performed By: #### SSB, SSA, MITOM2, C3, JO1, JOSÉ, ADNA, CH50, HISAB, B2 GLYPROT, THYGLOB AB, TONNY, C4, ANTIR, CARDIO GMA, CCP, CENTROME, RA, [id number], SMAB, CHROMATIN, TPO #### [facility] ,Anticardiolipin Ab, IgG,Qn<7Zwxuuy4-27Cze [facility] Physician GroupComment on above:Result Comment: Negative: <15 Indeterminate: 15 - 20 Low-Med Positive: >20 - 80 High Positive: >80Performed By: #### SSB, SSA, MITOM2, C3, JO1, JOSÉ, ADNA, CH50, HISAB, B2 GLYPROT, THYGLOB AB, TONNY, C4, ANTIR, CARDIO GMA, CCP, CENTROME, RA, [id number], SMAB, CHROMATIN, TPO #### [facility] ,Anticardiolipin Ab, IgM,Qn<6Hbfwaq0-96Twh [facility] Physician GroupComment on above:Result Comment: Negative: <13 Indeterminate: 13 - 20 Low-Med Positive: >20 - 80 High Positive: >80Performed By: #### SSB, SSA, MITOM2, C3, JO1, JOSÉ, ADNA, CH50, HISAB, B2 GLYPROT, THYGLOB AB, TONNY, C4, ANTIR, CARDIO GMA, CCP, CENTROME, RA, [id number], SMAB, CHROMATIN, TPO #### [facility] ,Antithyroglobulin Abon 36-07-3884Xhrvonntladggvtcw Ab1.2Svkzoj2.0-0.9The [facility] Physician GroupComment on above:Result Comment: Thyroglobulin Antibody measured by [employer] Methodology It should be noted that the presence of thyroglobulin antibodies may not be pathogenic nor diagnostic, especially at very low levels. The assay supervisor power reactor has found that four percent of individuals without evidence of thyroid disease or autoimmunity will have positive TgAb levels up to 4 IU/mL. Performed at: [address] [id number] Consulting Analyst: Gregorio Martinez PhD, Phone: [phone] By: #### SSB, SSA, MITOM2, C3, JO1, JOSÉ, ADNA, CH50, HISAB, B2 GLYPROT, THYGLOB AB, TONNY, C4, ANTIR, CARDIO GMA, CCP, CENTROME, RA, [id number], SMAB, CHROMATIN, TPO #### [facility] ,Appearance of UrineOrdered By: Corey Nguyen on 55-64-1194Mhpcbqamzh (U)Clear NormalCleMercy Health Perrysburg HospitalComment on above:Order Comment: Name Collection Type:: Clean-Voided MidstreamPerformed By: #### SSB, SSA, MITOM2, C3, JO1, JOSÉ, ADNA, CH50, HISAB, B2 GLYPROT, THYGLOB AB, TONNY, C4, ANTIR, CARDIO GMA, CCP, CENTROME, RA, [id number], SMAB, CHROMATIN, TPO #### [facility] ,Aspartate aminotransferase [Enzymatic activity/volume] in Serum or Plasma Ordered By: Corey Nguyen on 11-82-7968VQN [Catalytic activity/Vol]48 U/LHigh 13-39[facility] HospitalComment on above:Performed By: #### SSB, SSA, MITOM2, C3, JO1, JOSÉ, ADNA, CH50, HISAB, B2 GLYPROT, THYGLOB AB, TONNY, C4, ANTIR, CARDIO GMA, CCP, CENTROME, RA, [id number], SMAB, CHROMATIN, TPO #### [facility] ,Bacteria [Presence] in Urine by AutomatedOrdered By: Corey Nguyen on 44-17-5042Ukggkies Auto Ql (U)Rare [HPF]None SeenRiverside Methodist HospitalBasophils [#/volume] in Blood by Automated countOrdered By: Corey Nguyen on 37-60-7039Niagkqzhp (Bld) [#/Vol]0.1 10*3/uLNormal0.0-0.2FHarrison Community HospitalComment on above:Performed By: #### SSB, SSA, MITOM2, C3, JO1, JOSÉ, ADNA, CH50, HISAB, B2 GLYPROT, THYGLOB AB, TONNY, C4, ANTIR, CARDIO GMA, CCP, CENTROME, RA, [id number], SMAB, CHROMATIN, TPO #### [facility] ,Basophils/100 leukocytes in Blood by Automated countOrdered By: Corey Nguyen on 39-03-3568Yslaligib/100 WBC (Bld)1.3 %Normal.[facility] HospitalComment on above:Performed By: #### SSB, SSA, MITOM2, C3, JO1, JOSÉ, ADNA, CH50, HISAB, B2 GLYPROT, THYGLOB AB, TONNY, C4, ANTIR, CARDIO GMA, CCP, CENTROME, RA, [id number], SMAB, CHROMATIN, TPO #### [facility] ,Beta 2 Glycoprotein I Ab IgG/Mon 91-74-3417Wxyy 2 Glycoprotein I Ab, IgG<9 Normal0-20The [facility] Physician GroupComment on above:Result Comment: Result Units: GPI IgG units The reference interval reflects a 3SD or 99th percentile interval, which is thought to represent a potentially clinically significant result in accordance with the International Consensus Statement on the classification criteria for definitive antiphospholipid syndrome (APS). J Thromb Haem 2006;4:295-306.Performed By: #### SSB, SSA, MITOM2, C3, JO1, JOSÉ, ADNA, CH50, HISAB, B2 GLYPROT, THYGLOB AB, TONNY, C4, ANTIR, CARDIO GMA, CCP, CENTROME, RA, [id number], SMAB, CHROMATIN, TPO #### [facility] ,Beta 2 Glycoprotein I Ab, IgM<1Wpkuxc5-03Bsp [place] [facility] Merit Health NatchezComment on above:Result Comment: Result Units: GPI IgM units The reference interval reflects a 3SD or 99th percentile interval, which is thought to represent a potentially clinically significant result in accordance with the International Consensus Statement on the classification criteria for definitive antiphospholipid syndrome (APS). J Thromb Haem 2006;4:295-306.Performed By: #### SSB, SSA, MITOM2, C3, JO1, JOSÉ, ADNA, CH50, HISAB, B2 GLYPROT, THYGLOB AB, TONNY, C4, ANTIR, CARDIO GMA, CCP, CENTROME, RA, [id number], SMAB, CHROMATIN, TPO #### [facility] ,Bilirubin Test strip Ql (U)Ordered By: Corey Nguyen on 86-08-8051Lrvohtsrk Ql (U)NegativeNegativeRiverside Methodist HospitalBilirubin.total [Mass/volume] in Serum or PlasmaOrdered By: Corey Nguyen on 05-03-2025 Bilirubin [Mass/Vol]0.7 mg/dLNormal0.3-1.0[facility] Comment on above:Performed By: #### SSB, SSA, MITOM2, C3, JO1, JOSÉ, ADNA, CH50, HISAB, B2 GLYPROT, THYGLOB AB, TONNY, C4, ANTIR, CARDIO GMA, CCP, CENTROME, RA, [id number], SMAB, CHROMATIN, TPO #### [facility] ,C reactive protein [Mass/volume] in Serum or PlasmaOrdered By: Corey Patrick on 95-86-7122KTO [Mass/Vol]0.5 mg/dL0.0-0.5FHarrison Community HospitalC- Reactive Proteinon 42-52-8355K-Reactive Protein0.5 mg/dLNormal0.0-0.5The [facility] Physician GroupComment on above:Performed By: #### SSB, SSA, MITOM2, C3, JO1, JOSÉ, ADNA, CH50, HISAB, B2 GLYPROT, THYGLOB AB, TONNY, C4, ANTIR, CARDIO GMA, CCP, CENTROME, RA, [id number], SMAB, CHROMATIN, TPO #### [facility] ,Calcium [Mass/volume] in Serum or PlasmaOrdered By: Coreyrenae Nguyen on 59-89-1560Asfwffq [Mass/Vol]10.4 mg/dLHigh8.6-10.3FHarrison Community HospitalComment on above:Performed By: #### SSB, SSA, MITOM2, C3, JO1, JOSÉ, ADNA, CH50, HISAB, B2 GLYPROT, THYGLOB AB, TONNY, C4, ANTIR, CARDIO GMA, CCP, CENTROME, RA, [id number], SMAB, CHROMATIN, TPO #### [facility] ,Carbon dioxide, total [Moles/volume] in Serum or PlasmaOrdered By: Corey Nguyen on 07-27-8980WT6 [Moles/Vol]29.3 mmol/BMzscqk25.0-31.0[facility] HospitalComment on above:Performed By: #### SSB, SSA, MITOM2, C3, JO1, JOSÉ, ADNA, CH50, HISAB, B2 GLYPROT, THYGLOB AB, TONNY, C4, ANTIR, CARDIO GMA, CCP, CENTROME, RA, [id number], SMAB, CHROMATIN, TPO #### [facility] ,Chloride [Moles/volume] in Serum or PlasmaOrdered By: Corey Nguyen on 65-65-7006Bsnjjzpv [Moles/Vol]93 mmol/PLax75-674CtfumjlmgRiverside Methodist HospitalComment on above:Performed By: #### SSB, SSA, MITOM2, C3, JO1, JOSÉ, ADNA, CH50, HISAB, B2 GLYPROT, THYGLOB AB, TONNY, C4, ANTIR, CARDIO GMA, CCP, CENTROME, RA, [id number], SMAB, CHROMATIN, TPO #### [facility] ,Chromatin Antibodyon 15-79-5607Nvwswiijm Antibody<0.2Tbyhdd6.0-0.9The [facility] Physician GroupComment on above:Result Comment: PERFORMED BY: [address] [address] PATHOLOGIST EDUCATIONAL ASSISTANT MIKAL KILPATRICK M.D.Performed By: #### SSB, SSA, MITOM2, C3, JO1, JOSÉ, ADNA, CH50, HISAB, B2 GLYPROT, THYGLOB AB, TONNY, C4, ANTIR, CARDIO GMA, CCP, CENTROME, RA, [id number], SMAB, CHROMATIN, TPO #### [facility] ,Coagulation Profileon 19-62-2564kVUT Coag (Bld) [Time]35.5 wQtknsw74.1-36.5The [facility] Physician GroupComment on above:Result Comment: A hematocrit value greater than 55% may lead to inaccurate results in coagulation testing. Patients having hematocrit values >55% require a special collection tube for coagulation studies. Please contact the laboratory at [phone] for redraw instructions. PERFORMED BY: [address] [address] PATHOLOGIST EDUCATIONAL ASSISTANT MIKAL KILPATRICK M.D.Performed By: #### SSB, SSA, MITOM2, C3, JO1, JOSÉ, ADNA, CH50, HISAB, B2 GLYPROT, THYGLOB AB, TONNY, C4, ANTIR, CARDIO GMA, CCP, CENTROME, RA, [id number], SMAB, CHROMATIN, TPO #### [facility] ,Color of Urine by AutoOrdered By: Corey Nguyen on 76-25-7323Chvfy (U) Light-yellowNormalYGood Samaritan HospitalComment on above:Order Comment: Name Collection Type:: Clean-Voided MidstreamPerformed By: #### SSB, SSA, MITOM2, C3, JO1, JOSÉ, ADNA, CH50, HISAB, B2 GLYPROT, THYGLOB AB, TONNY, C4, ANTIR, CARDIO GMA, CCP, CENTROME, RA, [id number], SMAB, CHROMATIN, TPO #### [facility] ,Complement C3on 82-66-8225Tcruxhtwvw C3195 mg/vIUhxurw86-849Mik [facility] Physician GroupComment on above:Performed By: #### SSB, SSA, MITOM2, C3, JO1, JOSÉ, ADNA, CH50, HISAB, B2 GLYPROT, THYGLOB AB, TONNY, C4, ANTIR, CARDIO GMA, CCP, CENTROME, RA, [id number], SMAB, CHROMATIN, TPO #### [facility] ,Complement C4on 03-69-1189Lemmtnpebg C438 mg/rIHcdfio44-06Ygk [facility] Physician GroupComment on above:Performed By: #### SSB, SSA, MITOM2, C3, JO1, JOSÉ, ADNA, CH50, HISAB, B2 GLYPROT, THYGLOB AB, TONNY, C4, ANTIR, CARDIO GMA, CCP, CENTROME, RA, [id number], SMAB, CHROMATIN, TPO #### [facility] ,Complement Total (CH50)on 02-01-8369Lnqqdibhia Total (CH50)>60Normal>41The [facility] Physician GroupComment on above:Result Comment: Age Male Female 1 - 30 [...] out of range values. Performed at: - [facility] [address] [id number] Consulting Analyst: Gregorio Martinez PhD, Phone: [phone] PERFORMED BY: [address] [place] [address] PATHOLOGIST EDUCATIONAL ASSISTANT MIKAL KILPATRICK M.D.Performed By: #### SSB, SSA, MITOM2, C3, JO1, JOSÉ, ADNA, CH50, HISAB, B2 GLYPROT, THYGLOB AB, TONNY, C4, ANTIR, CARDIO GMA, CCP, CENTROME, RA, [id number], SMAB, CHROMATIN, TPO #### [facility] ,Complete Blood Count Auto Diffon 53-86-7350Pnpo Corpuscular HGB Conc34.4 g/dL Ixoyht34.0-35.0The [facility] GroupComment on above:Performed By: #### SSB, SSA, MITOM2, C3, JO1, JOSÉ, ADNA, CH50, HISAB, B2 GLYPROT, THYGLOB AB, TONNY, C4, ANTIR, CARDIO GMA, CCP, CENTROME, RA, [id number], SMAB, CHROMATIN, TPO #### [facility] ,NRBC%0.6 /100{WBC}High0-0.5The [facility] HospitalComment on above: Performed By: #### SSB, SSA, MITOM2, C3, JO1, JOSÉ, ADNA, CH50, HISAB, B2 GLYPROT, THYGLOB AB, TONNY, C4, ANTIR, CARDIO GMA, CCP, CENTROME, RA, [id number], SMAB, CHROMATIN, TPO #### [facility] ,White Blood Count8.8 [CFU]/mLNormal3.8-11.6The [facility] Physician GroupComment on above:Performed By: #### SSB, SSA, MITOM2, C3, JO1, JOSÉ, ADNA, CH50, HISAB, B2 GLYPROT, THYGLOB AB, TONNY, C4, ANTIR, CARDIO GMA, CCP, CENTROME, RA, [id number], SMAB, CHROMATIN, TPO #### [facility] ,Comprehensive Metabolic Panelon 41-09-8860Mszxzff [Mass/Vol]4.7 g/dLNormal 3.5-5.7The [facility] GroupComment on above:Performed By: #### SSB, SSA, MITOM2, C3, JO1, JOSÉ, ADNA, CH50, HISAB, B2 GLYPROT, THYGLOB AB, TONNY, C4, ANTIR, CARDIO GMA, CCP, CENTROME, RA, [id number], SMAB, CHROMATIN, TPO #### [facility] ,GFR/1.73 sq M.predicted MDRD (S/P/Bld) [Vol rate/Area]mL/min/{1.73_m2}NormalThe [facility] Physician GroupComment on above:Performed By: #### SSB, SSA, MITOM2, C3, JO1, JOSÉ, ADNA, CH50, HISAB, B2 GLYPROT, THYGLOB AB, TONNY, C4, ANTIR, CARDIO GMA, CCP, CENTROME, RA, [id number], SMAB, CHROMATIN, TPO #### [facility] ,Creatine kinase [Enzymatic activity/volume] in Serum or PlasmaOrdered By: Corey Nguyen on 73-91-7565HH [Catalytic activity/Vol]33 U/JOnuaxf05-649 [facility] HospitalComment on above:Result Comment: PERFORMED BY: [facility] [address] [place] [address] PATHOLOGIST EDUCATIONAL ASSISTANT MIKAL KILPATRICK M.D.Performed By: #### SSB, SSA, MITOM2, C3, JO1, JOSÉ, ADNA, CH50, HISAB, B2 GLYPROT, THYGLOB AB, TONNY, C4, ANTIR, CARDIO GMA, CCP, CENTROME, RA, [id number], SMAB, CHROMATIN, TPO #### [facility] ,Creatinine [Mass/volume] in Serum or PlasmaOrdered By: Corey Nguyen on [id number] [Mass/Vol]0.53 mg/dLLow0.60-1.20[facility] HospitalComment on above:Performed By: #### SSB, SSA, MITOM2, C3, JO1, JOSÉ, ADNA, CH50, HISAB, B2 GLYPROT, THYGLOB AB, TONNY, C4, ANTIR, CARDIO GMA, CCP, CENTROME, RA, [id number], SMAB, CHROMATIN, TPO #### [facility] ,Cyclic Citrulliated Pep Abon [id number] Citrulliated Pep [id number] [facility] Physician GroupComment on above:Result Comment: Negative <20 Weak positive 20 - 39 Moderate positive 40 - 59 Strong positive >59 Performed at: [facility] [id number] Consulting Analyst: Gregorio Martinez PhD, Phone: [phone] By: #### SSB, SSA, MITOM2, C3, JO1, JOSÉ, ADNA, CH50, HISAB, B2 GLYPROT, THYGLOB AB, TONNY, C4, ANTIR, CARDIO GMA, CCP, CENTROME, RA, [id number], SMAB, CHROMATIN, TPO #### [facility] ,Dipstick and Microscopicon [id number],UrineRareNormalNone SeenThe [facility] Physician GroupComment on above:Order Comment: Name Collection Type:: Clean-Voided MidstreamPerformed By: #### SSB, SSA, MITOM2, C3, JO1, JOSÉ, ADNA, CH50, HISAB, B2 GLYPROT, THYGLOB AB, TONNY, C4, ANTIR, CARDIO GMA, CCP, CENTROME, RA, [id number], SMAB, CHROMATIN, TPO #### [facility] ,Bilirubin,UrineNegativeNormalNegativeThe [facility] Physician GroupComment on above:Order Comment: Name Collection Type:: Clean-Voided MidstreamPerformed By: #### SSB, SSA, MITOM2, C3, JO1, JOSÉ, ADNA, CH50, HISAB, B2 GLYPROT, THYGLOB AB, TONNY, C4, ANTIR, CARDIO GMA, CCP, CENTROME, RA, [id number], SMAB, CHROMATIN, TPO #### [facility] ,Budding Yeast,UrineRareNormalNone SeenThe [facility] Physician GroupComment on above:Order Comment: Name Collection Type:: Clean-Voided MidstreamResult Comment: PERFORMED BY: [facility] [place] [address] PATHOLOGIST EDUCATIONAL ASSISTANT MIKAL KILPATRICK M.D.Performed By: #### SSB, SSA, MITOM2, C3, JO1, JOSÉ, ADNA, CH50, HISAB, B2 GLYPROT, THYGLOB AB, TONNY, C4, ANTIR, CARDIO GMA, CCP, CENTROME, RA, [id number], SMAB, CHROMATIN, TPO #### [facility] ,Glucose Ql (U)>=NormalNormalThe [facility] Physician GroupComment on above:Order Comment: Name Collection Type:: Clean-Voided MidstreamPerformed By: #### SSB, SSA, MITOM2, C3, JO1, JOSÉ, ADNA, CH50, HISAB, B2 GLYPROT, THYGLOB AB, TONNY, C4, ANTIR, CARDIO GMA, CCP, CENTROME, RA, [id number], SMAB, CHROMATIN, TPO #### [facility] ,Hyaline Casts,UrineNoneNormal0-8The [facility] Physician GroupComment on above: Order Comment: Name Collection Type:: Clean-Voided MidstreamPerformed By: #### SSB, SSA, MITOM2, C3, JO1, JOSÉ, ADNA, CH50, HISAB, B2 GLYPROT, THYGLOB AB, TONNY, C4, ANTIR, CARDIO GMA, CCP, CENTROME, RA, [id number], SMAB, CHROMATIN, TPO #### [facility] ,Nitrite,UrineNegativeNormalNegativeAdventhealth D[facility] City Physician GroupComment on above:Order Comment: Name Collection Type:: Clean-Voided MidstreamPerformed By: #### SSB, SSA, MITOM2, C3, JO1, JOSÉ, ADNA, CH50, HISAB, B2 GLYPROT, THYGLOB AB, TONNY, C4, ANTIR, CARDIO GMA, CCP, CENTROME, RA, [id number], SMAB, CHROMATIN, TPO #### [facility] ,Occult Blood,UrineNegativeNormalNegativeAdventhealth [facility] City Physician GroupComment on above:Order Comment: Name Collection Type:: Clean-Voided MidstreamPerformed By: #### SSB, SSA, MITOM2, C3, JO1, JOSÉ, ADNA, CH50, HISAB, B2 GLYPROT, THYGLOB AB, TONNY, C4, ANTIR, CARDIO GMA, CCP, CENTROME, RA, [id number], SMAB, CHROMATIN, TPO #### [facility] ,Protein,UrineNegativeNormalNegativeThe [facility] Physician GroupComment on above:Order Comment: Name Collection Type:: Clean-Voided MidstreamPerformed By: #### SSB, SSA, MITOM2, C3, JO1, JOSÉ, ADNA, CH50, HISAB, B2 GLYPROT, THYGLOB AB, TONNY, C4, ANTIR, CARDIO GMA, CCP, CENTROME, RA, [id number], SMAB, CHROMATIN, TPO #### [facility] ,RBC,Fxvsy22-52Payzrf6-7Eoq [facility] Physician GroupComment on above:Order Comment: Name Collection Type:: Clean-Voided MidstreamPerformed By: #### SSB, SSA, MITOM2, C3, JO1, JOSÉ, ADNA, CH50, HISAB, B2 GLYPROT, THYGLOB AB, TONNY, C4, ANTIR, CARDIO GMA, CCP, CENTROME, RA, [id number], SMAB, CHROMATIN, TPO #### [facility] ,Specificy [place],Urine1.809Hqxh6.001-1.030[facility] Physician GroupComment on above:Order Comment: Name Collection Type:: Clean-Voided MidstreamPerformed By: #### SSB, SSA, MITOM2, C3, JO1, JOSÉ, ADNA, CH50, HISAB, B2 GLYPROT, THYGLOB AB, TONNY, C4, ANTIR, CARDIO GMA, CCP, CENTROME, RA, [id number], SMAB, CHROMATIN, TPO #### [facility] ,Squamous Epithelial Cell,Hvusj9-0Jxaeqi7-9Bzw [facility] Physician GroupComment on above:Order Comment: Name Collection Type:: Clean-Voided MidstreamPerformed By: #### SSB, SSA, MITOM2, C3, JO1, JOSÉ, ADNA, CH50, HISAB, B2 GLYPROT, THYGLOB AB, TONNY, C4, ANTIR, CARDIO GMA, CCP, CENTROME, RA, [id number], SMAB, CHROMATIN, TPO #### [facility] ,Urobilinogen,UrineNormalNormalNormalThe [facility] Physician GroupComment on above:Order Comment: Name Collection Type:: Clean-Voided MidstreamPerformed By: #### SSB, SSA, MITOM2, C3, JO1, JOSÉ, ADNA, CH50, HISAB, B2 GLYPROT, THYGLOB AB, TONNY, C4, ANTIR, CARDIO GMA, CCP, CENTROME, RA, [id number], SMAB, CHROMATIN, TPO #### [facility] ,WBC CLUMP, UrineFewNormalNone SeenAdventhealth Dade City Physician GroupComment on above:Order Comment: Name Collection Type:: Clean-Voided MidstreamPerformed By: #### SSB, SSA, MITOM2, C3, JO1, JOSÉ, ADNA, CH50, HISAB, B2 GLYPROT, THYGLOB AB, TONNY, C4, ANTIR, CARDIO GMA, CCP, CENTROME, RA, [id number], SMAB, CHROMATIN, TPO #### [facility] ,WBC,Qtauo45-11Jgqeqd6-3Ixv [facility] Physician GroupComment on above:Order Comment: Name Collection Type:: Clean-Voided MidstreamPerformed By: #### SSB, SSA, MITOM2, C3, JO1, JOSÉ, ADNA, CH50, HISAB, B2 GLYPROT, THYGLOB AB, TONNY, C4, ANTIR, CARDIO GMA, CCP, CENTROME, RA, [id number], SMAB, CHROMATIN, TPO #### [facility] ,Eosinophils [#/volume] in Blood by Automated countOrdered By: Corey Nguyen on 23-48-6789Lwhmlsaeohc (Bld) [#/Vol]0.3 10*3/uLNormal0.0-0.45[facility] HospitalComment on above:Performed By: #### SSB, SSA, MITOM2, C3, JO1, JOSÉ, ADNA, CH50, HISAB, B2 GLYPROT, THYGLOB AB, TONNY, C4, ANTIR, CARDIO GMA, CCP, CENTROME, RA, [id number], SMAB, CHROMATIN, TPO #### [facility] ,Eosinophils/100 leukocytes in Blood by Automated countOrdered By: Corey Nguyen on 68-56-6769Gmbwipelhjs/100 WBC (Bld)3.3 %Normal.[facility] HospitalComment on above:Performed By: #### SSB, SSA, MITOM2, C3, JO1, JOSÉ, ADNA, CH50, HISAB, B2 GLYPROT, THYGLOB AB, TONNY, C4, ANTIR, CARDIO GMA, CCP, CENTROME, RA, [id number], SMAB, CHROMATIN, TPO #### [facility] ,Epithelial cells.squamous [#/area] in Urine sediment by Automated countOrdered By: Corey Nguyen on 44-12-7784Kqybnkgzze cells.squamous Auto (Urine sed) [#/Area]5-9 [HPF]High0-2FHarrison Community HospitalErythrocyte Sedimentation Rateon 45-22-3175CXC (Bld) [Velocity]25 mm/hHigh0-19The [facility] Physician GroupComment on above:Result Comment: PERFORMED BY: [place] [address] [place] [address] PATHOLOGIST EDUCATIONAL ASSISTANT MIKAL KILPATRICK M.D.Performed By: #### SSB, SSA, MITOM2, C3, JO1, JOSÉ, ADNA, CH50, HISAB, B2 GLYPROT, THYGLOB AB, TONNY, C4, ANTIR, CARDIO GMA, CCP, CENTROME, RA, [id number], SMAB, CHROMATIN, TPO #### [facility] ,Erythrocyte distribution width [Ratio] by Automated countOrdered By: Corey Nguyen on 94-42-1153Gnstpedjtcf distribution width (RBC) [Ratio]12.9 %Normal 11.9-15.3FHarrison Community HospitalComment on above:Performed By: #### SSB, SSA, MITOM2, C3, JO1, JOSÉ, ADNA, CH50, HISAB, B2 GLYPROT, THYGLOB AB, TONNY, C4, ANTIR, CARDIO GMA, CCP, CENTROME, RA, [id number], SMAB, CHROMATIN, TPO #### [facility] ,Erythrocyte sedimentation rate by Photometric methodOrdered By: Coreyrenae Nguyen on 43-14-5438IAR Photometric method (Bld) [Velocity]25 mm/hrHigh0-19[facility] HospitalErythrocytes [#/area] in Urine sediment by Automated countOrdered By: Corey Nguyen on 80-11-3596FRS Auto (Urine sed) [#/Area]20-49 [HPF]High0-4FHarrison Community HospitalErythrocytes [#/volume] in Blood by Automated countOrdered By: Corey Nguyen on 19-84-5309GMJ (Bld) [#/Vol]5.37 10*6/uLHigh3.60-5.00[facility] HospitalComment on above:Performed By: #### SSB, SSA, MITOM2, C3, JO1, JOSÉ, ADNA, CH50, HISAB, B2 GLYPROT, THYGLOB AB, TONNY, C4, ANTIR, CARDIO GMA, CCP, CENTROME, RA, [id number], SMAB, CHROMATIN, TPO #### [facility] ,Glucose [Mass/volume] in Serum or PlasmaOrdered By: Corey Nguyen on 45-08-1751Vsyvjmr [Mass/Vol]369 mg/aKBfjz34-190TwwkioevzRiverside Methodist Hospital Comment on above:ADA recommended reference rangeRandom Glucose Reference Range is dependent on time and content of last meal. Glucose of more than 200 mg/dL in a nonstressed, ambulatory subject supports the diagnosisof Diabetes Mellitus. Result Comment: Random Glucose Reference Range is dependent on time and content of last meal. Glucose of more than 200 mg/dL in a nonstressed, ambulatory subject supports the diagnosis of Diabetes Mellitus. ADA recommended reference rangePerformed By: #### SSB, SSA, MITOM2, C3, JO1, JOSÉ, ADNA, CH50, HISAB, B2 GLYPROT, THYGLOB AB, TONNY, C4, ANTIR, CARDIO GMA, CCP, CENTROME, RA, [id number], SMAB, CHROMATIN, TPO #### [facility] ,Glucose [Mass/volume] in Urine by Test stripOrdered By: Corey Nguyen on 76-30-1732Arkjits Test strip (U) [Mass/Vol]>=1000 mg/dLHighNoAdena Regional Medical CenterHematocrit [Volume Fraction] of Blood by Automated count Ordered By: Corey Nguyen on 92-64-2974Pjumaeayjt (Bld) [Volume fraction]49.5 % High34.0-46.4FHarrison Community HospitalComment on above:Performed By: #### SSB, SSA, MITOM2, C3, JO1, JOSÉ, ADNA, CH50, HISAB, B2 GLYPROT, THYGLOB AB, TONNY, C4, ANTIR, CARDIO GMA, CCP, CENTROME, RA, [id number], SMAB, CHROMATIN, TPO #### [facility] ,Hemoglobin Test strip Ql (U)Ordered By: Corey Nguyen on 74-86-4501Jenuzwtgvu Ql (U)NegativeNegativeRiverside Methodist HospitalHemoglobin [Mass/volume] in BloodOrdered By: Corey Nguyen on 15-65-7006Lutqxmnksl (Bld) [Mass/Vol]17.0 g/oVDhmg41.8-15.4FHarrison Community HospitalComment on above:Performed By: #### SSB, SSA, MITOM2, C3, JO1, JOSÉ, ADNA, CH50, HISAB, B2 GLYPROT, THYGLOB AB, TONNY, C4, ANTIR, CARDIO GMA, CCP, CENTROME, RA, [id number], SMAB, CHROMATIN, TPO #### [facility] ,Histone Antibodieson 98-71-0959Izfhwso Antibodies0.1Ipwwry0.0-0.9[facility] Physician GroupComment on above:Result Comment: Negative <1.0 Weak Positive 1.0 - 1.5 Moderate Positive 1.6 - 2.5 Strong Positive >2.5 Performed at: - [facility] [id number] Consulting Analyst: Louis Mckeon MD, Phone: [phone] By: #### SSB, SSA, MITOM2, C3, JO1, JOSÉ, ADNA, CH50, HISAB, B2 GLYPROT, THYGLOB AB, TONNY, C4, ANTIR, CARDIO GMA, CCP, CENTROME, RA, [id number], SMAB, CHROMATIN, TPO #### [facility] ,Hyaline casts [#/area] in Urine sediment by Automated countOrdered By: Corey Nguyen on 87-74-1542Egxslyp casts Auto (Urine sed) [#/Area]None [LPF]0-8 [facility] Methodist HospitalINR in Platelet poor plasma by Coagulation assayOrdered By: Corey Nguyen on 47-13-0823YRV Coag (PPP) [Relative time]0.9 {INR}[facility] HospitalComment on above:INR Therapeutic Range A) Pre- and Peroperative OAT started two weeks before surgery. NOT HIP SURGERY: 1.5 - 2.5 HIP SURGERY: 2 - 3B) Primary and secondary prevention of venous THROMBOSIS: 2 - 3C) Active venous thrombosis, pulmonary embolismand prevention of recurrent venous thrombosis: 2 - 3D) Prevention of arterial thromboembolismincluding patients with mechanical heart valves: 3 - 4.5Result Comment: INR Therapeutic Range A) Pre- and [...] patients with mechanical heart valves: 3 - 4.5Performed By: #### SSB, SSA, MITOM2, C3, JO1, JOSÉ, ADNA, CH50, HISAB, B2 GLYPROT, THYGLOB AB, TONNY, C4, ANTIR, CARDIO GMA, CCP, CENTROME, RA, [id number], SMAB, CHROMATIN, TPO #### [facility] ,Immunofixation, (ANKITA), Urineon 53-89-9788Jleodoygwlrnqh, (ANKITA), UrineComment Normal.The [facility] Physician GroupComment on above:Result Comment: No monoclonality detected. Performed at: [facility] [id number] Consulting Analyst: Gregorio Martinez PhD, Phone: [phone] By: #### SSB, SSA, MITOM2, C3, JO1, JOSÉ, ADNA, CH50, HISAB, B2 GLYPROT, THYGLOB AB, TONNY, C4, ANTIR, CARDIO GMA, CCP, CENTROME, RA, [id number], SMAB, CHROMATIN, TPO #### [facility] ,Immunofixation,Serumon 77-69-8349Ekqwtuvvwgerrq, SerumComment:Normal.The [facility] Physician GroupComment on above:Result Comment: Presence of monoclonal protein is unclear at this time. Suggest repeat in 3 to 6 months if clinically indicated.Performed By: #### SSB, SSA, MITOM2, C3, JO1, JOSÉ, ADNA, CH50, HISAB, B2 GLYPROT, THYGLOB AB, TONNY, C4, ANTIR, CARDIO GMA, CCP, CENTROME, RA, [id number], SMAB, CHROMATIN, TPO #### [facility] ,Immunoglobulin A, Sakzf723 mg/lOJsinhu99-448Eik [facility]ician Group Comment on above:Performed By: #### SSB, SSA, MITOM2, C3, JO1, JOSÉ, ADNA, CH50, HISAB, B2 GLYPROT, THYGLOB AB, TONNY, C4, ANTIR, CARDIO GMA, CCP, CENTROME, RA, [id number], SMAB, CHROMATIN, TPO #### [facility] ,Immunoglobulin G791 mg/fXMzspnl955-6810Fix [facility] Physician GroupComment on above:Performed By: #### SSB, SSA, MITOM2, C3, JO1, JOSÉ, ADNA, CH50, HISAB, B2 GLYPROT, THYGLOB AB, TONNY, C4, ANTIR, CARDIO GMA, CCP, CENTROME, RA, [id number], SMAB, CHROMATIN, TPO #### [facility] ,Immunoglobulin M, Serum<0Lrlikl53-444Ipr [facility] Physician GroupComment on above:Result Comment: Result confirmed on concentration. Performed at: [address] [id number] Consulting Analyst: Gregorio Martinez PhD, Phone: [phone] By: #### SSB, SSA, MITOM2, C3, JO1, JOSÉ, ADNA, CH50, HISAB, B2 GLYPROT, THYGLOB AB, TONNY, C4, ANTIR, CARDIO GMA, CCP, CENTROME, RA, [id number], SMAB, CHROMATIN, TPO #### [facility] ,[place]-1 Antibodyon 56-12-2799ZQ-1 Antibody<0.4Ixmuti6.0-0.9[facility] Physician GroupComment on above:Performed By: #### SSB, SSA, MITOM2, C3, JO1, JOSÉ, ADNA, CH50, HISAB, B2 GLYPROT, THYGLOB AB, TONNY, C4, ANTIR, CARDIO GMA, CCP, CENTROME, RA, [id number], SMAB, CHROMATIN, TPO #### [facility] ,Ketones [Presence] in Urine by Test stripOrdered By: Corey Nguyen on 78-33-8309Yhhbccg Ql (U)TraceNormalNegativeRiverside Methodist Hospital Comment on above:Order Comment: Name Collection Type:: Clean-Voided Midstream Performed By: #### SSB, SSA, MITOM2, C3, JO1, JOSÉ, ADNA, CH50, HISAB, B2 GLYPROT, THYGLOB AB, TONNY, C4, ANTIR, CARDIO GMA, CCP, CENTROME, RA, [id number], SMAB, CHROMATIN, TPO #### [facility] ,Leukocyte clumps [Presence] in Urine by AutomatedOrdered By: Corey Nguyen on 00-95-0914Ofpukugjq clumps Auto Ql (U)Few [LPF]HighNone [facility] Hamilton HospitalLeukocyte esterase [Presence] in Urine by Test stripOrdered By: Corey Nguyen on 33-75-5884Dartrgpxi esterase Test strip Ql (U)4+NormalNegative [facility] HospitalComment on above:Order Comment: Name Collection Type:: Clean-Voided MidstreamPerformed By: #### SSB, SSA, MITOM2, C3, JO1, JOSÉ, ADNA, CH50, HISAB, B2 GLYPROT, THYGLOB AB, TONNY, C4, ANTIR, CARDIO GMA, CCP, CENTROME, RA, [id number], SMAB, CHROMATIN, TPO #### [facility] ,Leukocytes [#/area] in Urine sediment by Automated countOrdered By: Corey Nguyen on 52-24-6839HQV Auto (Urine sed) [#/Area]10-19 [HPF]High0-4FHarrison Community HospitalLeukocytes [#/volume] corrected for nucleated erythrocytes in Blood by Automated counOrdered By: Corey Nguyen on 05-03-2025 WBC corrected for nucl RBC Auto (Bld) [#/Vol]8.8 10*3/uL3.8-11.6FHarrison Community HospitalLeukocytes [#/volume] in Blood by Automated countOrdered By: Corey Nguyen on 00-74-4804VVW (Bld) [#/Vol]8.8 10*3/uLNormal3.8-11.6 [facility] HospitalComment on above:Performed By: #### SSB, SSA, MITOM2, C3, JO1, JOSÉ, ADNA, CH50, HISAB, B2 GLYPROT, THYGLOB AB, TONNY, C4, ANTIR, CARDIO GMA, CCP, CENTROME, RA, [id number], SMAB, CHROMATIN, TPO #### [facility] ,Lupus Anticoagulant Compon 52-69-7615Miwdug Prothrombin Time (dPt)35.7Normal 0.0-47.6The [facility] Physician GroupComment on above:Performed By: #### SSB, SSA, MITOM2, C3, JO1, JOSÉ, ADNA, CH50, HISAB, B2 GLYPROT, THYGLOB AB, TONNY, C4, ANTIR, CARDIO GMA, CCP, CENTROME, RA, [id number], SMAB, CHROMATIN, TPO #### [facility] ,dPT Confirm Ratio1.33Vqpsmu4.00-1.34The [facility] Physician GroupComment on above:Performed By: #### SSB, SSA, MITOM2, C3, JO1, JOSÉ, ADNA, CH50, HISAB, B2 GLYPROT, THYGLOB AB, TONNY, C4, ANTIR, CARDIO GMA, CCP, CENTROME, RA, [id number], SMAB, CHROMATIN, TPO #### [facility] ,DRVVT Lupus37.2Unokbd7.0-47.0The [facility] Physician GroupComment on above: Performed By: #### SSB, SSA, MITOM2, C3, JO1, JOSÉ, ADNA, CH50, HISAB, B2 GLYPROT, THYGLOB AB, TONNY, C4, ANTIR, CARDIO GMA, CCP, CENTROME, RA, [id number], SMAB, CHROMATIN, TPO #### [facility] ,InterpretationComment:Normal.The [facility] Physician GroupComment on above: Result Comment: No lupus anticoagulant was detected. Performed at: - [facility] [id number] Consulting Analyst: Louis Mckeon MD, Phone: [phone] PERFORMED BY: [address] [address] PATHOLOGIST EDUCATIONAL ASSISTANT MIKAL KILPATRICK M.D.Performed By: #### SSB, SSA, MITOM2, C3, JO1, JOSÉ, ADNA, CH50, HISAB, B2 GLYPROT, THYGLOB AB, TONNY, C4, ANTIR, CARDIO GMA, CCP, CENTROME, RA, [id number], SMAB, CHROMATIN, TPO #### [facility] ,PTT-LA29.5Apjxsy5.0-43.5The [facility] Physician GroupComment on above:Performed By: #### SSB, SSA, MITOM2, C3, JO1, JOSÉ, ADNA, CH50, HISAB, B2 GLYPROT, THYGLOB AB, TONNY, C4, ANTIR, CARDIO GMA, CCP, CENTROME, RA, [id number], SMAB, CHROMATIN, TPO #### [facility] ,Thrombin Time19.4Wtpztx1.0-23.0The [facility] GroupComment on above: Performed By: #### SSB, SSA, MITOM2, C3, JO1, JOSÉ, ADNA, CH50, HISAB, B2 GLYPROT, THYGLOB AB, TONNY, C4, ANTIR, CARDIO GMA, CCP, CENTROME, RA, [id number], SMAB, CHROMATIN, TPO #### [facility] ,Lymphocytes [#/volume] in Blood by Automated countOrdered By: Corey Nguyen on 75-41-6369Ylinfouwctu (Bld) [#/Vol]3.1 10*3/uLNormal1.00-4.8[facility] HospitalComment on above:Performed By: #### SSB, SSA, MITOM2, C3, JO1, JOSÉ, ADNA, CH50, HISAB, B2 GLYPROT, THYGLOB AB, TONNY, C4, ANTIR, CARDIO GMA, CCP, CENTROME, RA, [id number], SMAB, CHROMATIN, TPO #### [facility] ,Lymphocytes/100 leukocytes in Blood by Automated countOrdered By: Corey Nguyen on 63-08-5188Bdovzvosdmq/100 WBC (Bld)35.4 %Normal.[facility] HospitalComment on above:Performed By: #### SSB, SSA, MITOM2, C3, JO1, JOSÉ, ADNA, CH50, HISAB, B2 GLYPROT, THYGLOB AB, TONNY, C4, ANTIR, CARDIO GMA, CCP, CENTROME, RA, [id number], SMAB, CHROMATIN, TPO #### [facility] ,MCH [Entitic mass] by Automated countOrdered By: Corey Nguyen on 05-03-2025 MCH (RBC) [Entitic mass]31.7 paTxbwtk87.7-34.3FH[facility] Hospital Comment on above:Performed By: #### SSB, SSA, MITOM2, C3, JO1, JOSÉ, ADNA, CH50, HISAB, B2 GLYPROT, THYGLOB AB, TONNY, C4, ANTIR, CARDIO GMA, CCP, CENTROME, RA, [id number], SMAB, CHROMATIN, TPO #### [facility] ,MCHC Auto (RBC) [Mass/Vol]Ordered By: Corey Nguyen on 77-78-6913VNWW (RBC) [Mass/Vol]34.4 g/dL32.0-35.0[facility] HospitalMCV [Entitic volume] by Automated countOrdered By: Corey Nguyen on 61-84-8688BFO (RBC) [Entitic vol]92.2 jKWcebqu10-540JytyybcudRiverside Methodist HospitalComment on above:Performed By: #### SSB, SSA, MITOM2, C3, JO1, JOSÉ, ADNA, CH50, HISAB, B2 GLYPROT, THYGLOB AB, TONNY, C4, ANTIR, CARDIO GMA, CCP, CENTROME, RA, [id number], SMAB, CHROMATIN, TPO #### [facility] ,Mitochondrial (M2) Antibodyon 43-21-8292Aezgbducypfwd (M2) Antibody<20.0Normal 0.0-20.0[facility] Physician GroupComment on above:Result Comment: Negative 0.0 - 20.0 Equivocal 20.1 - 24.9 Positive >24.9 Mitochondrial (M2) Antibodies are found in 90-96% of patients with primary biliary cirrhosis. Performed at: - [facility] [place] [id number] Consulting Analyst: Gregorio Martinez PhD, Phone: [phone] By: #### SSB, SSA, MITOM2, C3, JO1, JOSÉ, ADNA, CH50, HISAB, B2 GLYPROT, THYGLOB AB, TONNY, C4, ANTIR, CARDIO GMA, CCP, CENTROME, RA, [id number], SMAB, CHROMATIN, TPO #### [facility] ,Monocytes [#/volume] in Blood by Automated countOrdered By: Corey Nguyen on 56-07-8275Sbtvpmkut (Bld) [#/Vol]0.3 10*3/uLNormal0.0-0.8[facility] HospitalComment on above:Performed By: #### SSB, SSA, MITOM2, C3, JO1, JOSÉ, ADNA, CH50, HISAB, B2 GLYPROT, THYGLOB AB, TONNY, C4, ANTIR, CARDIO GMA, CCP, CENTROME, RA, [id number], SMAB, CHROMATIN, TPO #### [facility] ,Monocytes/100 leukocytes in Blood by Automated countOrdered By: Corey Nguyen on 94-31-5506Acmbnsufa/100 WBC (Bld)3.8 %Normal.[facility] HospitalComment on above:Performed By: #### SSB, SSA, MITOM2, C3, JO1, JOSÉ, ADNA, CH50, HISAB, B2 GLYPROT, THYGLOB AB, TONNY, C4, ANTIR, CARDIO GMA, CCP, CENTROME, RA, [id number], SMAB, CHROMATIN, TPO #### [facility] ,Neutrophils [#/volume] in Blood by Automated countOrdered By: Corey Nguyen on 03-95-5973Zjkgmvwgxxq (Bld) [#/Vol]4.9 10*3/uLNormal1.8-7.7FHarrison Community HospitalComment on above:Performed By: #### SSB, SSA, MITOM2, C3, JO1, JOSÉ, ADNA, CH50, HISAB, B2 GLYPROT, THYGLOB AB, TONNY, C4, ANTIR, CARDIO GMA, CCP, CENTROME, RA, [id number], SMAB, CHROMATIN, TPO #### [facility] ,Neutrophils/100 leukocytes in Blood by Automated countOrdered By: Corey Nguyen on 93-29-9215Jywcdeeiqyr/100 WBC (Bld)56.2 %Normal.[facility] HospitalComment on above:Performed By: #### SSB, SSA, MITOM2, C3, JO1, JOSÉ, ADNA, CH50, HISAB, B2 GLYPROT, THYGLOB AB, TONNY, C4, ANTIR, CARDIO GMA, CCP, CENTROME, RA, [id number], SMAB, CHROMATIN, TPO #### [facility] ,Nitrite Test strip Ql (U)Ordered By: Corey Nguyen on 97-63-3312Xtizigs Ql (U) NegativeNegativeRiverside Methodist HospitalNo Panel InformationOrdered By: Corey Nguyen on 27-40-7602Xbetemjxr GFR (CKD-EPI)> 60.0 mL/MinRiverside Methodist HospitalPharmacy Creatinine Clearance (ChemN/AFHarrison Community HospitalNucleated erythrocytes [Presence] in Blood by Automated count Ordered By: Corey Ramosrow on 42-45-4514Noxtsntin RBC Auto Ql (Bld)0.6 /100{WBC} High0-0.5FHarrison Community HospitalPlatelet mean volume [Entitic volume] in Blood by Automated countOrdered By: Corey Patrick on 24-90-7887Yblyoplc mean volume (Bld) [Entitic vol]9.6 fLNormal6.3-10.7FHarrison Community Hospital Comment on above:Performed By: #### SSB, SSA, MITOM2, C3, JO1, JOSÉ, ADNA, CH50, HISAB, B2 GLYPROT, THYGLOB AB, TONNY, C4, ANTIR, CARDIO GMA, CCP, CENTROME, RA, [id number], SMAB, CHROMATIN, TPO #### [facility] ,Platelets [#/volume] in Blood by Automated countOrdered By: Corey Nguyen on 58-18-3551Ixrcfkcpl (Bld) [#/Vol]281 10*3/lAZxmoow911-860AqswlunhlRiverside Methodist HospitalComment on above:Performed By: #### SSB, SSA, MITOM2, C3, JO1, JOSÉ, ADNA, CH50, HISAB, B2 GLYPROT, THYGLOB AB, TONNY, C4, ANTIR, CARDIO GMA, CCP, CENTROME, RA, [id number], SMAB, CHROMATIN, TPO #### [facility] ,Potassium [Moles/volume] in Serum or PlasmaOrdered By: Corey gNuyen on 08-26-8530Upcqeaxic [Moles/Vol]4.2 mmol/LNormal3.5-5.1FHarrison Community HospitalComment on above:Performed By: #### SSB, SSA, MITOM2, C3, JO1, JOSÉ, ADNA, CH50, HISAB, B2 GLYPROT, THYGLOB AB, TONNY, C4, ANTIR, CARDIO GMA, CCP, CENTROME, RA, [id number], SMAB, CHROMATIN, TPO #### [facility] ,Protein Electro, Random Urineon 44-65-9942Waeupjt, Urine31.6 %Normal.The [facility] Physician GroupComment on above:Performed By: #### SSB, SSA, MITOM2, C3, JO1, JOSÉ, ADNA, CH50, HISAB, B2 GLYPROT, THYGLOB AB, TONNY, C4, ANTIR, CARDIO GMA, CCP, CENTROME, RA, [id number], SMAB, CHROMATIN, TPO #### [facility] ,Sdzsq-3-Fyiawyak, Urine6.5 %Normal.The [facility] Physician GroupComment on above:Performed By: #### SSB, SSA, MITOM2, C3, JO1, JOSÉ, ADNA, CH50, HISAB, B2 GLYPROT, THYGLOB AB, TONNY, C4, ANTIR, CARDIO GMA, CCP, CENTROME, RA, [id number], SMAB, CHROMATIN, TPO #### [facility] ,Bokkb-4-Xxlrtxeg, Urine21.9 %Normal.The [facility] Physician GroupComment on above:Performed By: #### SSB, SSA, MITOM2, C3, JO1, JOSÉ, ADNA, CH50, HISAB, B2 GLYPROT, THYGLOB AB, TONNY, C4, ANTIR, CARDIO GMA, CCP, CENTROME, RA, [id number], SMAB, CHROMATIN, TPO #### [facility] ,Beta Globulin, Urine24.9 %Normal.The [facility] Physician GroupComment on above: Performed By: #### SSB, SSA, MITOM2, C3, JO1, JOSÉ, ADNA, CH50, HISAB, B2 GLYPROT, THYGLOB AB, TONNY, C4, ANTIR, CARDIO GMA, CCP, CENTROME, RA, [id number], SMAB, CHROMATIN, TPO #### [facility] ,Gamma Globulin, Urine14.9 %Normal.The [facility] Physician GroupComment on above:Performed By: #### SSB, SSA, MITOM2, C3, JO1, JOSÉ, ADNA, CH50, HISAB, B2 GLYPROT, THYGLOB AB, TONNY, C4, ANTIR, CARDIO GMA, CCP, CENTROME, RA, [id number], SMAB, CHROMATIN, TPO #### [facility] ,M-Jorge %Not ObservedNormalNot ObservedThe [facility] Physician GroupComment on above:Performed By: #### SSB, SSA, MITOM2, C3, JO1, JOSÉ, ADNA, CH50, HISAB, B2 GLYPROT, THYGLOB AB, TONNY, C4, ANTIR, CARDIO GMA, CCP, CENTROME, RA, [id number], SMAB, CHROMATIN, TPO #### [facility] ,Please Note:CommentNormal.The [facility] Physician GroupComment on above:Result Comment: Protein electrophoresis scan will follow via computer, mail, or oral surgeon delivery. PERFORMED BY: [facility] [place] [address] PATHOLOGIST EDUCATIONAL ASSISTANT MIKAL KILPATRICK M.D.Performed By: #### SSB, SSA, MITOM2, C3, JO1, JOSÉ, ADNA, CH50, HISAB, B2 GLYPROT, THYGLOB AB, TONNY, C4, ANTIR, CARDIO GMA, CCP, CENTROME, RA, [id number], SMAB, CHROMATIN, TPO #### [facility] ,Protein (U) [Mass/Vol]7.7 mg/dLNormalNot Estab.The [facility] Comment on above:Performed By: #### SSB, SSA, MITOM2, C3, JO1, JOSÉ, ADNA, CH50, HISAB, B2 GLYPROT, THYGLOB AB, TONNY, C4, ANTIR, CARDIO GMA, CCP, CENTROME, RA, [id number], SMAB, CHROMATIN, TPO #### [facility] ,Protein Electrophoresis, Serumon 80-23-1847Rhmuoms [Mass/Vol]3.7 g/dLNormal 2.9-4.4The [facility] Physician GroupComment on above:Performed By: #### SSB, SSA, MITOM2, C3, JO1, JOSÉ, ADNA, CH50, HISAB, B2 GLYPROT, THYGLOB AB, TONNY, C4, ANTIR, CARDIO GMA, CCP, CENTROME, RA, [id number], SMAB, CHROMATIN, TPO #### [facility] ,Albumin/Globulin [Mass ratio]1.1 {ratio}Normal0.7-1.7The [facility] Physician GroupComment on above:Performed By: #### SSB, SSA, MITOM2, C3, JO1, JOSÉ, ADNA, CH50, HISAB, B2 GLYPROT, THYGLOB AB, TONNY, C4, ANTIR, CARDIO GMA, CCP, CENTROME, RA, [id number], SMAB, CHROMATIN, TPO #### [facility] ,Ggynn-9-Rzpfechv9.3 g/dLNormal0.0-0.4The [facility] Physician GroupComment on above:Performed By: #### SSB, SSA, MITOM2, C3, JO1, JOSÉ, ADNA, CH50, HISAB, B2 GLYPROT, THYGLOB AB, TONNY, C4, ANTIR, CARDIO GMA, CCP, CENTROME, RA, [id number], SMAB, CHROMATIN, TPO #### [facility] ,Ptnpv-1-Jxvdxkua6.0 g/dLNormal0.4-1.0The [facility] Physician GroupComment on above:Performed By: #### SSB, SSA, MITOM2, C3, JO1, JOSÉ, ADNA, CH50, HISAB, B2 GLYPROT, THYGLOB AB, TONNY, C4, ANTIR, CARDIO GMA, CCP, CENTROME, RA, [id number], SMAB, CHROMATIN, TPO #### [facility] ,Beta Globulin1.4 g/dLNormal0.7-1.3The [facility] Physician GroupComment on above:Performed By: #### SSB, SSA, MITOM2, C3, JO1, JOSÉ, ADNA, CH50, HISAB, B2 GLYPROT, THYGLOB AB, TONNY, C4, ANTIR, CARDIO GMA, CCP, CENTROME, RA, [id number], SMAB, CHROMATIN, TPO #### [facility] ,Gamma Globulin0.9 g/dLNormal0.4-1.8The [facility] Physician GroupComment on above:Performed By: #### SSB, SSA, MITOM2, C3, JO1, JOSÉ, ADNA, CH50, HISAB, B2 GLYPROT, THYGLOB AB, TONNY, C4, ANTIR, CARDIO GMA, CCP, CENTROME, RA, [id number], SMAB, CHROMATIN, TPO #### [facility] ,Globulin (S) [Mass/Vol]3.5 g/dLNormal2.2-3.9The [facility] Comment on above:Performed By: #### SSB, SSA, MITOM2, C3, JO1, JOSÉ, ADNA, CH50, HISAB, B2 GLYPROT, THYGLOB AB, TONNY, C4, ANTIR, CARDIO GMA, CCP, CENTROME, RA, [id number], SMAB, CHROMATIN, TPO #### [facility] ,M-SpikeNot ObservedNormalNot ObservedThe [facility] Physician GroupComment on above:Performed By: #### SSB, SSA, MITOM2, C3, JO1, JOSÉ, ADNA, CH50, HISAB, B2 GLYPROT, THYGLOB AB, TONNY, C4, ANTIR, CARDIO GMA, CCP, CENTROME, RA, [id number], SMAB, CHROMATIN, TPO #### [facility] ,Protein [Mass/Vol]7.2 g/dLNormal6.0-8.5The [facility] Physician GroupComment on above:Performed By: #### SSB, SSA, MITOM2, C3, JO1, JOSÉ, ADNA, CH50, HISAB, B2 GLYPROT, THYGLOB AB, TONNY, C4, ANTIR, CARDIO GMA, CCP, CENTROME, RA, [id number], SMAB, CHROMATIN, TPO #### [facility] ,SPE-NoteCommentNormal.The [facility] Physician GroupComment on above:Result Comment: Protein electrophoresis scan will follow via computer, mail, or oral surgeon delivery. Performed at: [address] [id number] Consulting Analyst: Gregorio Martinez PhD, Phone: [phone] By: #### SSB, SSA, MITOM2, C3, JO1, JOSÉ, ADNA, CH50, HISAB, B2 GLYPROT, THYGLOB AB, TONNY, C4, ANTIR, CARDIO GMA, CCP, CENTROME, RA, [id number], SMAB, CHROMATIN, TPO #### [facility] ,Protein Test strip (U) [Mass/Vol]Ordered By: Corey Ramosrow on 05-03-2025 Protein (U) [Mass/Vol]NegativeNegativeRiverside Methodist HospitalProtein [Mass/volume] in Serum or PlasmaOrdered By: Corey Ramosrow on 03-62-9869Rhtrsdo [Mass/Vol]7.5 g/dLNormal6.4-8.9[facility] Methodist HospitalComment on above:Performed By: #### SSB, SSA, MITOM2, C3, JO1, JOSÉ, ADNA, CH50, HISAB, B2 GLYPROT, THYGLOB AB, TONNY, C4, ANTIR, CARDIO GMA, CCP, CENTROME, RA, [id number], SMAB, CHROMATIN, TPO #### [facility] ,Prothrombin time (PT)Ordered By: Corey Nguyen on 49-68-6993MB Coag (PPP) [Time]10.7 sNormal9.0-12.9[facility] Methodist HospitalComment on above:A hematocrit value greater than 55% may lead to inaccurate results in coagulation testing. Patientshaving hematocrit values >55% require a special collection tube for coagulation studies. Please contact the laboratory at [phone] for redraw instructions.Result Comment: A hematocrit value greater than 55% may lead to inaccurate results in coagulation testing. Patients having hematocrit values >55% require a special collection tube for coagulation studies. Please contact the laboratory at [phone] for redraw instructions.Performed By: #### SSB, SSA, MITOM2, C3, JO1, JOSÉ, ADNA, CH50, HISAB, B2 GLYPROT, THYGLOB AB, TONNY, C4, ANTIR, CARDIO GMA, CCP, CENTROME, RA, [id number], SMAB, CHROMATIN, TPO #### [facility] ,RPR w/rfx to Quant TP Abson 41-19-3021SBZ InterpretationCommentNormal.The [facility] Physician GroupComment on above:Result Comment: Syphilis: RPR with Reflex to RPR Titer and [...] or current (potential early) syphilis. Performed at: [facility] Lab[address] [id number] Consulting Analyst: Gregorio Martinez PhD, Phone: [phone] PERFORMED BY: [place] [address] [place] [address] PATHOLOGIST EDUCATIONAL ASSISTANT MIKAL KILPATRICK M.D.Performed By: #### SSB, SSA, MITOM2, C3, JO1, JOSÉ, ADNA, CH50, HISAB, B2 GLYPROT, THYGLOB AB, TONNY, C4, ANTIR, CARDIO GMA, CCP, CENTROME, RA, [id number], SMAB, CHROMATIN, TPO #### [facility] ,RPR, Rfx Quant RPRNon-ReactiveNormalNon ReactiveThe [facility] Comment on above:Performed By: #### SSB, SSA, MITOM2, C3, JO1, JOSÉ, ADNA, CH50, HISAB, B2 GLYPROT, THYGLOB AB, TONNY, C4, ANTIR, CARDIO GMA, CCP, CENTROME, RA, [id number], SMAB, CHROMATIN, TPO #### [facility] ,Rheumatoid Factoron 18-02-9615Jveywhbita Factor<10.0Normal<14.0The [facility] Physician GroupComment on above:Performed By: #### SSB, SSA, MITOM2, C3, JO1, JOSÉ, ADNA, CH50, HISAB, B2 GLYPROT, THYGLOB AB, TONNY, C4, ANTIR, CARDIO GMA, CCP, CENTROME, RA, [id number], SMAB, CHROMATIN, TPO #### [facility] ,SS-A/Ro Sjogrens Antibodyon 39-37-3738HP-A/Ro Sjogrens Antibody<0.2Normal 0.0-0.9The [facility] Physician GroupComment on above:Performed By: #### SSB, SSA, MITOM2, C3, JO1, JOSÉ, ADNA, CH50, HISAB, B2 GLYPROT, THYGLOB AB, TONNY, C4, ANTIR, CARDIO GMA, CCP, CENTROME, RA, [id number], SMAB, CHROMATIN, TPO #### [facility] ,SS-B/[place] Antibodyon 85-29-8220KE-B/[place] Antibody<0.2Normal 0.0-0.9The [facility] GroupComment on above:Performed By: #### SSB, SSA, MITOM2, C3, JO1, JOSÉ, ADNA, CH50, HISAB, B2 GLYPROT, THYGLOB AB, TONNY, C4, ANTIR, CARDIO GMA, CCP, CENTROME, RA, [id number], SMAB, CHROMATIN, TPO #### [facility] ,Scleroderma 70 Antibodieson 64-92-6238Gzjpxmlqgik 70 Antibodies<0.2Normal 0.0-0.9[facility] Physician GroupComment on above:Performed By: #### SSB, SSA, MITOM2, C3, JO1, JOSÉ, ADNA, CH50, HISAB, B2 GLYPROT, THYGLOB AB, TONNY, C4, ANTIR, CARDIO GMA, CCP, CENTROME, RA, [id number], SMAB, CHROMATIN, TPO #### [facility] ,Serum globulin measurement by calculation (mass/volume)Ordered By: Corey Nguyen on 01-93-1565Dtvzixsq (S) [Mass/Vol]2.8 g/dLNoAdena Regional Medical CenterComment on above:Performed By: #### SSB, SSA, MITOM2, C3, JO1, JOSÉ, ADNA, CH50, HISAB, B2 GLYPROT, THYGLOB AB, TONNY, C4, ANTIR, CARDIO GMA, CCP, CENTROME, RA, [id number], SMAB, CHROMATIN, TPO #### [facility] ,Serum or plasma albumin/globulin mass ratioOrdered By: Corey Nguyen on 37-94-9764Pbqurqs/Globulin [Mass ratio]1.7 {ratio}[facility] Memorial HospitalComment on above:Performed By: #### SSB, SSA, MITOM2, C3, JO1, JOSÉ, ADNA, CH50, HISAB, B2 GLYPROT, THYGLOB AB, TONNY, C4, ANTIR, CARDIO GMA, CCP, CENTROME, RA, [id number], SMAB, CHROMATIN, TPO #### [facility] ,Serum or plasma anion gap determinationOrdered By: Corey Nguyen on 05-03-2025 Anion gap [Moles/Vol]14.9 mmol/LNormal6.0-15.0[facility] Comment on above:Performed By: #### SSB, SSA, MITOM2, C3, JO1, JOSÉ, ADNA, CH50, HISAB, B2 GLYPROT, THYGLOB AB, TONNY, C4, ANTIR, CARDIO GMA, CCP, CENTROME, RA, [id number], SMAB, CHROMATIN, TPO #### [facility] ,Smooth Muscle Antibodyon 18-08-1678Ymlvkh Muscle Mpebvvty3Tovrbm4-83[facility] Physician GroupComment on above:Result Comment: Negative 0 - 19 Weak positive 20 - 30 Moderate to strong positive >30 Actin Antibodies are found in 52-85% of patients with autoimmune hepatitis or chronic active hepatitis and in 22% of patients with primary biliary cirrhosis.Performed By: #### SSB, SSA, MITOM2, C3, JO1, JOSÉ, ADNA, CH50, HISAB, B2 GLYPROT, THYGLOB AB, TONNY, C4, ANTIR, CARDIO GMA, CCP, CENTROME, RA, [id number], SMAB, CHROMATIN, TPO #### [facility] ,Sodium [Moles/volume] in Serum or PlasmaOrdered By: Corey Nguyen on 87-02-0569Nyltwx [Moles/Vol]133 mmol/UKzm536-237MmutnippwRiverside Methodist HospitalComment on above:Performed By: #### SSB, SSA, MITOM2, C3, JO1, JOSÉ, ADNA, CH50, HISAB, B2 GLYPROT, THYGLOB AB, TONNY, C4, ANTIR, CARDIO GMA, CCP, CENTROME, RA, [id number], SMAB, CHROMATIN, TPO #### [facility] ,Specific gravity Test strip (U) [Rel density]Ordered By: Corey Nguyen on 35-83-7976Nrdbpojj gravity (U) [Rel density]1.562Qnso3.001-1.030R[facility] Methodist HospitalThyroid Peroxidase Antibodieson 72-05-0484Staaroi Peroxidase Lxpidbaycs7Gwldkj8-34[facility] Physician GroupComment on above: Result Comment: Performed at: [address] [id number] Consulting Analyst: Gregorio Martinez PhD, Phone: [phone] By: #### SSB, SSA, MITOM2, C3, JO1, JOSÉ, ADNA, CH50, HISAB, B2 GLYPROT, THYGLOB AB, TONNY, C4, ANTIR, CARDIO GMA, CCP, CENTROME, RA, [id number], SMAB, CHROMATIN, TPO #### [facility] ,Thyrotropin [Units/volume] in Serum or PlasmaOrdered By: Corey Nguyen on 25-58-2712YHJ Qn1.86 m[IU]/LNormal0.45-5.33[facility] Comment on above:Result Comment: PERFORMED BY: [facility] [address] [place] [address] PATHOLOGIST EDUCATIONAL ASSISTANT MIKAL KILPATRICK M.D.Performed By: #### SSB, SSA, MITOM2, C3, JO1, JOSÉ, ADNA, CH50, HISAB, B2 GLYPROT, THYGLOB AB, TONNY, C4, ANTIR, CARDIO GMA, CCP, CENTROME, RA, [id number], SMAB, CHROMATIN, TPO #### [facility] ,Thyroxine (T4) free [Mass/volume] in Serum or PlasmaOrdered By: Corey Nguyen on 86-31-0090Ebkc T4 [Mass/Vol]1.19 ng/dLHigh0.61-1.12[facility] Methodist HospitalComment on above:Performed By: #### SSB, SSA, MITOM2, C3, JO1, JOSÉ, ADNA, CH50, HISAB, B2 GLYPROT, THYGLOB AB, TONNY, C4, ANTIR, CARDIO GMA, CCP, CENTROME, RA, [id number], SMAB, CHROMATIN, TPO #### [facility] ,Urea nitrogen [Mass/volume] in Serum or PlasmaOrdered By: Corey Nguyen on 48-94-0469Hqpj nitrogen [Mass/Vol]5 mg/dLLow7-25R[facility] Methodist HospitalComment on above:Performed By: #### SSB, SSA, MITOM2, C3, JO1, JOSÉ, ADNA, CH50, HISAB, B2 GLYPROT, THYGLOB AB, TONNY, C4, ANTIR, CARDIO GMA, CCP, CENTROME, RA, [id number], SMAB, CHROMATIN, TPO #### [facility] ,Urine Cultureon 54-80-7313Mkptvkfq identified Cx Nom (U)ORGANISM: Strep agalactiae - (group b) (O:STRAGA) [place] Count 30,000 PERFORMED BY: [facility] [place] [place] [address] PATHOLOGIST EDUCATIONAL ASSISTANT MIKAL KILPATRICK M.D.NormalThe [facility] Physician GroupComment on above: Performed By: #### SSB, SSA, MITOM2, C3, JO1, JOSÉ, ADNA, CH50, HISAB, B2 GLYPROT, THYGLOB AB, TONNY, C4, ANTIR, CARDIO GMA, CCP, CENTROME, RA, [id number], SMAB, CHROMATIN, TPO #### [facility] ,Urobilinogen Test strip (U) [Mass/Vol]Ordered By: Corey Nguyen on 05-03-2025 Urobilinogen (U) [Mass/Vol]Normal mg/dLNormChildren's Hospital of Columbus Yeast.budding [Presence] in Urine by Computer assisted methodOrdered By: Corey Nguyen on 81-07-3883Bpslf.budding Computer assisted Ql (U)Rare [HPF][facility] Health Main CampusaPTT in Platelet poor plasma by Coagulation assayOrdered By: Corey Nguyen on 04-25-0734vMQC Coag (PPP) [Time]35.5 s 25.1-36.5FHarrison Community HospitalComment on above:A hematocrit value greater than 55% may lead to inaccurate results in coagulation testing. Patients having hematocrit values >55% require a special collection tube for coagulation studies. Please contact the laboratory at [phone] for redraw instructions. pH of Urine by Test stripOrdered By: Corey Nguyen on 40-39-1393cQ (U)5.5 [pH] Normal5.0-9.0[facility] Methodist HospitalComment on above:Order Comment: Name Collection Type:: Clean-Voided MidstreamPerformed By: #### SSB, SSA, MITOM2, C3, JO1, JOSÉ, ADNA, CH50, HISAB, B2 GLYPROT, THYGLOB AB, TONNY, C4, ANTIR, CARDIO GMA, CCP, CENTROME, RA, [id number], SMAB, CHROMATIN, TPO #### [facility] ,INSULINon 72-76-5335Ofacarr28.4 uIU/mLNormal2.6-24.9[facility] Comment on above:Performed By: #### INSULIN #### [facility] [address] [place] [address] Dr. Saul Kerr AUTO DIFFon 05-05-2852KYTC #0.1 103/ulNormal0.0-0.1The [facility] HospitalComment on above:Performed By: #### CBC #### [facility] [address] [place] [address] Dr. Saul QuispeBasophils/100 WBC (Bld)0.6 %Normal0.2-2.0[facility] Comment on above:Performed By: #### CBC #### [facility] [address] [place] [address] Dr. Saul Singer #0.2 103/ulNormal0.0-0.7The [facility] HospitalComment on above: Performed By: #### CBC #### [facility] [address] [place] [address] Dr. Saul Fernándezosinophils/100 WBC (Bld)1.2 %Normal0.9-7.0[facility] Comment on above:Performed By: #### CBC #### [facility] [address] [place] [address] Dr. Saul Fernándezrythrocyte distribution width (RBC) [Ratio]12.1 %Elippy78.0-15.0 The [facility] HospitalComment on above:Performed By: #### CBC #### [facility] [address] [place] [address] Dr. Saul QuispeHematocrit (Bld) [Volume fraction]45.4 %Pqkgtz05.0-48.0The [facility] HospitalComment on above:Performed By: #### CBC #### [facility] [address] [place] [address] Dr. Saul QuispeHemoglobin (Bld) [Mass/Vol]15.9 g/oERhlzxp86.0-16.0The [facility] HospitalComment on above:Performed By: #### CBC #### [facility] [address] [address] [address] Saul Thomas #0.05 10e3/ulCritically high0.00-0.03The [facility] Comment on above:Performed By: #### CBC #### [facility] [address] [place] [address] Dr. Saul Thomas %0.4 %Normal0.0-0.5The [facility] HospitalComment on above: Performed By: #### CBC #### [facility] [address] [place] [address] Dr. Saul Maldonado #1.7 103/ulNormal1.2-3.8The [facility] HospitalComment on above:Performed By: #### CBC #### [facility] [address] [place] [address] Dr. Saul Syedhocytes/100 WBC (Bld)12.8 %Critically low20.5-60.0The [facility] HospitalComment on above:Performed By: #### CBC #### [facility] [address] [place] [address] Dr. Saul JiUAL DIFF REQNONormalThe [facility] HospitalComment on above: Performed By: #### CBC #### [facility] [address] [place] [address] Dr. Saul Huang (RBC) [Entitic mass]31.0 diKsmryv70.7-34.0The [facility] HospitalComment on above:Performed By: #### CBC #### [facility] [address] [place] [address] Dr. Saul Huang (RBC) [Mass/Vol]35.0 g/fGPdujmd59.9-35.2The [facility] HospitalComment on above:Performed By: #### CBC #### [facility] [address] [place] [address] Dr. Saul Huang (RBC) [Entitic vol]88.5 dPMfnnnf21.0-99.0The [facility] HospitalComment on above:Performed By: #### CBC #### [facility] [address] [address] [address] Saul Davenport #0.5 103/ulNormal0.3-0.8The [facility] HospitalComment on above:Performed By: #### CBC #### [facility] [address] [address] [address] Saul Stokesocytes/100 WBC (Bld)3.6 %Normal1.7-12.0[facility] Comment on above:Performed By: #### CBC #### [facility] [address] [place] [address] Dr. Saul Velazquez #11.0 103/ulCritically high1.4-6.5The [facility] Comment on above:Performed By: #### CBC #### [facility] [address] [place] [address] Dr. Saul Bradleyutrophils/100 WBC (Bld)81.4 %Critically high43.0-75.0The [facility] HospitalComment on above:Performed By: #### CBC #### [facility] [address] [place] [address] Dr. Saul Nolan mean volume (Bld) [Entitic vol]9.8 fLNormal9.5-13.5The [facility] HospitalComment on above:Performed By: #### CBC #### [facility] [address] [place] [address] Dr. Saul QuispePLT248 103/kfJtxxzu279-651Dtf [facility] HospitalComment on above: Performed By: #### CBC #### [facility] [address] [place] [address] Dr. Saul QuispeRBC5.13 106/ulNormal4.20-5.40The [facility] HospitalComment on above:Performed By: #### CBC #### [facility] [address] [place] [address] Dr. Saul QuispeWBC13.4 103/ulCritically high4.0-11.0The [facility] HospitalComment on above:Performed By: #### CBC #### [facility] [address] [address] [address] Saul Gallegos LDLon 54-56-1791Pcakqtxxppn in LDL [Mass/Vol]81 mg/dL NormalThe [facility] HospitalComment on above:Performed By: #### T7, TSH, DLDL, LIPID, CMP #### [facility] [address] [address] [address] Saul QuispeDLDL NORMALSEE [facility] Rittman Medical CenterComment on above: Result Comment: <100 mg/dl OPTIMAL 100 - 129 mg/dl NEAR OR ABOVE OPTIMAL 130 - 159 mg/dl BORDERLINE HIGH 160 - 189 mg/dl HIGH >190 mg/dl VERY HIGHPerformed By: #### T7, TSH, DLDL, LIPID, CMP #### [facility] [address] [place] [address] Dr. Saul QuispeFRDHRUV THYROXINE INDEX T7on 51-72-7219JBP3.69Qvsdxx5.30-4.50The [facility] HospitalComapex medical center on above:Performed By: #### T7, TSH, DLDL, LIPID, CMP #### [facility] [address] [place] [address] Dr. Saul QuispeT3U36.0 %Qlegrs55.0-39.0The [facility] HospitalComment on above: Performed By: #### T7, TSH, DLDL, LIPID, CMP #### [facility] [address] [place] [address] Dr. Saul QuispeT4 [Mass/Vol]9.80 ug/dLNormal4.80-13.90The [facility] Comment on above:Performed By: #### T7, TSH, DLDL, LIPID, CMP #### [facility] [address] [place] [address] Dr. Saul QuispeGLYCOHEMOGLOBIN A1Con 55-74-5210IAC RECOMMENDATIONSEE [facility] HospitalComapex medical center on above:Result Comment: ADA RECOMMENDED LIMIT 4.0 - 6.0 ADA THERAPEUTIC TARGET < 7.0 ACTION SUGGESTED > 7.0Performed By: #### A1C #### [facility] [address] [address] [address] Saul QuispeGlucose [Mass/Vol]272 mg/dLMercy Memorial HospitalComment on above:Performed By: #### A1C #### [facility] [address] [place] [address] Dr. Saul QuispeHbA1c (Bld) [Mass fraction]11.1 %Critically high4.5-6.2The [facility] on above:Performed By: #### A1C #### [facility] [address] [place] [address] Dr. Saul Hoffmann 18-37-5396Xrqz [Mass/Vol]44.0 ug/dLCritically low 50.0-170.0The [facility] HospitalComment on above:Performed By: #### IRON #### [facility] [address] [place] [address] Dr. Saul IrbyID PROFILEon 91-88-0235JICE-HDL RATIO NORMSEE BELOWMercy Memorial HospitalComment on above:Result Comment: 3.3 - 4.4 LOW RISK 4.4 - 7.1 AVERAGE RISK 7.1 - 11.0 MODERATE RISK >11.0 HIGH RISKPerformed By: #### T7, TSH, DLDL, LIPID, CMP #### [facility] [address] [place] [address] Dr. Saul QuispeCholesterol [Mass/Vol]254 mg/dLCritically high<=200The [facility] on above:Performed By: #### T7, TSH, DLDL, LIPID, CMP #### [facility] [address] [place] [address] Dr. Saul QuispeCholesterol in HDL [Mass/Vol]26 mg/dLCritically iua29-27Bqf [facility] on above:Performed By: #### T7, TSH, DLDL, LIPID, CMP #### [facility] [address] [place] [address] Dr. Saul Lalaesteralcon.total/Cholesterol in HDL [Mass ratio]9.8 {ratio} NormalThe Lilian HospitalComment on above:Performed By: #### T7, TSH, DLDL, LIPID, CMP #### [facility] [address] [place] [address] Dr. Saul Harris NORMAL> or = 60 mg/dl - LOW CARDIOVASCULAR RISK <40 mg/dl - HIGH CARDIOVASCULAR RISKNoSt. Vincent Hospital on above:Performed By: #### T7, TSH, DLDL, LIPID, CMP #### [facility] [address] [address] [address] Saul QuispeTriglyceride [Mass/Vol]1343 mg/dLCritically high<=150The [facility] on above:Performed By: #### T7, TSH, DLDL, LIPID, CMP #### [facility] [address] [place] [address] Dr. Saul QuispeVLDL NMQL611.6 mg/dLNoSt. Vincent Hospital on above: Performed By: #### T7, TSH, DLDL, LIPID, CMP #### [facility] [address] [place] [address] Dr. Saul QuispePROF 14(COMP METB)on 63-95-4219Eazlbcn [Mass/Vol]3.7 g/dLNormal 3.4-5.0[facility] on above:Performed By: #### T7, TSH, DLDL, LIPID, CMP #### [facility] [address] [place] [address] Dr. Saul QuispeAlbumin/Globulin [Mass ratio]1.0 {ratio}NormalThe [facility] on above:Performed By: #### T7, TSH, DLDL, LIPID, CMP #### [facility] [address] [place] [address] Dr. Saul Ortiz [Catalytic activity/Vol]98 U/PBbvkmc12-154Efa [facility] on above:Performed By: #### T7, TSH, DLDL, LIPID, CMP #### [facility] [address] [place] [address] Dr. Saul Varma [Catalytic activity/Vol]65 U/LCritically rzhz34-59Cep Lilian HospitalComment on above:Performed By: #### T7, TSH, DLDL, LIPID, CMP #### [facility] [address] [address] [address] Saul Boswell gap [Moles/Vol]18.6 mmol/LNormalClinton [facility] Hospital Comment on above:Performed By: #### T7, TSH, DLDL, LIPID, CMP #### [facility] [address] [address] [address] Saul QuispeAST [Catalytic activity/Vol]39 U/LCritically [id number] on above:Performed By: #### T7, TSH, DLDL, LIPID, CMP #### [facility] [address] [place] [address] Dr. Saul QuispeBilirubin [Mass/Vol]0.6 mg/dLNormal0.2-1.0[facility] Comment on above:Performed By: #### T7, TSH, DLDL, LIPID, CMP #### [facility] [address] [place] [address] Dr. Saul QuispeCalcium [Mass/Vol]10.1 mg/dLNormal8.5-10.1[facility] Comment on above:Performed By: #### T7, TSH, DLDL, LIPID, CMP #### [facility] [address] [place] [address] Dr. Saul QuispeChloride [Moles/Vol]95 mmol/LCritically [id number] [facility] on above:Performed By: #### T7, TSH, DLDL, LIPID, CMP #### [facility] [address] [place] [address] Dr. Saul QuispeCO2 [Moles/Vol]26.1 mmol/NEsaaia20.0-32.0[facility] Comment on above:Performed By: #### T7, TSH, DLDL, LIPID, CMP #### [facility] [address] [place] [address] Dr. Saul QuispeCreatinine [Mass/Vol]0.48 mg/dLCritically low0.55-1.02[facility] HospitalComment on above:Performed By: #### T7, TSH, DLDL, LIPID, CMP #### [facility] [address] [place] [address] Dr. Saul FernándezGFR-AF ALGERIAN>60Normal>=60The [facility] Memorial HospitalComment on above:Performed By: #### T7, TSH, DLDL, LIPID, CMP #### [facility] [address] [place] [address] Dr. Saul FernándezGFR-NON AF ALGERIAN>60Normal>=60The [facility] HospitalComment on above:Performed By: #### T7, TSH, DLDL, LIPID, CMP #### [facility] [address] [place] [address] Dr. Saul QuispeGlobulin (S) [Mass/Vol]3.7 g/dLNormalThe [facility] Memorial HospitalComment on above:Performed By: #### T7, TSH, DLDL, LIPID, CMP #### [facility] [address] [place] [address] Dr. Saul QuispeGlucose [Mass/Vol]332 mg/dLCritically ecmm42-703MnzBethesda North Hospitalment on above:Performed By: #### T7, TSH, DLDL, LIPID, CMP #### [facility] [address] [place] [address] Dr. Saul QuispePotassium [Moles/Vol]3.7 mmol/LNormal3.5-5.1[facility] Comment on above:Performed By: #### T7, TSH, DLDL, LIPID, CMP #### [facility] [address] [place] [address] Dr. Saul QuispeProtein [Mass/Vol]7.4 g/dLNormal6.4-8.2[facility] Comment on above:Performed By: #### T7, TSH, DLDL, LIPID, CMP #### [facility] [address] [place] [address] Dr. Saul QuispeSodium [Moles/Vol]136 mmol/NJnhzaf003-686Bgp [facility] Comment on above:Performed By: #### T7, TSH, DLDL, LIPID, CMP #### [facility] [address] [address] [address] Saul Scanlon nitrogen [Mass/Vol]8.0 mg/dLNormal7.0-18.0The [facility] HospitalComment on above:Performed By: #### T7, TSH, DLDL, LIPID, CMP #### [facility] [address] [address] [address] Saul Scanlon nitrogen/Creatinine [Mass ratio]16.7 mg/mgNormalThe [facility] HospitalComment on above:Performed By: #### T7, TSH, DLDL, LIPID, CMP #### [facility] [address] [place] [address] Dr. Saul Roper 79-41-5678AHG4.109 uIU/mLNormal0.358-3.740The [facility] HospitalComment on above:Performed By: #### T7, TSH, DLDL, LIPID, CMP #### [facility] [address] [address] [address] Saul QuispeConsultation Noteon 28-56-3595Oqcdyjzbubzm Note [id number]#1.00CD:[address] [place], [place] [address]IntraOperative Documentson 30-76-0680FhjxrEfryujlyg Documents [id number]#1.00CD:[address] [place], [place] [address]Coding Summary.on 34-39-5415Erirbe Summary. CD:[id number]:[id number]+PGhlYWQ+LM5GRPHqT59lcJAiaM9EM7zQOR9CVNICZPRQSR1OYS0kb LX9LEemX2PndgRt [file] YXBz (more content not included)...NormalGood [facility]itan HospitalMain OR Intraoperative Recordon 15-13-3140Xmvz OR Intraoperative RecordIntraOp Document Type FT Summary Primary Physician: Pascual CALDERÓN MD Finalized Date/Time: 08/20/21 15:00:41 Pt. Name: ALPHONSO GALE /Sex: 1980 Female Med Rec #: [id number] Physician: MELE FREITAS, Pascual Craig Financial #: [id number] Pt. Type: O Room/Bed: / Admit/Disch: 08/13/21 [...] CALDERÓN MD, Sudha Braun RN Role Performed HAND INSERTER OPERATOR Surgeon - Primary Etl Bi Developer - Primary Time In 08/13/21 07:34:00 08/13/21 07:34:00 08/13/21 07:34:00 Time Out 08/13/21 08:01:00 08/13/21 08:01:00 08/13/21 08:01:00 Procedure EGD AND COLONOSCOPY(.) EGD AND COLONOSCOPY(.) EGD AND COLONOSCOPY(.) Comments DR FREEMAN SUPERVISING [facility] STUDENT - OBSERVING Last Modified By: Sudha Epstein RN, RN, Sudha Moses RN 08/13/21 08:05:38 08/13/21 08:05:38 08/13/21 08:05:38 Entry 4 Case Attendee Susana Ramso Role Performed Scrub - Primary Time In [...] Time Out Bogdan Ramirez CRNA, Given Participants Pascual CALDERÓN MD, Barbee RN, Rachel Torres Rachel L Time Out [...] and tissue Entry 1 Skin Integrity Intact, [place], Warm, and Skin Abnormality No Dry Outcomes [...] Left Leg Po (more content not included)... [facility] HospitalPostoperative Documentson 08-16-2021 Postoperative [id number]#1.00CD:127 [facility] HospitalProgress Note-Physicianon 05-45-8941Ykcpffqh Note-PhysicianPatient: ALPHONSO GALE Age: 41 years Sex: Female [...] 0, Control of stomach acid Potassium Chloride (Drn-Wuhe-Sha M10) 10 mEq oral tablet, extended release: [...] All Problems HTN (hypertension) / SNOMED CT 4526889776 / Confirmed Diabetes / SNOMED CT 416120794 / Confirmed Epigastric pain / SNOMED CT 965013239 / Confirmed Vitamin deficiency / SNOMED CT 676787793 / Confirmed Neuropathy / SNOMED CT 8229091085 / Confirmed Change in bowel habits / SNOMED CT 788031145 / Confirmed BMI 50.0-59.9, adult / SNOMED CT 9909182658 / Confirmed Abnormal abdominal CT scan / SNOMED CT 1122074663 / Confirmed GERD (gastroesophageal reflux disease) / SNOMED CT 051415379 / Confirmed Chronic GERD / SNOMED CT 297527096 / Confirmed Edema / SNOMED CT 987611920 / Confirmed Abdominal pain, LLQ / SNOMED CT 351623392 / Confirmed Hypokalemia / SNOMED CT 49428517 / Confirmed Histories Past Medical History: No active or resolved past medical history items have been selected or recorded. Procedure history: Closed fracture of lower jaw bone (0905511132). Extraction of wisdom tooth (988919334). section (12550757). Cholecystectomy (56006290). Abdominal hysterectomy (832140747). Social History Social & Psychosocial Habits Alcohol [...] review: No qualifying data available . Plan [place] [employer] Anesthesiologists (ASA) physical status classification: Class III. Anesthetic Preoperative Plan Anesthesia: General. , Pt advised of the benefits of obstaining from tobacco products. Anesthetic plan, risks, benefits,and alternatives discussed with the patient and/or family. Patient verbalized understanding. Pt agrees with anesthetic plan and accepts all risks including but not limited to; Bleeding, infection(including covid-19), nerve injury, dental injury, eye injury, headache, low blood pressure, serious problems with the heart and lungs, allergic reactions, and ..[facility] HospitalComment on above:Result Comment: Electronically Signed By: Ramin Freeman MD\.br\Date and Time Signed: 08/16/21 14:50 EDTProgress Note-PhysicianPatient: ALPHONSO GALE Age: 41 years Sex: Female : 1980 Associated Diagnoses: None Author: Ramin Freeman MD Postoperative Information Post Operative Note: Post Anesthesia Care Unit. Anesthetic utilized: General. Health Status Allergies: Allergic Reactions (All) No Known Medication Allergies Nonallergic Reactions (All) Severity Not Documented Eggs- Abdominal pain and nausea and vomiting. Problem list: All Problems HTN (hypertension) / SNOMED CT 8109731888 / Confirmed Diabetes / SNOMED CT 903892433 / Confirmed Epigastric pain / SNOMED CT 414134716 / Confirmed Vitamin deficiency / SNOMED CT 159579884 / Confirmed Neuropathy / SNOMED CT 3331424783 / Confirmed Change in bowel habits / SNOMED CT 599346777 / Confirmed BMI 50.0-59.9, adult / SNOMED CT 6910512095 / Confirmed Abnormal abdominal CT scan / SNOMED CT 0087575202 / Confirmed GERD (gastroesophageal reflux disease) / SNOMED CT 287723513 / Confirmed Chronic GERD / SNOMED CT 628666672 / Confirmed Edema / SNOMED CT 778518079 / Confirmed Abdominal pain, LLQ / SNOMED CT 229073763 / Confirmed Hypokalemia / SNOMED CT 71507270 / Confirmed Physical Examination Intake and Output [...] discharged from PACU when criteria met. Condition good.[facility] HospitalComment on above:Result Comment: Electronically Signed By: Pete FREITAS, Ramin\.br\Date and Time Signed: 08/16/21 14:50 EDTReminderson 34-58-3910Chaxfislm From: Kiana Burnett LPN To: N - Clinical; Sent: 08/14/2021 10:10:39 EDT Show up: 07/14/2031 09:00:00 EDT Subject: colonoscopy recall Due Date/Time: 08/13/2031 09:00:00 EDT Reminder/Recall Patient is due for screening colonoscopy 08/13/2031.[facility] HospitalColonoscopy Procedure Reporton 06-06-0718Qzaprucozzf Procedure Report Patient: ALPHONSO GALE Age: 41 [...] place. Impression and Plan Diagnosis: Redundant colon (YWE28-XI Q43.8, Discharge, Medical). Course: Progressing as expected. Recommendations: Repeat colonoscopy:: In 10 years. Follow-up:: Await biopsy results in 3-5 days. Diet:: Regular diet. Medication resumption:: Continue current medications. Return to activities:: After 24 hours.[facility] HospitalConsenton [id number]#1.00CD:127[facility] SystemDischarge Instructionson 94-74-6098Umulzmrnu [id number]#1.00CD:127[facility] HospitalEGDon 88-96-4194AzecfaxpkapeqvfhdhvjxgymheNrxmgfz: ALPHONSO GALE Age: 41 years Sex: Female : 1980 Associated Diagnoses: None Author: Pascual CALDERÓN MD Pre-Procedure Procedure Date 08/13/2021 08:03:00 . Procedure Type: Esophagogastroduodenoscopy. Procedure provider Performed by Pascual CALDERÓN MD. [...] the left lateral decubitus position. Endoscope type usedwas an adult-size, introduced orally, advanced to the 2nd portion of the duodenum. No difficulty was encountered during the procedure. Views were excellent. The patient tolerated the procedure well. Findings Examination of the esophagus revealed a normal esophagus. Gastritis: bile reflux, mild. Examinationof the duodenum revealed a normal duodenum. Post-Procedure Complications: none. Estimated blood loss: none. Devices/ implants: none left in place. Impression and Plan EGD: Diagnosis: Bile reflux gastritis (BCM87-LV K29.60, Discharge, Medical). Course: Progressing as expected. Education and Follow-up: Counseled: Family.[facility] Inpatient Patient Summaryon 44-45-3523Ujkytphvo Patient Summary [address] [address] [facility] Clinical Discharge Instructions PERSON INFORMATION Name: ALPHONSO GALE PHYSICIANS Admitting Physician: Pascual CALDERÓN MD Attending Physician: Pascual CALDERÓN MD PCP: Gabino Bullock MD Discharge Diagnosis: Bile reflux gastritis; Redundant colon Comment: PATIENT EDUCATION INFORMATION Instructions: Medication Leaflets: Follow up: With: Address: When: Pascual CALDERÓN [address] [facility], [address], [place] [id number] Business (1) Within 7 to 10 days [...] tablet, extended release) 1 Tablets By Mouth 2times a day. pantoprazole (Pantoprazole [address] Tab) 1 Tablets By Mouth every day. potassium chloride (Potassium Chloride (Wwz-Bvlx-Gpq M10) 10 mEq oral tablet, extended release) 1 Tablets By Mouth 2 times a day. terbinafine (terbinafine 250 mg Tab) 1 Tablets By Mouth every day. tizanidine (tiZANidine 4 mg Tab) 1 Tablets By Mouth at bedtime. No Longer Take the Following Medications hyoscyamine (hyoscyamine Sublingual) Comment:[facility] HospitalIntraOperative Documentson 08-13-2021 IntraOperative [id number]#1.00CD:127 [facility] HospitalMain OR PACU I Recordon 43-15-8207Vzhs OR PACU I RecordPACU Phase I Document Type FT Summary Primary Physician: Pascual CALDERÓN MD Finalized Date/Time: 08/13/21 08:15:13 Pt. Name: ALPHONSO GALE Manisha Pinto/Sex: 1980 Female Med Rec #: [id number] Physician: Pascual CALDERÓN MD Financial #: [id number] Pt. Type: O Room/Bed: / Admit/Disch: 08/13/21 [...] individualized perioperative plan of care The patient's rightto privacy is maintained The patient's value system, [...] with or improved from baseline levels established preoperativelyThe patient's cardiovascular status is consistent with or improved from baseline levels established preoperatively The patient's cardiovascular status is consistent with or improved from baseline levels established preoperatively The patient demonstrates and/or reports adequate pain control throughout the perioperative period The patient received appropriate medication(s), safely administered during the perioperativeperiod Acuity Level PACU I FT Entry 1 Start Time 08/13/21 08:02:00 Stop Time 08/13/21 08:32:00 Acuity Level Acuity Level I Last Modified By: Deepti Goodwin RN 08/13/21 08:15:12 Finalized By: Deepti Goodwin RN Document Signatures Signed By: Deepti Goodwin RN 08/13/21 08:15NMercy Health [facility] HospitalMain OR Preoperative Recordon 01-59-8995Sdrw OR Preoperative RecordHolding Area Document Type FT Summary Primary Physician: Pascual CALDERÓN MD Finalized Date/Time: 08/13/21 07:07:45 Pt. Name: ALPHONSO GALE Manisha VanceB./Sex: 1980 Female Med Rec #: [id number] Physician: Pascual CALDERÓN MD Financial #: [id number] Pt. Type: O Room/Bed: / Admit/Disch: 08/13/21 [...] or her perioperative plan of care The patient'sright to privacy is maintained Surgery Checklist FT [...] Signatures Signed By: Ronni Rossi RN 08/13/21 07:07NoUniversity [facility]als [facility] Recordon 41-03-2794Ztoebfr Record [id number]:127[facility] [id number]#1.00CD:127Noal [facility] HospitalOutpatient Surgery Discharge Instructionon 08-13-2021 Outpatient Surgery Discharge Instruction [place] [id number] Patient Discharge Instructions PERSON INFORMATION Name: ALPHONSO [...] THE NEAREST EMERGENCY ROOM OR CALL 911 BALJINDER Liang CRYSTAL G, have received the attached patient education materials/instructions and have verbalized understanding: May we do a follow up call? Yes No I was present when discharge instructions were given Patient Signature Date Clinican/Nurse Signature Date Follow up: With: Address: When: Pascual [address], [address], [facility] [address] [place] [address] Business (1) Within 7 to 10 days Pharmacy Information: Other: [facility] You may receive a survey from [employer] asking you to rate your care experience. Your feedback is important and will help us understand what we do well and how we can improve the quality of care we provide to you, your loved ones and our community. It?s an honor to serve you. Thank you for choosing [facility] HERE ARE THE MEDICATION CHANGES [...] tablet, extended release) 1 Tablets By Mouth 2times a day. pantoprazole (Pantoprazole [address] Tab) 1 Tablets By Mouth every day. potassium chloride (Potassium Chloride (Uvw-Tagh-Ttn M10) 10 mEq oral tablet, extended release) 1 Tablets By Mouth 2 times a day. terbinafine (terbinafine 250 mg Tab) 1 Tablets By Mouth every day. tizanidine (tiZANidine 4 mg Tab) 1 Tablets By Mouth at bedtime. No Longer Take the Following Medications hyoscyamine (hyoscyamine Sublingual) PATIENT EDUCATION INFORMATION Instructions: Medication Leaflets:[facility] HospitalPatient Education - Texton 63-25-9167Rfxblqt Education - TextMercy Health Lorain HospitalPre- Certification Formon 12-93-9191Yva-Certification Form [id number]#1.00CD:127[facility] HospitalProvider Letter FTon 09-86-7221Arjoqtcq Letter [facility] [address], [facility] [place] [address] Re: ALPHONSO GALE Date of : 1980 Thank you for your referral of Alphonso Gale who was seen on consultation on July 10, 2021, forintermittent left lower quadrant pain. A colonoscopy and EGD is planned for further evaluation. I have enclosed my consultation notes for your review. I will be happy to follow Alphonso should her symptoms persist. Sincerely, Pascual Calderón MD General SurgeryMercy Health Lorain HospitalConsent for Procedure/Surgeryon 00-38-7510Eyajzre for Procedure/Surgery [id number]#1.00CD:[address] [place], [place] [address]Ambulatory Clinical Summaryon 09-75-1377Bdickngdyj Clinical Summary {q7-39-d4-48-aj-48-0e-cj-y8-05-50-76-30-30-06-f0}CD:799371WzfqklEejrihMercy Health Lorain HospitalRAD - CT Reporton 85-45-5926NLA - CT Report [id number]#1.00CD:[address] [place], [place] [address]RAD - MISCon 15-13-5596UPX - MISC [id number]#1.00CD:[address] [place], [place] [address]Physician Referralon 77-90-5848Hkaxrohuc Referral [id number]#1.00CD:[address] [place] [address] Vital Signs Date TimeVital SignValuePerforming MzutceltwQkjocvrk63-00-7651 11:44-0400Body .3 cmFransisco Edwards MD Work Phone: [facility] HealthcareAxxjpmxuuj11-08-9855 11:44-0400Body mass index (BMI) [Ratio]36.77 kg/n5RgrgjzrFransisco Edwards MD Work Phone: [facility] HealthcareUgabgxdkqr56-44-8196 11:44-0400Body uvduis861.95 kgFransisco Edwards MD Work Phone: [facility] HealthcareIrdskswmta83-99-9907 11:44-0400Diastolic blood cqvofkhc23 mm[Hg]Fransisco Edwards MD Work Phone: [facility] HealthcareGvozxpbgkh27-44-1579 11:44-0400Systolic blood kvutktns918 mm[Hg]Fransisco Edwards MD Work Phone: [facility] HealthcareSbuqubvcdx01-13-9072 16:55-0400Body zuwwdd607.26 Jean Carvalho Other [employer] Other 10-29-2021 16:55-0400Body mass index (BMI) [Ratio] 49.76 kg/u9XoituqPorsche Carvalho Other [employer] Other 10-29-2021 16:55-0400Body lvsmzbddgar25.9 [degF]Porsche Carvalho Other [employer] Other 10-29-2021 16:55-0400Body ufshgn929.86 kgPorsche Carvalho Other [employer] Other 10-29-2021 16:55-0400Diastolic blood wposygqb27 mm[Hg] Porsche Carvalho Other [employer] Other 10-29-2021 16:55-0400Respiratory rate18 /minPorsche Carvalho Other [employer] Other 10-29-2021 16:55-1254NcK6% (BldA) [Mass fraction]96 % Porsche Carvalho Other [employer] Other 10-29-2021 16:55-0400Systolic blood nhcjrnpu085 mm[Hg] Porsche Carvalho Other [employer] Other Encounters Encounter DateEncounter TypeCare ProviderFacilityStart: 08-15-2025 End: 54-11-9399exnkikrzugKZJQGZH BAUERNot AvailableStart: 08-04-2025 End: 57-35-5915Bvwdzeclinton Edwards MD Work Phone: [facility] NEUROLOGYStart: 08-04-2025 End: 89-67-4639Dvtlxwclinton Edwards MD Work Phone: [facility] MACIEJ NEUROLOGYStart: 08-04-2025 End: 81-52-8121Scsnbn outpatient new 45 minutesFransisco Edwards MD Work Phone: [facility] [place] NeurologyComment on above:Idiopathic progressive neuropathy (Primary Dx)Start: 08-04-2025 End: 48-90-1009enidzrwsekVTEFUIB W BAUERNot AvailableStart: 05-03-2025 End: 44-00-6273Vpollys encounter procedureMacarla Nguyen MD-Lab [address] Work Phone: Start: 05-03-2025 End: 90-27-3263uwobjelsehIbfsrvn M Hoy MD Work Phone: [facility] Work Phone: Start: 12-13-2022 End: 27-04-3022xxanvcxweaSJ GABINO HOYFacility:H6Cipad: 79-45-8770wkgiccvhtdYO GABINO RAYFacility:X4Mepcm: 87-24-7446Bfiesw outpatient visit 15 minutesPamela DymondFPG Urgent Care Justice Procedures DateProcedureProcedure DetailPerforming ClinicianStart: 93-35-4890Mpsimuxxcwg Fransisco Edwards MD Work Phone: Plan of Treatment DateCare ActivityDetailAuthorStart: 08-18-2025 End: 13-64-3998Whsouxp encounter jujzrlcrf47/16/2025 2:00 PM EDT Procedure Visit [facility] [place] [facility] [address] [place] [id number] IOZZ [place] NeurologyStart: 08-15-2025 End: 40-42-4596Cxvrstr encounter qgwwfsymm18/13/2025 2:00 PM EDT Procedure Visit [facility] [place] [facility] [address] [place] [id number] HCTM [place] NeurologyStart: 08-04-2025 End: 76-51-6330Eewfbuz encounter bxbbebnad70/02/2025 11:30 AM EDT Office Visit [facility] [place] [facility] [address] [place] [address] Fransisco Edwards MD [address] [facility] [address] [place] [address] [facility] Comment on above:ArrivedStart: 63-48-5970Ickduqevz vaccinationInfluenza Vaccine (#1)[facility] HealthcareStart: 59-84-1091Zstapsmp identified in Urine by CultureUrine CultureUniversity Hospitals Health Systemtart: 47-47-7455Dllybqtu measurement [facility] Health Systemtart: 45-95-9590Hvzckxxf to Scl-70 measurement [facility] Hospit[facility] Health Systemtart: 40-53-5762Xkknrqotp complement CH50 levelUniversity Hospitals Health Systemtart: 13-95-1851UJT antibody measurement [facility] Health Systemtart: 67-19-4093Hznjd cultureUniversity Hospitals Health Systemtart: 99-86-9544DaessisevUniversity Hospitals Health Systemtart: 19-22-6533Llvqwuadx for malignant neoplasm of breastMammogramNOMS Healthcare Start: 95-99-0314Czeoohjze for malignant neoplasm of cervixNOMS HealthcareStart: 43-49-7237Pixflwuya for malignant neoplasm of cervixPap SmearNOMS Healthcare Start: 83-13-1134Yodbftvsz for malignant neoplasm of colonNOMS Lqcznfxsme44 hour urine measurementRiverside Methodist HospitalActin smooth muscle IgG Ab [Units/volume] in SerumRiverside Methodist HospitalAdenosine monophosphate.cyclic [Moles/volume] in Serum or PlasmaRiverside Methodist HospitalAlbumin [Mass/volume] in Serum or PlasmaRiverside Methodist Hospital Albumin/Globulin ratioRiverside Methodist HospitalBeta 2 glycoprotein 1 IgG Ab [Units/volume] in SerumRiverside Methodist HospitalBeta 2 glycoprotein 1 IgM Ab [Units/volume] in SerumRiverside Methodist HospitalCardiolipin IgA Ab [Units/volume] in Serum by ImmunoassayRiverside Methodist Hospital Cardiolipin IgG Ab [Units/volume] in Serum by ImmunoassayRiverside Methodist HospitalCardiolipin IgM Ab [Units/volume] in Serum by ImmunoassayRiverside Methodist HospitalCentromere protein B Ab [Units/volume] in SerumRiverside Methodist HospitalChromatin Ab [Units/volume] in Serum or PlasmaRiverside Methodist HospitalComplement C3 [Mass/volume] in Serum or PlasmaRiverside Methodist HospitalComplement C4 [Mass/volume] in Serum or Newark HospitalElectrophoresis: nmzff-1-ceodgowvEpusjughyRiverside Methodist HospitalElectrophoresis: kcuhs-3-lxnhbkfrNgkhvssegRiverside Methodist Hospital Electrophoresis: beta-globulinRiverside Methodist HospitalElectrophoresis: gamma globulinRiverside Methodist HospitalGlobulin [Mass/volume] in Serum [facility] HospitalHistone IgG Ab [Units/volume] in Serum by ImmunoassayRiverside Methodist HospitalHomogenous nuclear Ab pattern [Titer] in SerumRiverside Methodist HospitalIgA [Mass/volume] in Serum or PlasmaRiverside Methodist HospitalIgG [Mass/volume] in Serum or Plasma Riverside Methodist HospitalIgM [Mass/volume] in Serum or Newark HospitalImmunofixation for UrineRiverside Methodist Hospital China-1 extractable nuclear Ab [Units/volume] in White HospitalLupus anticoagulant [Interpretation] in Platelet poor plasmaRiverside Methodist HospitalMeasurement of monoclonal protein concentrationRiverside Methodist HospitalMitochondria M2 IgG Ab [Units/volume] in White HospitalNuclear Ab [Titer] in White HospitalProtein [Mass/volume] in Serum or PlasmaRiverside Methodist Hospital Protein [Mass/volume] in UrineRiverside Methodist HospitalReagin Ab [Presence] in Serum by RPSouthern Ohio Medical CenterRheumatoid factor [Units/volume] in Serum or PlasmaUniversity Hospitals Health Systemerum immunofixationUniversity Hospitals Health Systemjogrens syndrome-A extractable nuclear Ab [Units/volume] in [facility] Systemjogrens syndrome-B extractable nuclear Ab [Units/volume] in SerumUniversity Hospitals Health Systemmith extractable nuclear Ab [Units/volume] in SerumRiverside Methodist HospitalThrombin timeRiverside Methodist Hospital Thyroglobulin Ab [Units/volume] in Serum or PlasmaRiverside Methodist HospitalThyroperoxidase Ab [Units/volume] in Serum or PlasmaRiverside Methodist Hospital Payers DatePayer CategoryPayerPolicy [id number]-pbg [id number] Health InsuranceMEDICAL MUTUAL [id number] 2.0.1.469546.3.579.[id number] 2.0.1.296612.3.579.[id number] 2.0.1.820783.3.57[id number] 2..1.008058.3.579.2.482839-62-3909Hlkbfhw Health [id number] 02-65-0285Djab-kdr333641116QddmLima City [id number] 2..1.999804.36Fzijdzs16791119 2..1.551698.3.579.2.531 Social History DateTypeDetailFacilityUnknown if ever smokedNo[employer] Services Other Start: 99-17-6321Ago Assigned At BirthClickPay Services Other Tobacco smoking status NHISUnknown if ever smokedNOMS HealthcareSexFemale (finding)[facility] Hospitals Health Systemtart: 1980 [facility]FemaleFOhio Valley Hospitaltart: [id number] assigned at birthNot on fileNOMS HealthcareStart: 47-31-0199Wexnujl smoking status NHISNever smoked tobaccoNOMS HealthcareStart: 13-56-4708Unhtxkr use and exposureSmokeless tobacco non-userNOMS HealthcareStart: 45-58-6646Psdqbmgwt beverage intakeLifetime non-drinker (finding)NOMS HealthcareStart: 08-04-2025 History of Social functionNOMS Healthcare History of Present illness Narrative 08-04-2025 Note Date & LiexDhrfIiohyvfy29-95-3513 History of Present illness Narrative* Fransisco Edwards MD - 08/04/2025 11:30 AM EDT Images from the original note were not included. Subjective Alphonso Gale is a 45 y.o. female who presents for a new patient consultation referred by Dr. Nguyen for neuropathy.She states her neuropathy is very bad in her feet and hands. She states it has gotten a lot worse. She is losing mobility. She states she has had two positive TONNY's. History of Present Illness The patient presents for evaluation of neuropathy. She has been experiencing neuropathy for the past 5 years, which has progressively worsened. Initially, she had numbness in a few toes, but now she reports complete loss of sensation in both feet. The severity of her symptoms escalated significantly last year. She describes the pain as excruciating, navi to having a needle driven through her toenail, which later evolved into an aching sensation. She also experiences surges of pain radiating up and down her foot. Her hands are also affected, with decreased mobility and sensation. She has lost significant muscle mass and has difficulty with balance, resulting in six falls this year. She has been on gabapentin 600 mg four times a day for her neuropathy, but it has not provided relief. She has not tried Lyrica or Foltx. She was previously diagnosed with peripheral polyneuropathy, which was attributed to her diabetes. However, she was informed that her condition is not solely due to diabetes. She has a family history of neuropathy in her mother. She was referred to our care by Dr. Rahman due to abnormal blood work results. She has had two positive TONNY tests for lupus, but a subsequent test was negative. She was diagnosed with scleroderma at the age of 19 and has been dealing with it for 25 years. She constantly experiences dry mouth and dryeyes. She has undergone four biopsies. She has a long-standing history of migraines, which have improved since her hysterectomy. She also reports a burning, stinging pain in her shoulder blade that started a week ago. In 2019, Dr. Torrez prescribed Actos to manage her blood sugar levels, but it led to significant weight gain, increasing her weight to 409 pounds. She has since lost weight and currently weighs 240 pounds. She believes her blood sugar levels are still unregulated. PAST MEDICAL HISTORY: Diagnosed with scleroderma at age 19, long-standing history of migraines, twopositive TONNY tests for lupus, diabetes. INTERVAL: Since last visit, the neuropathy has worsened significantly, with increased pain and lossof sensation in both feet and hands. She has experienced six falls this year and has lost significant muscle mass. PAST SURGICAL HISTORY: Hysterectomy FAMILY HISTORY - Mother: Sarcoidosis, Graves' disease, hyperthyroidism, diabetes, rheumatoid arthritis, neuropathy - Negative for Chiari malformation on the father's side MEDICATIONS CURRENT MEDS: Gabapentin 600 mg Oral Four times a day Metformin Oral Tysabri PREVIOUS MEDS: Actos Oral Start Date: 2019 Reason for Discontinuation: Weight gain Review of Systems Constitutional: Negative for chills, diaphoresis, fatigue and fever. HENT: Negative for ear pain, tinnitus and trouble swallowing. Eyes: Negative for photophobia and visual disturbance. Respiratory: Negative for cough and shortness of breath. Cardiovascular: Negative for palpitations and leg swelling. Gastrointestinal: Negative for abdominal pain and nausea. Genitourinary: Negative for difficulty urinating and urgency. Musculoskeletal: Negative for arthralgias, back pain, myalgias, neck pain and neck stiffness. Neurological: Negative for tremors, weakness, light-headedness and numbness. Psychiatric/Behavioral: Negative for agitation, confusion and suicidal ideas. Objective There were no vitals taken for this visit. Physical Exam Motor Examination Muscle Bulk and Tone: Significant muscle mass loss in the legs. Strength: Weakness in both arms, right arm weaker than left. Sensory Examination Pain and Temperature: Decreased sensation to cold in the legs, sharp pain in the feet. Light Touch, Vibration and Proprioception: Decreased sensation in the fingers, especially the pinkies. Other Neurological Observations: Redness in various areas including fingers and face. General Appearance: Redness in face and ears. Vital Signs: Blood pressure 118/82. Neck: Neck pain, weakness in arm muscles raising above the head. Integumentary: Redness in various areas including fingers and face. Musculoskeletal: Significant muscle mass loss in the legs. Results Imaging - MRI: MRI shows small vessel changes. Assessment & Plan 1. Neuropathy. She reports severe neuropathy affecting both feet and hands, with significant loss of sensation andmobility. Symptoms have worsened over the past year. Differential diagnosis includes large fiber neuropathy, small fiber neuropathy, diabetic neuropathy, and potential autoimmune neuropathy. She willbe switched from gabapentin to Lyrica 200 mg three times a day. Foltx will be added to her regimen.An EMG of both upper and lower extremities will be conducted to assess nerve function. If no answers are found, a skin biopsy may be considered to check for nerve damage. 2. Lupus. She has had two positive TONNY tests for lupus but a subsequent test was negative. Given her family history of autoimmune diseases and her symptoms, lupus remains a differential diagnosis. Further evaluation and monitoring of her symptoms will be necessary. 3. Migraines. She has a history of migraines, which have improved since her hysterectomy. MRI shows small vessel changes, likely due to severe migraines or other risk factors like diabetes. Continued monitoring ofher migraine symptoms is recommended. 4. Diabetes Mellitus. She was previously on Actos, which caused significant weight gain. She is currently on metformin and reports that her blood sugar is not well-regulated. Continued monitoring and potential adjustment of her diabetes medication regimen will be necessary. 5. I will start the patient on Lyrica to see if it helps with alleviating neuropathic pain symptoms. Side effects such as weight gain and increase swelling of the limbs was explained. 6. Foltx will be used once a day 5. I will order an electromyograph evaluation of the lower extremities to assess for nerve damage such as lumbar radiculopathy, lumbar plexopathy, or peripheral neuropathy 6. I will order an electromyograph evaluation of the upper extremities to assess for nerve damage such as cervical radiculopathy, brachial plexopathy, or entrapment mononeuropathy. This clinical note was created utilizing [email or web address] documentation system. All information has beenthoroughly reviewed, corrected as necessary, and authenticated by the provider to ensure accuracy and completeness. On occasion, [employer] documentation system erroneously drops words or replaces aspoken word with a similar sounding word. Please notify with any questions or concerns regarding this clinical note. documented in this encounterMiss[facility] Healthcare Evaluation note 08-31-2021 Note Date & JvrgZmrxEhudurme50-53-9425 Evaluation note* Encounter Date Diagnosis Assessment Notes Treatment Notes Treatment Clinical Notes Aug, Abscess of buttock, right (ICD-1 0 - L02.31) Keep the area clean and dry. Soak in a warm tub once or twice a day to promote drainage. Take the antibiotics as prescribed until gone. Tylenol Motrin for pain. Follow-up with your family physician if no improvement in [employer] Other History and physical note 08-13-2021 Note Date & DlpbQdyuDwkxdqfa99-36-6308 Note [id number]#[id number]:127[facility] History and physical note 08-13-2021 Note Date & KxwxDzjnKcgujxim13-53-5483 NotePatient: LAPHONSO GALE Age: 41 years Sex: Female : 1980 Associated Diagnoses: None Author: Pascual CALDERÓN MD Subjective no changes to & [facility] HospitalComment on above:Result Comment: Electronically Signed By: Pascual CALDERÓN MD\.br\Date and Time Signed: 08/13/21 07:23 EDT Clinical Note 07-23-2021 Note Date & IaxyVfbuFkprmlzd00-55-9303 NoteChief Complaint consultation for abdominal pain HPI Staff 41 year old female presents on consultation from Dr. Bullock for intermittent left lower quadrant pain.Complains of intermittent liquid/soft stool. Never had colonoscopy. CT ABD/pelvis completed 06/23/21with diverticulosis, fatty liver and collateral vessels. History of Present Illness 41 yo female with h/o htn, DM, neuropathy, GERD, referred for intermittent abdominal pain and bowelchanges; also with recent abdominal/pelvic ct scan with enlarged venous abdominal wall collaterals;patient reports intermittent crampy LLQ pain, ache at [...] swallowing difficulties, no hearing loss, no ear infection(s),no nose bleeds. Cardiovascular: normal blood pressure, no [...] tab(s), Oral, BID Pa (more content not included)...[facility] HospitalComment on above: Result Comment: Electronically Signed By: MELE FREITAS, Pascual Stoddard\Date and Time Signed: 07/23/21 16:28 EDT Clinical Note 07-23-2021 Note Date & ZiezVmdlXwmtqapf46-33-1528 NoteGastroenterology Upper Endoscopy, Adult Upper endoscopy is a [...] including vitamins, herbs, eye drops, creams, and cgti-wid-wagnkey medicines. ? Any problems you or family [...] tells you to take them. ? Taking ilxo-znb-gxddfmm medicines, vitamins, herbs, and supplements. General instructions [...] your health care provider. Document Released: 10/17/2001 Documeabilio (more content not included)...[facility] Evaluation note Note Date & TypeNoteFacilityEvaluation noteNo assessment information available [facility] Work Phone: Evaluation note Note Date & TypeNoteFacilityEvaluation note* Diagnosis Idiopathic progressive neuropathy- Primary documented in this encounter [facility] History general Narrative - Reported Note Date & TypeNoteFacilityHistory general Narrative - Reported* Type Description Date Medical History scleroderma Medical HistoryDMSurgical Historypartial hysterectomySurgical HistoryC section Surgical HistorycholecystectomySurgical HistoryjawHospitalization Historysee above [employer] Other Reason for referral (narrative) Note Date & TypeNoteFacilityReason for referral (narrative)No reason for referral information availableKettering Memorial Hospital Work Phone: Summary Purpose Family History [...] section and content) DATE CREATED AUTHOR 09/23/2021 [facility] DATE CREATED AUTHOR AUTHOR'S ORGANIZ ATION 12/16/2022 [facility] DATE CREATED AUTHOR AUTHOR'S ORGANIZ ATION 05/22/2025 [facility] DATE CREATED AUTHOR AUTHOR'S ORGANIZ ATION 08/16/2025 [facility] EPIC REASON FOR VISIT (unrecogniz ed section and content) BOIL ON BACKSIDE Care Teams (unrecognized sec tion and content) Team Status: Active Member Role Status Dates Gabino Bullock MD Primary Care Provider Active Team Status: Inactive Member Role Status Dates Gabino Bullock MD Primary Care Provider Active Start: May 03, 2025 End: May 03, 2025Mattluis Nguyen MDAttending ProviderActiveStart: May 03, 2025 End: May 03, 2025 [...] BE BASED ON THE PRIMARY CLINICAL RECORDS. [facility] [employer] [facility]. provides no warranty or guarantee of the accuracy or completeness of information in this document.
--- OUTSIDE RECORDS SUMMARY | 2025-09-14 07:26 | XMS_ITS | Clinical Summary ---
Author Organization [facility] Healthcare Address [address] [place] [address] Care Team Providers Care Tso Name Role Phone Unavailable Primary Care Provider Unavailabl e Allergies No known active allergies Medications MedicationSigDispense QuantityRefillsLast FilledStart DateEnd DateStatus amitriptyline (Elavil) 150 MG tablet Take 150 mg by mouth at vylsqsa06/18/2025Active furosemide (Lasix) 80 MG tablet Take 80 mg by mouth Daily5Active metFORMIN (Glucophage) 1000 MG tablet Take 1,000 mg by mouth in the morning and 1,000 mg before bedtime.07/21/2025 Active metoprolol tartrate (Lopressor) 100 MG tablet Take 200 mg by mouth in the morning and 200 mg before bedtime.5Active potassium chloride CR (Klor-Con M10) 10 MEQ ER tablet Take 10 mEq by mouth in the morning and 10 mEq in the evening. Take with meals. 5Active Januvia 100 MG tablet 5Active tiZANidine (Zanaflex) 4 MG tablet Take 4 mg by mouth as needed at glqzhib96/18/2025Active pregabalin (Lyrica) 200 MG capsule Indications:Idiopathic progressive neuropathyTake 1 capsule (200 mg) by mouth in the morning and 1 capsule (200 mg) in the evening and 1 capsule(200 mg) before bedtime. 90 capsule 5Active folic acid-vit B6-vit B12 2.5-25-1 MG tablet tablet Indications:Idiopathic progressive neuropathyTake 1 tablet by mouth Daily 30 tablet 1115111/03/2024Expired Active Problems ProblemNoted DateDiagnosed DateDiabetic neuropathy with neurologic complication 08/16/2025bnormal computerized axial tomography of xsqybch3308/04/2025 Gastroesophageal reflux lcaenkj3708/04/2025ltered bowel vqdotavn05/02/2021 Diabetes repumwqn66/02/2021pigastric pain09/04/20212271Irkwl69/02/2021Hypertension 09/04/2021eft lower quadrant abdominal pain09/04/20215523Thiidyawxme71/02/2021 Idiopathic progressive lkoaorkqiq60/02/2021Vitamin kxgitgnnnc97/02/2021 Encounters DateTypeDepartmentCare YsqaLidztgqqhfj04/21/2025Telephone [facility] [address] [place] [address] Basilia Rios MA 08/15/2025 2:00 PM EDTProcedure Visit [facility] [address] [facility] [address] [place] [id number] Diabetic neuropathy with neurologic complication (HCC); Idiopathic progressive msnovfmcex39/13/0269Zhdjpx10/02/2025 11:30 AM EDTOffice Visit [facility] [address] [facility] [address] [place] [phone] Aman Edwards MD Idiopathic progressive neuropathy (Primary Dx)08/04/2025amboo flowsheet [facility] [address] [place] [address] Aman Edwards MD 08/04/2025Travelfrom Last 3 Months Social History Tobacco UseTypesPacks/DayYears UsedDateSmoking Tobacco: NeverSmokeless Tobacco: Never Tobacco Cessation:Counseling Given: Not Answered Alcohol UseStandard Drinks/WeekCommentsNever0 (1 standard drink = 0.6 oz pure alcohol)CommentsUnknownSex and Gender InformationValueDate RecordedSex Assigned at BirthNot on fileLegal DlfUqslkn01/15/2023 11:06 PM EDTGender IdentityNot on fileSexual OrientationNot on file Last Filed Vital Signs Vital SignReadingTime TakenCommentsBlood Erlgqvku095/8208/04/2025 11:44 AM EDT Pulse--Temperature--Respiratory Rate--Oxygen Saturation--Inhaled Oxygen Concentration--Cipqlk782 kg (249 lb)08/04/2025 11:44 AM FLDIsiiod213.3 cm (5' 9 )08/04/2025 11:44 AM EDTBody Mass Index36.7708/04/2025 11:44 AM EDT Plan of Treatment DateTypeDepartmentCare Team (Latest Contact Info)Szwrjngppnk44/19/2025 4:00 PM ESTOffice Visit [facility] [address] [place] [address] Aman Edwards MD [address] [place] [address] Health MaintenanceDue DateLast DoneCommentsCT Mzyslppltyxm1979Colonoscopy 1979Colorectal Cancer Rvvmmayms1979FIT-DNA1979FIT1979 FOBT05/28/19790546Hyfpvnzritjyu1979Pap Smear2000Cervical Cancer Twpxzkjyu16/26/2009HPV/Usdemy6805/28/20098222Huscxwsox42COVID-19 Vaccine ( season)/, 03/22/2021, 02/21/2021 Influenza Vaccine (#1)2025Pneumococcal Vaccine: Pediatrics (0 to 5 Years) and At-Risk Patients (6 to 64 Years)Aged OutNo longer eligible based on patient's age to complete this topic Insurance
--- OUTSIDE RECORDS SUMMARY | 2025-09-14 07:26 | XMS_ITS | Patient Health Record ---
Author Organization [facility] in [place] Address [address] [place] [address] Care Team Providers Care [employer] Worker Name Role Phone Markos Bedolla Primary Care Provider Allergies Allergen (clinical drug ingredient) Drug/Non Drug Allergy documented on EMR Reaction Allergy Type Onset Date Status Fluzone QuadrivalentUnknownDrug AllergyActive Results Component Value Reference Range Notes CT abdomen pelvis w con Reviewed date:11/11/2024 03:18:57 PM Interpretation: Performing Lab: Notes/Report: Source Facility: [place] [address] CT Scan Report Signed Patient: ALPHONSO FENTON MR#: [id number] : 1980 Acct:[id number] Age/Sex: 44 / F ADM Date: 11/11/24 Loc: LAB Attending Dr: Gabino Bedolla M.D. Ordering Physician: Gabino Bedolla M.D. Date of Service: 11/11/24 Procedure(s): CT abdomen pelvis w con Accession Number(s): [id number] cc: Gabino Bedolla M.D. [place] [id number] Patient Name: ALPHONSO FENTON MRN: [id number]:[id number] date: 1980 Sex: F Assigned Patient Location: LAB Current Patient Location: LAB Accession/Order Number: [id number] Exam Date: 11/11/2024 09:50 Report Date: 11/11/2024 [...] Signed By: 11/11/24 1447 DD/ 1445 TD/TT: Dredge Pump Operator: EPIFANIO chest 2V Reviewed date:07/01/2025 08:44:05 AM Interpretation: Performing Lab: Notes/Report: Source Facility: [facility]-[address] [place] [address] [place] [address] XRay Report Signed Patient: ALPHONSO FENTON MR#: [id number] : 1980 Acct:[id number] Age/Sex: 45 / F ADM Date: 06/30/25 Loc: RAD Attending Dr: Gabino Bedolla M.D. Ordering Physician: Gabino Bedolla M.D. Date of Service: 06/30/25 Procedure(s): XR chest 2V Accession Number(s): [id number] cc: Gabino Bedolla M.D. [place] [address] Patient Name: ALPHONSO FENTON MRN: [facility]:[id number] date: 1980 Sex: F Assigned Patient Location: [facility] Current Patient Location: Accession/Order Number: [id number] Exam Date: 06/30/2025 11:58 Report Date: 07/01/2025 00:32 At the request of: GABINO EBDOLLA MD Procedure: XR chest 2V XR chest 2V 06/30/2025 12:07 PM SIGNS AND SYMPTOMS: Left lower rib pain PROTOCOL: Frontal and lateral graphs of the chest COMPARISON: None FINDINGS: The trachea is midline. The heart and mediastinal structures are within normal limits. The lung parenchyma is clear. The bony thorax is intact. XR/XR chest 2V IMPRESSION: No acute cardiopulmonary pathology. Impression dictated by: Rosalino Gutierrez M.D. 07/01/2025 12:32 AM Dictation Location: [place] [address] Electronically authenticated by: [id number] Y Date: 07/01/2025 00:32 Dictated By: Rosalino Gutierrez M.D. Signed By: 07/01/25 003 DD/ TD/TT: Dredge Pump Operator: TSH Reviewed date:06/05/2025 08:21:47 PM Interpretation: Performing Lab: Notes/Report: [facility] , Thyroid Stimulating Hormone 2.077 0.358-3.740 u IU/mL Performing Lab:see noteML - [facility] LBT4 Reviewed date:06/05/2025 08:21:47 PM Interpretation: Performing Lab: Notes/Report: [facility] ,T4 Izyqsgvwj92.304.80-13.90 ug/dLPerforming Lab:see noteML - [facility] LBPROF 14(COMP METB) Reviewed date:06/05/2025 08:21:47 PM Interpretation: Performing Lab: Notes/Report: [facility] ,Hnegsd808806-295 mmol/LPotassium3.53.5-5.1 mmol/RBcanvypf2693-270 mmol/LCarbon Zyjadcu36.921.0-32.0 mmol/LAnion Gap17.5Qyyvirh95138-003 mg/dLBlood Urea Nitrogen5.07.0-18.0 mg/dLCreatinine0.500.55-1.02 mg/dLEstimated GFR ( Becka>60>=60 mL/min/1.73m 2Estimated GFR (Non- Sonya>60>=60 mL/min/1.73m 2BUN Creatinine Ratio10.5Hzyomrj9.48.5-10.1 mg/dLBilirubin Total0.50.2-1.0 mg/dL Aspartate Amino Zyrumodvdcr6855-16 U/LAlanine Mxjyhmneabucbxte26283-57 U/L Alkaline Jyemncpjaso8133-854 U/LTotal Protein7.56.4-8.2 g/dLAlbumin Level3.73.4- 5.0 g/dLGlobulin3.8Albumin Globulin Ratio1.0Performing Lab:see noteML - [facility] LBLIPID PROFILE Reviewed date:06/05/2025 08:21:47 PM Interpretation: Performing Lab: Notes/Report: [facility] ,Dzjptjpjnekeq312<=150 mg/nADpfiqxfsfyh257<=200 mg/dLHDL Fpcgbszlvyt7059-49 mg/dL > or =60 mg/dl - LOW CARDIOVASCULAR RISK <40 mg/dl - HIGH CARDIOVASCULAR RISK VLDL OKFFNUBEXKV372.0Chol HDL Ratio7.5 3.3 - 4.4 LOW RISK 4.4 - 7.1 AVERAGE RISK 7.1 - 11.0 MODERATE RISK >11.0 HIGH RISK Performing Lab:see noteML - [facility] LBGLYCOHEMOGLOBIN A1C Reviewed date:06/05/2025 08:21:47 PM Interpretation: Performing Lab: Notes/Report: [facility] ,Glycohemoglobin A1C10.84.5-6.2 % ADA RECOMMENDED LIMIT 4.0 - 6.0 ADA THERAPEUTIC TARGET < 7.0 ACTION SUGGESTED > 7.0 Estimated Average Swpsljr425Hqloxangkw Lab:see noteML - [facility] LB FREE T3 Reviewed date:06/05/2025 08:21:47 PM Interpretation: Performing Lab: Notes/Report: [facility] ,Free T32.502.18-3.98 pg/mLPerforming Lab:see noteML - [facility] LB DIRECT LDL Reviewed date:06/05/2025 08:21:47 PM Interpretation: Performing Lab: Notes/Report: [facility] ,LDL Cholesterol Zpxfpo03 <100 mg/dl OPTIMAL 100-129 mg/dl NEAR OR ABOVE OPTIMAL 130-159 mg/dl BORDERLINE HIGH 160-189 mg/dl HIGH >190 mg/dl VERY HIGH Performing Lab:see noteML - [facility] LBCBC AUTO DIFF Reviewed date:06/05/2025 08:21:47 PM Interpretation: Performing Lab: Notes/Report: [facility] ,White Blood Count10.14.0-11.0 10 3/uLRed Blood Count5.184.20-5.40 10 6/uL Rgwjpaaufe81.712.0-16.0 g/rRPobakvmkrr03.636.0-48.0 %Mean Corpuscular Sdcggd41.0 81.0-99.0 fLMean Corpuscular Tcfnuadgyo96.226.7-34.0 pgMean Corpuscular HGB Conc 35.829.9-35.2 g/dLRed Cell Distribution Width11.811.0-15.0 %Platelet Nfofx332 150-450 10 3/uLMean Platelet Kxathy51.79.5-13.5 fLNeutrophils Percent Auto62.4 43.0-75.0 %Lymphocytes Percent Auto27.620.5-60.0 %Monocytes Percent Auto5.91.7- 12.0 %Eosinophils Percent Auto2.50.9-7.0 %Basophils Percent Auto1.10.2-2.0 % Immature Granulocytes Pct Auto0.50.0-0.5 %Neutrophils Absolute Auto6.31.4-6.5 10 3/uLLymphocytes Absolute Auto2.81.2-3.8 10 3/uLMonocytes Absolute Auto0.60.3-0.8 10 3/uLEosinophils Absolute Auto0.30.0-0.7 10 3/uLBasophils Absolute Auto0.10.0- 0.1 10 3/uLImmature Granulocytes Abs Auto0.050.00-0.03 10 3/uLPerforming Lab:see note - [facility] LBSjogren's Ab, Anti-SS-A/-SS-B Reviewed date:02/25/2025 12:27:47 PM Interpretation: Performing Lab: Notes/Report: [facility] ,Sjogren's Anti-SS-A<0.20.0-0.9 AISjogren's Anti-SS-B<0.20.0-0.9 AI Performed at: [address] [id number] Export Specialist: Gregorio Martinez PhD, Phone: [phone] Performing Lab:[facility] LBAntistreptolysin O Ab Reviewed date:02/25/2025 12:27:47 PM Interpretation: Performing Lab: Notes/Report: [facility] ,Antistreptolysin O Ab82.40.0-200.0 IU/mL Performed at: [address] [id number] Export Specialist: Gregorio Martinez PhD, Phone: [phone] Performing Lab:see [facility] LBURIC ACID SERUM Reviewed date:02/21/2025 06:32:10 PM Interpretation: Performing Lab: Notes/Report: [facility] ,Uric Acid4.92.6-6.0 mg/dLPerforming Lab:see [facility] LB RHEUMATOID FACTOR Reviewed date:02/25/2025 12:27:47 PM Interpretation: Performing Lab: Notes/Report: [facility] ,Rheumatoid Factor (RF)10.4<14.0 IU/mLPerforming Lab:see [facility] LBANA by IFA Reviewed date:02/25/2025 12:27:47 PM Interpretation: Performing Lab: Notes/Report: [facility] ,Antinuclear Antibodies, IFAPositive. Negative <1:80 Borderline 1:80 Positive >1:80 Homogeneous PatternTNP.Nucleolar PatternTNP.Speckled Pattern1:160.ICAP nomenclature: AC-2,4,5,29Centromere PatternTNP.Spindle Apparatus PatternTNP. Nuclear Membrane PatternTNP.Midbody PatternTNP.Nuclear Dot PatternTNP.PCNA PatternTNP.Centriole PatternTNP.Note:Comment. Pattern Potential Disease Association Homogeneous Systemic Lupus Erythematosus, Drug Induced Systemic Lupus Erythematosus, Chronic Autoimmune hepatitis, Juvenile Idiopathic Arthritis Speckled Sjogren Syndrome, Systemic Lupus Erythematosus, Subacute Cutaneous Lupus, Lupus, Congenital Heart Block, Mixed Connective Tissue Disease, Scleroderma-diffuse, Scleroderma-Autoimmune Myositis Overlap Syndrome, Systemic Lupus Xdyjtotbvgdji-Rgobbhbszjf-Fixjnzspmq Myositis Overlap Syndrome, Systemic Autoimmune Rheumatic Disease, [...] Cytopenias, Linear Scleroderma, Antiphospholipid Syndrome Performed at: [facility] [address] [id number] Export Specialist: Gregorio Martinez PhD, Phone: [phone] Performing Lab:see [facility] LB head/brain wo/w con Reviewed date:02/19/2025 01:01:38 PM Interpretation: Performing Lab: Notes/Report: Source Facility: [place] [address] Magnetic Resonance Report Signed Patient: ALPHONSO FENTON MR#: [id number] : 1980 Acct:[id number] Age/Sex: 44 / F ADM Date: 02/18/25 Loc: MRI Attending Dr: Gabino Bedolla M.D. Ordering Physician: Gabino Bedolla M.D. Date of Service: 02/18/25 Procedure(s): MR head/brain wo/w con Accession Number(s): [id number] cc: Gabino Bedolla M.D. [place] [address] Patient Name: ALPHONSO FENTON MRN: [id number] date: 1980 Sex: F Assigned Patient Location: MRI Current Patient Location: MRI Accession/Order Number: [id number] Exam Date: 02/18/2025 08:47 Report Date: 02/18/2025 [...] Isabelle Ortiz M.D.02/18/2025 9:04 AM Dictation Location: [place] [address] Electronically authenticated by: [id number] Y Date: 02/18/2025 09:04 Dictated By: Isabelle Ortiz M.D. Signed By: 02/18/2507 DD/ 3 TD/TT: Dredge Pump Operator:CREATININE Reviewed date:11/11/2024 12:58:29 PM Interpretation: Performing Lab: Notes/Report: [facility] ,Creatinine0.670.55-1.02 mg/dLEstimated GFR ( Becka>60>=60 mL/min/1.73m 2Estimated GFR (Non- Sonya>60>=60 mL/min/1.73m 2Performing Lab:see noteML - [facility] LBXR ribs LT 2V Reviewed date:07/01/2025 08:44:05 AM Interpretation: Performing Lab: Notes/Report: Source Facility: [facility]-[address] [place] [address] [place] [address] XRay Report Signed Patient: ALPHONSO FENTON MR#: [id number] : 1980 Acct:[id number] Age/Sex: 45 / F ADM Date: 06/30/25 Loc: RAD Attending Dr: Gabino Bedolla M.D. Ordering Physician: Gabino Bedolla M.D. Date of Service: 06/30/25 Procedure(s): XR ribs LT 2V Accession Number(s): [id number] cc: Gabino Bedolla M.D. [place] [id number] Patient Name: ALPHONSO FENTON MRN: [id number] date: 1980 Sex: F Assigned Patient Location: [facility] Current Patient Location: Accession/Order Number: [id number] Exam Date: 06/30/2025 11:58 Report Date: 07/01/2025 00:31 At the request of: GABINO BEDOLLA MD Procedure: XR ribs LT 2V XR ribs LT 2V 06/30/2025 12:07 PM SIGNS AND SYMPTOMS: Fall, left lower rib pain PROTOCOL: Frontal radiograph of the chest with oblique radial graphs of the left ribs COMPARISON: None FINDINGS: The trachea is midline. The heart and mediastinal structures are within normal limits. The lung parenchyma is clear. There is cortical irregularity along the lateral aspect of the left seventh rib which may represent a mildly displaced rib fracture. XR/XR ribs LT 2V IMPRESSION: No acute cardiopulmonary pathology. There is cortical irregularity along the lateral aspect of the left seventh rib which may represent a mildly displaced rib fracture. Impression dictated by: Rosalino Gutierrez M.D. 07/01/2025 12:31 AM Dictation Location: [place] [address] Electronically authenticated by: [id number] Y Date: 07/01/2025 00:31 Dictated By: Rosalino Gutierrez M.D. Signed By: 07/01/2533 DD/ TD/TT: Dredge Pump Operator:CRP Reviewed date:02/21/2025 06:32:10 PM Interpretation: Performing Lab: Notes/Report: [facility] ,C Reactive Protein<0.50<=0.50 mg/dLPerforming Lab:see noteML - [facility] Reason For Referral Diagnosis 1 Diabetic peripheral neuropathy (E11.42) Referral Organization [facility] Referring Provider First Name Markos Referring Provider Last Name Kobe Referring Provider [facility] Referred Provider Duane Vaca Referred Provider Specialty Neurology Referral Priority Routine Diagnosis 1 Positive TONNY (antinu clear antibody) (R76.8) Referral Organization [facility] Referring Provider First Name Markos Referring Provider Last Name Kobe Referring Provider [facility] Referred Provider Corey Nguyen Referred Provider Specialty Rheumatology Referral Priority Routine Medications Medication SIG (Take, Route, Frequency, Duration) Notes Start Date End Date Status Amitriptyline HCl 150 mg TAKE 1 TABLET B Y MOUTH ONCE DAILY AT BEDTIME; Duration: 30 days ActivePen [place] 5/16 31G X 8 MMUse 1 daily to give Lantus; Duration: 90 days 4ActiveNaproxenActiveMetoprolol Tartrate 100 mgTAKE 2 TABLETS BY MOUTH TWICE DAILY; Duration: 30ActiveGabapentin 600 mgTAKE 1 TABLET BY MOUTH IN THE MORNING, at noon, and 2 (TWO) TABLETS IN THE EVENING; Duration: 30ActiveBlood Glucose Test StripUse 1 strip via glucometer once a day fasting every morning; Duration: 90 daysActivetiZANidine HCl 4 mgTAKE 1 TABLET BY MOUTH AT BEDTIME NEEDED; Duration: 30ActiveBlood Glucose Monitor System w/Deviceas directedActive Potassium Chloride Stephany ER 10 mEqTAKE 1 TABLET BY MOUTH TWICE DAILY WITH FOOD; Duration: 30ActivemetFORMIN HCl 1000 MGTAKE 1 TABLET BY MOUTH TWICE DAILY; Duration: 30 daysActiveLancets -as directedActiveFurosemide 80 mgTAKE 1 TABLET BY MOUTH ONCE DAILY; Duration: 30ActiveJanuvia 100 MG1 tablet Orally Once a day; Duration: 30 days5ActiveFenofibrate 160 MG1 tablet Orally Once a day; Duration: 30 daysActiveCholecalciferol 625 MCG (91729 UT)1 tablet Orally Once a dayActiveVascepa 1 GM2 capsules with meals Orally Twice a day; Duration: 30 day(s)5Active Social History Tobacco Use: Social History Observation Description Date Details (start date - stop date) Current Smoker NA - NA Tobacco Use/Smoking Question Answer Notes Patient is a current every day smoker Alcohol Screen (Audit-C) Question Answer Notes Did you have a drink containing alcohol in the p ast year? No Kzlnik1FwhmrzqavwylzbQznaqnkrWYXUS-T (Standard) Question Answer Notes Did you have a drink containing alcohol in the p ast year? No Xzedkc2UptqzcjbnianbyYowkjkod Problems Problem Type SNOMED Code ICD Code Onset Dates Problem Status W/U Status Risk Notes Problem Snoring (45414925) Snoring (R06.83) ActiveconfirmedProblemAcquired absence (05215155)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)ActiveconfirmedProblemFatigue (39689166)Fatigue (R53.83)Active confirmedProblemDiabetic peripheral neuropathy (399917310)Diabetic peripheral neuropathy (E11.42)ActiveconfirmedProblemHypertension (30918518)Hypertension (I10)ActiveconfirmedProblemEdema (85701948)Edema (R60.9)ActiveconfirmedProblem Migraine (54447332)Migraine (G43.909)ActiveconfirmedProblemType 2 diabetes mellitus (01136974)Type 2 diabetes mellitus (E11.9)ActiveconfirmedProblemLumbar radiculopathy (353003148)Lumbar radiculopathy (M54.16)ActiveconfirmedProblem Chronic diarrhea (404109149)Chronic diarrhea (K52.9)ActiveconfirmedProblemEdema (611377168)Edema leg (R60.0)ActiveconfirmedProblemObese (500324147)Obese (E66.9) ActiveconfirmedProblemWell adult (126832839)Well adult (Z00.00)Activeconfirmed ProblemPolyneuropathy (13003787)Polyneuropathy (G62.9)ActiveconfirmedProblem Raised antinuclear antibody (439891305)Positive TONNY (antinuclear antibody) (R76.8)ActiveconfirmedProblemSeasonal allergic rhinitis (883975460)Allergic rhinitis, seasonal (J30.2)ActiveconfirmedProblemClaudication (91944516) Claudication (I73.9)ActiveconfirmedProblemEpigastric pain (84806093)Abdominal pain, epigastric (R10.13)ActiveconfirmedProblemDisorder of soft tissue (90447036)Swelling of both lower extremities (M79.89)ActiveconfirmedProblemAnkle edema (54917786)Ankle edema (R60.0)ActiveconfirmedProblemAbdominal hernia (72038062)Other abdominal hernia (K46.9)ActiveconfirmedProblemScleroderma (091408072)Scleroderma (M34.9)ActiveconfirmedProblemHysterectomy (961153151)H/O abdominal hysterectomy (Z90.710)ActiveconfirmedProblemAbdominal angina (019717872)Abdominal angina (K55.1)ActiveconfirmedProblemOvarian cyst (78350148) Cyst, ovarian (N83.209)ActiveconfirmedProblemAbdominal aortic aneurysm (disorder) (459105626)Abdominal aortic aneurysm (AAA), unspecified part, unspecified whether ruptured (I71.40)Activeconfirmed Vital Signs Temperature 98.7 degrees Fahrenheit 01/31/2025 Blood pressure yvzyphcfa79 mm Hg06/30/20257255Mxejoz06 in06/30/2025lood pressure zpkivswx972 mm Hg06/30/20257036Ecegms272.0 lbs06/30/2025BMI36.47 kg/m206/30/2025 Encounters Encounter Location Date Provider Diagnosis [address] [address] 10/25/2024 Markos Hoy Well adult Z00.[address] [address] 01/31/2025 Markos Hoy Lumbar radiculopathy M54.16 and Diabetic peripheral neuropathy E11.[address] [address] 02/21/2025 Markos Hoy Hypertension I10 ; Lumbar radiculopathy M54.16 and Migraine G43.[address] [address] 06/30/2025 Markos Hoy Chest wall pain R07. [address] [place] [address] 10/18/2024 Markos Hoy [facility] [place] [address] 10/25/2024[facility] [place] [address]/[facility] [facility] [place] [address]/07/2025Doug [facility] [facility] [place] [address]/Doug [facility] [facility] [place] [address]/06/2025[facility].00[facility] [facility] [place] [address]/08/2025Doug [facility] [facility] [place] [address]/Doug [facility] [facility] [place] [address]/[facility] [facility] [place] [address]/Doug [facility] [facility] [place] [address]/ Markos HoyDiabetic peripheral neuropathy E11.42 and Polyneuropathy G62.9[facility] [facility] [place] [address]/ Markos HoyPositive TONNY (antinuclear antibody) R76.8[facility] [address] [facility] [place] [address]/12/2024Doug [facility] Z00.00 [facility] [facility] [place] [address] 05/17/2025Doug HoyHypertension I10 ; Polyneuropathy G62.9 ; Back pain M54.9 ; Type 2 diabetes mellitus E11.9 and Edema leg R60.0[facility] [place] [address]/01/2025Doug [facility] [place] [address]/ Markos HoyRib fracture S22.39XABVPark[facility] [place] [address]/12/2024Doug [facility] Z00.00[place] [address] [place] [address]/01/2025[facility] Encounter Date Diagnosis (ICD Code) Assessment Notes Treatment Notes Treatment Clinical Notes Section Notes 06/30/2025 Chest wall pain (ICD-10 - R07.89 ) 02/08/2025Well adult (ICD-10 - Z00.00)02/21/2025Diabetic peripheral neuropathy (ICD-10 - E11.42)02/21/2025Polyneuropathy (ICD-10 - G62.9)02/25/2025Positive TONNY (antinuclear antibody) (ICD-10 - R76.8)05/04/2025Well adult (ICD-10 - Z00.00) 05/17/2025Hypertension (ICD-10 - I10)05/17/2025Polyneuropathy (ICD-10 - G62.9) 10/25/2024Well adult (ICD-10 - Z00.00)01/31/2025Lumbar radiculopathy (ICD-10 - M54.16)01/31/2025Diabetic peripheral neuropathy (ICD-10 - E11.42)02/21/2025 Hypertension (ICD-10 - I10)02/21/2025Lumbar radiculopathy (ICD-10 - M54.16) 07/01/2025Rib fracture (ICD-10 - S22.39XA)07/05/2025Well adult (ICD-10 - Z00.00) 02/21/2025Migraine (ICD-10 - G43.909)05/17/2025ack pain (ICD-10 - M54.9) 05/17/2025Type 2 diabetes mellitus (ICD-10 - E11.9)05/17/2025Edema leg (ICD-10 - R60.0) Plan Of Treatment [...] GFR 05/17/2025 OCCULT BLOOD, FECAL, IMMUNOASSAY 025 XR Ribs 2 Views Left 07/01/2025 CBC W/AUTO DIFF 05/17/2025 STOOL OCCULT BLOOD [...] Coverage End Date MMO [address] [place], [place] [id number] Alphonso Fenton Self - patient is the insured 4 Medications Administered Medication Instructions Date of Administration Dosage Notes Kenalog-40 mgKetorolac Kmellyxedwim50/06/202460 pa41Wuooagfkn Tromethamine mgOrphenadrine Gylapai520 mg Medical (General) History Medical History History ICD [...] Scleroderma M34.9 Obese E66.9 Cyst, ovarian N83.209 fx L seventh rib Surgical History Surgery Date(Month/Year) [facility] Oral surgery for Jaw fractureC-sectionGallbladderhysterectomy
--- OUTSIDE RECORDS SUMMARY | 2025-09-14 07:26 | XMS_ITS | Clinical Summary ---
Author Organization [facility] Address [address] [place] [address] Care Team Providers Care Mud Trucker Name Role Phone Unavailable Primary Care Provider Unavailabl e Social History Tobacco UseTypesPacks/DayYears UsedDateSmoking Tobacco: Never Assessed CommentsUnknownSex and Gender InformationValueDate RecordedSex Assigned at Not on fileLegal JxiHppspq61/29/2022 9:58 PM EDTGender IdentityNot on fileSexual OrientationNot on file Plan of Treatment Not on file
--- OUTSIDE RECORDS SUMMARY | 2025-09-14 07:26 | XMS_ITS | Clinical Summary ---
Author Organization [facility] Address [id number] [address] [place] [address] Care Team Providers Care Seasoning Sprayer Name Role Phone Narinder Bullock MD Primary Care Provider [phone] Allergies Active AllergyReactionsCriticalityNoted DateCommentsEggAbdominal Pain09/04/2021 OtherAbdominal Pain,Nausea And Rcwfebju81/28/2021 Medications MedicationSigDispense QuantityRefillsLast FilledStart DateEnd DateStatus cholecalciferol, vitamin D3, 2,000 units tablet Take 1 tablet by mouth daily.06/25/2021ctive furosemide (LASIX) 80 mg tablet Take 80 mg by mouth daily.07/01/2021ctive gabapentin (NEURONTIN) 300 mg capsule Take 300 mg by mouth 3 (three) times a day.07/22/2021ctive hyoscyamine (LEVSIN) 0.125 mg SL tablet DISSOLVE 1 (ONE) TABLET UNDER THE TONGUE FOUR TIMES DAILY PCIBPR0907/02/2021 Active metFORMIN XR (GLUCOPHAGE-XR) 500 mg 24 hr tablet Take 500 mg by mouth 2 (two) times a day.07/06/2021ctive metoprolol tartrate (LOPRESSOR) 100 mg tablet Take 100 mg by mouth 3 (three) times a day.07/01/2021ctive pantoprazole (PROTONIX) 40 mg EC tablet Take 40 mg by mouth daily.07/01/2021ctive pioglitazone (ACTOS) 15 mg tablet Take 30 mg by mouth daily.06/02/2021ctive potassium chloride (KLOR-CON M) 10 MEQ CR tablet Take 10 mEq by mouth 2 (two) times a day.07/01/2021ctive terbinafine (LamISIL) 250 mg tablet Take 250 mg by mouth daily.07/19/2021ctive tiZANidine (ZANAFLEX) 4 mg tablet Take 12 mg by mouth nightly. at zmxndyd0007/01/2021ctive Active Problems ProblemNoted DateDiagnosed DateAbnormal computerized axial tomography of abdomen 09/04/2021ltered bowel lctzyzqk18/02/2021iabetes rytpnhxr18/02/2021dema 09/04/2021pigastric pain09/04/2021Gastroesophageal reflux zykpceh6909/04/2021 Dtplethazoks69/02/6026Bgpcboitbae08/02/2021eft lower quadrant abdominal pain 09/04/20213551Orcndkokkz71/02/2021Vitamin ydzffoxwhm47/02/2021 Social History Tobacco UseTypesPacks/DayYears UsedDateSmoking Tobacco: Some DaysSmokeless Tobacco: Never Tobacco Cessation:Ready to Q uit: Yes; Counseling Given: Yes Alcohol UseStandard Drinks/WeekCommentsNot Currently0 (1 standard drink = 0.6 oz pure alcohol)ChildcareAnswerDate KydyhypwEazcfsdgzHnnxvce18/12/2019Employment AnswerDate CpapqvjrVojsvtfpkqDbumect60/12/2019CommentsUnknownSex and Gender InformationValueDate RecordedSex Assigned at BirthNot on fileLegal Sex Inlktl1806/08/2015 11:54 AM EDTGender IdentityNot on fileSexual OrientationNot on file Last Filed Vital Signs Vital SignReadingTime TakenCommentsBlood Rgplfmlz352/9710 9:40 AM EDT Kuzqo804608/30/2021 9:40 AM EDTTemperature--Respiratory Rate--Oxygen Saturation-- Inhaled Oxygen Concentration--Znmeuh351.1 kg (342 lb)08/30/2021 9:40 AM EDT Qmcedo964.3 cm (5' 9 )08/30/2021 9:40 AM EDTBody Mass Index50. 9:40 AM EDT Plan of Treatment Health MaintenanceDue DateLast DoneCommentsDepression Tiowngniv57/26/1991Tobacco Xusihpedu46/26/1991Adult BMI Pqogrsioh26/26/1997DTaP,Tdap and Td Vaccines (1 - Tdap)1998Pap Smear07/26/2000Influenza Rghtncx9107/04/2025 Medical Devices Not on file Insurance Care Teams Team MemberRelationshipSpecialtyStart DateEnd Narinder Bullock MD PCP - Bfpgzib78/20/12
[2025-09-15 15:08] LABS: Albumin 3.4 g/dL (2.9-4.4); Alpha-1-Globulin 0.2 g/dL (0.0-0.4); Alpha-2-Globulin 0.9 g/dL (0.4-1.0); Gamma Globulin 0.7 g/dL (0.4-1.8)
[2025-09-16 16:09] LABS: Immunoglobulin A, Qn, Serum 355 mg/dL (87-352)
== END 2025-09-14 07:21 | disposition home or self-care (01) ==
LOC: LAB 07:23
PROVIDERS: PCP Family Medicine; Visit Provider Internal Medicine Rheumatology
DX: Z01.84 Encounter for antibody response examination (principal); Z51.81 Encounter for therapeutic drug level monitoring
CPT/HCPCS: 36415; 84155; 84165